=== PATIENT | female | born 1975 | race Hispanic/Latino ===

== ENCOUNTER 2021-04-18 10:07 | Emergency (ER) | payer OTHER ==
[2021-04-18 10:53] LABS: Absolute Lymphocytes (CBC) 2.7 K/uL (0.7-4.9); Hematocrit 36.1 % (36.0-45.0); Lymphocytes % 21.8 % (15.3-44.8); MPV 8.4 fL (7.6-11.3); RBC Red Blood Cell Count 4.06 M/uL (3.86-4.86)
[2021-04-18] MEDS ORDERED: LORazepam 2 MG/ML VIAL ONE (11:13)
--- NOTE | 2021-04-18 11:27 | RAD REPORT ---
EXAM DESCRIPTION: RAD - Hip Left 2 View - 04/18/2021 11:19 am CLINICAL HISTORY: Left hip pain FINDINGS: Old ischial and pubic bone fractures. No acute fracture or dislocation seen. Intramedullary julian has been placed into an old left femoral fracture. Bones are osteoporotic. Screws fuse the SI joints
--- NOTE | 2021-04-18 11:52 | RAD REPORT ---
EXAM DESCRIPTION: CT - Head Brain Wo Cont - 04/18/2021 11:31 am CLINICAL HISTORY: Head injury/confusion COMPARISON: None TECHNIQUE: Computed axial tomography of the head was obtained. IV contrast was not requested. All CT scans are performed using dose optimization technique as appropriate and may include automated exposure control or mA/KV adjustment according to patient size. FINDINGS: An intracranial bleed is not seen . The ventricles are normal in caliber. No extra-axial fluid collection is noted. Fluid within the sinuses/ mastoids is not seen. IMPRESSION: No acute intracranial abnormality is seen. If patient's symptoms persist MRI of the bra in would be recommended.
[2021-04-18] MEDS ORDERED: NA CHLORIDE 0.9% 1,000 ML ONE (12:04)
[2021-04-18 12:21] LABS: Protime INR 1.08
[2021-04-18 13:06] LABS: Urine Blood Trace-intact (Negative); Urine Glucose Negative (Negative); Urine Protein Trace (Negative); Urine Specific Gravity >=1.030 (1.005-1.030); Urine pH 5.5 (5.0-7.0)
[2021-04-18 13:23] LABS: Barbiturates NEGATIVE (NEGATIVE); Benzodiazepines NEGATIVE (NEGATIVE); Cocaine NEGATIVE (NEGATIVE); METHAMPHETAM POSITIVE (NEGATIVE); Methadone NEGATIVE (NEGATIVE); Opiates NEGATIVE (NEGATIVE); Phencyclidine NEGATIVE (NEGATIVE); THC Cannibis NEGATIVE (NEGATIVE)
[2021-04-18 13:44] LABS: ALT/SGPT 22 U/L (12-78); AST/SGOT 24 U/L (15-37); Albumin 3.6 g/dL (3.4-5.0); Alkaline Phosphatase 87 U/L (45-117); BUN Blood Urea Nitrogen 17 mg/dL (7-18); Bicarbonate 27 mmol/L (21-32); Bilirubin Direct 0.2 mg/dL (0-0.2); Bilirubin Total 0.7 mg/dL (0.2-1.0); Glucose Level 101 mg/dL (74-106); Potassium 3.6 mmol/L (3.5-5.1); Protein, Total 8.2 g/dL (6.4-8.2); Sodium Level 141 mmol/L (136-145)
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
[2021-04-18 22:04] VITALS: TEMP 98.2
[2021-04-18 22:27] VITALS: O2SAT 99
[2021-04-18 22:28] VITALS: BP 97/57
--- NOTE | 2021-04-20 07:53 | EKG ---
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
== END 2021-04-18 21:50 ==
LOC: ER 10:07
DX: R45.851 Suicidal ideations (principal); F17.210 Nicotine dependence, cigarettes, uncomplicated; Z20.822 Contact with and (suspected) exposure to COVID-19; Z88.0 Allergy status to penicillin; Z88.8 Allergy status to other drugs, medicaments and biological substances
CPT/HCPCS: 93005; 85025; 80048; 36415; 80320; 80329 ×2; 85610; 82947; 80076; 85730; 81003; 80307; 70450; 73502; 96372; 99285; U0003; J7030

== ENCOUNTER 2021-08-16 09:57 | Emergency (ER) | payer OTHER ==
--- OUTSIDE RECORDS SUMMARY | 2021-08-16 09:59 | XMS REPORT | Continuity of Care Document ---
:1975 Author Organization [facility] t Address [address] [place] [address] Care Team Providers Name Role Phone THIAGO BOYCE Primary Care Physician Unavailable THIAGO BOYCE Attending Clinician Unavailable Doctor Unassigned, Name Attending Clinician Unavailable Thiago Boyce MD Attending Clinician Payers Payer Name Policy Type Policy Number Effective Date Expiration Date [facility] [id number] 2019 00:00:00 Problems Condition Condition Condition Status Onset Resolution Last Treating Co mments Source Name Details Category Date Date Treatment Clinician Date No known No known Disease NPI:1 83 active active [id number] problems problems Allergies, Adverse Reactions, Alerts Allergy Allergy Status Severity Reaction(s) Onset Inactive Treating Comm ents Source Name Type Date Date Clinician 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 tablet gabapentin 2022-0 2022- No 300mg Take 300 N PI:183 300 mg 1-21 01-21 mg by [id number] capsule 16:02: 00:00 mouth 3 48 :00 (three) times daily. busPIRone 2022-0 2022- No 15mg Take 15 mg N PI:183 15 mg -21 -21 by mouth 3 [id number] tablet 16:02: 00:00 (three) 33 :00 times daily. atorvastati 2022-0 Yes 20mg Take 20 mg NPI:183 n 20 mg 1-07 by mouth [id number] tablet 15:04: daily. 25 OXcarbazepi 2022-0 Yes 600mg Take 600 N PI:183 ne 600 mg 1-07 mg by [id number] tablet 15:04: mouth 3 25 (three) times daily. ergocalcife 2022-0 Yes 1{capsu Take 1 N PI:183 rol, 1-07 le} capsule by [id number] vitamin d2, 15:04: mouth 2 1,250 mcg 25 (two) (50,000 times unit) daily. capsule atorvastati 2022-0 Yes 20mg Take 20 mg NPI:183 n 20 mg 1-07 by mouth [id number] tablet 15:04: daily. 25 OXcarbazepi 2022-0 Yes 600mg Take 600 N PI:183 ne 600 mg 1-07 mg by [id number] tablet 15:04: mouth 3 25 (three) times daily. ergocalcife 2022-0 Yes 1{capsu Take 1 N PI:183 rol, 1-07 le} capsule by [id number] vitamin d2, 15:04: mouth 2 1,250 mcg 25 (two) (50,000 times unit) daily. capsule atorvastati Yes 20mg Take 20 mg NPI:183 n 20 mg 1-07 by mouth [id number] tablet 15:04: daily. 25 OXcarbazepi Yes 600mg Take 600 N PI:183 ne 600 mg 1-07 mg by [id number] tablet 15:04: mouth 3 25 (three) times daily. ergocalcife Yes 1{capsu Take 1 N PI:183 rol, 1-07 le} capsule by [id number] vitamin d2, 15:04: mouth 2 1,250 mcg 25 (two) (50,000 times unit) daily. capsule naproxen 2021- No [id number] 500mg Take 1 NPI:183 (NAPROSYN) 04-15 tablet by [id number] 500 mg 00:00: 00:00 mouth 2 tablet 00 :00 (two) times daily with meals. Immunizations Ordered Immunization Filled Immunization Date Status Commen ts Source Name Name SARS-COV-2 COVID-19 2021-03-24 Completed NPI:1 [id number] MODERNA VACCINE 00:00:00 SARS-COV-2 COVID-19 2021-03-24 Completed NPI:1 [id number] MODERNA VACCINE 00:00:00 SARS-COV-2 COVID-19 2021-03-24 Completed NPI:1 [id number] MODERNA VACCINE 00:00:00 Vital Signs Vital Name Observation Time Observation Value Comments Source Systolic blood pressure 2021-04-29 21:50:00 121 mm[Hg] Diastolic blood 2021-04-29 21:50:00 79 mm[Hg] NPI:1 [id number] pressure Heart rate 2021-04-29 21:50:00 86 /min NPI:183 [id number] Body height 2021-04-29 21:50:00 157.5 cm NPI:183 [id number] Body weight 2021-04-29 21:50:00 70.761 kg NPI:1830 [id number] BMI 2021-04-29 21:50:00 28.53 kg/m2 NPI:1831 [id number] Procedures Procedure Date / Time Performed Performing Clinician Sour e EXTERNAL PROVIDER 2021-05-16 06:01:00 Doctor Unassigned, No RECORDS Name Encounters Start End Encounter Admission Attending Care Care Encounter Source Date/Time Date/Time Type Type Clinicians Facility Department ID 2021-09-12 2021-09-12 Outpatient [facility] [id number] NPI:183 10:30:00 10:30:00 BILL [id number] 2021-06-03 2021-06-03 Outpatient [facility] [id number] NPI:183 13:00:00 13:23:49 BILL [id number] 1 2021-06-03 2021-06-03 Outpatient [facility] [id number] NPI:183 13:00:00 13:00:00 BILL [id number] 2021-05-16 2021-05-16 Orders Doctor LACEY [id number] NPI:183 00:00:00 00:00:00 Only Unassigned, AMAYA [id number] [place] [facility] [id number] 2021-05-04 2021-05-04 Telephone [facility] [id number] NPI:183 00:00:00 00:00:00 [facility] [id number] [id number] SHANITA?BLEA [id number] [place] [address] [facility] 2021-04-29 2021-04-29 Office [facility] [id number] NPI:183 16:00:00 16:15:00 Visit [facility] [id number] [facility] [id number] SHANITA?BLEA [phone] [place] [address] [facility] Results This patient has no known results.
[2021-08-16 11:07] LABS: Absolute Lymphocytes (CBC) 1.8 K/uL (0.7-4.9); Hematocrit 41.6 % (36.0-45.0); Lymphocytes % 12.7 % (15.3-44.8); MPV 7.4 fL (7.6-11.3); RBC Red Blood Cell Count 4.63 M/uL (3.86-4.86)
[2021-08-16 11:25] LABS: Albumin 3.6 g/dL (3.4-5.0); Bilirubin Total 0.2 mg/dL (0.2-1.0); Potassium 3.6 mmol/L (3.5-5.1); Protein, Total 8.7 g/dL (6.4-8.2)
[2021-08-16] MEDS ORDERED: ONDANSETRON 4 MG/2 ML VIAL ONE (11:25)
[2021-08-16] MEDS ORDERED: NA CHLORIDE 0.9% 1,000 ML ONE (11:26)
[2021-08-16] MEDS ORDERED: FAMOTIDINE 20 MG/2 ML VIAL IV ONE (11:26)
--- NOTE | 2021-08-16 12:40 | RAD REPORT ---
EXAM DESCRIPTION: CTAbdomen Pelvis W Contrast - 08/16/2021 12:30 pm CLINICAL HISTORY: Abdominal pain. Abdominal pain, acute, nonlocalized COMPARISON: No comparisons TECHNIQUE: Biphasic CT imaging of the abdomen and pelvis was performed with 100 ml non-ionic IV cont rast. All CT scans are performed using dose optimization technique as appropriate and may include automated exposure control or mA/KV adjustment according to patient size. FINDINGS: The lung bases are clear. The liver, pancreas, adrenal glands and kidneys are within normal limits. Absent spleen. No bowel obstruction, free air, free fluid or abscess. The appendix is normal. No evidence of signi ficant lymphadenopathy. Hardware is present in the inferior pelvis. Hardware also noted proximal left femur. Hysterectomy not ed with device in place. IMPRESSION: No acute intra-abdominal or pelvic finding.
--- NOTE | 2021-08-16 13:23 | ER ---
Nurse's Notes [facility] Name: Cindy Ackerman Age: 46 yrs Sex: Female : 1975 Arrival Date: 08/16/2021 Time: 09:58 Bed 9 Private MD: Paulino Boyce Diagnosis: Abdominal pain, unspecified;Vomiting;Diarrhea, unspecified Presentation: 08/16 10:33 Chief complaint: Patient states: N/V/D and UGARTE since yesterday. Coronavirus screen: jl7 diarrhea, headache, nausea, vomiting. Client presents with at least one sign or symptom that may indicate coronavirus-19. Standard/surgical mask placed on the client. Provider contacted for isolation considerations. Ebola Screen: No symptoms or risks identified at this time. Initial Sepsis Screen: Does the patient meet any 2 criteria? No. Patient's initial sepsis screen is negative. Does the patient have a suspected source of infection? No. Patient's initial sepsis screen is negative. Risk Assessment: Do you want to hurt yourself or someone else? Patient reports no desire to harm self or others. Onset of symptoms was August 15, 2021. 10:33 Method Of Arrival: Ambulatory jl7 10:33 Acuity: JEFFY 3 jl7 Triage Assessment: 10:34 General: Appears in no apparent distress. uncomfortable, Behavior is cooperative, jl7 drowsy. Pain: Complains of pain in UGARTE Pain currently is 10 out of 10 on a pain scale. GI: Reports diarrhea, nausea, vomiting. 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 - Social history:: Smoking status: Patient denies any tobacco usage or history of. Vital Signs: 10:33 BP 124 / 87; Pulse 94; Resp 17; Temp 97.8; Pulse Ox 100% ; Weight 72.57 kg; Height 5 jl7 ft. 2 in. (157.48 cm); Pain 10; 10:33 Body Mass Index 29.26 (72.57 kg, 157.48 cm) jl7 ED Course: :58 Patient arrived in ED. am2 09:58 Paulino Boyce MD is Private Physician. am2 10:18 [facility] jmm 10:18 Duarte De La Cruz MD is Attending Physician. jmm 10:34 Triage completed. jl7 10:34 Arm band placed on right wrist. jl7 11:01 Cesia Shane, RN is Primary Nurse. iw 12:32 CT Abd/Pelvis - IV Contrast Only In Process Unspecified. EDMS 13:22 Paulino Boyce MD is Referral Physician. jmm Administered Medications: 11:31 Drug: NS 0.9% 1000 ml Route: IV; Rate: 1 bolus; Site: left antecubital; iw 12:30 Follow up: IV Status: Completed infusion iw 11:31 Drug: Pepcid (famotidine) 20 mg Route: IVP; Site: left antecubital; iw 11:45 Follow up: Response: No adverse reaction iw 11:32 Drug: Zofran (Ondansetron) 4 mg Route: IVP; Site: left antecubital; iw 11:50 Follow up: Response: No adverse reaction iw 13:21 Not Given (Patient Refused): morphine 4 mg IVP once; RASS on ADMIN: Combtv4, Very iw Agttd3, Agttd2, Rstlss1, AlertClm0, Drwsy-1, Lt Sdtn-2, Mod Sdtn-3, Dp Sdtn-4, UnArsble-5 Outcome: 13:23 Discharge ordered by . [facility] 13:32 Patient left the ED. iw Signatures: Dispatcher [employer] EDMS Bennie Mason PA PA Cesia Smith, RN RN iw Jerome Olmos RN RN jl7 Eboni Ford am2
--- NOTE | 2021-08-16 13:23 | EDPHYS ---
Physician Documentation [facility] Name: Cindy Ackerman Age: 46 yrs Sex: Female : 1975 Arrival Date: 08/16/2021 Time: 09:58 Bed 9 Private MD: Paulino Boyce ED Physician Duarte De La Cruz HPI: 08/16 10:39 This 46 yrs old Female presents to ER via Ambulatory with complaints of jmm Diarrhea, Nausea, Headache. 13:10 The patient presents to the emergency department with nausea, vomiting, diarrhea, jmm abdominal pain. Onset: The symptoms/episode began/occurred gradually, 1 day(s) ago. Possible causes: unknown. The symptoms are aggravated by nothing. The symptoms are alleviated by nothing. Associated signs and symptoms: Pertinent negatives: fever. This is a 46 year old female with a history of asthma, bipolar, hlp, htn that presents to the ED with complaints of diffuse abdominal pain, vomiting, diarrhea. Denies recent travel, recent abx use, infectious exposure. . 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 - Social history:: Smoking status: Patient denies any tobacco usage or history of. ROS: 13:10 Constitutional: Negative for fever, chills, and weight loss, Cardiovascular: Negative jmm for chest pain, palpitations, and edema, Respiratory: Negative for shortness of breath, cough, wheezing, and pleuritic chest pain. 13:10 Abdomen/GI: Positive for abdominal pain, nausea and vomiting, diarrhea. 13:10 Neuro: Positive for headache. 13:10 All other systems are negative. Exam: 13:10 Constitutional: This is a well developed, well nourished patient who is awake, alert, jmm and in no acute distress. Head/Face: atraumatic. Eyes: EOMI, no conjunctival erythema appreciated ENT: Moist Mucus Membranes Neck: Trachea midline, Supple Chest/axilla: Normal chest wall appearance and motion. Cardiovascular: Regular rate and rhythm. No edema appreciated Respiratory: Normal respirations, no respiratory distress appreciated 13:10 Back: Normal ROM Skin: General appearance color normal MS/ Extremity: Moves all extremities, no obvious deformities appreciated, no edema noted to the lower extremities Neuro: Awake and alert Psych: Behavior is normal, Mood is normal, Patient is cooperative and pleasant 13:10 Abdomen/GI: Inspection: abdomen appears normal, Bowel sounds: normal, Palpation: soft, moderate abdominal tenderness, in all quadrants. Vital Signs: 10:33 BP 124 / 87; Pulse 94; Resp 17; Temp 97.8; Pulse Ox 100% ; Weight 72.57 kg; Height 5 7 ft. 2 in. (157.48 cm); Pain 01/16; 10:33 Body Mass Index 29.26 (72.57 kg, 157.48 cm) 7 MDM: 10:39 Patient medically screened. [facility] 13:22 Data reviewed: vital signs, nurses notes. Counseling: I had a detailed discussion with [facility] the patient and/or guardian regarding: the historical points, exam findings, and any diagnostic results supporting the discharge/admit diagnosis, lab results, radiology results, the need for outpatient follow up, to return to the emergency department if symptoms worsen or persist or if there are any questions or concerns that arise at home. 08/16 10:40 Order name: CBC with Diff [facility] 08/16 10:40 Order name: CMP; Complete Time: 11:26 [facility] 08/16 10:40 Order name: Lipase; Complete Time: 11: [facility] 08/16 10:42 Order name: CT Abd/Pelvis - IV Contrast Only; Complete Time: 12:55 [facility] 08/16 11:36 Order name: COVID-19 SARS RT PCR (Document "Date of Onset" if Symptomatic); Complete kj1 Time: 13:15 08/16 10:40 Order name: IV Saline Lock; Complete Time: 11:31 [facility] 08/16 10:40 Order name: Labs collected and sent; Complete Time: 11:31 [facility] 08/16 10:40 Order name: Urine Dipstick-Ancillary (obtain specimen) [facility] Administered Medications: 11:31 Drug: NS 0.9% 1000 ml Route: IV; Rate: 1 bolus; Site: left antecubital; iw 12:30 Follow up: IV Status: Completed infusion iw 11:31 Drug: Pepcid (famotidine) 20 mg Route: IVP; Site: left antecubital; iw 11:45 Follow up: Response: No adverse reaction iw 11:32 Drug: Zofran (Ondansetron) 4 mg Route: IVP; Site: left antecubital; iw 11:50 Follow up: Response: No adverse reaction iw 13:21 Not Given (Patient Refused): morphine 4 mg IVP once; RASS on ADMIN: Combtv4, Very iw Agttd3, Agttd2, Rstlss1, AlertClm0, Drwsy-1, Lt Sdtn-2, Mod Sdtn-3, Dp Sdtn-4, UnArsble-5 Disposition: 13:55 Co-signature as Attending Physician, Duarte De La Cruz MD I agree with the assessment and kdr plan of care. Disposition Summary: 08/16/21 13:23 Discharge Ordered Location: Home jm Condition: Stable jmm Diagnosis - Abdominal pain, unspecified jmm - Vomiting jmm - Diarrhea, unspecified jmm Followup: jm - With: Paulino Boyce MD - When: 2 - 3 days - Reason: Recheck today's complaints, Continuance of care, Re-evaluation by your physician Discharge Instructions: - Discharge Summary Sheet jmm - Abdominal Pain, Adult jmm - Food Choices to Help Relieve Diarrhea, Adult jmm - Diarrhea, Adult jmm - Vomiting, Adult jmm Forms: - Medication Reconciliation Form [facility] - Thank You Letter jmm - Antibiotic Education jmm - Prescription Opioid Use [facility] Prescriptions: - ondansetron 4 mg Oral tablet,disintegrating - place 1 tablet by TRANSLINGUAL route every 4-6 hours; 20 tablet; Refills: 0, [facility] Product Selection Permitted - dicyclomine 20 mg Oral Tablet - take 1 tablet by ORAL route 4 times per day; 30 tablet; Refills: 0, Product [facility] Selection Permitted Signatures: Dispatcher [employer] Duarte Watson MD MD kdr Mickail, Joel, PA PA jmm Williams, Irene, RN RN iw Jerome Olmos RN RN jl7
[2021-08-16 13:54] VITALS: BP 124/87; TEMP 97.8; O2SAT 100
== END 2021-08-16 13:32 | disposition home or self-care (01) ==
LOC: ER 09:57
DX: R11.2 Nausea with vomiting, unspecified (principal); R19.7 Diarrhea, unspecified; F31.9 Bipolar disorder, unspecified; I10 Essential (primary) hypertension; Z88.0 Allergy status to penicillin; Z88.6 Allergy status to analgesic agent; Z20.822 Contact with and (suspected) exposure to COVID-19
CPT/HCPCS: 85025; 36415; 83690; 80053; 74177; U0003; Q9967; J7030; J2405; J3490; 96361; 96374; 96375; 99283

== ENCOUNTER 2022-02-27 21:53 | Emergency (ER) | payer OTHER ==
--- OUTSIDE RECORDS SUMMARY | 2022-02-27 21:58 | XMS REPORT | Continuity of Care Document ---
:[address] [facility] t Address [address] [place] [address] Care Team Providers Name Role Phone Bill Boyce MD Primary Care Physician [phone] BOBBY FIELDS Attending Clinician Unavailable Bobby Pfeiffer Attending Clinician BILL BOYCE Attending Clinician Unavailable Bill Boyce MD Attending Clinician NAZANIN GARCIA Attending Clinician Unavailable Nazanin Garcia DO Attending Clinician LUCAS JEAN Attending Clinician Unavailable LUCAS JEAN Attending Clinician Unavailable EMY KING Attending Clinician Unavailable Emy King DO Attending Clinician Doctor Unassigned, [place] Attending Clinician Unavailable NAZANIN GARCIA Admitting Clinician Unavailable EMY KING Admitting Clinician Unavailable Payers Payer Name Policy Type Policy Number Effective Date Expiration Date S ource Problems Condition Condition Condition Status Onset Resolution Last Treating Co mments Source Name Details Category Date Date Treatment Clinician Date No known No known Disease Unive rs active active ity of problems problems [facility] Allergies, Adverse Reactions, Alerts Allergy Allergy Status Severity Reaction(s) Onset Inactive Treating Comm ents Source Name Type Date Date Clinician METHOCAR DRUG Active Hives Univers BAMOL INGREDI 1-07 ity of 00:00: [address] Methocar Propensi Active Hives 2022-0 Univer s bamol ty to 07 ity of adverse 00:00: [place] reaction 00 Medical s Branch Social History Social Habit Start Date Stop Date Quantity Comments Source Exposure to 2022-01-30 2022-02-09 Not sure [facility] SARS-CoV-2 00:00:00 13:28:00 [place] [facility] (event) Branch Tobacco use and 2022-02-09 2022-02-09 Smokeless tobacco Un iversity of exposure 00:00:00 00:00:00 non-user [place] [facility] Alcohol intake 2022-02-09 2022-02-09 Lifetime University of 00:00:00 00:00:00 non-drinker [place] [facility] (finding) Branch Sex [birth year] Universit y of 00:00:00 00:00:00 [place] [facility] [place] Smoking Status Start Date Stop Date Source Tobacco smoking consumption [facility] [place] [facility] unknown Branch Never smoked tobacco [facility] Medical [place] Medications Ordered Filled Start Stop Current Ordering Indication Dosage Frequency Signature Comments Components Source Medication Medication Date Date Medication? Clinician (SIG) Name Name traMADoL 50 2021-04 Yes [id number] 50mg Take 1 Univ ers mg tablet 1-03 tablet by ity o f 00:00: mouth 00 every 4 Medical (four) Branch hours as needed for Pain (scale 7-10). Indication s: acute pain traMADoL 50 2021-04 Yes [id number] 50mg Take 1 Univ ers mg tablet 1-03 tablet by ity o f 00:00: mouth 00 every 4 Medical (four) Branch hours as needed for Pain (scale 7-10). Indication s: acute pain atorvastati 2021-04- No 20mg Take 20 mg Univers n 20 mg 04-09 by mouth ity of tablet 13:34: 00:00 daily. [place] 15 :00 Medical Branch gabapentin 2021-04 No 300mg Take 300 U nivers 300 mg 04-09 mg by ity of capsule 13:34: 00:00 mouth in [place] 15 :00 the Medical morning Branch and 300 mg at noon and 300 mg in the evening. naproxen 2021-04 No 500mg Take 500 Uni vers 500 mg 04-09 mg by ity of tablet 13:34: 00:00 mouth in [place] 15 :00 the Medical morning Branch and 500 mg in the evening. Take with meals. levETIRAcet 2021-04- No 1000mg Take 1,000 Univers am (KEPPRA) 04-09 mg by ity of 1,000 mg 13:34: 00:00 [place] :00 the Medical morning Branch and 1,000 mg in the evening. atorvastati 2021-04- No 20mg Take 20 mg Univers n 20 mg 04-09 by mouth ity of tablet 13:34: 00:00 daily. [place] 15 :00 Medical Branch gabapentin 2021-04 No 300mg Take 300 U nivers 300 mg 04-09 mg by ity of capsule 13:34: 00:00 mouth in [place] 15 :00 the Medical morning Branch and 300 mg at noon and 300 mg in the evening. naproxen 2021-04- No 500mg Take 500 Uni vers 500 mg 04-09 mg by ity of tablet 13:34: 00:00 mouth in [place] 15 :00 the Medical morning Branch and 500 mg in the evening. Take with meals. levETIRAcet 2021-04 No 1000mg Take 1,000 Univers am (KEPPRA) 04-09 mg by ity of 1,000 mg 13:34: 00:00 [facility] tablet [facility] :00 the Medical morning Branch and 1,000 mg in the evening. ergocalcife 2021-04- No 1{capsu Take 1 Univers rol, 04-09 le} capsule by ity of vitamin d2, 13:28: 00:00 mouth 2 [place] 1,250 mcg 39 :00 (two) Medical (50,000 times Branch unit) daily. capsule ergocalcife 2021-04- No 1{capsu Take 1 Univers rol, 04-09 le} capsule by ity of vitamin d2, 13:28: 00:00 mouth 2 [place] 1,250 mcg 39 :00 (two) Medical (50,000 times Branch unit) daily. capsule OXcarbazepi 2021-04- No 600mg Take 600 Univers ne 600 mg 04-09 mg by ity of tablet 13:26: 00:00 mouth 3 [place] 34 :00 (three) Medical times Branch daily. OXcarbazepi 2021-04- No 600mg Take 600 Univers ne 600 mg 1-01 11-01 mg by ity of tablet 13:26: 00:00 mouth 3 [place] 34 :00 (three) Medical times Branch daily. atorvastati 2021-04 Yes [id number] 20mg Take 1 Univers n 20 mg 1-01 tablet by ity of tablet 00:00: mouth in [place] 00 the Medical morning. Branch gabapentin 2021-04 Yes [id number] 300mg Take 1 Univers 300 mg 1-01 capsule by ity of capsule 00:00: mouth in [place] 00 the Medical morning Branch and 1 capsule at noon and 1 capsule in the evening. levETIRAcet 2021-04 Yes [id number] 1000mg Take 1 Univers am (KEPPRA) 1-01 tablet by ity of 1,000 mg 00:00: mouth in [place] tablet 00 the Medical morning Branch and 1 tablet in the evening. naproxen 2021-04 Yes [id number] 500mg Take 1 Un roel 500 mg 1-01 tablet by ity of tablet 00:00: mouth in [place] the Medical morning Branch and 1 tablet in the evening. Take with meals. atorvastati 2021-04 Yes [id number] 20mg Take 1 Univers n 20 mg 1-01 tablet by ity of tablet 00:00: mouth in [place] [address] the Medical morning. Branch gabapentin 2021-04 Yes [id number] 300mg Take 1 Univers 300 mg 1-01 capsule by ity of capsule 00:00: mouth in [place] the Medical morning Branch and 1 capsule at noon and 1 capsule in the evening. levETIRAcet 2021-04 Yes [id number] 1000mg Take 1 Univers am (KEPPRA) 1-01 tablet by ity of 1,000 mg 00:00: mouth in [place] tablet 00 the Medical morning Branch and 1 tablet in the evening. naproxen 2021-04 Yes [id number] 500mg Take 1 Un roel 500 mg 1-01 tablet by ity of tablet 00:00: mouth in [place] [address] the Medical morning Branch and 1 tablet in the evening. Take with meals. atorvastati 2021-04 Yes [id number] 20mg Take 1 Univers n 20 mg 1-01 tablet by ity of tablet 00:00: mouth in [place] 00 the Medical morning. Branch gabapentin 2021-04 Yes [id number] 300mg Take 1 Univers 300 mg 1-01 capsule by ity of capsule 00:00: mouth in [place] 00 the Medical morning Branch and 1 capsule at noon and 1 capsule in the evening. levETIRAcet 2021-04 Yes [id number] 1000mg Take 1 Univers am (KEPPRA) 1-01 tablet by ity of 1,000 mg 00:00: mouth in [place] tablet 00 the Medical morning Branch and 1 tablet in the evening. naproxen 2021-04 Yes [id number] 500mg Take 1 Un roel 500 mg 1-01 tablet by ity of tablet 00:00: mouth in [place] 00 the Medical morning Branch and 1 tablet in the evening. Take with meals. atorvastati 2021-04 Yes [id number] 20mg Take 1 Univers n 20 mg 1-01 tablet by ity of tablet 00:00: mouth in [place] the Medical morning. Branch gabapentin 2021-04 Yes [id number] 300mg Take 1 Univers 300 mg 1-01 capsule by ity of capsule 00:00: mouth in [place] [address] the Medical morning Branch and 1 capsule at noon and 1 capsule in the evening. levETIRAcet 2021-04 Yes [id number] 1000mg Take 1 Univers am (KEPPRA) 1-01 tablet by ity of 1,000 mg 00:00: mouth in [place] tablet 00 the Medical morning Branch and 1 tablet in the evening. naproxen 2021-04 Yes [id number] 500mg Take 1 Un roel 500 mg 1-01 tablet by ity of tablet 00:00: mouth in [place] 00 the Medical morning Branch and 1 tablet in the evening. Take with meals. atorvastati 2021-04 Yes [id number] 20mg Take 1 Univers n 20 mg 1-01 tablet by ity of tablet 00:00: mouth in [place] 00 the Medical morning. Branch gabapentin 2021-04 Yes [id number] 300mg Take 1 Univers 300 mg 1-01 capsule by ity of capsule 00:00: mouth in [place] [address] the Medical morning Branch and 1 capsule at noon and 1 capsule in the evening. levETIRAcet 2021-04 Yes [id number] 1000mg Take 1 Univers am (KEPPRA) 1-01 tablet by ity of 1,000 mg 00:00: mouth in [place] tablet 00 the Medical morning Branch and 1 tablet in the evening. naproxen 2021-04 Yes [id number] 500mg Take 1 Un roel 500 mg 1-01 tablet by ity of tablet 00:00: mouth in [place] 00 the Medical morning Branch and 1 tablet in the evening. Take with meals. atorvastati 2021-04 Yes [id number] 20mg Take 1 Univers n 20 mg 1-01 tablet by ity of tablet 00:00: mouth in [place] [address] the [facility] morning. Branch gabapentin 2021-04 Yes [id number] 300mg Take 1 Univers 300 mg 1-01 capsule by ity of capsule 00:00: mouth in [place] [address] the [facility] morning Branch and 1 capsule at noon and 1 capsule in the evening. levETIRAcet 2021-04 Yes [id number] 1000mg Take 1 Univers am (KEPPRA) 1-01 tablet by ity of 1,000 mg 00:00: mouth in [place] tablet 00 the [facility] morning [place] and 1 tablet in the evening. naproxen 2021-04 Yes [id number] 500mg Take 1 Un roel 500 mg 1-01 tablet by ity of tablet 00:00: mouth in [place] [address] the [facility] morning [place] and 1 tablet in the evening. Take with meals. ibuprofen 2021-04- 600mg 600 mg, Uni vers (IBU) 0-30 10-30 Oral, ity of tablet 600 21:15: 21:11 ONCE, 1 [place] mg 00 :00 dose, On [facility] Branch 02/05/22 at 1615, ELVIS tiZANidine 2021-04 Yes [id number] 4mg Take 1 U nivers 4 mg 0-27 capsule by ity of capsule 00:00: mouth in [place] [address] the Medical morning Branch and 1 capsule at noon and 1 capsule in the evening. tiZANidine 2021-04 Yes [id number] 4mg Take 1 U nivers 4 mg 0-27 capsule by ity of capsule 00:00: mouth in [place] [address] the Medical morning Branch and 1 capsule at noon and 1 capsule in the evening. tiZANidine 2021-04 Yes [id number] 4mg Take 1 U nivers 4 mg 0-27 capsule by ity of capsule 00:00: mouth in [place] [address] the Medical morning Branch and 1 capsule at noon and 1 capsule in the evening. tiZANidine 2021-04 Yes [id number] 4mg Take 1 U nivers 4 mg 0-27 capsule by ity of capsule 00:00: mouth in [place] [address] the [facility] and 1 capsule at noon and 1 capsule in the evening. tiZANidine 2021-04 Yes [id number] 4mg Take 1 U nivers 4 mg 0-27 capsule by ity of capsule 00:00: mouth in [place] [address] the [facility] and 1 capsule at noon and 1 capsule in the evening. tiZANidine 2021-04 Yes [id number] 4mg Take 1 U nivers 4 mg 0-27 capsule by ity of capsule 00:00: mouth in [address] and 1 capsule at noon and 1 capsule in the evening. tiZANidine 2021-04 Yes [id number] 4mg Take 1 U nivers 4 mg 0-27 capsule by ity of capsule 00:00: mouth in [address] and 1 capsule at noon and 1 capsule in the evening. tiZANidine 2021-04 Yes [id number] 4mg Take 1 U nivers 4 mg 0-27 capsule by ity of capsule 00:00: mouth in [address] and 1 capsule at noon and 1 capsule in the evening. ondansetron No 4mg 4 mg, Slow Univers (ZOFRAN 10-12 IV Push, ity of (PF)) 16:00: 15:18 ONCE, 1 [place] injection 4 00 :00 dose, On Medi barbara mg Sun10/12/21 Branch at 1100, Routine iopamidol No [id number] 60mL 60 mL, U nivers (ISOVUE 10-12 Intravenou ity o f 370-500 mL) 15:42: 15:42 s, ONCE, 1 [place] injection 00 :00 dose, On Medica l 60 mL Sun10/12/21 Branch at 1100, Routine NaCl 0.9% No 500mL at 999 Univ ers (NS) bolus 10-12 mL/hr, 500 it y of infusion 15:00: 16:50 mL, IV [place] 500 mL 00 :00 Infusion, Medical ONCE, 1 Branch dose, On Sun10/12/21 at 1000, STAT ondansetron 2022-0 Yes [id number] 4mg Take 1 Univers 4 mg 7-06 tablet by ity of disintegrat 00:00: mouth [place] ing tablet 00 every 8 Medica l (eight) Branch hours as needed for Nausea and Vomiting (N/V). dicyclomine 2022-0 Yes [id number] 20mg Take 1 Univers 20 mg 7-06 tablet by ity of tablet 00:00: mouth 4 [place] 00 (four) Medical times Branch daily. ondansetron 2022-0 Yes [id number] 4mg Take 1 Univers 4 mg 7-06 tablet by ity of disintegrat 00:00: mouth [place] ing tablet 00 every 8 Medica l (eight) Branch hours as needed for Nausea and Vomiting (N/V). dicyclomine 2022-0 Yes [id number] 20mg Take 1 Univers 20 mg 7-06 tablet by ity of tablet 00:00: mouth 4 [place] 00 (four) Medical times Branch daily. ondansetron 2022-0 Yes [id number] 4mg Take 1 Univers 4 mg 7-06 tablet by ity of disintegrat 00:00: mouth [place] ing tablet 00 every 8 Medica l (eight) Branch hours as needed for Nausea and Vomiting (N/V). dicyclomine 2022-0 Yes [id number] 20mg Take 1 Univers 20 mg 7-06 tablet by ity of tablet 00:00: mouth 4 [place] 00 (four) Medical times Branch daily. ondansetron 2022-0 2022- No [id number] 4mg Take 1 Univers 4 mg 7-06 11-01 tablet by ity of disintegrat 00:00: 00:00 [place] tablet 00 :00 every 8 Medica l (eight) Branch hours as needed for Nausea and Vomiting (N/V). dicyclomine 2022-0 2022- No [id number] 20mg Take 1 Univers 20 mg 7-06 11-01 tablet by ity of tablet 00:00: 00:00 mouth 4 [place] 00 :00 (four) Medical times Branch daily. ondansetron 2022-0 2022- No [id number] 4mg Take 1 Univers 4 mg 7-06 11-01 tablet by ity of disintegrat 00:00: 00:00 [place] tablet 00 :00 every 8 Medica l (eight) Branch hours as needed for Nausea and Vomiting (N/V). dicyclomine 2021- No [id number] 20mg Take 1 Univers 20 mg 10-12 tablet by ity of tablet 00:00: 00:00 mouth 4 [place] 00 :00 (four) Medical times Branch daily. sulfamethox 2021-0 Yes 1{tbl} Take 1 Un roel azole-trime 1-21 tablet by ity of thoprim 16:03: mouth 2 [place] (BACTRIM 16 (two) Medical DS) 800-160 times Branch mg per daily. tablet sulfamethox 2021-0 Yes 1{tbl} Take 1 Un roel azole-trime 1-21 tablet by ity of thoprim 16:03: mouth 2 [place] (BACTRIM 16 (two) Medical DS) 800-160 times Branch mg per daily. tablet sulfamethox 2021-0 Yes 1{tbl} Take 1 Un roel azole-trime 1-21 tablet by ity of thoprim 16:03: mouth 2 [place] (BACTRIM 16 (two) Medical DS) 800-160 times Branch mg per daily. tablet gabapentin 2021- No 300mg Take 300 U nivers 300 mg -21 -21 mg by ity of capsule 16:02: 00:00 mouth 3 [place] 48 :00 (three) Medical times Branch daily. busPIRone 2021- No 15mg Take 15 mg U nivers 15 mg -29 04-21 by mouth 3 ity of tablet 16:02: 00:00 (three) [place] 33 :00 times Medical daily. Branch atorvastati Yes 20mg Take 20 mg Univers n 20 mg 1-07 by mouth ity of tablet 15:04: daily. [place] 25 Medical Branch OXcarbazepi 2021-0 Yes 600mg Take 600 U nivers ne 600 mg 1-07 mg by ity of tablet 15:04: mouth 3 [place] 25 (three) Medical times Branch daily. ergocalcife 2021-0 Yes 1{capsu Take 1 U nivers rol, 1-07 le} capsule by ity of vitamin d2, 15:04: mouth 2 [place] 1,250 mcg 25 (two) Medical (50,000 times Branch unit) daily. capsule atorvastati 2022-0 Yes 20mg Take 20 mg Univers n 20 mg 1-07 by mouth ity of tablet 15:04: daily. [address] OXcarbazepi 2022-0 Yes 600mg Take 600 U nivers ne 600 mg 1-07 mg by ity of tablet 15:04: mouth 3 [place] 25 (three) Medical times Branch daily. ergocalcife 2022-0 Yes 1{capsu Take 1 U nivers rol, 1-07 le} capsule by ity of vitamin d2, 15:04: mouth 2 [place] 1,250 mcg 25 (two) Medical (50,000 times Branch unit) daily. capsule atorvastati 2022-0 Yes 20mg Take 20 mg Univers n 20 mg 1-07 by mouth ity of tablet 15:04: daily. [address] OXcarbazepi 2022-0 Yes 600mg Take 600 U nivers ne 600 mg 1-07 mg by ity of tablet 15:04: mouth 3 [place] 25 (three) Medical times Branch daily. ergocalcife 2022-0 Yes 1{capsu Take 1 U nivers rol, 1-07 le} capsule by ity of vitamin d2, 15:04: mouth 2 [place] 1,250 mcg 25 (two) Medical (50,000 times Branch unit) daily. capsule atorvastati 2022-0 Yes 20mg Take 20 mg Univers n 20 mg 1-07 by mouth ity of tablet 15:04: daily. [address] OXcarbazepi 2022-0 Yes 600mg Take 600 U nivers ne 600 mg 1-07 mg by ity of tablet 15:04: mouth 3 [place] 25 (three) Medical times Branch daily. ergocalcife 2022-0 Yes 1{capsu Take 1 U nivers rol, 1-07 le} capsule by ity of vitamin d2, 15:04: mouth 2 [place] 1,250 mcg 25 (two) Medical (50,000 times Branch unit) daily. capsule atorvastati 2022-0 Yes 20mg Take 20 mg Univers n 20 mg 1-07 by mouth ity of tablet 15:04: daily. [address] OXcarbazepi 2022-0 Yes 600mg Take 600 U nivers ne 600 mg 1-07 mg by ity of tablet 15:04: mouth 3 [place] 25 (three) Medical times Branch daily. ergocalcife 2022-0 Yes 1{capsu Take 1 U nivers rol, 1-07 le} capsule by ity of vitamin d2, 15:04: mouth 2 [place] 1,250 mcg 25 (two) Medical (50,000 times Branch unit) daily. capsule atorvastati 2022-0 Yes 20mg Take 20 mg Univers n 20 mg 1-07 by mouth ity of tablet 15:04: daily. [address] OXcarbazepi 2022-0 Yes 600mg Take 600 U nivers ne 600 mg 1-07 mg by ity of tablet 15:04: mouth 3 [place] 25 (three) Medical times Branch daily. ergocalcife 2022-0 Yes 1{capsu Take 1 U nivers rol, 1-07 le} capsule by ity of vitamin d2, 15:04: mouth 2 [place] 1,250 mcg 25 (two) Medical (50,000 times Branch unit) daily. capsule atorvastati 2-0 Yes 20mg Take 20 mg Univers n 20 mg 1-07 by mouth ity of tablet 15:04: daily. [address] OXcarbazepi 2-0 Yes 600mg Take 600 U nivers ne 600 mg 1-07 mg by ity of tablet 15:04: mouth 3 [place] 25 (three) Medical times Branch daily. ergocalcife 2022-0 Yes 1{capsu Take 1 U nivers rol, 1-07 le} capsule by ity of vitamin d2, 15:04: mouth 2 [place] 1,250 mcg 25 (two) Medical (50,000 times Branch unit) daily. capsule atorvastati 2022-0 Yes 20mg Take 20 mg Univers n 20 mg 1-07 by mouth ity of tablet 15:04: daily. [address] OXcarbazepi 2022-0 Yes 600mg Take 600 U nivers ne 600 mg 1-07 mg by ity of tablet 15:04: mouth 3 [place] 25 (three) Medical times Branch daily. ergocalcife 2022-0 Yes 1{capsu Take 1 U nivers rol, 1-07 le} capsule by ity of vitamin d2, 15:04: mouth 2 [place] 1,250 mcg 25 (two) Medical (50,000 times Branch unit) daily. capsule naproxen 2021- No [id number] 500mg Take 1 Univers (NAPROSYN) 04-15 tablet by ity of 500 mg 00:00: 00:00 mouth 2 [place] tablet 00 :00 (two) Medical times Branch daily with meals. Immunizations Ordered Filled Immunization Date Status Comments [facility] Immunization Name Name Influenza Virus 2022-02-07 Completed Universit y of Vaccine Quad IM, 00:00:00 [place] Me dical Preserv and ABX Branch Free 6 MO-64 YRS Influenza Virus 2022-02-07 Completed Universit y of Vaccine [facility] IM, 00:00:00 [place] Me dical Preserv and ABX Branch Free 6 MO-64 YRS Influenza Virus 2022-02-07 Completed Universit y of Vaccine [facility] IM, 00:00:00 [place] Me dical Preserv and ABX Branch Free 6 MO-64 YRS Influenza Virus 2022-02-07 Completed Universit y of Vaccine [facility] IM, 00:00:00 [place] Me dical Preserv and ABX Branch Free 6 MO-64 YRS Influenza Virus 2022-02-07 Completed Universit y of Vaccine [facility] IM, 00:00:00 [place] Me dical Preserv and ABX Branch Free 6 MO-64 YRS Influenza Virus 2022-02-07 Completed Universit y of Vaccine [facility] IM, 00:00:00 [place] Me dical Preserv and ABX Branch Free 6 MO-64 YRS SARS-COV-2 COVID-19 2021-03-24 Completed Unive rsity of MODERNA VACCINE 00:00:00 [facility] SARS-COV-2 COVID-19 2021-03-24 Completed Unive rsity of MODERNA VACCINE 00:00:00 [facility] SARS-COV-2 COVID-19 2021-03-24 Completed Unive rsity of MODERNA VACCINE 00:00:00 [facility] SARS-COV-2 COVID-19 2021-03-24 Completed Unive rsity of MODERNA VACCINE 00:00:00 [facility] SARS-COV-2 COVID-19 2021-03-24 Completed Unive rsity of MODERNA VACCINE 00:00:00 [place] Med ical Branch SARS-COV-2 COVID-19 2021-03-24 Completed Unive rsity of MODERNA VACCINE 00:00:00 [place] Med ical Branch SARS-COV-2 COVID-19 2021-03-24 Completed Unive rsity of MODERNA 12+ YRS 00:00:00 [place] Med ical VACCINE Branch SARS-COV-2 COVID-19 2021-03-24 Completed Unive rsity of MODERNA 12+ YRS 00:00:00 [place] Med ical VACCINE Branch SARS-COV-2 COVID-19 2021-03-24 Completed Unive rsity of MODERNA 12+ YRS 00:00:00 [place] Med ical VACCINE Branch SARS-COV-2 COVID-19 2021-03-24 Completed Unive rsity of MODERNA 12+ YRS 00:00:00 [place] Med ical VACCINE Branch SARS-COV-2 COVID-19 2021-03-24 Completed Unive rsity of MODERNA 12+ YRS 00:00:00 [place] Med ical VACCINE Branch SARS-COV-2 COVID-19 2021-03-24 Completed Unive rsity of MODERNA 12+ YRS 00:00:00 [place] Med ical VACCINE Branch SARS-COV-2 COVID-19 2021-03-24 Completed Unive rsity of MODERNA 12+ YRS 00:00:00 [place] Med ical VACCINE Branch SARS-COV-2 COVID-19 2021-03-24 Completed Unive rsity of MODERNA 12+ YRS 00:00:00 [place] Med ical VACCINE Branch Vital Signs Vital Name Observation Time Observation Value Comments Source Body height 2022-02-09 18:33:00 157.5 cm [facility] Body weight 2022-02-09 18:33:00 68.04 kg [facility] BMI 2022-02-09 18:33:00 27.44 kg/m2 [facility] Systolic blood 2022-02-07 18:21:00 120 mm[Hg] Univer sity of pressure [facility] Diastolic blood 2022-02-07 18:21:00 78 mm[Hg] Unive rsity of pressure [facility] Heart rate 2022-02-07 18:20:00 82 /min [facility] Body weight 2022-02-07 18:20:00 68.04 kg Universi ty [facility] [place] [facility] BMI 2022-02-07 18:20:00 27.44 kg/m2 [facility] [place] [facility] Systolic blood 2022-02-05 21:04:00 92 mm[Hg] Univer sity of pressure [place] [facility] Diastolic blood 2022-02-05 21:04:00 66 mm[Hg] Unive rsity of pressure [place] [facility] Heart rate 2022-02-05 21:04:00 96 /min Universi ty [facility] [place] [facility] Respiratory rate 2022-02-05 21:04:00 16 /min Univ ersity of [place] [facility] Oxygen saturation in 2022-02-05 21:04:00 97 /min University of Arterial blood by [place] [employer] [facility] Pulse oximetry Branch Systolic blood 2022-02-02 20:32:00 108 mm[Hg] Univer sity of pressure [place] [facility] Diastolic blood 2022-02-02 20:32:00 72 mm[Hg] Unive rsity of pressure [place] [facility] Heart rate 2022-02-02 20:32:00 95 /min [facility]i ty [facility] [place] [facility] Respiratory rate 2022-02-02 20:32:00 18 /min Univ ersity of [place] [facility] Oxygen saturation in 2022-02-02 20:32:00 100 /min University of Arterial blood by [place] [employer] [facility] Pulse oximetry Branch Body temperature 2022-02-02 16:01:00 36.61 [place] Univ ersity of [place] [facility] Body height 2022-02-02 16:01:00 157.5 cm Universi ty [facility] [place] [facility] Body weight 2022-02-02 16:01:00 69.854 kg [facility] [place] [facility] BMI 2022-02-02 16:01:00 28.17 kg/m2 [facility] [place] [facility] Systolic blood 2021-10-12 16:00:00 105 mm[Hg] Univer sity of pressure [place] [facility] Diastolic blood 2021-10-12 16:00:00 72 mm[Hg] Unive rsity of pressure [place] [facility] Heart rate 2021-10-12 16:00:00 79 /min Universi ty [facility] [place] [facility] Respiratory rate 2021-10-12 16:00:00 18 /min Univ ersity of [place] [facility] Oxygen saturation in 2021-10-12 16:00:00 96 /min [facility] Arterial blood by [facility] Pulse oximetry Branch Body temperature 2021-10-12 14:49:00 36.67 [place] [facility] 2021-10-12 14:49:00 157[facility]5 cm [facility] Body weight 2021-10-12 14:49:00 70.217 kg Universi [facility] BMI 2021-10-12 14:49:00 28.31 kg/m2 Universi [facility] Systolic blood 2021-04-29 21:50:00 121 mm[Hg] Univer sity of pressure [facility] Diastolic blood 2021-04-29 21:50:00 79 mm[facility]Hg[facility] 2021-04-29 21:50:00 86 /min [facility] Body height 2021-04-29 21:50:[facility] 2021-04-29 21:50:00 70.761 [facility] BMI 2021-04-29 21:50:00 28.53 kg/m2 [facility] Procedures Procedure Date / Time Performed Performing Clinician Sourc e FLU VACC (2628-1023), 2022-02-07 18:34:13 Bill Boyce [facility] 6 MO-64 YRS, .5ML, IM, Medical B ranch QUAD (FLUCELVAX) AR APPLY LONG ARM 2022-02-05 22:12:29 Nazanin Garcia [facility] SPLINT [facility] XR ELBOW <3 VW LEFT 2022-02-05 21:44:32 Nazanin Garcia [facility] XR SHOULDER 2+ VW LEFT 2022-02-05 21:44:32 [facility]+ VW LEFT 2022-02-05 21:44:32 Nazanin Garcia [facility] CONSENT/REFUSAL FOR 2022-02-05 20:55:21 Doctor Unassigned, [facility] Branch TREATMENT CONSENT/REFUSAL FOR 2022-02-02 15:57:16 Doctor Unassigned, No [facility] AND Name Medical Branch TREATMENT CT ABDOMEN PELVIS W 2021-10-12 15:50:00 Emy King [facility] CONTRAST Medical Branch URINALYSIS 2021-10-12 15:22:00 Singer [facility] o [facility] Branch LIPASE 2021-10-12 15:18:00 Singer [facility] COMP. METABOLIC PANEL 2021-10-12 15:18:[address] [facility] ([id number] Medical Branch CBC WITH DIFF 2021-10-12 15:18:00 King, [facility] NOTICE OF PRIVACY 2021-10-12 14:44:50 Doctor Unassigned, No [facility] Name [facility] Branch CONSENT/REFUSAL FOR 2021-10-12 14:44:33 Doctor Unassigned, No [facility] AND Name Medical Branch TREATMENT EXTERNAL PROVIDER 2021-08-24 05:01:00 Doctor Unassigned, No [facility] REC[facility] Name Medical Branch EXTERNAL PROVIDER 2021-05-16 06:01:00 Doctor Unassigned, No [facility] RECORDS Name Medical [place] Encounters Start End Encounter Admission Attending Care Care Encounter Source Date/Time Date/Time Type Type Clinicians Facility Department ID 2022-02-21 2022-02-21 [facility] [id number] Univers 00:00:00 00:00:00 [facility] 350..13.10 it y of [place] 4.2.7.2.686 John as SHANITA?BLEA [id number] [place] [address] MEDICAL OFFICE BUILDING 2022-02-20 2022-02-20 Outpatient R DIAMOND [facility] [id number] Univers 15:15:00 15:15:00 [facility] 2022-02-09 2022-02-09 Office [facility] [id number] Univers 13:45:00 14:15:00 Visit [facility] 350..13.10 it y of [place] 4.2.7.2.686 John as SHANITA?BLEA [id number] [place] 198 [facility] OFFICE [facility] 2022-02-09 2022-02-09 Outpatient Miguel Ágnel [facility]OND [facility] [id number] Univers 13:45:00 14:14:48 BOBBY hilario [facility] 2022-02-07 2022-02-07 Outpatient Miguel Ángel ABHILASH [facility] [id number] Univers 13:30:00 13:49:35 BILL hilario [facility] 2022-02-07 2022-02-07 Office [facility] [id number] Univers 13:30:00 13:49:35 Visit [facility] 350.1.13.10 it y of [place] 4.2.7.2.686 John as SHANITA?BLEA [id number] [place] 044 [facility] 2022-02-05 2022-02-05 Emergency X JOSE [facility] [id number] Univers 16:08:00 17:27:00 NAZANIN leonchin [facility] 2022-02-05 2022-02-05 Emergency [facility] [id number] Univers 16:08:00 17:27:00 Nazanin BLAIR 350.1.13.10 ity of [facility] 4.2.7.2.686 [facility] [id number] [address] 2022-02-02 2022-02-02 Emergency X LUCAS JEAN [facility] ERT 1 [id number] Univers 11:02:00 15:34:00 LUCAS JEAN [facility] 2022-02-02 2022-02-02 Emergency [facility] [id number] Univers 11:02:00 15:34:00 Lucas BLAIR 350.1.13.10 i ty of [facility] 4.2.7.2.686 [place] [id number] [address] 2022-01-09 2022-01-09 Outpatient [facility] [id number] Univers 13:45:00 13:45:00 BILL rich [facility] 2021-10-12 2021-10-12 Emergency X SINGER [facility] ERT [id number] Univers 09:51:00 11:54:00 EMY rich [facility] 2021-10-12 2021-10-12 Emergency [facility] [id number] Univers 09:51:00 11:54:00 Emy ROSSY 350.1.13.10 i ty of [place] 4.2.7.2.686 [place] [id number] [place] [id number] [place] 2021-10-12 2021-10-12 Orders Doctor ABHIJIT 1.2.840.114 [id number] Univers 00:00:00 00:00:00 Only Unassigned, AMAYA 350.1.13.10 ity of [place] [facility] 4.2.7.2.686 John as [id number] [address] 2021-09-12 2021-09-12 [facility] [id number] Univers 10:30:00 10:30:00 BILL rich [facility] 2021-08-24 2021-08-24 Orders Doctor LACEY 1.2.840.114 [id number] Univers 00:00:00 00:00:00 Only Unassigned, AMAYA 350.1.13.10 ity of [place] [facility] 4.2.7.2.686 John as [id number] [address] 2021-06-03 2021-06-03 [facility] [id number] Univers 13:00:00 13:23:49 BILL rich [facility] 2021-05-16 2021-05-16 Orders Doctor LACEY 1.2.840.114 [id number] Univers 00:00:00 00:00:00 Only Unassigned, AMAYA 350.1.13.10 ity of [place] [facility] 4.2.7.2.686 John as [id number] [address] 2021-05-04 2021-05-04 [facility] 1.2.840.114 [id number] Univers 00:00:00 00:00:00 Bill [facility] 350.1.13.10 it y of [place] 4.2.7.2.686 John as SHANITA?BLEA [id number] [address] OFFICE [facility] 2021-04-29 2021-04-29 Office [facility] 1.2.840.114 [id number] Univers 16:00:00 16:15:00 Visit [facility] 350.1.13.10 it y of [place] 4.2.7.2.686 John as SHANITA?BLEA [id number] [address] OFFICE [facility] 2021-04-29 2021-04-[address] [facility] [id number] Univers 16:00:00 16:00:00 BILL ity [facility] 2021-04-29 2021-04-29 Orders Doctor ABHIJIT 1.2.840.114 [id number] Univers 00:00:00 00:00:00 Only Unassigned, AMAYA 350.1.13.10 ity of [place] [facility] 4.2.7.2.686 John as [id number] [address] 2021-04-22 2021-04-[address] [facility] [id number] Univers 08:00:00 08:00:00 BILL ity [facility] 2021-04-22 2021-04-22 Telephone [facility] 1.2.840.114 [id number] Univers 00:00:00 00:00:00 [facility] 350.1.13.10 it y of [place] 4.2.7.2.686 John as SHANITA?BLEA [id number] [address] OFFICE [facility] 2021-04-15 2021-04-15 Office [facility] 1.2.840.114 [id number] Univers 15:30:00 16:00:00 Visit [facility] 350.1.13.10 it y of [place] 4.2.7.2.686 John as SHANITA?BLEA [id number] [address] OFFICE [facility] 2021-04-15 2021-04-[address] [facility] [id number] Univers 15:30:00 15:30:00 BILL [facility] 2021-04-15 2021-04-15 Outpatient Miguel Ángel BOYCE, [facility] [id number] Univers 15:30:00 15:30:00 [facility] Results Test Description Test Time Test Comments Results Result Comments Source COMP. METABOLIC PANEL (88819) 2021-10-12 15:45:46 Test Item Value Reference Range Interpretation Comme nts NA (test code = 1437162479) 139 mmol/L 135-145 K (test code = 0348478289) 4.5 mmol/L 3.5-5.0 CL (test code = 6619050174) 99 mmol/L 98-108 CO2 TOTAL (test code = 6309716798) 30 mmol/L 23-31 AGAP (test code = 8232299052) 2-16 BUN (test code = 3286286685) 16 mg/dL 7-23 GLUCOSE (test code = 6250129294) 119 mg/dL 70-110 H CREATININE (test code = 0.66 mg/dL 0.50-1.04 7617564662) TOTAL BILI (test code = 0.4 mg/dL 0.1-1.9 7839921172) CALCIUM (test code = 3844543865) 10.0 mg/dL 8.6-10.6 T PROTEIN (test code = 3302870216) 8.6 g/dL 6.3-8.2 H ALBUMIN (test code = 6086177169) 4.7 g/dL 3.5-5.0 ALK PHOS (test code = 0183689089) 94 U/L 34-122 ALTv (test code = 1742-6) 17 U/L 5-35 AST(SGOT) (test code = 6422415249) 23 U/L 13-40 eGFR (test code = 2417695968) mL/min/1.73m2 SHE (test code = SHE) Association of Glomerular Filtration Rate (GFR) and Staging of Kidney Disease* + +-------- + ------+| GFR (mL/min/1.73 m2) ?| With Kidney Damage ?| ?Without Kidney Damage+ +-- + +| ?>90 ?| ?Stage one ?| ? Normal ?+ +------- + -------+| ?60-89 ?| ?Stage two ?| ? Decreased GFR ? + +-------- + ------+| ?30-59 ?| ?Stage three ?| ? Stage three ? + +-------- + ------+| ?15-29 ?| ?Stage four ? | ? Stage four ?+ +------- + -------+| ?<15 (or dialysis) ? ?| ?Stage five ? | ? Stage five ?+ +------- + -------+ *Each stage assumes the associated GFR level has been in effect for at least three months. ?Stages 1 to 5, with or without kidney disease, indicate chronic kidney disease. Notes: Determination of stages one and two (with eGFR >59mL/min/1.73 m2) requires estimation of kidney damage for at least three months as defined by structural or functional abnormalities of the kidney, manifested by either:Pathological abnormalities or Markers of kidney damage (including abnormalities in the composition of the blood or urine or abnormalities in imaging tests). Lab Interpretation (test code = Abnormal 88871-0) [facility] 15[facility]45:25 Test Item Value Reference Range Interpretation Comments LIPASE (test code = 9102215657) 86 U/L 0-220 Lab Interpretation (test code = Normal 22088-0) [facility] WITH [id number] 15:31:02 Test Item Value Reference Range Interpretation Comments WBC (test code = See_Comment H [Automated 8178-2) message] The system which generated this result transmit ann reference range : 4.30 - 11.10 10*3/?L. The reference range was not used to interpret this result as normal/abnormal . RBC (test code = See_Comment [Automated 251-8) message] The system which generated this result transmit ann reference range : 3.93 - 5.25 10*6/?L. The reference range was not used to interpret this result as normal/abnormal . HGB (test code = 13.9 g/dL 11.6-15.0 718-7) HCT (test code = 42.0 % 35.7-45.2 4544-3) MCV (test code = 88.8 fL 80.6-95.5 787-2) MCH (test code = 29.4 pg 25.9-32.8 785-6) MCHC (test code = 33.1 g/dL 31.6-35.1 786-4) RDW-SD (test code = 44.6 fL 39.0-49.9 26049-6) RDW-CV (test code = 13.7 % 12.0-15.5 788-0) PLT (test code = See_Comment H [Automated 777-3) message] The system which generated this result transmit ann reference range : 166 - 358 10*3/ ?L. The reference range was not u sed to interpret th is result as normal/abnormal . MPV (test code = 10.0 fL 9.5-12.9 31004-0) NRBC/100 WBC (test See_Comment [Automat ed code = 3627872950) message] The system which generated this result transmit ann reference range : 0.0 - 10.0 /100 WBCs. The reference range was not used to interpret this result as normal/abnormal . NRBC x10^3 (test code <0.01 See_Comment [Auto mated = 1081273455) message] The system which generated this result transmit ann reference range : 10*3/?L. The reference range was not used to interpret this result as normal/abnormal . GRAN MAT (NEUT) % 78.7 % (test code = 770-8) IMM GRAN % (test code 0.60 % = 4670351905) LYMPH % (test code = 12.7 % 736-9) MONO % (test code = 7.2 % 5905-5) EOS % (test code = 0.3 % 713-8) BASO % (test code = 0.5 % 706-2) GRAN MAT x10^3(ANC) 12.40 10*3/uL 1.88-7.09 H (test code = 7971782165) IMM GRAN x10^3 (test 0.09 10*3/uL 0.00-0.06 H code = 1773435454) LYMPH x10^3 (test code 2.00 10*3/uL 1.32-3.29 = 731-0) MONO x10^3 (test code 1.14 10*3/uL 0.33-0.92 H = 742-7) EOS x10^3 (test code = 0.04 10*3/uL 0.03-0.39 711-2) BASO x10^3 (test code 0.08 10*3/uL 0.01-0.07 H = 704-7) Lab Interpretation Abnormal (test code = 36481-6) [facility]"
--- NOTE | 2022-02-27 23:17 | ER ---
Nurse's Notes [facility] Name: Cindy Ackerman Age: 47 yrs Sex: Female : 1975 Arrival Date: 02/27/2022 Time: 21:57 Bed 13 Private MD: Diagnosis: Encounter for examination and observation for unspecified reason Presentation: 02/27 22:19 Chief complaint: Patient states: Pt reports she broke her elbow 2 weeks ago and had an kb3 ortho appointment today which she missed. PT is requesting to have her splint replaced because it is falling off. Coronavirus screen: Vaccine status: Patient reports receiving the 2nd dose of the covid vaccine. Client denies travel out of the [place] in the last 14 days. Ebola Screen: Patient negative for fever greater than or equal to 101.5 degrees Fahrenheit, and additional compatible Ebola Virus Disease symptoms Patient denies exposure to infectious person. Patient denies travel to an Ebola-affected area in the 21 days before illness onset. Initial Sepsis Screen: Does the patient meet any 2 criteria? No. Patient's initial sepsis screen is negative. Does the patient have a suspected source of infection? No. Patient's initial sepsis screen is negative. Risk Assessment: Do you want to hurt yourself or someone else? Patient reports no desire to harm self or others. Onset of symptoms was February 13, 2022. 22:19 Method Of Arrival: Ambulatory kb3 22:19 Acuity: JEFFY 4 kb3 Triage Assessment: 22:22 General: Appears in no apparent distress. Behavior is calm, cooperative. Pain: Denies kb3 pain. 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 - Social history:: Smoking status: Patient denies any tobacco usage or history of. Screenin:41 Abuse screen: Denies threats or abuse. Nutritional screening: No deficits noted. vc1 Tuberculosis screening: No symptoms or risk factors identified. Fall Risk None identified. Vital Signs: 22:19 BP 127 / 86; Pulse 100; Resp 20; Temp 98; Pulse Ox 100% ; Weight 68.04 kg; Height 5 ft. kb3 2 in. (157.48 cm); Pain 0/10; 22:19 Body Mass Index 27.44 (68.04 kg, 157.48 cm) kb3 ED Course: 21:57 Patient arrived in ED. bp1 21:58 Obed Arriola PA is PHCP. cp 21:58 Obed Bellamy MD is Attending Physician. cp 22:22 Triage completed. kb3 22:22 Arm band placed on right wrist. kb3 23:40 Orthoglass splint: posterior long arm splint applied to the left arm. mb4 23:42 No provider procedures requiring assistance completed. Patient did not have IV access vc1 during this emergency room visit. Administered Medications: 23:41 Drug: [place] (HYDROcodone-acetaminophen) (7.5 mg-325 mg) 1 tabs Route: PO; vc1 23:41 Follow up: Response: Medication administered at discharge. vc1 Medication: 23:42 VIS not applicable for this client. vc1 Outcome: 23:17 Discharge ordered by MD. cp 23:42 Discharged to home ambulatory. vc1 23:42 Condition: good 23:42 Discharge instructions given to patient, Instructed on discharge instructions, follow up and referral plans. Demonstrated understanding of instructions, follow-up care. 23:42 Patient left the ED. vc1 Signatures: Obed Arriola PA PA cp Liza Sin mb4 Reba Vallecillo Vanessa RN RN vc1 Paulina Llanos, HUBERT RN kb3
--- NOTE | 2022-02-27 23:17 | EDPHYS ---
Physician Documentation [facility] Name: Cindy Ackerman Age: 47 yrs Sex: Female : 1975 Arrival Date: 02/27/2022 Time: 21:57 Bed 13 Private MD: ED Physician Obed Bellamy HPI: 02/27 22:50 This 47 yrs old Female presents to ER via Ambulatory with complaints of Arm cp Injury, Elbow Injury. 22:50 The patient or guardian complains of replacement of left elbow splint. cp 22:50 Patient presents to ED requesting replacement of left elbow splint. Reports missing cp ortho appointment today for left elbow fracture sustained from fall 2 weeks ago. No other requests and/or complaints. 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 - Social history:: Smoking status: Patient denies any tobacco usage or history of. ROS: 22:55 Constitutional: Negative for body aches, chills, fever, poor PO intake. cp 22:55 Neck: Negative for pain with movement, pain at rest, stiffness. cp 22:55 Cardiovascular: Negative for chest pain. 22:55 Back: Negative for pain at rest, pain with movement. 22:55 MS/extremity: Positive for pain, swelling, tenderness, of the left elbow, Negative for decreased range of motion, paresthesias. 22:55 All other systems are negative. Exam: 23:00 Constitutional: The patient appears in no acute distress, alert, awake, non-toxic, well cp developed, well nourished. 23:00 Head/Face: Normocephalic, atraumatic. cp 23:00 Chest/axilla: Inspection: normal. 23:00 Cardiovascular: Rate: tachycardic. 23:00 Respiratory: the patient does not display signs of respiratory distress, Respirations: normal, no use of accessory muscles, no retractions, labored breathing, is not present. 23:00 Musculoskeletal/extremity: Extremities: grossly normal except: noted in the left elbow: pain, swelling, tenderness, ROM: limited passive range of motion due to pain, in the left elbow, Pulses: noted to be 2+ in the left radial artery, the left hand and left arm Sensation intact. Vital Signs: 22:19 BP 127 / 86; Pulse 100; Resp 20; Temp 98; Pulse Ox 100% ; Weight 68.04 kg; Height 5 ft. kb3 2 in. (157.48 cm); Pain 0/10; 22:19 Body Mass Index 27.44 (68.04 kg, 157.48 cm) kb3 Procedures: 23:25 Splinting: Splint applied to left elbow using Orthoglass splint, posterior elbow. cp applied by nurse. Examined by me, post splint application: neurovascular intact, Patient tolerated well. MDM: 22:31 Patient medically screened. mary 23:00 Differential diagnosis: dislocation, closed fracture, contusion. cp 23:17 Data reviewed: vital signs, nurses notes. cp 23:17 Counseling: I had a detailed discussion with the patient and/or guardian regarding: the cp historical points, exam findings, and any diagnostic results supporting the discharge/admit diagnosis, the need for outpatient follow up, a orthopedic surgeon, to return to the emergency department if symptoms worsen or persist or if there are any questions or concerns that arise at home. Response to treatment: the patient's symptoms have mildly improved after treatment, and as a result, I will discharge patient. 02/27 22:44 Order name: Splint - Elbow - Posterior; Complete Time: 23:41 cp Administered Medications: 23:41 Drug: [place] (HYDROcodone-acetaminophen) (7.5 mg-325 mg) 1 tabs Route: PO; vc1 23:41 Follow up: Response: Medication administered at discharge. vc1 Disposition Summary: 02/27/22 23:17 Discharge Ordered Location: Home cp Problem: new cp Symptoms: have improved cp Condition: Stable cp Diagnosis - Encounter for examination and observation for unspecified reason cp Followup: cp - With: Private Physician - When: 2 - 3 days - Reason: Recheck today's complaints Discharge Instructions: - Discharge Summary Sheet cp - Cast or Splint Care, Adult cp Forms: - Medication Reconciliation Form cp - Thank You Letter cp - Antibiotic Education cp - Prescription Opioid Use cp Signatures: Obed Bellamy MD MD cha Page, Corey, PA PA cp Calcote, Vanessa RN RN vc1 Paulina Llanos RN RN kb3
[2022-02-27] MEDS ORDERED: HYDROCODONE/APAP 7.5/325 MG TAB ONE (23:41)
[2022-02-27 23:53] VITALS: BP 127/86; TEMP 98; O2SAT 100
== END 2022-02-27 23:42 | disposition home or self-care (01) ==
LOC: ER 21:53
PROC: 2W0BX1Z Change Splint on Left Upper Arm (ICD-10-PCS; principal; 2022-02-27)
DX: S42.402D Unspecified fracture of lower end of left humerus, subsequent encounter for fracture with routine healing (principal)
CPT/HCPCS: 99283

== ENCOUNTER 2022-06-20 10:53 | Emergency (ER) | payer OTHER ==
--- OUTSIDE RECORDS SUMMARY | 2022-06-20 10:57 | XMS REPORT | Continuity of Care Document ---
:1975 Author Organization [facility] t Address [address] [address] [place] [address] Care Team Providers Name Role Phone [facility] Primary Care Physician Unavailable TAL FIELDS Attending Clinician Unavailable Tal Fields MD Attending Clinician [facility] Brittnee ANGELA Attending Clinician Unavailable Bobby Pfeiffer Attending Clinician BOBBY FIELDS Attending Clinician Unavailable Doctor Unassigned, [place] Attending Clinician Unavailable JOHN ESCAMILLA Attending Clinician Unavailable Sergio Majano MD Attending Clinician John Escamilla MD Attending Clinician BILL HUNG Attending Clinician Unavailable Bill Hung MD Attending Clinician NAZANIN GARCIA Attending Clinician Unavailable Nazanin Garcia DO Attending Clinician LUCAS JEAN Attending Clinician Unavailable LUCAS JEAN Attending Clinician Unavailable EMY KING Attending Clinician Unavailable Emy King DO Attending Clinician SERGIO MAJANO Admitting Clinician Unavailable NAZANIN GARCIA Admitting Clinician Unavailable EMY KING Admitting Clinician Unavailable Payers Payer Name Policy Type Policy Number Effective Date Expiration Date Kira florian [facility] [id number] 2022 PLUS 00:00:00 Problems Condition Condition Condition Status Onset Resolution Last Treating Co mments Source Name Details Category Date Date Treatment Clinician Date No known No known Disease Unive rs active active ity of problems problems [facility] Allergies, Adverse Reactions, Alerts Allergy Allergy Status Severity Reaction(s) Onset Inactive Treating Comm ents Source Name Type Date Date Clinician METHOCAR DRUG Active Hives Univers BAMOL INGREDI - ity of 00:00: [place] 00 Medical [place] Methocar Propensi Active Hives Univer s bamol ty to 04-15 ity of adverse 00:00: [place] reaction 00 [facility] s [place] Social History Social Habit Start Date Stop Date Quantity Comments Source Exposure to 2022-05-28 2022-06-07 Not sure [facility] SARS-CoV-2 00:00:00 11:13:00 [facility] (event) [place] Alcohol intake 2022-06-07 2022-06-07 Lifetime University of 00:00:00 00:00:00 non-drinker [facility] (finding) [place] Tobacco use and 2022-02-09 2022-02-09 Smokeless tobacco Un iversity of exposure 00:00:00 00:00:00 non-user [facility] Sex Ass[birth year] At [birth year] Universit y of 00:00:00 00:00:00 [facility] Smoking Status Start Date Stop Date Source Tobacco smoking consumption [facility] unknown [place] Never smoked tobacco [facility] Medications Ordered Filled Start Stop Current Ordering Indication Dosage Frequency Signature Comments Components Source Medication Medication Date Date Medication? Clinician (SIG) Name Name levETIRAcet 2021-04 Yes 500mg 500 mg, Un roel am (KEPPRA) 05-05 Oral, BID, it y of tablet 500 14:00: First dose [place] mg 00 on [facility] 03/05/22 Branch at 0800, Until Discontinu ed, Routine D5W 0.9% 2021-04 Yes 1000mL at 125 Unive rs NaCl (NS) - mL/hr, ity of IV infusion 06:30: 1,000 mL, [place] 1,000 mL 00 IV Medical Infusion, Branch CONTINUOUS , Starting on [facility] 03/05/22 at 0030, Until Discontinu ed, ELVIS NaCl 0.9% 2021-04 1000mL at 999 Uni vers (NS) bolus 05-05 11-27 mL/hr, ity of infusion 06:15: 20:58 1,000 mL, [place] as 1,000 mL 00 :00 IV Medical Piggyback, Branch ONCE, 1 dose, On 03/05/22 at 0015, STAT traZODone 2021-04 Yes 150mg 150 mg, Univ ers (DESYREL) 05-05 Oral, QHS, ity of tablet 150 03:00: First dose [place] mg 00 on [facility] 03/04/22 Branch at 2100, Until Discontinu ed, ELVIS OXcarbazepi 2021-04 Yes 150mg 150 mg, Un roel ne 05-05 Oral, BID, ity of (TRILEPTAL) 02:00: First dose [place] tablet 150 00 on [facility] 03/04/22 Branch at 2000, Until Discontinu ed, ELVIS lamoTRIgine 2021-04 Yes 25mg 25 mg, Univ ers (LAMICTAL) 05-05 Oral, BID, ity of tablet 25 02:00: First dose [place] mg 00 on [facility] 03/04/22 Branch at 2000, Until Discontinu ed, ELVIS NaCl 0.9% 2021-04- No 1000mL at 999 Uni vers (NS) bolus 05-05 mL/hr, ity of infusion 00:30: 21:00 1,000 mL, [place] 1,000 mL 00 :00 [facility] [place] ONCE, 1 dose, On [facility] 03/04/22 at 1830, STAT LORazepam 2021-04- No 1mg 1 mg, Slow U nivers (ATIVAN) 05-04 IV Push, ity of injection 1 22:00: 01:29 ONCE, 1 [place] mg 00 :00 dose, On [facility] 03/04/22 at 1600, STAT traMADoL 50 2021-04 Yes [id number] 50mg Take 1 Univ ers mg tablet 1-03 tablet by ity o f 00:00: mouth [place] 00 every 4 Medical (four) Branch hours as needed for Pain (scale 7-10). Indication s: acute pain traMADoL 50 2021-04 Yes [id number] 50mg Take 1 Univ ers mg tablet 1-03 tablet by ity o f 00:00: mouth [place] 00 every 4 Medical (four) Branch hours as needed for Pain (scale 7-10). Indication s: acute pain traMADoL 50 2021-04 Yes [id number] 50mg Take 1 Univ ers mg tablet 1-03 tablet by ity o f 00:00: mouth [place] 00 every 4 Medical (four) Branch hours as needed for Pain (scale 7-10). Indication s: acute pain traMADoL 50 2021-04 Yes [id number] 50mg Take 1 Univ ers mg tablet 1-03 tablet by ity o f 00:00: mouth [place] 00 every 4 Medical (four) Branch hours as needed for Pain (scale 7-10). Indication s: acute pain traMADoL 50 2021-04 Yes [id number] 50mg Take 1 Univ ers mg tablet 1-03 tablet by ity o f 00:00: mouth [place] 00 every 4 Medical (four) Branch hours as needed for Pain (scale 7-10). Indication s: acute pain traMADoL 50 2021-04 Yes [id number] 50mg Take 1 Univ ers mg tablet 1-03 tablet by ity o f 00:00: mouth [place] 00 every 4 Medical (four) Branch hours as needed for Pain (scale 7-10). Indication s: acute pain traMADoL 50 2021-04 Yes [id number] 50mg Take 1 Univ ers mg tablet 1-03 tablet by ity o f 00:00: mouth [place] 00 every 4 Medical (four) Branch hours as needed for Pain (scale 7-10). Indication s: acute pain traMADoL 50 2021-04 Yes [id number] 50mg Take 1 Univ ers mg tablet 1-03 tablet by ity o f 00:00: mouth [place] 00 every 4 Medical (four) Branch hours as needed for Pain (scale 7-10). Indication s: acute pain traMADoL 50 2021-04 Yes [id number] 50mg Take 1 Univ ers mg tablet 1-03 tablet by ity o f 00:00: mouth [place] 00 every 4 Medical (four) Branch hours as needed for Pain (scale 7-10). Indication s: acute pain traMADoL 50 2021-04 Yes [id number] 50mg Take 1 Univ ers mg tablet 1-03 tablet by ity o f 00:00: mouth [place] 00 every 4 Medical (four) Branch hours as needed for Pain (scale 7-10). Indication s: acute pain traMADoL 50 2021-04 Yes [id number] 50mg Take 1 Univ ers mg tablet 1-03 tablet by ity o f 00:00: mouth [place] 00 every 4 Medical (four) Branch hours as needed for Pain (scale 7-10). Indication s: acute pain atorvastati 2021-04- No 20mg Take 20 mg Univers n 20 mg 04-09 by mouth ity of tablet 13:34: 00:00 daily. [place] 15 :00 Medical Branch gabapentin 2021-04- No 300mg Take 300 U nivers 300 mg 04-09 mg by ity of capsule 13:34: 00:00 mouth in [place] 15 :00 the Medical morning Branch and 300 mg at noon and 300 mg in the evening. naproxen 2021-04- No 500mg Take 500 Uni vers 500 mg 04-09 mg by ity of tablet 13:34: 00:00 mouth in [place] 15 :00 the Medical morning Branch and 500 mg in the evening. Take with meals. levETIRAcet 2021-04- No 1000mg Take 1,000 Univers am (KEPPRA) 04-09 mg by ity of 1,000 mg 13:34: 00:00 mouth in [facility] tablet 15 :00 the Medical morning Branch and 1,000 mg in the evening. atorvastati 2021-04- No 20mg Take 20 mg Univers n 20 mg 04-09 by mouth ity of tablet 13:34: 00:00 daily. [place] 15 :00 Medical Branch gabapentin 2021-04- No 300mg Take 300 U nivers 300 mg 04-09 mg by ity of capsule 13:34: 00:00 mouth in [place] 15 :00 the Medical morning Branch and 300 mg at noon and 300 mg in the evening. naproxen 2021-04- No 500mg Take 500 Uni vers 500 mg 04-09 mg by ity of tablet 13:34: 00:00 mouth in [place] 15 :00 the Medical morning Branch and [...] ity of tablet 13:26: 00:00 mouth 3 [place] 34 :00 (three) Medical times Branch daily. OXcarbazepi 2021-04- No 600mg Take 600 Univers ne 600 mg 04-09 mg by ity of tablet 13:26: 00:00 mouth 3 [place] 34 :00 (three) Medical times Branch daily. atorvastati 2021-04 Yes [id number] 20mg Take 1 Univers n 20 mg 04-09 tablet by ity of tablet 00:00: mouth in [place] 00 the Medical morning. Branch gabapentin 2021-04 Yes [id number] 300mg Take 1 Univers 300 mg 04-09 capsule by ity of capsule 00:00: mouth in [place] 00 the Medical morning Branch and 1 capsule at noon and 1 capsule in the evening. levETIRAcet 2021-04 Yes [id number] 1000mg Take 1 Univers am (KEPPRA) 04-09 tablet by ity of 1,000 mg 00:00: mouth in [facility] 00 the Medical morning Branch and 1 tablet in the evening. naproxen 2021-04 Yes [id number] 500mg Take 1 Un roel 500 mg - tablet by ity of tablet 00:00: mouth in [place] 00 the Medical morning Branch and 1 tablet in the evening. Take with meals. atorvastati 2021-04 Yes [id number] 20mg Take 1 Univers n 20 mg - tablet by ity of tablet 00:00: mouth in [place] 00 the Medical morning. Branch gabapentin 2021-04 Yes [id number] 300mg Take 1 Univers 300 mg 1-01 capsule by ity of capsule 00:00: mouth in [place] the Medical morning Branch and 1 capsule at noon and 1 capsule in the evening. levETIRAcet 2021-04 Yes [id number] 1000mg Take 1 Univers am (KEPPRA) 1-01 tablet by ity of 1,000 mg 00:00: mouth in [place] tablet the Medical morning Branch and 1 tablet in the evening. naproxen 2021-04 Yes [id number] 500mg Take 1 Un roel 500 mg 1-01 tablet by ity of tablet 00:00: mouth in [place] the Medical morning Branch and 1 tablet in the evening. Take with meals. atorvastati 2021-04 Yes [id number] 20mg Take 1 Univers n 20 mg 1-01 tablet by ity of tablet 00:00: mouth in [place] the Medical morning. Branch gabapentin 2021-04 Yes [id number] 300mg Take 1 Univers 300 mg 1-01 capsule by ity of capsule 00:00: mouth in [place] the Medical morning Branch and 1 capsule at noon and 1 capsule in the evening. levETIRAcet 2021-04 Yes [id number] 1000mg Take 1 Univers am (KEPPRA) 1-01 tablet by ity of 1,000 mg 00:00: mouth in [place] tablet the Medical morning Branch and 1 tablet in the evening. naproxen 2021-04 Yes [id number] 500mg Take 1 Un roel 500 mg 1-01 tablet by ity of tablet 00:00: mouth in [place] the Medical morning Branch and 1 tablet in the evening. Take with meals. atorvastati 2021-04 Yes [id number] 20mg Take 1 Univers n 20 mg 1-01 tablet by ity of tablet 00:00: mouth in [place] the Medical morning. Branch gabapentin 2021-04 Yes [id number] 300mg Take 1 Univers 300 mg 1-01 capsule by ity of capsule 00:00: mouth in [place] [address] the Medical morning Branch and 1 capsule at noon and 1 capsule in the evening. levETIRAcet 2021-04 Yes [id number] 1000mg Take 1 Univers am (KEPPRA) 1-01 tablet by ity of 1,000 mg 00:00: mouth in [place] tablet 00 the Medical morning Branch and 1 tablet in the evening. naproxen 2021-04 Yes [id number] 500mg Take 1 Un roel 500 mg 1-01 tablet by ity of tablet 00:00: mouth in [place] 00 the Medical morning Branch and 1 tablet in the evening. Take with meals. atorvastati 2021-04 Yes [id number] 20mg Take 1 Univers n 20 mg 1-01 tablet by ity of tablet 00:00: mouth in [place] 00 the Medical morning. Branch gabapentin 2021-04 Yes [id number] 300mg Take 1 Univers 300 mg 1-01 capsule by ity of capsule 00:00: mouth in [place] 00 the Medical morning Branch and 1 capsule at noon and 1 capsule in the evening. levETIRAcet 2021-04 Yes [id number] 1000mg Take 1 Univers am (KEPPRA) 1-01 tablet by ity of 1,000 mg 00:00: mouth in [place] tablet 00 the Medical morning Branch and 1 tablet in the evening. naproxen 2021-04 Yes [id number] 500mg Take 1 Un roel 500 mg 1-01 tablet by ity of tablet 00:00: mouth in [place] [address] the Medical morning Branch and 1 tablet in the evening. Take with meals. atorvastati 2021-04 Yes [id number] 20mg Take 1 Univers n 20 mg 1-01 tablet by ity of tablet 00:00: mouth in [place] the Medical morning. Branch gabapentin 2021-04 Yes [id number] 300mg Take 1 Univers 300 mg 1-01 capsule by ity of capsule 00:00: mouth in [place] the Medical morning Branch and 1 capsule at noon and 1 capsule in the evening. levETIRAcet 2021-04 Yes [id number] 1000mg Take 1 Univers am (KEPPRA) 1-01 tablet by ity of 1,000 mg 00:00: mouth in [place] tablet 00 the Medical morning Branch and 1 tablet in the evening. naproxen 2021-04 Yes [id number] 500mg Take 1 Un roel 500 mg 1-01 tablet by ity of tablet 00:00: mouth in [place] [address] the Medical morning Branch and 1 tablet in the evening. Take with meals. atorvastati 2021-04 Yes [id number] 20mg Take 1 Univers n 20 mg 1-01 tablet by ity of tablet 00:00: mouth in [place] the Medical morning. Branch gabapentin 2021-04 Yes [id number] 300mg Take 1 Univers 300 mg 1-01 capsule by ity of capsule 00:00: mouth in [place] the Medical morning Branch and 1 capsule at noon and 1 capsule in the evening. levETIRAcet 2021-04 Yes [id number] 1000mg Take 1 Univers am (KEPPRA) 1-01 tablet by ity of 1,000 mg 00:00: mouth in [place] tablet 00 the Medical morning Branch and 1 tablet in the evening. naproxen 2021-04 Yes [id number] 500mg Take 1 Un roel 500 mg 1-01 tablet by ity of tablet 00:00: mouth in [place] the Medical morning Branch and 1 tablet in the evening. Take with meals. atorvastati 2021-04 Yes [id number] 20mg Take 1 Univers n 20 mg 1-01 tablet by ity of tablet 00:00: mouth in [place] [address] the morning. Branch gabapentin 2021-04 Yes [id number] 300mg Take 1 Univers 300 mg 1-01 capsule by ity of capsule 00:00: mouth in [place] [address] the Medical morning Branch and 1 capsule at noon and 1 capsule in the evening. levETIRAcet 2021-04 Yes [id number] 1000mg Take 1 Univers am (KEPPRA) 1-01 tablet by ity of 1,000 mg 00:00: mouth in [place] tablet the Medical morning Branch and 1 tablet in the evening. naproxen 2021-04 Yes [id number] 500mg Take 1 Un roel 500 mg 1-01 tablet by ity of tablet 00:00: mouth in [place] [address] the Medical morning Branch and 1 tablet in the evening. Take with meals. atorvastati 2021-04 Yes [id number] 20mg Take 1 Univers n 20 mg 1-01 tablet by ity of tablet 00:00: mouth in [place] [address] the Medical morning. Branch gabapentin 2021-04 Yes [id number] 300mg Take 1 Univers 300 mg 1-01 capsule by ity of capsule 00:00: mouth in [place] [address] the Medical morning Branch and 1 capsule at noon and 1 capsule in the evening. levETIRAcet 2021-04 Yes [id number] 1000mg Take 1 Univers am (KEPPRA) 1-01 tablet by ity of 1,000 mg 00:00: mouth in [place] tablet 00 the Medical morning Branch and 1 tablet in the evening. naproxen 2021-04 Yes [id number] 500mg Take 1 Un roel 500 mg 1-01 tablet by ity of tablet 00:00: mouth in [place] 00 the Medical morning Branch and 1 tablet in the evening. Take with meals. atorvastati 2021-04 Yes [id number] 20mg Take 1 Univers n 20 mg 1-01 tablet by ity of tablet 00:00: mouth in [place] [address] the Medical morning. Branch gabapentin 2021-04 Yes [id number] 300mg Take 1 Univers 300 mg 1-01 capsule by ity of capsule 00:00: mouth in [place] 00 the Medical morning Branch and 1 capsule at noon and 1 capsule in the evening. levETIRAcet 2021-04 Yes [id number] 1000mg Take 1 Univers am (KEPPRA) 1-01 tablet by ity of 1,000 mg 00:00: mouth in [place] tablet 00 the Medical morning Branch and 1 tablet in the evening. naproxen 2021-04 Yes [id number] 500mg Take 1 Un roel 500 mg 1-01 tablet by ity of tablet 00:00: mouth in [place] the Medical morning Branch and 1 tablet in the evening. Take with meals. atorvastati 2021-04 Yes [id number] 20mg Take 1 Univers n 20 mg 1-01 tablet by ity of tablet 00:00: mouth in [place] [address] the Medical morning. Branch gabapentin 2021-04 Yes [id number] 300mg Take 1 Univers 300 mg 1-01 capsule by ity of capsule 00:00: mouth in [place] [address] the Medical morning Branch and 1 capsule at noon and 1 capsule in the evening. levETIRAcet 2021-04 Yes [id number] 1000mg Take 1 Univers am (KEPPRA) 1-01 tablet by ity of 1,000 mg 00:00: mouth in [place] tablet 00 the Medical morning Branch and 1 tablet in the evening. naproxen 2021-04 Yes [id number] 500mg Take 1 Un roel 500 mg 1-01 tablet by ity of tablet 00:00: mouth in [place] [address] the Medical morning Branch and 1 tablet in the evening. Take with meals. atorvastati 2021-04 Yes [id number] 20mg Take 1 Univers n 20 mg 1-01 tablet by ity of tablet 00:00: mouth in [place] 00 the Medical morning. Branch gabapentin 2021-04 Yes [id number] 300mg Take 1 Univers 300 mg 1-01 capsule by ity of capsule 00:00: mouth in [place] 00 the Medical morning Branch and 1 capsule at noon and 1 capsule in the evening. levETIRAcet 2021-04 Yes [id number] 1000mg Take 1 Univers am (KEPPRA) 1-01 tablet by ity of 1,000 mg 00:00: mouth in [place] tablet 00 the Medical morning Branch and 1 tablet in the evening. naproxen 2021-04 Yes [id number] 500mg Take 1 Un roel 500 mg 1-01 tablet by ity of tablet 00:00: mouth in [place] 00 the Medical morning Branch and 1 tablet in the evening. Take with meals. atorvastati 2021-04 Yes [id number] 20mg Take 1 Univers n 20 mg 1-01 tablet by ity of tablet 00:00: mouth in [place] the morning. Branch gabapentin 2021-04 Yes [id number] 300mg Take 1 Univers 300 mg 1-01 capsule by ity of capsule 00:00: mouth in [place] 00 the Medical morning Branch and 1 capsule at noon and 1 capsule in the evening. levETIRAcet 2021-04 Yes [id number] 1000mg Take 1 Univers am (KEPPRA) 1-01 tablet by ity of 1,000 mg 00:00: mouth in [place] tablet 00 the Medical morning Branch and 1 tablet in the evening. naproxen 2021-04 Yes [id number] 500mg Take 1 Un roel 500 mg 1-01 tablet by ity of tablet 00:00: mouth in [place] 00 the Medical morning Branch and 1 tablet in the evening. Take with meals. atorvastati 2021-04 Yes [id number] 20mg Take 1 Univers n 20 mg 1-01 tablet by ity of tablet 00:00: mouth in [place] 00 the Medical morning. Branch gabapentin 2021-04 Yes [id number] 300mg Take 1 Univers 300 mg 1-01 capsule by ity of capsule 00:00: mouth in [place] 00 the Medical morning Branch and 1 capsule at noon and 1 capsule in the evening. levETIRAcet 2021-04 Yes [id number] 1000mg Take 1 Univers am (KEPPRA) 1-01 tablet by ity of 1,000 mg 00:00: mouth in [place] tablet 00 the Medical morning Branch and 1 tablet in the evening. naproxen 2021-04 Yes [id number] 500mg Take 1 Un roel 500 mg 1-01 tablet by ity of tablet 00:00: mouth in [place] [address] the [facility] morning Branch and 1 tablet in the evening. Take with meals. atorvastati 2021-04 Yes [id number] 20mg Take 1 Univers n 20 mg 1-01 tablet by ity of tablet 00:00: mouth in [place] [address] the [facility]. Branch gabapentin 2021-04 Yes [id number] 300mg Take 1 Univers 300 mg 1-01 capsule by ity of capsule 00:00: mouth in [place] [address] the [facility] morning Branch and 1 capsule at noon and 1 capsule in the evening. levETIRAcet 2021-04 Yes [id number] 1000mg Take 1 Univers am (KEPPRA) 1-01 tablet by ity of 1,000 mg 00:00: mouth in [place] tablet the [facility] and 1 tablet in the evening. naproxen 2021-04 Yes [id number] 500mg Take 1 Un roel 500 mg 1-01 tablet by ity of tablet 00:00: mouth in [place] [address] the [facility] and 1 tablet in the evening. Take with meals. ibuprofen 2021-04 600mg 600 mg, Uni vers (IBU) 0-30 10-30 Oral, ity of tablet 600 21:15: 21:11 ONCE, 1 [place] mg 00 :00 dose, On [facility] Branch 02/05/22 at 1615, ELVIS tiZANidine 2021-04 Yes [id number] 4mg Take 1 U nivers 4 mg 0-27 capsule by ity of capsule 00:00: mouth in [place] [address] the [facility] morning Branch and 1 capsule at noon and 1 capsule in the evening. tiZANidine 2021-04 Yes [id number] 4mg Take 1 U nivers 4 mg 0-27 capsule by ity of capsule 00:00: mouth in [place] [address] the [facility] morning Branch and 1 capsule at noon and 1 capsule in the evening. tiZANidine 2021-04 Yes [id number] 4mg Take 1 U nivers 4 mg 0-27 capsule by ity of capsule 00:00: mouth in [place] [address] the Medical morning Branch and 1 capsule at noon and 1 capsule in the evening. tiZANidine 2021-04 Yes [id number] 4mg Take 1 U nivers 4 mg 0-27 capsule by ity of capsule 00:00: mouth in [place] [address] the Medical morning Branch and 1 capsule at noon and 1 capsule in the evening. tiZANidine 2021-04 Yes [id number] 4mg Take 1 U nivers 4 mg 0-27 capsule by ity of capsule 00:00: mouth in [place] [address] the [facility] morning Branch and 1 capsule at noon and 1 capsule in the evening. tiZANidine 2021-04 Yes [id number] 4mg Take 1 U nivers 4 mg 0-27 capsule by ity of capsule 00:00: mouth in [place] [address] the [facility] morning Branch and 1 capsule at noon and 1 capsule in the evening. tiZANidine 2021-04 Yes [id number] 4mg Take 1 U nivers 4 mg 0-27 capsule by ity of capsule 00:00: mouth in [address] morning [place] and 1 capsule at noon and 1 capsule in the evening. tiZANidine 2021-04 Yes [id number] 4mg Take 1 U nivers 4 mg 0-27 capsule by ity of capsule 00:00: mouth in [address] morning [place] and 1 capsule at noon and 1 capsule in the evening. tiZANidine 2021-04 Yes [id number] 4mg Take 1 U nivers 4 mg 0-27 capsule by ity of capsule 00:00: mouth in [address] morning [place] and 1 capsule at noon and 1 capsule in the evening. tiZANidine 2021-04 Yes [id number] 4mg Take 1 U nivers 4 mg 0-27 capsule by ity of capsule 00:00: mouth in [address] morning Branch and 1 capsule at noon and 1 capsule in the evening. tiZANidine 2021-04 Yes [id number] 4mg Take 1 U nivers 4 mg 0-27 capsule by ity of capsule 00:00: mouth in [address] morning [place] and 1 capsule at noon and 1 capsule in the evening. tiZANidine 2021-04 Yes [id number] 4mg Take 1 U nivers 4 mg 0-27 capsule by ity of capsule 00:00: mouth in [place] 00 the [facility] and 1 capsule at noon and 1 capsule in the evening. tiZANidine 2021-04 Yes [id number] 4mg Take 1 U nivers 4 mg 0-27 capsule by ity of capsule 00:00: mouth in [place] [address] the [facility] and 1 capsule at noon and 1 capsule in the evening. tiZANidine 2021-04 Yes [id number] 4mg Take 1 U nivers 4 mg 0-27 capsule by ity of capsule 00:00: mouth in [place] [address] the [facility] and 1 capsule at noon and 1 capsule in the evening. tiZANidine 2021-04 Yes [id number] 4mg Take 1 U nivers 4 mg 0-27 capsule by ity of capsule 00:00: mouth in [address] and 1 capsule at noon and 1 capsule in the evening. tiZANidine 2021-04 Yes [id number] 4mg Take 1 U nivers 4 mg 0-27 capsule by ity of capsule 00:00: mouth in [address] and 1 capsule at noon and 1 capsule in the evening. tiZANidine 2021-04 Yes [id number] 4mg Take 1 U nivers 4 mg 0-27 capsule by ity of capsule 00:00: mouth in [address] and 1 capsule at noon and 1 capsule in the evening. ondansetron No 4mg 4 mg, Slow Univers (ZOFRAN 10-12 IV Push, ity of (PF)) 16:00: 15:18 ONCE, 1 [place] injection 4 00 :00 dose, On Medi barbara mg Sun10/12/21 Branch at 1100, Routine iopamidol No [id number] 60mL 60 mL, U nivers (ISOVUE 10-12 Intravenou ity o f 370-500 mL) 15:42: 15:42 s, ONCE, 1 [place] injection 00 :00 dose, On Medica l 60 mL Sun10/12/21 Branch at 1100, Routine NaCl 0.9% No 500mL at 999 Univ ers (NS) bolus 10-12 mL/hr, 500 it y of infusion 15:00: 16:50 mL, IV [place] 500 mL 00 :00 Infusion, Medical ONCE, 1 Branch dose, On Sun10/12/21 at 1000, STAT ondansetron 2022-0 Yes [id number] 4mg Take 1 Univers 4 mg 7-06 tablet by ity of disintegrat 00:00: mouth [place] ing tablet 00 every 8 Medica l (eight) Branch hours as needed for Nausea and Vomiting (N/V). dicyclomine 2022-0 Yes [id number] 20mg Take 1 Univers 20 mg 7-06 tablet by ity of tablet 00:00: mouth 4 [place] 00 (four) Medical times Branch daily. ondansetron 2022-0 Yes [id number] 4mg Take 1 Univers 4 mg 7-06 tablet by ity of disintegrat 00:00: mouth [place] ing tablet 00 every 8 Medica l (eight) Branch hours as needed for Nausea and Vomiting (N/V). dicyclomine 2022-0 Yes [id number] 20mg Take 1 Univers 20 mg 7-06 tablet by ity of tablet 00:00: mouth 4 [place] 00 (four) Medical times Branch daily. ondansetron 2022-0 Yes [id number] 4mg Take 1 Univers 4 mg 7-06 tablet by ity of disintegrat 00:00: mouth [place] ing tablet 00 every 8 Medica l (eight) Branch hours as needed for Nausea and Vomiting (N/V). dicyclomine 2022-0 Yes [id number] 20mg Take 1 Univers 20 mg 7-06 tablet by ity of tablet 00:00: mouth 4 [place] 00 (four) Medical times Branch daily. ondansetron 2022-0 2022- No [id number] 4mg Take 1 Univers 4 mg 7-06 11-01 tablet by ity of disintegrat 00:00[place] 00:[place] :00 every 8 Medica l (eight) Branch hours as needed for Nausea and Vomiting (N/V). dicyclomine 2022-0 2022- No [id number] 20mg Take 1 Univers 20 mg 7-06 11-01 tablet by ity of tablet 00:00: 00:00 mouth 4 [place] 00 :00 (four) Medical times Branch daily. ondansetron 2022-0 2022- No [id number] 4mg Take 1 Univers 4 mg 7-06 11-01 tablet by ity of disintegrat 00:00[place] 00:[place] :00 every 8 Medica l (eight) Branch hours as needed for Nausea and Vomiting (N/V). dicyclomine 2021- No [id number] 20mg Take 1 Univers 20 mg 10-12 tablet by ity of tablet 00:00: 00:00 mouth 4 [place] 00 :00 (four) Medical times Branch daily. sulfamethox 2021-0 Yes 1{tbl} Take 1 Un roel azole-trime 1-21 tablet by ity of thoprim 16:03: mouth 2 [place] (BACTRIM 16 (two) Medical DS) 800-160 times Branch mg per daily. tablet sulfamethox 2021-0 Yes 1{tbl} Take 1 Un roel azole-trime 1-21 tablet by ity of thoprim 16:03: mouth 2 [place] (BACTRIM 16 (two) Medical DS) 800-160 times Branch mg per daily. tablet sulfamethox 2021-0 Yes 1{tbl} Take 1 Un roel azole-trime 1-21 tablet by ity of thoprim 16:03: mouth 2 [place] (BACTRIM 16 (two) Medical DS) 800-160 times Branch mg per daily. tablet gabapentin 2021- No 300mg Take 300 U nivers 300 mg -21 -21 mg by ity of capsule 16:02: 00:00 mouth 3 [place] 48 :00 (three) Medical times Branch daily. busPIRone 2021- No 15mg Take 15 mg U nivers 15 mg -29 04-21 by mouth 3 ity of tablet 16:02: 00:00 (three) [place] 33 :00 times Medical daily. Branch atorvastati Yes 20mg Take 20 mg Univers n 20 mg 1-07 by mouth ity of tablet 15:04: daily. [place] 25 Medical Branch OXcarbazepi 2021-0 Yes 600mg Take 600 U nivers ne 600 mg 1-07 mg by ity of tablet 15:04: mouth 3 [place] 25 (three) Medical times Branch daily. ergocalcife 2021-0 Yes 1{capsu Take 1 U nivers rol, 1-07 le} capsule by ity of vitamin d2, 15:04: mouth 2 [place] as 1,250 mcg 25 (two) Medical (50,000 times Branch unit) daily. capsule atorvastati 2022-0 Yes 20mg Take 20 mg Univers n 20 mg 1-07 by mouth ity of tablet 15:04: daily. [address] OXcarbazepi 2022-0 Yes 600mg Take 600 U nivers ne 600 mg 1-07 mg by ity of tablet 15:04: mouth 3 [place] 25 (three) Medical times Branch daily. ergocalcife 2022-0 Yes 1{capsu Take 1 U nivers rol, 1-07 le} capsule by ity of vitamin d2, 15:04: mouth 2 [place] as 1,250 mcg 25 (two) Medical (50,000 times Branch unit) daily. capsule atorvastati 2022-0 Yes 20mg Take 20 mg Univers n 20 mg 1-07 by mouth ity of tablet 15:04: daily. [address] OXcarbazepi 2022-0 Yes 600mg Take 600 U nivers ne 600 mg 1-07 mg by ity of tablet 15:04: mouth 3 [place] 25 (three) Medical times Branch daily. ergocalcife 2022-0 Yes 1{capsu Take 1 U nivers rol, 1-07 le} capsule by ity of vitamin d2, 15:04: mouth 2 [place] as 1,250 mcg 25 (two) Medical (50,000 times Branch unit) daily. capsule atorvastati 2022-0 Yes 20mg Take 20 mg Univers n 20 mg 1-07 by mouth ity of tablet 15:04: daily. [address] OXcarbazepi 2022-0 Yes 600mg Take 600 U nivers ne 600 mg 1-07 mg by ity of tablet 15:04: mouth 3 [place] 25 (three) Medical times Branch daily. ergocalcife 2022-0 Yes 1{capsu Take 1 U nivers rol, 1-07 le} capsule by ity of vitamin d2, 15:04: mouth 2 [place] as 1,250 mcg 25 (two) Medical (50,000 times Branch unit) daily. capsule atorvastati 2022-0 Yes 20mg Take 20 mg Univers n 20 mg 1-07 by mouth ity of tablet 15:04: daily. [address] OXcarbazepi 2022-0 Yes 600mg Take 600 U nivers ne 600 mg 1-07 mg by ity of tablet 15:04: mouth 3 [place] 25 (three) Medical times Branch daily. ergocalcife 2022-0 Yes 1{capsu Take 1 U nivers rol, 1-07 le} capsule by ity of vitamin d2, 15:04: mouth 2 [place] as 1,250 mcg 25 (two) Medical (50,000 times Branch unit) daily. capsule atorvastati 2022-0 Yes 20mg Take 20 mg Univers n 20 mg 1-07 by mouth ity of tablet 15:04: daily. [address] OXcarbazepi 2022-0 Yes 600mg Take 600 U nivers ne 600 mg 1-07 mg by ity of tablet 15:04: mouth 3 [place] 25 (three) Medical times Branch daily. ergocalcife 2022-0 Yes 1{capsu Take 1 U nivers rol, 1-07 le} capsule by ity of vitamin d2, 15:04: mouth 2 [place] as 1,250 mcg 25 (two) Medical (50,000 times Branch unit) daily. capsule atorvastati 2-0 Yes 20mg Take 20 mg Univers n 20 mg 1-07 by mouth ity of tablet 15:04: daily. [address] OXcarbazepi 2-0 Yes 600mg Take 600 U nivers ne 600 mg 1-07 mg by ity of tablet 15:04: mouth 3 [place] 25 (three) Medical times Branch daily. ergocalcife 2022-0 Yes 1{capsu Take 1 U nivers rol, 1-07 le} capsule by ity of vitamin d2, 15:04: mouth 2 [place] as 1,250 mcg 25 (two) Medical (50,000 times Branch unit) daily. capsule atorvastati 2022-0 Yes 20mg Take 20 mg Univers n 20 mg 1-07 by mouth ity of tablet 15:04: daily. [address] OXcarbazepi 2022-0 Yes 600mg Take 600 U nivers ne 600 mg 1-07 mg by ity of tablet 15:04: mouth 3 [place] 25 (three) Medical times Branch daily. ergocalcife 2022-0 Yes 1{capsu Take 1 U nivers rol, 1-07 le} capsule by ity of vitamin d2, 15:04: mouth 2 [place] as 1,250 mcg 25 (two) Medical (50,000 times Branch unit) daily. capsule naproxen 2021- No [id number] 500mg Take 1 Univers (NAPROSYN) 04-15 tablet by ity of 500 mg 00:00: 00:00 mouth 2 [place] tablet 00 :00 (two) Medical times Branch daily with meals. Immunizations Ordered Filled Immunization Date Status Comments [facility] e Immunization Name Name Influenza Virus 2022-02-07 [...] Completed Unive rsity of MODERNA VACCINE 00:00:[address] [facility] ical Branch SARS-COV-2 COVID-19 2021-03-24 Completed Unive rsity of MODER[place] VACCINE 00:00:00 [place] [facility] ical Branch SARS-COV-2 COVID-19 2021-03-24 Completed Unive rsity of MODERNA VACCINE 00:00:00 [place] [facility] ical Branch SARS-COV-2 COVID-19 2021-03-24 Completed Unive rsity of MODERNA VACCINE 00:00:00 [place] [facility] ical Branch SARS-COV-2 COVID-19 2021-03-24 Completed Unive rsity of MODERNA VACCINE 00:00:00 [place] [facility] ical Branch SARS-COV-2 COVID-19 2021-03-24 Completed Unive rsity of MODERNA VACCINE 00:00:00 [place] [facility] ical Branch SARS-COV-2 COVID-19 2021-03-24 Completed Unive rsity of MODERNA 12+ YRS 00:00:00 [place] Med ical VACCINE Branch SARS-COV-2 COVID-19 2021-03-24 Completed Unive rsity of MODERNA 12+ YRS 00:00:00 [place] Med ical VACCINE Branch SARS-COV-2 COVID-19 2021-03-24 Completed Unive rsity of MODERNA 12+ YRS 00:00:00 [place] [facility] ical VACCINE Branch SARS-COV-2 COVID-19 2021-03-24 Completed [...] YRS 00:00:00 [place] Med ical VACCINE Branch Vital Signs Vital Name Observation Time Observation Value Comments Source Systolic blood 2022-06-07 17:01:00 111 mm[Hg] Univer sity of pressure [place] [facility] Diastolic blood 2022-06-07 17:01:00 69 mm[Hg] Unive rsity of pressure [place] [facility] Heart rate 2022-06-07 17:01:00 82 /min Univers[facility] ty [facility] [place] [facility] Body temperature 2022-06-07 17:01:00 36.78 Rafaela Univ ersity of [facility] Respiratory rate 2022-06-07 17:01:00 16 /min Univ ersity of [facility] Branch Body height 2022-06-07 17:01:00 157.5 cm [facility] ty [facility] [place] [facility] Body weight 2022-06-07 17:01:00 68.04 kg [facility] ty [facility] [place] [facility] BMI 2022-06-07 17:01:00 27.44 kg/m2 Universi ty of [facility] Oxygen saturation in 2022-06-07 17:01:00 99 /min University [facility] blood by [facility] Pulse oximetry Branch Body height 2022-04-28 15:58:00 157.5 cm [facility] ty [facility] [place] [facility] Body weight 2022-04-28 15:58:00 56.7 kg [facility] [place] [facility] BMI 2022-04-28 15:58:00 22.86 kg/m2 [facility] [place] [facility] Body height 2022-03-09 19:27:00 157.5 cm [facility] [place] [facility] Body weight 2022-03-09 19:27:00 56.7 kg [facility] [place] [facility] BMI 2022-03-09 19:27:00 22.86 kg/m2 [facility] [place] [facility] Systolic blood 2022-03-05 20:00:00 110 mm[Hg] Univer sity of pressure [facility] Branch Diastolic blood 2022-03-05 20:00:00 70 mm[Hg] Unive rsity of pressure [facility] Branch Heart rate 2022-03-05 20:00:00 75 /min Universi ty of [facility] Respiratory rate 2022-03-05 20:00:00 16 /min Univ ersity of [facility] Oxygen saturation in 2022-03-05 20:00:00 100 /min University of Arterial blood by [place] [employer] [facility] Pulse oximetry Branch Body temperature 2022-03-04 21:25:00 37.44 Rafaela Univ ers[facility] [place] [facility] Body height 2022-03-04 21:25:00 157.5 cm [facility] [place] [facility] Body weight 2022-03-04 21:25:00 56.7 kg [facility] [place] [facility] BMI 2022-03-04 21:25:00 22.86 kg/m2 [facility] [place] [facility] Body height 2022-02-09 18:33:00 157.5 cm [facility] [place] [facility] Body weight 2022-02-09 18:33:00 68.04 kg [facility] [place] [facility] BMI 2022-02-09 18:33:00 27.44 kg/m2 [facility] [place] [facility] Systolic blood 2022-02-07 18:21:00 120 mm[Hg] Univer sity of pressure [place] [facility] [place] Diastolic blood 2022-02-07 18:21:00 78 mm[Hg] Unive rsity of pressure [place] [facility] Heart rate 2022-02-07 18:20:00 82 /min [facility] [place] [facility] Body weight 2022-02-07 18:20:00 68.04 kg [facility] [place] [facility] BMI 2022-02-07 18:20:00 27.44 kg/m2 [facility] [place] [facility] Systolic blood 2022-02-05 21:04:00 92 mm[Hg] Univer sity of pressure [place] [facility] Diastolic blood 2022-02-05 21:04:00 66 mm[Hg] Unive rsity of pressure [place] [facility] Heart rate 2022-02-05 21:04:00 96 /min [facility]i ty [facility] [place] [facility] Respiratory rate 2022-02-05 21:04:00 16 /min Univ [facility] [place] [facility] Oxygen saturation in 2022-02-05 21:04:00 97 /min University of Arterial blood by [place] [employer] barbara Pulse oximetry Branch Systolic blood 2022-02-02 20:32:00 108 mm[Hg] Univer sity of pressure [place] [facility] Diastolic blood 2022-02-02 20:32:00 72 mm[Hg] Unive rsity of pressure [place] [facility] Heart rate 2022-02-02 20:32:00 95 /min [facility]i ty [facility] [place] [facility] Respiratory rate 2022-02-02 20:32:00 18 /min Univ [facility] [place] [facility] Oxygen saturation in 2022-02-02 20:32:00 100 /min University of Arterial blood by [facility] Pulse oximetry Branch Body temperature 2022-02-02 16:01:00 36.61 Rafaela Univ [facility] [place] [facility] Body height 2022-02-02 16:01:00 157.5 cm [facility] [place] [facility] Body weight 2022-02-02 16:01:00 69.854 kg [facility] [place] [facility] BMI 2022-02-02 16:01:00 28.17 kg/m2 [facility] [place] [facility] Systolic blood 2021-10-12 16:00:00 105 mm[Hg] Univer sity of pressure [place] [facility] Diastolic blood 2021-10-12 16:00:00 72 mm[Hg] Unive rsity of pressure [place] [facility] Heart rate 2021-10-12 16:00:00 79 /min [facility]i ty [facility] [place] [facility] Respiratory rate 2021-10-12 16:00:00 18 /min Univ [facility] [place] [facility] Oxygen saturation in 2021-10-12 16:00:00 96 /min University of Arterial blood by [facility] Pulse oximetry Branch Body temperature 2021-10-12 14:49:00 36.67 Rafaela Univ [facility] [place] [facility] Body height 2021-10-12 14:49:00 157.5 cm [facility] [place] [facility] Body weight 2021-10-12 14:49:00 70.217 kg [facility] [place] [facility] BMI 2021-10-12 14:49:00 28.31 kg/m2 [facility] [place] [facility] Systolic blood 2021-04-29 21:50:00 121 mm[Hg] Univer sity of pressure [place] [facility] Diastolic blood 2021-04-29 21:50:00 79 mm[Hg] Unive rsity of pressure [place] [facility] Heart rate 2021-04-29 21:50:00 86 /min [facility] [place] [facility] Body height 2021-04-29 21:50:00 157.5 cm [facility] [place] [facility] Body weight 2021-04-29 21:50:00 70.761 kg [facility] BMI 2021-04-29 21:50:00 28.53 kg/m2 [facility] Procedures Procedure Date / Time Performing Clinician Source Performed COMP. METABOLIC PANEL 2022-06-07 17:17:00 Tal Fields [facility] ([id number]) [facility] CBC WITH DIFF 2022-06-07 17:17:00 Tal Fields [facility] REFERRAL- 2022-03-30 06:01:00 Doctor Unassigned, No [facility] REQUEST/RESPONSE Name [facility] COVID-19 (ID NOW RAPID 2022-03-05 06:17:00 Nazanin Garcia [facility] TESTING) [facility] SERUM DRUG (IMMUNOASSAY) 2022-03-05 02:51:00 Sergio Majano [facility] SCREEN KEPPRA (LEVETIRACETAM) 2022-03-05 02:51:00 Sergio Majano [facility] CREATINE KINASE 2022-03-04 23:01:[address] [facility] TEST, SERUM 2022-03-04 23:01:00 Sergio Majano [facility] COMP. METABOLIC PANEL 2022-03-04 23:01:00 Sergio Majano [facility] ([id number]) [facility] SALICYLATE 2022-03-04 23:01:[address] [facility] ETHANOL 2022-03-04 23:01:[address] [facility] CBC WITH DIFF 2022-03-04 23:01:[address] [facility] URINE DRUG (IMMUNOASSAY) 2022-03-04 22:53:00 Sergio Majano [facility] SCREEN URINALYSIS 2022-03-04 22:53:[address] [facility] CT HEAD WO CONTRAST 2022-03-04 22:08:20 Sergio Majano [facility] FLU VACC (), 6 2022-02-07 18:34:13 Bill Hung [facility] MO-62 YRS, .5ML, IM, Medical Bra [facility] QUAD (FLUCELVAX) ME APPLY LONG ARM SPLINT 2022-02-05 22:12:29 Nazanin Garcia [facility] Medical [place] XR ELBOW <3 VW LEFT 2022-02-05 21:44:32 [facility] [place] [facility]R SHOULDER 2+ VW LEFT 2022-02-05 21:44:32 [facility] [place] XR WRIST 3+ VW LEFT 2022-02-05 21:44:32 Nazanin Garcia [facility] CONSENT/REFUSAL FOR 2022-02-05 20:55:21 Doctor Unassigned, No [facility] [place] DIAGNOSIS AND TREATMENT Name Medical Branch CONSENT/REFUSAL FOR 2022-02-02 15:57:16 Doctor Unassigned, No [facility] [place] DIAGNOSIS AND TREATMENT Name Medical [place] CT ABDOMEN PELVIS W 2021-10-12 15:50:00 Emy King [facility] CONTRAST Medical Branch URINALYSIS 2021-10-12 15:22:00 King, [facility] Branch LIPASE 2021-10-12 15:18:00 [facility] COMP. METABOLIC PANEL 2021-10-12 15:18:00 KingEmy reed [facility] ([id number]) Medical Branch CBC WITH DIFF 2021-10-12 15:18:00 [facility] NOTICE OF PRIVACY 2021-10-12 14:44:50 Doctor Unassigned, No Univ [facility] [place] PRACTICES Name Medical Branch CONSENT/REFUSAL FOR 2021-10-12 14:44:33 Doctor Unassigned, No [facility] [place] DIAGNOSIS AND TREATMENT Name Medical Branch EXTERNAL PROVIDER 2021-08-24 05:01:00 Doctor Unassigned, No Univ [facility] [place] RECORDS Name Medical Branch EXTERNAL PROVIDER 2021-05-16 06:01:00 Doctor Unassigned, No Univ [facility] [place] RECORDS Name Medical Branch Encounters Start End Encounter Admission Attending Care Care Encounter Source Date/Time Date/Time Type Type Clinicians Facility Department ID 2022-06-07 2022-06-07 Emergency X DIAMOND [facility] ERT [id number] Univers 11:03:00 12:08:00 TAL rich [facility] [place] 2022-06-07 2022-06-07 Emergency Diamond [facility] [id number] Univers 11:03:00 12:08:00 Tal BLAIR [id number] ity of [place] [id number] [address] 2022-05-09 2022-05-09 Case LANA Mckinney [id number] Univers 00:00:00 00:00:00 Management Brittnee VELASQUEZ [id number] ity [place]2.[place] [id number] [address] 2022-04-28 2022-04-28 Office [facility] 1.2.840.114 [id number] Univers 10:15:00 10:30:00 Visit [facility] [id number] it y of [place] 4.2.7.2.686 John as SHANITA?BLEA [id number] [place] bernabe [address] MEDICAL OFFICE BUILDING 2022-04-28 2022-04-28 Outpatient [facility] [id number] Univers 10:01:10 10:16:00 [facility] 2022-04-27 2022-04-27 Outpatient Miguel [facility]ngel [facility] [id number] Univers 15:45:00 15:45:00 [facility] 2022-04-20 2022-04-20 Outpatient Miguel [facility]ngel [facility] [id number] Univers 11:15:00 11:15:00 [facility] 2022-04-13 2022-04-13 Outpatient Miguel [facility]ngel [facility] [id number] Univers 13:30:00 13:30:00 [facility] 2022-03-30 2022-03-30 Orders Doctor LACEY [id number] [id number] Univers 00:00:00 00:00:00 Only Unassigned, AMAYA 350.1.13.10 ity of [place] [facility] 4.2.7.2.686 John as [id number] [facility] 009 [place] 2022-03-24 2022-03-24 Telephone [facility] [id number] Univers 00:00:00 00:00:00 [facility] HEALTH 350.1.13.10 it y of [facility] 4.2.7.2.686 John as SHANITA?BLEA [id number] [place] shawnfrance LEONILA 198 [facility] OFFICE [facility] 2022-03-09 2022-03-09 [facility] [id number] Univers 13:45:00 23:59:00 BOBBY ity of [facility] 2022-03-09 2022-03-09 Office [facility] 1.2.840.114 [id number] Univers 13:30:00 13:45:00 Visit [facility] 350.1.13.10 it y of [place] 4.2.7.2.686 John as SHANITA?BLEA [id number] [place] shawnfrance [facility] 198 [facility] 2022-03-04 2022-03-05 Emergency X JUAN J [facility] ERT [id number] Univers 15:22:00 15:00:00 JOHN rich [facility] [place] 2022-03-04 2022-03-05 Emergency Sergio Majano [facility] 1.2.840.1 [id number] Univers 15:22:00 15:00:00 John Escamilla 350.1.13.10 ity of [place] 4.2.7.2.686 [place] [id number] [facility] 084 [place] 2022-02-21 2022-02-21 Telephone [facility] [id number] Univers 00:00:00 00:00:00 Obbby S HEALTH 350.1.13.10 it y of [facility] 4.2.7.2.686 John as SHANITA?BLEA [id number] [place] b[place]abe SHAW 044 [facility] OFFICE [facility] 2022-02-20 2022-02-20 Outpatient R [facility] [id number] Univers 15:15:00 15:15:00 BOBBY chin [facility] [place] 2022-02-09 2022-02-09 Office [facility] 1.2.840.114 [id number] Univers 13:45:00 14:15:00 Visit Bobby [facility] 350.1.13.10 it y of [place] 4.2.7.2.686 John as SHANITA?BLEA [id number] [place] sh[place]ance VALERIA 198 [facility] OFFICE [facility] 2022-02-09 2022-02-09 Outpatient Miguel Ángel [facility] [id number] Univers 13:45:00 14:14:48 BOBBY chin [facility] [place] 2022-02-07 2022-02-07 Outpatient [facility] [id number] Univers 13:30:00 13:49:35 BILL chin [facility] [place] 2022-02-07 2022-02-07 Office [facility] 1.2.840.114 [id number] Univers 13:30:00 13:49:35 Visit [facility] 350.1.13.10 it y of [place] 4.2.7.2.686 Ojhn as SHANITA?BLEA [id number] [place] shawnfrance SHAW [address] [place] [address] 2022-02-05 2022-02-05 Emergency X [facility] [id number] Univers 16:08:00 17:27:00 NAZANIN rich [facility] [place] 2022-02-05 2022-02-05 Emergency [facility] 1.2.840.114 [id number] Univers 16:08:00 17:27:00 Nazanin BLAIR 350.1.13.10 ity [facility] 4.2.7.2.686 [id number] [address] 2022-02-02 2022-02-02 Emergency X LUCAS JEAN [facility] ERT [id number] Univers 11:02:00 15:34:00 LUCAS JEAN [facility] [place] 2022-02-02 2022-02-02 Emergency Anna [facility] [id number] Univers 11:02:00 15:34:00 Lucas BLAIR 350.1.13.10 i ty of [place] 4.2.7.2.686 [facility] [id number] [address] 2022-01-09 2022-01-09 Outpatient Miguel Ángel [facility] [id number] Univers 13:45:00 13:45:00 BILL chin [facility] [place] 2021-10-12 2021-10-12 Emergency X [facility] ERT [id number] Univers 09:51:00 11:54:00 EMY rich [facility] [place] 2021-10-12 2021-10-12 Emergency [facility] [id number] Univers 09:51:00 11:54:00 Emy BLAIR 350.1.13.10 i ty of [place] 4.2.7.2.686 [facility] [id number] [address] 2021-10-12 2021-10-12 Orders Doctor LACEY 1.2.840.114 [id number] Univers 00:00:00 00:00:00 Only Unassigned, AMAYA 350.1.13.10 ity of [place] [facility] 4.2.7.2.686 John as [id number] [address] 2021-09-12 2021-09-12 Outpatient Miguel [facility]ngel [facility] [id number] Univers 10:30:00 10:30:00 BILL rich [facility] [place] 2021-08-24 2021-08-24 Orders Doctor ABHIJIT Brunner2.840.114 [id number] Univers 00:00:00 00:00:00 Only Unassigned, AMAYA 350.1.13.10 ity of [place] [facility] 4.2.7.2.686 John as [id number] [address] 2021-06-03 2021-06-03 Outpatient Miguel [facility]ngel [facility] [id number] Univers 13:00:00 13:23:49 BILL rich [facility] [place] 2021-05-16 2021-05-16 Orders Doctor ABHIJIT Brunner2.840.114 [id number] Univers 00:00:00 00:00:00 Only Unassigned, AMAYA 350.1.13.10 ity of [place] [facility] 4.2.7.2.686 John as [id number] [address] 2021-05-04 2021-05-[address] [facility] [place] [place] 1.2.840.114 [id number] Univers 00:00:00 00:00:00 Bill HEALTH 350.1.13.10 it y of [place] 4.2.7.2.686 John as SHANITA?BLEA [id number] [address] MEDICAL OFFICE [facility] 2021-04-29 2021-04-[address] [facility] [place] 1.2.840.114 [id number] Univers 16:00:00 16:15:00 Visit Bill HEALTH 350.1.13.10 it y of [place] 4.2.7.2.686 John as SHANITA?BLEA [id number] [address] OFFICE [facility] 2021-04-29 2021-04-29 Outpatient R ABHILASH [facility] [id number] [facility] 16:00:00 16:00:00 BILL ity [facility] [place] 2021-04-29 2021-04-29 Orders Doctor LACEY 1.2.840.114 [id number] Univers 00:00:00 00:00:00 Only Unassigned, AMAYA 350.1.13.10 ity of [place] [facility] 4.2.7.2.686 John as [id number] [address] 2021-04-22 2021-04-22 Outpatient R ABHILASH [facility] [id number] Univers 08:00:00 08:00:00 BILL ity [facility] [place] 2021-04-22 2021-04-[address] [facility] [place] 1.2.840.114 [id number] Univers 00:00:00 00:00:00 Bill [facility] 350.1.13.10 it y of [place] 4.2.7.2.686 John as SHANITA?BLEA [id number] [address] OFFICE [facility] 2021-04-15 2021-04-[address] [facility] – [place], [place] [id number] Univers 15:30:00 16:00:00 Visit [facility] [id number] it y of [place] BLAIR [id number] John as SHANITA?BLEA [id number] [facility] [address] MED[facility] OFFICE BUILDING 2021-04-15 2021-04-15 Outpatient Miguel Ángel [facility] [id number] [employer] 15:30:00 15:30:00 [facility] 2021-04-15 2021-04-15 Outpatient [facility] [id number] [employer] 15:30:00 15:30:00 [facility] Results Test Description Test Time Test Comments Results Result Comments Source COMP. METABOLIC PANEL (43359) 2021-10-12 15:45:46 Test Item Value Reference Range Interpretation Comme nts NA (test code = 5839424539) 139 mmol/L 135-145 K (test code = 5976908242) 4.5 mmol/L 3.5-5.0 CL (test code = 6862159175) 99 mmol/L 98-108 CO2 TOTAL (test code = 6098769262) 30 mmol/L 23-31 AGAP (test code = 4623187557) 2-16 BUN (test code = 0031990720) 16 mg/dL 7-23 GLUCOSE (test code = 5382499214) 119 mg/dL 70-110 H CREATININE (test code = 0.66 mg/dL 0.50-1.04 3957741280) TOTAL BILI (test code = 0.4 mg/dL 0.1-1.3 9826348862) CALCIUM (test code = 0117409225) 10.0 mg/dL 8.6-10.6 T PROTEIN (test code = 5643268809) 8.6 g/dL 6.3-8.2 H ALBUMIN (test code = 6574043773) 4.7 g/dL 3.5-5.0 ALK PHOS (test code = 4364363604) 94 U/L 34-122 ALTv (test code = 1742-6) 17 U/L 5-35 AST(SGOT) (test code = 4815972648) 23 U/L 13-40 eGFR (test code = 7152337858) mL/min/1.73m2 SHE (test code = SHE) Association [...] tests). Lab Interpretation (test code = Abnormal 86821-5) [facility] Test Item Value Reference Range Interpretation Comments LIPASE (test code = 6685002673) 86 U/L 0-220 Lab Interpretation (test code = Normal 25937-4) [facility] [id number] 15:31:02 Test Item Value Reference Range Interpretation Comments WBC (test code = See_Comment H [Automated 2454-2) message] The system which generated this result transmit ann reference range : 4.30 - 11.10 10*3/?L. The reference range was not used to interpret this result as normal/abnormal . RBC (test code = See_Comment [Automated 789-8) message] The system which generated this result [...] RDW-SD (test code = 44.6 fL 39.0-49.9 21811-4) RDW-CV (test code = 13.7 % 12.0-15.5 788-0) PLT (test code = See_Comment H [Automated 777-3) message] The system which generated this result transmit ann reference range : 166 - 358 10*3/ ?L. The reference range was not u sed to interpret th is result as normal/abnormal . MPV (test code = 10.0 fL 9.5-12.9 90806-2) NRBC/100 WBC (test See_Comment [Automat ed code = 4606047231) message] The system which generated this result transmit ann reference range : 0.0 - 10.0 /100 WBCs. The reference range was not used to interpret this result as normal/abnormal . NRBC x10^3 (test code <0.01 See_Comment [Auto mated = 8352098941) message] The system which generated this result transmit ann reference range : 10*3/?L. The reference range was not used to interpret this result as normal/abnormal . GRAN MAT (NEUT) % 78.7 % (test code = 770-8) IMM GRAN % (test code 0.60 % = 5492424588) LYMPH % (test code = 12.7 % 736-9) MONO % (test code = 7.2 % 5905-5) EOS % (test code = 0.3 % 713-8) BASO % (test code = 0.5 % 706-2) GRAN MAT x10^3(ANC) 12.40 10*3/uL 1.88-7.09 H (test code = 2259421793) IMM GRAN x10^3 (test 0.09 10*3/uL 0.00-0.06 H code = 3730025188) LYMPH x10^3 (test code 2.00 10*3/uL 1.32-3.29 = 731-0) MONO x10^3 (test code 1.14 10*3/uL 0.33-0.92 H = 742-7) EOS x10^3 (test code = 0.04 10*3/uL 0.03-0.39 711-2) BASO x10^3 (test code 0.08 10*3/uL 0.01-0.07 H = 704-7) Lab Interpretation Abnormal (test code = 15580-7) [facility]"
[2022-06-20] MEDS ORDERED: ONDANSETRON 4 MG/2 ML VIAL ONE (11:14)
[2022-06-20] MEDS ORDERED: MORPHINE 4 MG/ML SYR ONE (11:14)
[2022-06-20 11:40] LABS: Absolute Lymphocytes (CBC) 3.2 K/uL (0.7-4.9); Hematocrit 35.8 % (36.0-45.0); MCV 88.3 fL (80-100); MPV 8.1 fL (7.6-11.3); RBC Red Blood Cell Count 4.05 M/uL (3.86-4.86)
[2022-06-20 11:48] LABS: Protime INR 0.86
[2022-06-20 11:53] LABS: ALT/SGPT 42 U/L (13-56); AST/SGOT 29 U/L (15-37); Albumin 3.1 g/dL (3.4-5.0); Alkaline Phosphatase 100 U/L (45-117); BUN Blood Urea Nitrogen 18 mg/dL (7-18); Bicarbonate 29 mmol/L (21-32); Bilirubin Direct < 0.1 mg/dL (0-0.2); Bilirubin Total 0.2 mg/dL (0.2-1.0); Glomerular Filtration Rate 89 ml/min (=/>90); Glucose Level 99 mg/dL (74-106); Lipase 37 U/L (13-75); Magnesium 1.9 mg/dL (1.6-2.4); NT PRO-BNP 136 pg/mL (<125); Potassium 4.1 mmol/L (3.5-5.1); Protein, Total 7.1 g/dL (6.4-8.2); Sodium Level 137 mmol/L (136-145); Troponin High Sensitivity 3.9 pg/mL (<58.9)
--- NOTE | 2022-06-20 12:46 | RAD REPORT ---
EXAM DESCRIPTION: RAD - Chest Single View - 06/20/2022 11:37 am CLINICAL HISTORY: DYSPNEA Chest pain. COMPARISON: No comparisons FINDINGS: Portable technique limits examination quality. The lungs are grossly clear. The heart is normal in size. No displaced fractures.Right clavicle hardw are plate. IMPRESSION: No acute intrathoracic process suspected.
--- NOTE | 2022-06-20 12:53 | RAD REPORT ---
EXAM DESCRIPTION: CT - Angio Aorta For Dissection - 06/20/2022 12:07 pm CLINICAL HISTORY: Chest pain radiating to the back. sob, back pain COMPARISON: No comparisons TECHNIQUE: CT angiography of the aorta was performed with MIPs. All CT scans are performed using dose optimization technique as appropriate and may include automated exposure control or mA/KV adjustment according to patient size. FINDINGS: A left aortic arch is present with normal branching pattern of the great vessels.No acute aortic finding is seen such as aneurysm, penetrating ulcer or dissection. The celiac axis, SMA, FELICITAS and renal arteries are patent. No evidence of pulmonary embolism. The lungs are clear. The liver demonstrates no focal mass or biliary dilatation.The spleen, pancreas, adrenal glands and k idneys are within normal limits for arterial phase imaging.Small benign cyst right kidney. No bowel obstruction, free fluid or abscess.No pathologic enlarged lymphadenopathy identified. Modera te stool retention throughout the colon. Mild lower lumbar degenerative changes. Mild anterolisthesis L4 on 5 with probable disc herniation pr esent. IMPRESSION: No acute aortic finding is demonstrated. L4-5 disc herniation with mild anterolisthesis present. Nonemergent follow-up MRI lumbar spine recomm ended.
--- NOTE | 2022-06-20 13:34 | EDPHYS ---
Physician Documentation [facility] Name: Cindy Ackerman Age: 47 yrs Sex: Female : 1975 Arrival Date: 06/20/2022 Time: 10:54 Bed 2 Private MD: ED Physician Dileep Alanis HPI: 06/20 11:09 This 47 yrs old Female presents to ER via Wheelchair with complaints of SOB, rn back pain. 11:09 The patient has shortness of breath at rest. Onset: The symptoms/episode began/occurred rn at an unknown time. Duration: The symptoms are continuous. The patient's shortness of breath is aggravated by. 11:11 Associated signs and symptoms: Pertinent negatives: productive cough, fever, rn hemoptysis. Severity of symptoms: At their worst the symptoms were moderate in the emergency department the symptoms are unchanged. The patient has experienced similar episodes in the past. The patient has not recently seen a physician. Pt reports mid back pain and sob. Pt hyperventilating and not able to contribute much more than that. Family member reports chronic back pain and anxiety, under a lot of stress, has had this before. Pt denies fever/chest pain. + non-productive cough.. Historical: - Allergies: 10:59 PENICILLINS; ll1 10:59 Robaxin; ll1 - PMHx: 10:59 Anxiety; Asthma; Bipolar disorder; Hypercholesterolemia; Hypertensive disorder; PTSD; ll1 Seizure; - PSHx: 10:59 hip SX; ll1 - Immunization history:: Adult Immunizations up to date. - Social history:: Smoking status: Patient denies any tobacco usage or history of. Patient/guardian denies using alcohol. - Family history:: not pertinent. - Hospitalizations: : No recent hospitalization is reported. ROS: 11:15 Constitutional: Negative for fever, chills, and weight loss, Neck: Negative for injury, rn pain, and swelling, Cardiovascular: Negative for chest pain, palpitations, and edema, Respiratory: + sob Abdomen/GI: Negative for abdominal pain, nausea, vomiting, diarrhea, and constipation, Back: + back pain MS/Extremity: Negative for injury and deformity, Skin: Negative for injury, rash, and discoloration, Neuro: Negative for headache, weakness, numbness, tingling, and seizure. Exam: 11:15 Constitutional: This is a well developed, well nourished patient who is awake, alert, rn tearful and hyperventilating Head/Face: Normocephalic, atraumatic. ENT: No stridor Cardiovascular: Regular rate and rhythm. No pulse deficits. Respiratory: Hyperventilating, able to slow down breath Abdomen/GI: Soft, non-tender Skin: Warm, dry MS/ Extremity: Pulses equal, no cyanosis. Neuro: Awake and alert, GCS 15 11:50 ECG was reviewed by the Attending Physician. rn Vital Signs: 11:02 BP 109 / 75; Pulse 86; Resp 28; Temp 97.6(O); Pulse Ox 100% on R/A; Weight 69 kg; ld1 Height 5 ft. 2 in. ; Pain 10/10; 11:24 BP 107 / 82; Pulse 72; Resp 20; Pulse Ox 98% ; Pain 10/10; ll1 12:19 BP 97 / 66; Pulse 72; Resp 18; Pulse Ox 97% on R/A; ld1 13:12 BP 101 / 78; Pulse 62; Resp 10; Pulse Ox 100% on R/A; ld1 11:02 Body Mass Index 27.82 (69.00 kg, 157.48 cm) ld1 11:02 Pain Scale: Adult ld1 11:24 Pain Scale: Adult ll1 MDM: 10:55 Patient medically screened. rn 13:30 Differential diagnosis: Anxiety Reaction pneumonia, Pneumothorax aortic dissection, rn AAA, radiculopathy, chronic pain with exacerbation. 13:31 Data reviewed: vital signs, nurses notes, lab test result(s), EKG, radiologic studies, rn CT scan, and as a result, I will discharge patient. Independent interpretation of the following test(s) in the Emergency Department EKG: See my EKG interpretation above X-Ray: My interpretation is CXR images neg for pneumothorax per my interpretation. Counseling: I had a detailed discussion with the patient and/or guardian regarding: the historical points, exam findings, and any diagnostic results supporting the discharge/admit diagnosis, lab results, radiology results, the need for outpatient follow up, to return to the emergency department if symptoms worsen or persist or if there are any questions or concerns that arise at home. Response to treatment: the patient's symptoms have markedly improved after treatment, and as a result, I will discharge patient. ED course: NO acute findings on imaging or tests, improved vitals, sitting upright and feels much better, will dc home with steroids and muscle relaxer. . 06/20 11:06 Order name: EKG - Nurse/Tech; Complete Time: :06/20 11:06 Order name: Cardiac monitoring; Complete Time: 11:06/20 11:06 Order name: O2 Sat Monitoring; Complete Time: 06/20 11:06 Order name: O2 Per Protocol; Complete Time: :06/20 11:06 Order name: EKG; Complete Time: :06/20 11:06 Order name: Labs collected and sent; Complete Time: 06/20 11:06 Order name: IV Saline Lock; Complete Time: 06/20 11:06 Order name: CBC with Diff; Complete Time: 11:06/20 11:06 Order name: BMP; Complete Time: 12:06/20 11:06 Order name: Hepatic Function; Complete Time: 12:06/20 11:06 Order name: NT PRO-BNP; Complete Time: 12:06/20 11:06 Order name: Lipase; Complete Time: 12:06/20 11:06 Order name: Magnesium; Complete Time: :06/20 11:06 Order name: PT-INR; Complete Time: 12:06/20 11:06 Order name: Ptt, Activated; Complete Time: 12:06/20 11:06 Order name: Troponin HS; Complete Time: :06/20 11:06 Order name: XRAY CXR (1 view); Complete Time: 12:56 06/20 11:06 Order name: CT Aorta for Dissection; Complete Time: 12:56 rn EC:50 Rate is 69 beats/min. Rhythm is regular. QRS [place] is Normal. MT interval is normal. QRS rn interval is normal. QT interval is normal. No Q waves. T waves are Normal. No ST changes noted. Clinical impression: Normal ECG. Interpreted by me. Reviewed by me. Administered Medications: 11:23 Drug: Ondansetron IVP 4 mg Route: IVP; Site: right antecubital; ll1 11:23 Drug: morphine IVP or IV 4 mg Route: IVP; Infused Over: 4 mins; Site: right antecubital;ll1 Disposition Summary: 06/20/22 13:34 Discharge Ordered Location: Home rn Problem: new rn Symptoms: have improved rn Condition: Stable rn Diagnosis - Chronic pain, not elsewhere classified rn - Other intervertebral disc disorders, lumbar region rn Forms: - Medication Reconciliation Form rn - Thank You Letter rn - Antibiotic rn new grad - Prescription Opioid Use rn Signatures: Dispatcher [employer] EDMS Dileep Alanis MD MD rn Lewis, Lynsay RN RN ll1 Bobbi Schultz RN RN ld1 Corrections: (The following items were deleted from the chart) 11:16 11:11 Pt reports. rn rn 11:17 11:15 Constitutional: Negative for fever, chills, and weight loss, rn rn
--- NOTE | 2022-06-20 13:34 | ER ---
Nurse's Notes [facility] Name: Cindy Ackerman Age: 47 yrs Sex: Female : 1975 Arrival Date: 06/20/2022 Time: 10:54 Bed 2 Private MD: Diagnosis: Chronic pain, not elsewhere classified;Other intervertebral disc disorders, lumbar region Presentation: 06/20 10:59 Chief complaint: Patient states: SOB and anxiety today. Back pain for a couple days, ll1 worse today than usual. Coronavirus screen: Client denies travel out of the [place] in the last 14 days. difficulty breathing, shortness of breath, Client presents with at least one sign or symptom that may indicate coronavirus-19. Standard/surgical mask placed on the client. Ebola Screen: Patient denies travel to an Ebola-affected area in the 21 days before illness onset. Initial Sepsis Screen: Does the patient meet any 2 criteria? No. Patient's initial sepsis screen is negative. Does the patient have a suspected source of infection? No. Patient's initial sepsis screen is negative. Risk Assessment: Do you want to hurt yourself or someone else? Patient reports no desire to harm self or others. Onset of symptoms was June 19, 2022. 10:59 Method Of Arrival: Wheelchair ll1 10:59 Acuity: JEFFY 2 ll1 Triage Assessment: 11:00 General: Appears uncomfortable, ill, Behavior is cooperative, appropriate for age, ll1 anxious. Pain: Complains of pain in back Pain currently is 10 out of 10 on a pain scale. Quality of pain is described as aching, throbbing. Neuro: No deficits noted. Cardiovascular: Reports chest pain, shortness of breath. Respiratory: Reports shortness of breath labored breathing Onset: The symptoms/episode began/occurred this morning, the patient has moderate shortness of breath. Musculoskeletal: Circulation, motion, and sensation intact. Capillary refill < 3 seconds, Reports pain in back. Historical: - Allergies: 10:59 PENICILLINS; ll1 10:59 Robaxin; ll1 - PMHx: 10:59 Anxiety; Asthma; Bipolar disorder; Hypercholesterolemia; Hypertensive disorder; PTSD; ll1 Seizure; - PSHx: 10:59 hip SX; ll1 - Immunization history:: Adult Immunizations up to date. - Social history:: Smoking status: Patient denies any tobacco usage or history of. Patient/guardian denies using alcohol. - Family history:: not pertinent. - Hospitalizations: : No recent hospitalization is reported. Screenin:02 [facility] ED Fall Risk Assessment (Adult) History of falling in the last 3 months, ld1 including since admission No falls in past 3 months (0 pts). Abuse screen: Denies threats or abuse. Denies injuries from another. Nutritional screening: No deficits noted. Tuberculosis screening: No symptoms or risk factors identified. Assessment: 11:03 Reassessment: See triage assessment. Pain: Complains of pain in back and chest Pain ld1 does not radiate. Pain. Neuro: Level of Consciousness is awake, alert, obeys commands, Oriented to person, place, time, situation. Cardiovascular: Capillary refill < 3 seconds Patient's skin is warm and dry. Rhythm is sinus rhythm. Respiratory: Airway is patent Respiratory effort is even, labored, Breath sounds are clear bilaterally. 11:04 Reassessment: ERP in room assessing for patient. ld1 11:24 Reassessment: No changes from previously documented assessment. Patient and/or family ll1 updated on plan of care and expected duration. Pain level reassessed. Vital Signs: 11:02 BP 109 / 75; Pulse 86; Resp 28; Temp 97.6(O); Pulse Ox 100% on R/A; Weight 69 kg; ld1 Height 5 ft. 2 in. ; Pain 10/10; 11:24 BP 107 / 82; Pulse 72; Resp 20; Pulse Ox 98% ; Pain 10/10; ll1 12:19 BP 97 / 66; Pulse 72; Resp 18; Pulse Ox 97% on R/A; ld1 13:12 BP 101 / 78; Pulse 62; Resp 10; Pulse Ox 100% on R/A; ld1 11:02 Body Mass Index 27.82 (69.00 kg, 157.48 cm) ld1 11:02 Pain Scale: Adult ld1 11:24 Pain Scale: Adult ll1 ED Course: 10:54 Patient arrived in ED. mr 10:55 Dileep Alanis MD is Attending Physician. rn 10:57 Kit Duenas, HUBERT is Primary Nurse. ll1 10:57 Arm band placed on Patient placed in an exam room, on a stretcher. ll1 11:01 Triage completed. ll1 11:02 Patient has correct armband on for positive identification. Placed in gown. Bed in low ld1 position. Call light in reach. Side rails up X2. phototypesetting equipment monitor on. Pulse ox on. NIBP on. Door closed. Noise minimized. Warm blanket given. 11:02 No provider procedures requiring assistance completed. ld1 11:24 Inserted saline lock: 22 gauge in left antecubital area, using aseptic technique. Blood rs5 collected. 11:39 XRAY CXR (1 view) In Process Unspecified. EDMS 12:09 CT Aorta for Dissection In Process Unspecified. EDMS Administered Medications: 11:23 Drug: Ondansetron IVP 4 mg Route: IVP; Site: right antecubital; ll1 11:23 Drug: morphine IVP or IV 4 mg Route: IVP; Infused Over: 4 mins; Site: right antecubital;ll1 Medication: 11:02 VIS not applicable for this client. ld1 Outcome: 13:34 Discharge ordered by . rn Signatures: Dispatcher [employer] EDDE Bebe Scales Roman, MD MD rn Lewis, Lynsay, RN RN ll1 Bobbi Schultz RN RN ld1 Zackery Thomas rs5 Corrections: (The following items were deleted from the chart) 11:05 11:02 BP 109 / 75; Pulse 86bpm; Resp 28bpm; Pulse Ox 100% RA; Temp 97.6F Oral; 69 kg; ld1 Height 5 ft. 2 in.; BMI: 27.8; ld1 11:05 11:02 Pain 810, Adult; ld1 ld1
[2022-06-20 19:00] VITALS: TEMP 97.6
[2022-06-20 20:25] VITALS: BP 101/73; O2SAT 100
--- NOTE | 2022-06-21 13:23 | EKG ---
Test Date: 2022-06-20 Test Time: 11:02:35 Youth Development Specialist: JACK MEASUREMENT RESULTS: Intervals: Rate: 69 NC: 158 QRSD: 82 QT: 352 QTc: 377 [place]: P: 42 NC: 158 QRS: 71 T: 58 INTERPRETIVE STATEMENTS: Normal sinus rhythm Normal ECG Compared to ECG 04/18/2021 10:53:27 Right-axis deviation no longer present Electronically Signed On 06-21-22 13:20:07 CDT by Hadley Rowe
== END 2022-06-20 14:03 | disposition home or self-care (01) ==
LOC: ER 10:53
DX: G89.29 Other chronic pain (principal); M51.86 Other intervertebral disc disorders, lumbar region; F41.9 Anxiety disorder, unspecified; Z88.0 Allergy status to penicillin; Z88.8 Allergy status to other drugs, medicaments and biological substances
CPT/HCPCS: 93005; 85025; 80048; 36415; 83735; 85610; 80076; 85730; 84484; 83690; 83880; 71275; 74175; 71045; 96375; 96374; 99284; Q9967; J2405

== ENCOUNTER 2022-09-06 07:50 | Emergency (ER) | payer OTHER ==
--- OUTSIDE RECORDS SUMMARY | 2022-09-06 07:55 | XMS REPORT | Continuity of Care Document ---
:1975 Author Organization [facility] Address [address] [facility] [place] [address] Care Team Providers Name Role Phone [facility] Primary Care Physician Unavailable REBECCA MACK Attending Clinician Unavailable BOBBY FIELDS Attending Clinician Unavailable ISABEL FIELDS Attending Clinician Unavailable Isabel Fields MD Attending Clinician Brittnee Mckinney MA Attending Clinician Unavailable Bobby Pfeiffer Attending Clinician Doctor Unassigned, Hilger Attending Clinician Unavailable JOHN ESCAMILLA Attending Clinician [...] Policy Number Effective Date Expiration Date Kira elizabethlex [facility] [id number] 2022 PLUS 00:00:[address] [facility] [id number] [id number] [facility] 00:00:00 Problems Condition Condition Condition Status Onset Resolution Last Treating Co mments Source Name Details Category Date Date Treatment Clinician Date No known No known Disease Unive rs active active ity of problems problems [facility] Allergies, Adverse Reactions, Alerts Allergy Allergy Status Severity Reaction(s) Onset Inactive Treating Comm ents Source Name Type Date Date Clinician METHOCAR DRUG Active Hives Univers BAMOL INGREDI -07 ity of 00:00: [place] 00 Medical Branch Methocar Propensi Active Hives Univer s bamol ty to 07 ity of adverse 00:00: [place] reaction 00 Medical s [place] Social History Social Habit Start Date Stop Date Quantity Comments Source Exposure to 2022-05-28 2022-06-07 Not sure [facility]-CoV-2 00:00:00 11:13:00 [facility] (event) [place] Alcohol intake 2022-06-07 2022-06-07 Lifetime University of 00:00:00 00:00:00 non-drinker [facility] (finding) [place] Tobacco use and 2022-02-09 2022-02-09 Smokeless tobacco Un iversity of exposure 00:00:00 00:00:00 non-user [facility] Sex Assigned At [birth year] Universit y of 00:00:00 00:00:00 [facility] Smoking Status Start Date Stop Date Source Tobacco smoking consumption [facility] unknown Branch Never smoked tobacco [facility] Medications Ordered Filled Start Stop Current Ordering Indication Dosage Frequency Signature Comments Components Source Medication Medication Date Date Medication? Clinician (SIG) Name Name levETIRAcet 2021-04 Yes 500mg 500 mg, Un roel am (KEPPRA) 1- Oral, BID, it y of tablet 500 14:00: First dose [place] mg 00 on [facility] 03/05/22 Branch at 0800, Until Discontinu ed, Routine D5W 0.9% 2021-04 Yes 1000mL at 125 Unive rs NaCl (NS) 1-27 mL/hr, ity of IV infusion 06:30: 1,000 mL, [place] 1,000 mL 00 IV Medical Infusion, Branch CONTINUOUS , Starting on [place] 03/05/22 at 0030, Until Discontinu ed, ELVIS NaCl 0.9% 2021-04- No 1000mL at 999 Uni vers (NS) bolus 05-05 11-27 mL/hr, ity of infusion 06:15: 20:58 1,000 mL, [place] as 1,000 mL 00 :00 IV Medical Piggyback, Branch ONCE, 1 dose, On [place] 03/05/22 at 0015, STAT traZODone 2021-04 Yes 150mg 150 mg, Univ ers (DESYREL) 05-05 Oral, QHS, ity of tablet 150 03:00: First dose [place] mg 00 on [facility] 03/04/22 Branch at 2100, Until Discontinu ed, ELVIS OXcarbazepi 2021-04 Yes 150mg 150 mg, Un roel ne 05-05 Oral, BID, ity of (TRILEPTAL) 02:00: First dose [place] tablet 150 00 on [facility] 03/04/22 Branch at 2000, Until Discontinu ed, ELVIS lamoTRIgine 2021-04 Yes 25mg 25 mg, Univ ers (LAMICTAL) 05-05 Oral, BID, ity of tablet 25 02:00: [place] mg 00 on [facility] 03/04/22 Branch at 2000, Until Discontinu ed, ELVIS NaCl 0.9% 2021-04- No 1000mL at 999 Uni vers (NS) bolus 05-05 mL/hr, ity of infusion 00:30: 21:00 1,000 mL, [place] 1,000 mL 00 :00 IV Medical Pigmt. [facility] [place] ONCE, 1 dose, On [facility] 03/04/22 at 1830, STAT LORazepam 2021-04- No 1mg 1 mg, Slow U nivers (ATIVAN) 05-04 IV Push, ity of injection 1 22:00: 01:29 ONCE, 1 [place] mg 00 :00 dose, On Medical [facility] 03/04/22 at 1600, STAT traMADoL 50 2021-04 [...] tablet by ity o f 00:00: mouth [place] 00 every 4 Medical (four) Branch hours as needed for Pain (scale 7-10). Indication s: acute pain atorvastati 2021-04- No 20mg Take 20 mg Univers n 20 mg 04-09 by mouth ity of tablet 13:34: 00:00 daily. [place] 15 :00 Medical Branch gabapentin 2021-04- No [...] of 1,000 mg 13:34: 00:00 mouth in [facility] s tablet 15 :00 the Medical morning Branch and 1,000 mg in the evening. atorvastati 2021-04- No 20mg Take 20 mg Univers n 20 mg 04-09 by mouth ity of tablet 13:34: 00:00 daily. [place] 15 :00 Medical Branch gabapentin 2021-04- No [...] of 1,000 mg 13:34: 00:00 mouth [facility] [place] [facility] 15 :00 the Medical morning [...] Medical times Branch daily. atorvastati 2021-04 Yes [id number] 20mg Take 1 Univers n 20 mg 04-09 tablet by ity of tablet 00:00: mouth in [place] 00 the Medical morning. Branch gabapentin 2021-04 Yes [id number] 300mg Take 1 Univers 300 mg 04-09 capsule by ity of capsule 00:00: mouth in [place] 00 the Medical morning Branch and 1 capsule at noon and 1 capsule in the evening. levETIRAcet 2021-04 Yes [id number] 1000mg Take 1 Univers am (KEPPRA) 04-09 tablet by ity of 1,000 mg 00:00: mouth in [facility] 00 the Medical morning Branch and 1 tablet in the evening. naproxen 2021-04 Yes [id number] 500mg Take 1 Un roel 500 mg 04-09 tablet by ity of tablet 00:00: mouth in [place] 00 the Medical morning Branch and 1 tablet in the evening. Take with meals. atorvastati 2021-04 Yes [id number] 20mg Take 1 Univers n 20 mg 1-01 tablet by ity of tablet 00:00: mouth in [place] the Medical morning. Branch gabapentin 2021-04 Yes [id number] 300mg Take 1 Univers 300 mg 1-01 capsule by ity of capsule 00:00: mouth in [place] 00 the Medical morning Branch and 1 capsule at noon and 1 capsule in the evening. levETIRAcet 2021-04 Yes [id number] 1000mg Take 1 Univers am (KEPPRA) 1-01 tablet by ity of 1,000 mg 00:00: mouth in [place] tablet 00 the Medical morning Branch and 1 tablet in the evening. naproxen 2021-04 Yes [id number] 500mg Take 1 Un roel 500 mg 1-01 tablet by ity of tablet 00:00: mouth in [place] the Medical morning Branch and 1 tablet in the evening. Take with meals. atorvastati 2021-04 Yes [id number] 20mg Take 1 Univers n 20 mg 1-01 tablet by ity of tablet 00:00: mouth in [place] the Medical morning. Branch gabapentin 2021-04 Yes [id number] 300mg Take 1 Univers 300 mg 1-01 capsule by ity of capsule 00:00: mouth in [place] the Medical morning Branch and 1 capsule at noon and 1 capsule in the evening. levETIRAcet 2021-04 Yes [id number] 1000mg Take 1 Univers am (KEPPRA) 1-01 tablet by ity of 1,000 mg 00:00: mouth in [place] tablet 00 the Medical morning Branch and 1 tablet in the evening. naproxen 2021-04 Yes [id number] 500mg Take 1 Un roel 500 mg 1-01 tablet by ity of tablet 00:00: mouth in [place] [address] the Medical morning Branch and 1 tablet in the evening. Take with meals. atorvastati 2021-04 Yes [id number] 20mg Take 1 Univers n 20 mg 1-01 tablet by ity of tablet 00:00: mouth in [place] [address] the Medical morning. Branch gabapentin 2021-04 Yes [id number] 300mg Take 1 Univers 300 mg 1-01 capsule by ity of capsule 00:00: mouth in [place] [address] the Medical morning Branch and 1 capsule at noon and 1 capsule in the evening. levETIRAcet 2021-04 Yes [id number] 1000mg Take 1 Univers am (KEPPRA) 1-01 tablet by ity of 1,000 mg 00:00: mouth in [place] tablet 00 the Medical morning Branch and 1 tablet in the evening. naproxen 2021-04 Yes [id number] 500mg Take 1 Un roel 500 mg 1-01 tablet by ity of tablet 00:00: mouth in [place] 00 the Medical morning Branch and 1 tablet in the evening. Take with meals. atorvastati 2021-04 Yes [id number] 20mg Take 1 Univers n 20 mg 1-01 tablet by ity of tablet 00:00: mouth in [place] [address] the Medical morning. Branch gabapentin 2021-04 Yes [id number] 300mg Take 1 Univers 300 mg 1-01 capsule by ity of capsule 00:00: mouth in [place] [address] the [facility] morning Branch and 1 capsule at noon and 1 capsule in the evening. levETIRAcet 2021-04 Yes [id number] 1000mg Take 1 Univers am (KEPPRA) 1-01 tablet by ity of 1,000 mg 00:00: mouth in [place] tablet the Medical morning Branch and 1 tablet in the evening. naproxen 2021-04 Yes [id number] 500mg Take 1 Un roel 500 mg 1-01 tablet by ity of tablet 00:00: mouth in [place] [address] the [facility] morning Branch and 1 tablet in the evening. Take with meals. atorvastati 2021-04 Yes [id number] 20mg Take 1 Univers n 20 mg 1-01 tablet by ity of tablet 00:00: mouth in [place] [address] the Medical morning. Branch gabapentin 2021-04 Yes [id number] 300mg Take 1 Univers 300 mg 1-01 capsule by ity of capsule 00:00: mouth in [place] [address] the [facility] morning [place] and 1 capsule at noon and 1 capsule in the evening. levETIRAcet 2021-04 Yes [id number] 1000mg Take 1 Univers am (KEPPRA) 1-01 tablet by ity of 1,000 mg 00:00: mouth in [place] tablet 00 the Medical morning Branch and 1 tablet in the evening. naproxen 2021-04 Yes [id number] 500mg Take 1 Un roel 500 mg 1-01 tablet by ity of tablet 00:00: mouth in [place] [address] the [facility] morning Branch and 1 tablet in the evening. Take with meals. atorvastati 2021-04 Yes [id number] 20mg Take 1 Univers n 20 mg 1-01 tablet by ity of tablet 00:00: mouth in [place] the morning. Branch gabapentin 2021-04 Yes [id number] 300mg Take 1 Univers 300 mg 1-01 capsule by ity of capsule 00:00: mouth in [place] 00 the Medical morning Branch and 1 capsule at noon and 1 capsule in the evening. levETIRAcet 2021-04 Yes [id number] 1000mg Take 1 Univers am (KEPPRA) 1-01 tablet by ity of 1,000 mg 00:00: mouth in [place] tablet 00 the Medical morning Branch and 1 tablet in the evening. naproxen 2021-04 Yes [id number] 500mg Take 1 Un roel 500 mg 1-01 tablet by ity of tablet 00:00: mouth in [place] the Medical morning Branch and 1 tablet in the evening. Take with meals. atorvastati 2021-04 Yes [id number] 20mg Take 1 Univers n 20 mg 1-01 tablet by ity of tablet 00:00: mouth in [place] the morning. Branch gabapentin 2021-04 Yes [id number] 300mg Take 1 Univers 300 mg 1-01 capsule by ity of capsule 00:00: mouth in [place] the Medical morning Branch and 1 capsule at noon and 1 capsule in the evening. levETIRAcet 2021-04 Yes [id number] 1000mg Take 1 Univers am (KEPPRA) 1-01 tablet by ity of 1,000 mg 00:00: mouth in [place] tablet the Medical morning Branch and 1 tablet in the evening. naproxen 2021-04 Yes [id number] 500mg Take 1 Un roel 500 mg 1-01 tablet by ity of tablet 00:00: mouth in [place] the Medical morning Branch and 1 tablet in the evening. Take with meals. atorvastati 2021-04 Yes [id number] 20mg Take 1 Univers n 20 mg 1-01 tablet by ity of tablet 00:00: mouth in [place] the Medical morning. Branch gabapentin 2021-04 Yes [id number] 300mg Take 1 Univers 300 mg 1-01 capsule by ity of capsule 00:00: mouth in [place] 00 the Medical morning Branch and 1 capsule at noon and 1 capsule in the evening. levETIRAcet 2021-04 Yes [id number] 1000mg Take 1 Univers am (KEPPRA) 1-01 tablet by ity of 1,000 mg 00:00: mouth in [place] tablet 00 the Medical morning Branch and 1 tablet in the evening. naproxen 2021-04 Yes [id number] 500mg Take 1 Un roel 500 mg 1-01 tablet by ity of tablet 00:00: mouth in [place] 00 the Medical morning Branch and 1 tablet in the evening. Take with meals. atorvastati 2021-04 Yes [id number] 20mg Take 1 Univers n 20 mg 1-01 tablet by ity of tablet 00:00: mouth in [place] [address] the Medical morning. Branch gabapentin 2021-04 Yes [id number] 300mg Take 1 Univers 300 mg 1-01 capsule by ity of capsule 00:00: mouth in [place] [address] the Medical morning Branch and 1 capsule at noon and 1 capsule in the evening. levETIRAcet 2021-04 Yes [id number] 1000mg Take 1 Univers am (KEPPRA) 1-01 tablet by ity of 1,000 mg 00:00: mouth in [place] tablet 00 the Medical morning Branch and 1 tablet in the evening. naproxen 2021-04 Yes [id number] 500mg Take 1 Un roel 500 mg 1-01 tablet by ity of tablet 00:00: mouth in [place] [address] the Medical morning Branch and 1 tablet in the evening. Take with meals. atorvastati 2021-04 Yes [id number] 20mg Take 1 Univers n 20 mg 1-01 tablet by ity of tablet 00:00: mouth in [place] the Medical morning. Branch gabapentin 2021-04 Yes [id number] 300mg Take 1 Univers 300 mg 1-01 capsule by ity of capsule 00:00: mouth in [place] [address] the Medical morning Branch and 1 capsule at noon and 1 capsule in the evening. levETIRAcet 2021-04 Yes [id number] 1000mg Take 1 Univers am (KEPPRA) 1-01 tablet by ity of 1,000 mg 00:00: mouth in [place] tablet 00 the Medical morning Branch and 1 tablet in the evening. naproxen 2021-04 Yes [id number] 500mg Take 1 Un roel 500 mg 1-01 tablet by ity of tablet 00:00: mouth in [place] 00 the Medical morning Branch and 1 tablet in the evening. Take with meals. atorvastati 2021-04 Yes [id number] 20mg Take 1 Univers n 20 mg 1-01 tablet by ity of tablet 00:00: mouth in [place] the Medical morning. Branch gabapentin 2021-04 Yes [id number] 300mg Take 1 Univers 300 mg 1-01 capsule by ity of capsule 00:00: mouth in [place] 00 the Medical morning Branch and 1 capsule at noon and 1 capsule in the evening. levETIRAcet 2021-04 Yes [id number] 1000mg Take 1 Univers am (KEPPRA) 1-01 tablet by ity of 1,000 mg 00:00: mouth in [place] tablet 00 the Medical morning Branch and 1 tablet in the evening. naproxen 2021-04 Yes [id number] 500mg Take 1 Un roel 500 mg 1-01 tablet by ity of tablet 00:00: mouth in [place] the Medical morning Branch and 1 tablet in the evening. Take with meals. atorvastati 2021-04 Yes [id number] 20mg Take 1 Univers n 20 mg 1-01 tablet by ity of tablet 00:00: mouth in [place] [address] the morning. Branch gabapentin 2021-04 Yes [id number] 300mg Take 1 Univers 300 mg 1-01 capsule by ity of capsule 00:00: mouth in [place] the Medical morning Branch and 1 capsule at noon and 1 capsule in the evening. levETIRAcet 2021-04 Yes [id number] 1000mg Take 1 Univers am (KEPPRA) 1-01 tablet by ity of 1,000 mg 00:00: mouth in [place] tablet 00 the Medical morning Branch and 1 tablet in the evening. naproxen 2021-04 Yes [id number] 500mg Take 1 Un roel 500 mg 1-01 tablet by ity of tablet 00:00: mouth in [place] the Medical morning Branch and 1 tablet in the evening. Take with meals. atorvastati 2021-04 Yes [id number] 20mg Take 1 Univers n 20 mg 1-01 tablet by ity of tablet 00:00: mouth in [place] [address] the Medical morning. Branch gabapentin 2021-04 Yes [id number] 300mg Take 1 Univers 300 mg 1-01 capsule by ity of capsule 00:00: mouth in [place] [address] the Medical morning Branch and 1 capsule at noon and 1 capsule in the evening. levETIRAcet 2021-04 Yes [id number] 1000mg Take 1 Univers am (KEPPRA) 1-01 tablet by ity of 1,000 mg 00:00: mouth in [place] tablet 00 the Medical morning Branch and 1 tablet in the evening. naproxen 2021-04 Yes [id number] 500mg Take 1 Un roel 500 mg 1-01 tablet by ity of tablet 00:00: mouth in [place] 00 the [facility] morning Branch and 1 tablet in the evening. Take with meals. atorvastati 2021-04 Yes [id number] 20mg Take 1 Univers n 20 mg 1-01 tablet by ity of tablet 00:00: mouth in [place] [address] the [facility]. Branch gabapentin 2021-04 Yes [id number] 300mg Take 1 Univers 300 mg 1-01 capsule by ity of capsule 00:00: mouth in [place] [address] the [facility] [place] [facility] and 1 capsule at noon and 1 capsule in the evening. levETIRAcet 2021-04 Yes [id number] 1000mg Take 1 Univers am (KEPPRA) 1-01 tablet by ity of 1,000 mg 00:00: mouth in [place] tablet 00 the [facility] morning [place] and 1 tablet in the evening. naproxen 2021-04 Yes [id number] 500mg Take 1 Un roel 500 mg 1-01 tablet by ity of tablet 00:00: mouth in [place] [address] the [facility] [place] [facility] and 1 tablet in the evening. Take with meals. ibuprofen 2021-04 600mg 600 mg, Uni vers (IBU) 0-30 10-30 Oral, ity of tablet 600 21:15: 21:11 ONCE, 1 [place] mg 00 :00 dose, On [facility] Branch 02/05/22 at 1615, ELVIS tiZANidine 2021-04 Yes [id number] 4mg Take 1 U nivers 4 mg 0-27 capsule by ity of capsule 00:00: mouth in [place] [address] the [facility] [place] [facility] and 1 capsule at noon and 1 capsule in the evening. tiZANidine 2021-04 Yes [id number] 4mg Take 1 U nivers 4 mg 0-27 capsule by ity of capsule 00:00: mouth in [place] [address] the [facility] [place] [facility] and 1 capsule at noon and 1 capsule in the evening. tiZANidine 2021-04 Yes [id number] 4mg Take 1 U nivers 4 mg 0-27 capsule by ity of capsule 00:00: mouth in [place] [address] the Medical morning Branch and 1 capsule at noon and 1 capsule in the evening. tiZANidine 2021-04 Yes [id number] 4mg Take 1 U nivers 4 mg 0-27 capsule by ity of capsule 00:00: mouth in [place] [address] the Medical morning Branch and 1 capsule at noon and 1 capsule in the evening. tiZANidine 2021-04 Yes [id number] 4mg Take 1 U nivers 4 mg 0-27 capsule by ity of capsule 00:00: mouth in [place] [address] the Medical morning Branch and 1 capsule at noon and 1 capsule in the evening. tiZANidine 2021-04 Yes [id number] 4mg Take 1 U nivers 4 mg 0-27 capsule by ity of capsule 00:00: mouth in [place] [address] the Medical morning [place] and 1 capsule at noon and 1 capsule in the evening. tiZANidine 2021-04 Yes [id number] 4mg Take 1 U nivers 4 mg 0-27 capsule by ity of capsule 00:00: mouth in [address] morning [place] and 1 capsule at noon and 1 capsule in the evening. tiZANidine 2021-04 Yes [id number] 4mg Take 1 U nivers 4 mg 0-27 capsule by ity of capsule 00:00: mouth in [place] [address] the [facility] morning [place] and 1 capsule at noon and 1 capsule in the evening. tiZANidine 2021-04 Yes [id number] 4mg Take 1 U nivers 4 mg 0-27 capsule by ity of capsule 00:00: mouth in [address] morning [place] and 1 capsule at noon and 1 capsule in the evening. tiZANidine 2021-04 Yes [id number] 4mg Take 1 U nivers 4 mg 0-27 capsule by ity of capsule 00:00: mouth in [place] [address] the [facility] morning Branch and 1 capsule at noon and 1 capsule in the evening. tiZANidine 2021-04 Yes [id number] 4mg Take 1 U nivers 4 mg 0-27 capsule by ity of capsule 00:00: mouth in [address] morning [place] and 1 capsule at noon and 1 capsule in the evening. tiZANidine 2021-04 Yes [id number] 4mg Take 1 U nivers 4 mg 0-27 capsule by ity of capsule 00:00: mouth in [address] morning [place] and 1 capsule at noon and 1 capsule in the evening. tiZANidine 2021-04 Yes [id number] 4mg Take 1 U nivers 4 mg 0-27 capsule by ity of capsule 00:00: mouth in [place] [address] the [facility] morning [place] and 1 capsule at noon and 1 capsule in the evening. tiZANidine 2021-04 Yes [id number] 4mg Take 1 U nivers 4 mg 0-27 capsule by ity of capsule 00:00: mouth in [address] morning [place] and 1 capsule at noon and 1 capsule in the evening. tiZANidine 2021-04 Yes [id number] 4mg Take 1 U nivers 4 mg 0-27 capsule by ity of capsule 00:00: mouth in [address] morning [place] and 1 capsule at noon and 1 capsule in the evening. tiZANidine 2021-04 Yes [id number] 4mg Take 1 U nivers 4 mg 0-27 capsule by ity of capsule 00:00: mouth in [address] and 1 capsule at noon and 1 capsule in the evening. tiZANidine 2021-04 Yes [id number] 4mg Take 1 U nivers 4 mg 0-27 capsule by ity of capsule 00:00: mouth in [address] and 1 capsule at noon and 1 capsule in the evening. ondansetron No 4mg 4 mg, Slow Univers (ZOFRAN 10-12 IV Push, ity of (PF)) 16:00: 15:18 ONCE, 1 [place] injection 4 00 :00 dose, On Medi barbara mg Sun10/12/21 Branch at 1100, Routine iopamidol 2021- No [id number] 60mL 60 mL, U nivers (ISOVUE 10-12 Intravenou ity o f 370-500 mL) 15:42: 15:42 s, ONCE, 1 [place] injection 00 :00 dose, On Medica l 60 mL Sun10/12/21 Branch at 1100, Routine NaCl 0.9% 2021- No 500mL at 999 Univ ers (NS) bolus 7-06 07-06 mL/hr, 500 it y of infusion 15:00: 16:50 mL, IV [place] 500 mL 00 :00 Infusion, Medical ONCE, 1 Branch dose, On Sun10/12/21 at 1000, STAT ondansetron 2022-0 Yes [id number] 4mg Take 1 Univers 4 mg 7-06 tablet by ity of disintegrat 00:00: mouth [place] ing tablet 00 every 8 Medica l (eight) Branch hours as needed for Nausea and Vomiting (N/V). dicyclomine 2022-0 Yes [id number] 20mg Take 1 Univers 20 mg 7-06 tablet by ity of tablet 00:00: mouth 4 [place] 00 (four) Medical times Branch daily. ondansetron 2022-0 Yes [id number] 4mg Take 1 Univers 4 mg 7-06 tablet by ity of disintegrat 00:00: mouth [place] ing tablet 00 every 8 Medica l (eight) Branch hours as needed for Nausea and Vomiting (N/V). dicyclomine 2022-0 Yes [id number] 20mg Take 1 Univers 20 mg 7-06 tablet by ity of tablet 00:00: mouth 4 [place] 00 (four) Medical times Branch daily. ondansetron 2022-0 Yes [id number] 4mg Take 1 Univers 4 mg 7-06 tablet by ity of disintegrat 00:00: mouth [place] ing tablet 00 every 8 Medica l (eight) Branch hours as needed for Nausea and Vomiting (N/V). dicyclomine 2022-0 Yes [id number] 20mg Take 1 Univers 20 mg 7-06 tablet by ity of tablet 00:00: mouth 4 [place] 00 (four) Medical times Branch daily. ondansetron 2022-0 2022- No [id number] 4mg Take 1 Univers 4 mg 7-06 11-01 tablet by ity of disintegrat 00:00: 00:00 [place] tablet 00 :00 every 8 Medica l (eight) Branch hours as needed for Nausea and Vomiting (N/V). dicyclomine 2022-0 2022- No [id number] 20mg Take 1 Univers 20 mg 7-06 11- tablet by ity of tablet 00:00: 00:00 mouth 4 [place] 00 :00 (four) Medical times Branch daily. ondansetron 2022-0 2022- No [id number] 4mg Take 1 Univers 4 mg 10-12 tablet by ity of disintegrat 00:00: 00:00 [place] tablet 00 :00 every 8 Medica l (eight) Branch hours as needed for Nausea and Vomiting (N/V). dicyclomine 2021- No [id number] 20mg Take 1 Univers 20 mg 10-12 tablet by ity of tablet 00:00: 00:00 mouth 4 [place] 00 :00 (four) Medical times Branch daily. sulfamethox 0 Yes 1{tbl} Take 1 Un roel azole-trime 1-21 tablet by ity of thoprim 16:03: mouth 2 [place] (BACTRIM 16 (two) Medical DS) 800-160 times Branch mg per daily. tablet sulfamethox 2021-0 Yes 1{tbl} Take 1 Un roel azole-trime 1-21 tablet by ity of thoprim 16:03: mouth 2 [place] (BACTRIM 16 (two) Medical DS) 800-160 times Branch mg per daily. tablet sulfamethox 0 Yes 1{tbl} Take 1 Un roel azole-trime 1-21 tablet by ity of thoprim 16:03: mouth 2 [place] (BACTRIM 16 (two) Medical DS) 800-160 times Branch mg per daily. tablet gabapentin 2021- No 300mg Take 300 U nivers 300 mg 1-21 01-21 mg by ity of capsule 16:02: 00:00 mouth 3 [place] 48 :00 (three) Medical times Branch daily. busPIRone 0 2021- No 15mg Take 15 mg U nivers 15 mg 1-21 01-21 by mouth 3 ity of tablet 16:02: 00:00 (three) [place] 33 :00 times Medical daily. Branch atorvastati 0 Yes 20mg Take 20 mg Univers n [...] by mouth ity of tablet 15:04: daily. [address] OXcarbazepi 2-0 Yes 600mg Take 600 U nivers ne 600 mg 1-07 mg by ity of tablet 15:04: mouth 3 [place] 25 (three) Medical times Branch daily. ergocalcife 2022-0 Yes 1{capsu Take 1 U nivers rol, 1-07 le} capsule by ity of vitamin d2, 15:04: mouth 2 [place] as 1,250 mcg 25 (two) Medical (50,000 times Branch unit) daily. capsule atorvastati 2021-0 Yes 20mg Take 20 mg Univers n 20 mg 1-07 by mouth ity of tablet 15:04: daily. [address] OXcarbazepi 2-0 Yes 600mg Take 600 U nivers ne 600 mg 1-07 mg by ity of tablet 15:04: mouth 3 [place] 25 (three) Medical times Branch daily. ergocalcife 2-0 Yes 1{capsu Take 1 U nivers rol, 1-07 le} capsule by ity of vitamin d2, 15:04: mouth 2 [place] 1,250 mcg 25 (two) Medical (50,000 times Branch unit) daily. capsule atorvastati 2021-0 Yes 20mg Take 20 mg Univers n 20 mg 1-07 by mouth ity of tablet 15:04: daily. [address] OXcarbazepi 2022-0 Yes 600mg Take 600 [...] by mouth ity of tablet 15:04: daily. [address] Branch OXcarbazepi 2022-0 Yes 600mg Take 600 U [...] by mouth ity of tablet 15:04: daily. [address] OXcarbazepi 2-0 Yes 600mg Take 600 [...] by mouth ity of tablet 15:04: daily. [address] OXcarbazepi 2-0 Yes 600mg Take 600 U nivers ne 600 mg 1-07 mg by ity of tablet 15:04: mouth 3 [place] [address] (three) Medical times Branch daily. ergocalcife 2022-0 Yes 1{capsu Take 1 U nivers rol, 1-07 le} capsule by ity of vitamin d2, 15:04: mouth 2 John as 1,250 mcg 25 (two) Medical (50,000 times Branch unit) daily. capsule atorvastati 2022-0 Yes 20mg Take 20 mg Univers n 20 mg 1-07 by mouth ity of tablet 15:04: daily. [address] OXcarbazepi 2022-0 Yes 600mg Take 600 [...] Branch unit) daily. capsule naproxen 2021- No [id number] 500mg Take 1 Univers (NAPROSYN) 04-15 tablet by ity of 500 mg 00:00: 00:00 mouth 2 [place] tablet 00 :00 (two) Medical times Branch daily with meals. Immunizations Ordered Filled Immunization Date Status Comments [facility] e Immunization Name Name Influenza Virus [...] Completed Unive rsity of MODERNA VACCINE 00:00:00 [facility] ical Branch SARS-COV-2 COVID-19 2021-03-24 Completed Unive rsity of MODERNA VACCINE 00:00:00 [facility] ical Branch SARS-COV-2 COVID-19 2021-03-24 Completed Unive rsity of MODERNA VACCINE 00:00:00 [facility] SARS-COV-2 COVID-19 2021-03-24 Completed Unive rsity of MODERNA VACCINE 00:00:00 [facility] SARS-COV-2 COVID-19 2021-03-24 Completed Unive rsity of MODERNA VACCINE 00:00:00 [facility] SARS-COV-2 COVID-19 2021-03-24 Completed Unive rsity of MODERNA VACCINE 00:00:00 [facility] ical Branch SARS-COV-2 COVID-19 2021-03-24 Completed Unive rsity of MODERNA 12+ YRS 00:00:00 [facility] ical VACCINE Branch SARS-COV-2 COVID-19 2021-03-24 Completed Unive rsity of MODERNA 12+ YRS 00:00:00 [facility] ical VACCINE Branch SARS-COV-2 COVID-19 2021-03-24 Completed [...] Unive rsity of MODERNA 12+ YRS 00:00:00 [facility] ical VACCINE Branch Vital Signs Vital Name Observation Time Observation Value Comments Source Systolic blood 2022-06-07 17:01:00 111 mm[Hg] Univer sity of pressure [place] [facility] Diastolic blood 2022-06-07 17:01:00 69 mm[Hg] Unive rsity of pressure [facility] Heart rate 2022-06-07 17:01:00 82 /min [facility] [place] [facility] [place] Body temperature 2022-06-07 17:01:00 36.78 Raafela [facility] [place] [facility] Respiratory rate 2022-06-07 17:01:00 16 /min [facility] [place] [facility] Body height 2022-06-07 17:01:00 157.5 cm [facility] [place] [facility] [place] Body weight 2022-06-07 17:01:00 68.04 kg [facility] [place] [facility] BMI 2022-06-07 17:01:00 27.44 kg/m2 [facility] [place] [facility] [place] Oxygen saturation in 2022-06-07 17:01:00 99 /min University of Arterial blood by [facility] Pulse oximetry Branch Body height 2022-04-28 15:58:00 157.5 cm [facility] [place] [facility] Body weight 2022-04-28 15:58:00 56.7 kg [facility] [place] [facility] BMI 2022-04-28 15:58:00 22.86 kg/m2 [facility] [place] [facility] Body height 2022-03-09 19:27:00 157.5 cm [facility] [place] [facility] Body weight 2022-03-09 19:27:00 56.7 kg [facility] [place] [facility] BMI 2022-03-09 19:27:00 22.86 kg/m2 [facility] [place] [facility] Systolic blood 2022-03-05 20:00:00 110 mm[Hg] Univer sity of pressure [place] [facility] Diastolic blood 2022-03-05 20:00:00 70 mm[Hg] Unive rsity of pressure [facility] [place] Heart rate 2022-03-05 20:00:00 75 /min [facility] [place] [facility] Respiratory rate 2022-03-05 20:00:00 16 /min Univ [facility] [place] [facility] Oxygen saturation in 2022-03-05 20:00:00 100 /min University of Arterial blood by [place] [employer] [facility] Pulse oximetry Branch Body temperature 2022-03-04 21:25:00 37.44 Rafaela [facility] [place] [facility] Body height 2022-03-04 21:25:00 157.5 cm [facility] [place] [facility] Body weight 2022-03-04 21:25:00 56.7 kg [facility] [place] [facility] BMI 2022-03-04 21:25:00 22.86 kg/m2 [facility] [place] [facility] Body height 2022-02-09 18:33:00 157.5 cm [facility] [place] [facility] Body weight 2022-02-09 18:33:00 68.04 kg [facility] [place] [facility] BMI 2022-02-09 18:33:00 27.44 kg/m2 [facility] [place] [facility] Systolic blood 2022-02-07 18:21:00 120 mm[Hg] Univer sity of pressure [place] [facility] Diastolic blood 2022-02-07 18:21:00 78 mm[Hg] Unive rsity of pressure [place] [facility] Heart rate 2022-02-07 18:20:00 82 /min [facility] [place] [facility] Body weight 2022-02-07 18:20:00 68.04 kg [facility] [place] [facility] BMI 2022-02-07 18:20:00 27.44 kg/m2 [facility] [place] [facility] Systolic blood 2022-02-05 21:04:00 92 mm[Hg] Univer sity of pressure [place] [facility] Diastolic blood 2022-02-05 21:04:00 66 mm[Hg] Unive rsity of pressure [place] [facility] Heart rate 2022-02-05 21:04:00 96 /min [facility] [place] [facility] Respiratory rate 2022-02-05 21:04:00 16 /min Univ [facility] [place] [facility] Oxygen saturation in 2022-02-05 21:04:00 97 /min University of Arterial blood by [place] [employer] [facility]bara Pulse oximetry Branch Systolic blood 2022-02-02 20:32:00 108 mm[Hg] Univer sity of pressure [place] [facility] Diastolic blood 2022-02-02 20:32:00 72 mm[Hg] Unive rsity of pressure [place] [facility] Heart rate 2022-02-02 20:32:00 95 /min [facility] [place] [facility] Respiratory rate 2022-02-02 20:32:00 18 /min Univ [facility] [place] [facility] Oxygen saturation in 2022-02-02 20:32:00 100 /min University of Arterial blood by [facility] barbara Pulse oximetry Branch Body temperature 2022-02-02 16:01:00 36.61 Rafaela Univ [facility] [place] [facility] Body height 2022-02-02 16:01:00 157.5 cm [facility] [place] [facility] Body weight 2022-02-02 16:01:00 69.854 kg [facility] [place] [facility] BMI 2022-02-02 16:01:00 28.17 kg/m2 [facility] [place] [facility] Systolic blood 2021-10-12 16:00:00 105 mm[Hg] Univer sity of pressure [place] [facility] Diastolic blood 2021-10-12 16:00:00 72 mm[Hg] Unive rsity of pressure [place] [facility] Heart rate 2021-10-12 16:00:00 79 /min [facility] [place] [facility] Respiratory rate 2021-10-12 16:00:00 18 /min Univ [facility] [place] [facility] Oxygen saturation in 2021-10-12 16:00:00 96 /min University of Arterial blood by [facility] barbara Pulse oximetry Branch Body temperature 2021-10-12 14:49:00 36.67 Rafaela [facility] [place] [facility] Body height 2021-10-12 14:49:00 157.5 cm [facility] [place] [facility] Body weight 2021-10-12 14:49:00 70.217 kg [facility] [place] [facility] BMI 2021-10-12 14:49:00 28.31 kg/m2 [facility] [place] [facility] Systolic blood 2021-04-29 21:50:00 121 mm[Hg] Univer sity of pressure [place] [facility] Diastolic blood 2021-04-29 21:50:00 79 mm[Hg] Unive rsity of pressure [place] [facility] Heart rate 2021-04-29 21:50:00 86 /min [facility] [place] [facility] Body height 2021-04-29 21:50:00 157.5 cm [facility] Body weight 2021-04-29 21:50:00 70.761 kg [facility] BMI 2021-04-29 21:50:00 28.53 kg/m2 [facility] Procedures Procedure Date / Time Performing Clinician Source Performed COMP. METABOLIC PANEL 2022-06-07 17:17:00 Isabel Fields [facility] ([id number]) [facility] CBC WITH DIFF 2022-06-07 17:17:00 Isabel Fields [facility] REFERRAL- 2022-03-30 06:01:00 Doctor Unassigned, No [facility] REQUEST/RESPONSE Name [facility] COVID-19 (ID NOW RAPID 2022-03-05 06:17:00 Nazanin Garcia [facility] TESTING) [facility] SERUM DRUG (IMMUNOASSAY) 2022-03-05 02:51:00 Sergio Majano [facility] SCREEN KEPPRA (LEVETIRACETAM) 2022-03-05 02:51:00 Sergio Majano [facility] CREATINE KINASE 2022-03-04 23:01:00 Sergio Majano [facility] TEST, SERUM 2022-03-04 23:01:00 Sergio Majano [facility] COMP. METABOLIC PANEL 2022-03-04 23:01:00 Sergio Majano [facility] ([id number]) [facility] SALICYLATE 2022-03-04 23:01:00 Sergio Majano [facility] ETHANOL 2022-03-04 23:01:00 Sergio Majano [facility] CBC WITH DIFF 2022-03-04 23:01:00 Sergio Majano [facility] URINE DRUG (IMMUNOASSAY) 2022-03-04 22:53:00 Sergio Majano [facility] SCREEN URINALYSIS 2022-03-04 22:53:00 Sergio Majano [facility] CT HEAD WO CONTRAST 2022-03-04 22:08:20 Sergio Majano [facility] FLU VACC ([id number]), 6 2022-02-07 18:34:13 Bill Hung [facility] MO-62 YRS, .5ML, IM, Medical Bra nch QUAD (FLUCELVAX) SD APPLY LONG ARM SPLINT 2022-02-05 22:12:29 Nazanin Garcia [facility] XR ELBOW <3 VW LEFT 2022-02-05 21:44:[address] [facility] XR SHOULDER 2+ VW LEFT 2022-02-05 21:44:32 [facility] W[facility] 3+ VW LEFT 2022-02-05 21:44:32 Nazanin Garcia [facility] CONSENT/REFUSAL FOR 2022-02-05 20:55:21 Doctor Unassigned, No [facility] [place] [facility] Name [facility] CONSENT/REFUSAL FOR 2022-02-02 15:57:16 Doctor Unassigned, No [facility] [place] [facility] Name [facility] CT ABDOMEN PELVIS W 2021-10-12 15:50:00 Emy King [facility] CONTRAST [facility] URINALYSIS 2021-10-12 15:22:00 King, [facility] LIPASE 2021-10-12 15:18:[address] [facility] COMP. METABOLIC PANEL 2021-10-12 15:18:00 Emy King [facility] ([id number]) [facility] CBC WITH DIFF 2021-10-12 15:18:[address] [facility] NOTICE OF PRIVACY 2021-10-12 14:44:50 Doctor Unassigned, No [facility] Name Medical Branch CONSENT/REFUSAL FOR 2021-10-12 14:44:33 Doctor Unassigned, No Un iversity [facility] DIAGNOSIS AND TREATMENT Name [facility] [place] EXTERNAL PROVIDER 2021-08-24 05:01:00 Doctor Unassigned, No [facility] REC[facility] Name [facility] [place] EXTERNAL PROVIDER 2021-05-16 06:01:00 Doctor Unassigned, No [facility] RECORDS Name Medical Branch Encounters Start End Encounter Admission Attending Care Care Encounter Source Date/Time Date/Time Type Type Clinicians Facility Department ID 2022-09-07 2022-09-07 Outpatient R DIAMOND [facility] [id number] Univers 09:00:00 09:00:00 BOBBY rich [facility] 2022-08-23 2022-08-23 Outpatient R FREDERICK [facility] [id number] Univers 13:00:00 13:00:00 , REBECCA it y [facility] 2022-07-27 2022-07-27 Outpatient R FRDEERICK [facility] [id number] Univers 09:00:00 09:00:00 , REBECCA it y of [facility] 2022-06-07 2022-06-07 Emergency [facility] [id number] Univers 11:03:00 12:08:00 ISABEL rich [facility] 2022-06-07 2022-06-07 Emergency [facility] [id number] Univers 11:03:00 12:08:00 Isabel [facility] [id number] ity of [facility] 4.2.7.2.686 [place] [id number] [address] 2022-05-09 2022-05-09 [place] 1.2.840.114 [id number] Univers 00:00:00 00:00:00 Management Brittnee GRAMAJOY [id number] [place]y [place].2.686 [place] [id number] [address] 2022-04-28 2022-04-28 Office [facility] 1.2.840.114 [id number] Univers 10:15:00 10:30:00 Visit Bobby [facility] [id number] it y of [facility] 4.2.7.2.686 John as SHANITA?BLEA [id number] Ri shawn[address] MEDICAL OFFICE BUILDING 2022-04-28 2022-04-28 Outpatient R DIAMOND [facility] [id number] Univers 10:01:10 10:16:00 [facility] 2022-04-27 2022-04-27 Outpatient Miguel [facility]el [facility] [id number] Univers 15:45:00 15:45:00 [facility] 2022-04-20 2022-04-20 Outpatient Miguel [facility]ngel [facility] [id number] Univers 11:15:00 11:15:00 [facility] 2022-04-13 2022-04-13 Outpatient Miguel [facility]ngel [facility] [id number] Univers 13:30:00 13:30:00 [facility] 2022-03-30 2022-03-30 Orders Doctor ABHIJIT 1.2.840.114 [id number] Univers 00:00:00 00:00:00 Only Unassigned, AMAYA [id number] ity of [place] [facility] 4.2.7.2.686 John as [id number] [address] 2022-03-24 2022-03-24 Telephone [facility] [id number] Univers 00:00:00 00:00:00 [facility] [id number] it y of [place] 4.2.7.2.686 John as SHANITA?BLEA [id number] Ri bernabe [address] MEDICAL OFFICE [facility] 2022-03-09 2022-03-09 Outpatient Miguel Ángel [facility] [id number] Univers 13:45:00 23:59:00 [facility] 2022-03-09 2022-03-09 Office [facility] 1.2.840.114 [id number] Univers 13:30:00 13:45:00 Visit [facility] [id number] it y of [facility] 4.2.7.2.686 John as SHANITA?BLEA [id number] Ri shawn[address] MEDICAL OFFICE [facility] 2022-03-04 2022-03-05 Emergency X JUAN J, [facility] ERT [id number] Univers 15:22:00 15:00:00 JOHN [facility] 2022-03-04 2022-03-05 Emergency Sergio Majano [facility] 1.2.840.1 [id number] Univers 15:22:00 15:00:00 John EscamillaGORGE 350.1.13.10 ity of [place] 4.2.7.2.686 [place] [facility] [id number] [address] 2022-02-21 2022-02-21 Telephone [facility] [id number] Univers 00:00:00 00:00:00 Bobby [facility] 350.1.13.10 it y of [place] 4.2.7.2.686 John as SHANITA?BLEA [id number] Ri bernabe [facility] 0[address] [facility] OFFICE [facility] 2022-02-20 2022-02-20 Outpatient [facility] [id number] Univers 15:15:00 15:15:00 [facility] 2022-02-09 2022-02-09 Office [facility] 1.2.840.114 [id number] Univers 13:45:00 14:15:00 Visit [facility] 350.1.13.10 it y of [place] 4.2.7.2.686 John as SHANITA?BLEA [id number] Ri shawnfrance KEEN [address] [facility] OFFICE [facility] 2022-02-09 2022-02-09 Outpatient Miguel Ángel FIELDS [facility] [id number] Univers 13:45:00 14:14:48 [facility] 2022-02-07 2022-02-07 Outpatient R ABHILASH [facility] [id number] Univers 13:30:00 13:49:35 BILL [facility] 2022-02-07 2022-02-07 Office [facility] 1.2.840.114 [id number] Univers 13:30:00 13:49:35 Visit [facility] 350.1.13.10 it y of [place] 4.2.7.2.686 John as SHANITA?BLEA [id number] Ri bernabe [address] OFFICE [facility] 2022-02-05 2022-02-05 Emergency X JOSE, [facility] ERT [id number] Univers 16:08:00 17:27:00 NAZANIN rich [facility] 2022-02-05 2022-02-05 Emergency [facility] 1.2.840.114 [id number] Univers 16:08:00 17:27:00 Nazanin [place] 350.1.13.10 ity of [place] [facility] 4.2.7.2.686 [facility] [id number] [address] 2022-02-02 2022-02-02 Emergency X LUCAS JEAN [facility] ERT [id number] Univers 11:02:00 15:34:00 LUCAS JEAN [facility] 2022-02-02 2022-02-02 Emergency [facility] [id number] Univers 11:02:00 15:34:00 Lucas [place] 350.1.13.10 i ty of [place] 4.2.7.2.686 [facility] [id number] [address] 2022-01-09 2022-01-09 Outpatient Miguel Ángel HUNG [facility] [id number] Univers 13:45:00 13:45:00 BILL hilario [facility] 2021-10-12 2021-10-12 Emergency X [facility] [id number] Univers 09:51:00 11:54:00 EMY rich [facility] 2021-10-12 2021-10-12 Emergency [facility] [id number] Univers 09:51:00 11:54:00 Emy [place] 350.1.13.10 i ty of [place] 4.2.7.2.686 [facility] [id number] [address] 2021-10-12 2021-10-12 Orders Doctor ABHIJIT 1.2.840.114 [id number] Univers 00:00:00 00:00:00 Only Unassigned, AMAYA 350.1.13.10 ity of [place] [facility] 4.2.7.2.686 John [id number] [address] 2021-09-12 2021-09-12 Outpatient Miguel Ángel HUNG [facility] [id number] Univers 10:30:00 10:30:00 BILL chin [facility] 2021-08-24 2021-08-24 Orders Doctor ABHIJIT 1.2.840.114 [id number] Univers 00:00:00 00:00:00 Only Unassigned, AMAYA 350.1.13.10 ity of [place] [facility] 4.2.7.2.686 John as [id number] [address] 2021-06-03 2021-06-[address] [facility] [id number] Univers 13:00:00 13:23:49 BILL chin [facility] 2021-05-16 2021-05-16 Orders Doctor ABHIJIT 1.2.840.114 [id number] Univers 00:00:00 00:00:00 Only Unassigned, AMAYA 350.1.13.10 ity of [place] [facility] 4.2.7.2.686 John as [id number] [address] 2021-05-04 2021-05-04 Telephone [facility] 1.2.840.114 [id number] Univers 00:00:00 00:00:00 [facility] 350.1.13.10 it y of [place] [facility] 4.2.7.2.686 John as SHANITA?BLEA [id number] [address] MEDICAL OFFICE [facility] 2021-04-29 2021-04-29 Office [facility] 1.2.840.114 [id number] Univers 16:00:00 16:15:00 Visit [facility] 350.1.13.10 it y of [place] [facility] 4.2.7.2.686 John as SHANITA?BLEA [id number] [address] MEDICAL OFFICE BUILDING 2021-04-29 2021-04-[address] [facility] [id number] Univers 16:00:00 16:00:00 BILL rich [facility] 2021-04-29 2021-04-29 Orders Doctor ABHIJIT 1.2.840.114 [id number] Univers 00:00:00 00:00:00 Only Unassigned, AMAYA 350.1.13.10 ity of [place] [facility] 4.2.7.2.686 John as [id number] [address] 2021-04-22 2021-04-22 Outpatient Miguel Ángel ABHILASH [facility] [id number] Univers 08:00:00 08:00:00 [facility] 2021-04-22 2021-04-22 Telephone [facility] 1.2.840.114 [id number] Univers 00:00:00 00:00:00 [place] [id number] it y of [facility] 4.2.7.2.686 John as SHANITA?BLEA [id number] [address] OFFICE [facility] 2021-04-15 2021-04-15 Office [facility] 1.2.840.114 [id number] Univers 15:30:00 16:00:00 Visit [place] [id number] it y of [facility] 4.2.7.2.686 John as SHANITA?BLEA [id number] [address] OFFICE [facility] 2021-04-15 2021-04-15 Outpatient Miguel Ángel [facility] [id number] Univers 15:30:00 15:30:00 [facility] 2021-04-15 2021-04-15 Outpatient Miguel Ángel [facility] [id number] Univers 15:30:00 15:30:00 [facility] Results Test Description Test Time Test Comments Results Result Comments Source COMP. METABOLIC PANEL (79862) 2021-10-12 15:45:46 Test Item Value Reference Range Interpretation Comme nts NA (test code = 4246219664) 139 mmol/L 135-145 K (test code = 4616632539) 4.5 mmol/L 3.5-5.0 CL (test code = 6007938760) 99 mmol/L 98-108 CO2 TOTAL (test code = 7115314599) 30 mmol/L 23-31 AGAP (test code = 2303481813) 2-16 BUN (test code = 9381412784) 16 mg/dL 7-23 GLUCOSE (test code = 9469212841) 119 mg/dL 70-110 H CREATININE (test code = 0.66 mg/dL 0.50-1.04 8583214903) TOTAL BILI (test code = 0.4 mg/dL 0.1-1.6 7877382501) CALCIUM (test code = 8095658794) 10.0 mg/dL 8.6-10.6 T PROTEIN (test code = 4728439613) 8.6 g/dL 6.3-8.2 H ALBUMIN (test code = 8908131682) 4.7 g/dL 3.5-5.0 ALK PHOS (test code = 1053350098) 94 U/L 34-122 ALTv (test code = 1742-6) 17 U/L 5-35 AST(SGOT) (test code = 3884274728) 23 U/L 13-40 eGFR (test code = 6911951394) mL/min/1.73m2 SHE (test code = SHE) Association [...] tests). Lab Interpretation (test code = Abnormal 34239-6) [facility] 15[facility]45[facility]25 Test Item Value Reference Range Interpretation Comments LIPASE (test code = 3406904410) 86 U/L 0-220 Lab Interpretation (test code = Normal 08380-4) [facility] [id number] 15:31:02 Test Item Value Reference Range Interpretation Comments WBC (test code = See_Comment H [Automated 8190-2) message] The system which generated this result [...] RDW-SD (test code = 44.6 fL 39.0-49.9 38483-5) RDW-CV (test code = 13.7 % 12.0-15.5 788-0) PLT (test code = See_Comment H [Automated 777-3) message] The system which generated this result transmit ann reference range : 166 - 358 10*3/ ?L. The reference range was not u sed to interpret th is result as normal/abnormal . MPV (test code = 10.0 fL 9.5-12.9 16022-1) NRBC/100 WBC (test See_Comment [Automat ed code = 5695452221) message] The system which generated this result transmit ann reference range : 0.0 - 10.0 /100 WBCs. The reference range was not used to interpret this result as normal/abnormal . NRBC x10^3 (test code <0.01 See_Comment [Auto mated = 3608066118) message] The system which generated this result transmit ann reference range : 10*3/?L. The reference range was not used to interpret this result as normal/abnormal . GRAN MAT (NEUT) % 78.7 % (test code = 770-8) IMM GRAN % (test code 0.60 % = 3499521866) LYMPH % (test code = 12.7 % 736-9) MONO % (test code = 7.2 % 5905-5) EOS % (test code = 0.3 % 713-8) BASO % (test code = 0.5 % 706-2) GRAN MAT x10^3(ANC) 12.40 10*3/uL 1.88-7.09 H (test code = 5012903808) IMM GRAN x10^3 (test 0.09 10*3/uL 0.00-0.06 H code = 7381082819) LYMPH x10^3 (test code 2.00 10*3/uL 1.32-3.29 = 731-0) MONO x10^3 (test code 1.14 10*3/uL 0.33-0.92 H = 742-7) EOS x10^3 (test code = 0.04 10*3/uL 0.03-0.39 711-2) BASO x10^3 (test code 0.08 10*3/uL 0.01-0.07 H = 704-7) Lab Interpretation Abnormal (test code = 51481-1) [facility]"
--- NOTE | 2022-09-06 08:40 | RAD REPORT ---
EXAM DESCRIPTION: RAD - Ankle Left 3 View -09/06/2022 8:18 am CLINICAL HISTORY: Left ankle pain status post injury FINDINGS: No fracture or dislocation is seen.
--- NOTE | 2022-09-06 08:41 | RAD REPORT ---
EXAM DESCRIPTION: RAD - Foot Left 3 View - 09/06/2022 8:18 am CLINICAL HISTORY: Left Foot pain FINDINGS: Deformity distal metatarsal presumably the sequela of old trauma. No acute fracture or dislocation seen 4 millimeter density adjacent to the medial aspect of the base of the first proximal phalanx could ei ther represent a calcification or foreign body.
--- NOTE | 2022-09-06 08:47 | EDPHYS ---
Physician Documentation [facility] [place] Name: Cindy Ackerman Age: 47 yrs Sex: Female : 1975 Arrival Date: 09/06/2022 Time: 07:50 Bed 10 Private MD: ED Physician Dileep Alanis HPI: 09/06 08:25 This 47 yrs old Female presents to ER via Wheelchair with complaints of Ankle rn Injury. 08:25 The patient presents with an injury, pain, swelling. The complaints affect the left rn ankle. Onset: The symptoms/episode began/occurred last night. Associated signs and symptoms: Pertinent positives: swelling, Pertinent negatives: weakness. Modifying factors: the symptoms are aggravated by weight bearing, movement. Severity of symptoms: At their worst the symptoms were mild, in the emergency department the symptoms are unchanged. The patient has experienced a previous episode. Pt reports tripped and rolled left ankle last night, has injured this ankle before, did not require surgery but states had a "fracture". Able to put weight on this ankle, but hurts. Denies other injuries. . 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 - Social history:: Smoking status: Patient denies any tobacco usage or history of. - Family history:: not pertinent. - Hospitalizations: : No recent hospitalization is reported. ROS: 08:25 Neck: Negative for injury, pain, and swelling, Back: Negative for injury and pain, rn MS/Extremity: + left ankle injury and swelling Neuro: Negative for headache, weakness, numbness, tingling, and seizure. Exam: 08:25 Constitutional: This is a well developed, well nourished patient who is awake, and in rn no acute distress. MS/ Extremity: Pulses equal, no cyanosis. + mild swelling left lateral malleolus, with tenderness of left lateral malleolus and mid foot. No open wounds. No foreign body or focal swelling on plantar surface of foot or between toes. Vital Signs: 07:58 BP 133 / 100; Pulse 64; Resp 16; Temp 97.5; Pulse Ox 98% on R/A; Pain 9/10; iw 07:58 Pain Scale: Adult iw MDM: 07:53 Patient medically screened. rn 08:43 Differential diagnosis: fracture, sprain. Data reviewed: vital signs, nurses notes, rn radiologic studies, plain films, and as a result, I will discharge patient. Independent interpretation of the following test(s) in the Emergency Department X-Ray: My interpretation is Xray left ankle images neg for fracture/dislocation per my interpretation. Counseling: I had a detailed discussion with the patient and/or guardian regarding: the historical points, exam findings, and any diagnostic results supporting the discharge/admit diagnosis, radiology results, the need for outpatient follow up, to return to the emergency department if symptoms worsen or persist or if there are any questions or concerns that arise at home. Special discussion: I discussed with the patient/guardian in detail that at this point there is no indication for admission to the hospital. It is understood, however, that if the symptoms persist or worsen the patient needs to return immediately for re-evaluation. Based on the history and exam findings, there is no indication for further emergent testing or inpatient evaluation. I discussed with the patient/guardian the need to see the orthopedic surgeon for further evaluation of the symptoms. I discussed with the patient/guardian the need to see the primary care provider for further evaluation of the symptoms. 09/06 08:01 Order name: XRAY Ankle LEFT 3 view; Complete Time: 08:42 rn 09/06 08:01 Order name: XRAY Foot LEFT 3 View; Complete Time: 08:42 rn 09/06 08:47 Order name: Zak Wrap; Complete Time: 09:12 rn Administered Medications: No medications were administered Disposition Summary: 09/06/22 08:47 Discharge Ordered Location: Home rn Problem: new rn Symptoms: have improved rn Condition: Stable rn Diagnosis - Sprain of unspecified ligament of left ankle, initial encounter rn Followup: rn - With: Private Physician - When: As needed - Reason: Recheck today's complaints, Re-evaluation by your physician Discharge Instructions: - Discharge Summary Sheet rn - Ankle Sprain rn Forms: - Medication Reconciliation Form rn - Thank You Letter rn - Antibiotic varnish filterer - Prescription Opioid Use rn Signatures: Dispatcher [employer] Cesia Carolina, Dileep Cortes RN, MD MD learning and development administrator: (The following items were deleted from the chart) 08:46 08:25 Constitutional: This is a well developed, well nourished patient who is awake, rn and in no acute distress. MS/ Extremity: Pulses equal, no cyanosis. + mild swelling left lateral malleolus, with tenderness of left lateral malleolus and mid foot. No open wounds. rn
--- NOTE | 2022-09-06 08:47 | ER ---
Nurse's Notes [facility] [place] Name: Cindy Ackerman Age: 47 yrs Sex: Female : 1975 Arrival Date: 09/06/2022 Time: 07:50 Bed 10 Private MD: Diagnosis: Sprain of unspecified ligament of left ankle, initial encounter Presentation: 09/06 07:58 Chief complaint: Patient states: rolled left ankle last night. Coronavirus screen: At this time, the client does not indicate any symptoms associated with coronavirus-19. Ebola Screen: Patient negative for fever greater than or equal to 101.5 degrees Fahrenheit, and additional compatible Ebola Virus Disease symptoms Patient denies exposure to infectious person. Patient denies travel to an Ebola-affected area in the 21 days before illness onset. No symptoms or risks identified at this time. Initial Sepsis Screen: Does the patient meet any 2 criteria? No. Patient's initial sepsis screen is negative. Does the patient have a suspected source of infection? No. Patient's initial sepsis screen is negative. Risk Assessment: Do you want to hurt yourself or someone else? Patient reports no desire to harm self or others. Onset of symptoms was September 05, 2022. 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 - Social history:: Smoking status: Patient denies any tobacco usage or history of. - Family history:: not pertinent. - Hospitalizations: : No recent hospitalization is reported. Screenin:02 [facility] ED Fall Risk Assessment (Adult) History of falling in the last 3 months, iw including since admission Yes- single mechanical fall (1 pt). Abuse screen: Denies threats or abuse. Denies injuries from another. Nutritional screening: No deficits noted. Tuberculosis screening: No symptoms or risk factors identified. Assessment: 08:01 General: Appears in no apparent distress. Behavior is calm, cooperative. Pain: iw Complains of pain in left foot. Musculoskeletal: Range of motion: intact in all extremities. Vital Signs: 07:58 BP 133 / 100; Pulse 64; Resp 16; Temp 97.5; Pulse Ox 98% on R/A; Pain 9/10; iw 07:58 Pain Scale: Adult iw ED Course: 07:53 Patient arrived in ED. im 07:53 Dileep Alanis MD is Attending Physician. rn 07:59 Triage completed. iw 07:59 Arm band placed on. iw 08:00 Patient has correct armband on for positive identification. iw 08:01 Cesia Shane, HUBERT is Primary Nurse. iw 08:20 XRAY Ankle LEFT 3 view In Process Unspecified. EDMS 08:20 XRAY Foot LEFT 3 View In Process Unspecified. EDMS 09:12 No provider procedures requiring assistance completed. Patient did not have IV access iw during this emergency room visit. Administered Medications: No medications were administered Medication: 08:02 VIS not applicable for this client. iw Outcome: 08:47 Discharge ordered by . rn 09:13 Discharged to home via wheelchair, with family. iw 09:13 Condition: good 09:13 Discharge instructions given to patient, family, Instructed on discharge instructions, follow up and referral plans. Demonstrated understanding of instructions, follow-up care. 09:14 Patient left the ED. iw Signatures: Dispatcher [employer] Cesia Carolina RN RN Dileep Alanis MD MD rn Mendoza, Itzel im Corrections: (The following items were deleted from the chart) 08:01 07:58 BP 133 / 100; Pulse 64bpm; Resp 16bpm; Pulse Ox 98% RA; Temp 97.5F; iw iw
[2022-09-06 09:18] VITALS: BP 133/100; TEMP 97.5; O2SAT 98
== END 2022-09-06 09:14 | disposition home or self-care (01) ==
LOC: ER 07:50
DX: S93.402A Sprain of unspecified ligament of left ankle, initial encounter (principal); Z88.0 Allergy status to penicillin
CPT/HCPCS: 99283

== ENCOUNTER 2022-10-03 00:50 | Emergency (ER) | payer OTHER ==
--- OUTSIDE RECORDS SUMMARY | 2022-10-03 00:55 | XMS REPORT | Continuity of Care Document ---
:1975 Author Organization [facility] t Address [address] [facility]. [address] [place] [address] Care Team Providers Name Role Phone Stephanie Jasso MD Primary Care Physician [phone] STEPHANIE JASSO Attending Clinician Unavailable SHOAIB HARDY Attending Clinician Unavailable SHOAIB HARDY Attending Clinician Unavailable Lab, Ang - Db Attending Clinician Unavailable Stephanie Jasso MD Attending Clinician [phone] Kathia Carroll LMSW Attending Clinician BBOBY FIELDS Attending Clinician Unavailable ISABEL FIELDS Attending Clinician Unavailable Isabel Fields MD Attending Clinician Brittnee Mckinney MA Attending Clinician Unavailable Bobby Pfeiffer Attending Clinician Doctor Unassigned, [place] Attending Clinician Unavailable JOHN ESCAMILLA Attending Clinician [...] Number Effective Date Expiration Date Kira florian [employer] [id number] 2022 PLUS 00:00:00 [facility] 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 Problems Condition Condition Condition Status Onset Resolution Last Treating Co mments Source Name Details Category Date Date Treatment Clinician Date 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 09-27 it y of 00:00: [place] [facility] Leukocytos Leukocytos Disease Active U nivers is is 09-13 ity of 00:00: [place] [address] Medical [place] Closed Closed Disease Active Univers head head 09-07 ity of injury injury 00:00: [address] No known No known Disease Unive rs active active ity of problems problems [facility] Seizures Seizures Disease Active Unive rs ity of [facility] Allergies, Adverse Reactions, Alerts Allergy Allergy Status Severity Reaction(s) Onset Inactive Treating Comm ents Source Name Type Date Date Clinician METHOCAR DRUG Active Med Hives Univers BAMOL INGREDI 1-07 ity of 00:00: [address] Methocar Propensi Active Hives Univer s bamol ty to 107 ity of adverse 00:00: [place] reaction [address] [place] [address] s [place] Social History Social Habit Start Date Stop Date Quantity Comments Source Alcohol intake 2022-09-27 2022-09-27 Current drinker of Un iversity of 00:00:00 00:00:00 alcohol (finding) [facility] Alcohol Comment 2022-09-13 2022-09-13 occasionally Univers ity of 00:00:00 00:00:00 [facility] Exposure to 2022-08-13 2022-08-23 Not sure University of SARS-CoV-2 00:00:00 12:49:00 [facility] (event) [place] Tobacco use and 2022-02-09 2022-02-09 Smokeless tobacco Un iversity of exposure 00:00:00 00:00:00 non-user [facility] Sex Ass[birth year] At [birth year] [facility] y of 00:00:00 00:00:00 [place] [facility] [place] Smoking Status Start Date Stop Date Source Tobacco smoking consumption [facility] unknown Branch Never smoked tobacco [facility] Medications Ordered Filled Start Stop Current Ordering Indication Dosage Frequency Signature Comments Components Source Medication Medication Date Date Medication? Clinician (SIG) Name Name levETIRAcet 2022-0 2023- No 1000mg Take 1 U nivers am 1,000 mg 6-21 06-21 tablet by it y of tablet 15:07: 00:00 mouth in [place] 59 :00 the Medical morning Branch and 1 tablet in the evening. vitamin 2022-0 202- No 1{tbl} Take 1 Unive rs D3-folic 6-21 -21 tablet by ity o f acid 125 15:07: 00:00 [facility] 59 :00 the Medical unit)-1 mg morning. Bran h Tab levETIRAcet 2022-0 2022- No 1000mg Take 1 U nivers am 1,000 mg 6-21 -21 tablet by it y of tablet 15:07: 00:00 mouth in [place] 59 :00 the Medical morning Branch and 1 tablet in the evening. vitamin 2022-0 3- No 1{tbl} Take 1 Unive rs D3-folic 6-21 -21 tablet by ity o f acid 125 15:07: 00:00 mouth [facility] (5,000 59 :00 the Medical unit)-1 mg morning. Bran h Tab venlafaxine 2022-0 3- No 75mg Take 1 Uni vers XR 75 mg 24 6-27 09- capsule by i ty of hr capsule 15:03: 00:00 mouth in [facility] 36 :00 the Medical morning. Branch topiramate 2022-0 2023- No 50mg Take 1 Univ ers 50 mg 6-27 09-21 tablet by ity of tablet 15:03: 00:00 mouth in [place] 36 :00 the Medical morning Branch and 1 tablet in the evening. QUEtiapine 2022-0 3- No 200mg Take 1 Uni vers 200 mg 6-21 06-21 tablet by ity of tablet 15:03: 00:00 mouth at [place] 36 :00 bedtime. Medical Branch pantoprazol 2022-0 2023- No 40mg Take 1 Uni vers e 40 mg EC -09-27 tablet by ity of tablet 15:03: 00:00 mouth in [place] 36 :00 the Medical morning. Branch OXcarbazepi 2022-0 2022- No 300mg Take 1 Un roel ne 300 mg -09-27 tablet by ity of tablet 15:03: 00:00 mouth in [place] 36 :00 the Medical morning Branch and 1 tablet in the evening. venlafaxine 2022-0 2022- No 75mg Take 1 Uni vers XR 75 mg 24 09-27 capsule by i ty of hr capsule 15:03: 00:00 mouth in [place] 36 :00 the Medical morning. Branch topiramate 2022-0 2022- No 50mg Take 1 Univ ers 50 mg 09-27 tablet by ity of tablet 15:03: 00:00 mouth in [place] 36 :00 the Medical morning Branch and 1 tablet in the evening. QUEtiapine 2022-0 2022- No 200mg Take 1 Uni vers 200 mg -09-27 tablet by ity of tablet 15:03: 00:00 mouth at [place] 36 :00 bedtime. Medical Branch pantoprazol 2022-0 2022- No 40mg Take 1 Uni vers e 40 mg EC 09-27 tablet by ity of tablet 15:03: 00:00 mouth in [place] 36 :00 the Medical morning. Branch OXcarbazepi 2022-0 2022- No 300mg Take 1 Un roel ne 300 mg 09-27 tablet by ity of tablet 15:03: 00:00 mouth in [place] 36 :00 the Medical morning Branch and 1 tablet in the evening. vitamin 2022-0 Yes [id number] 1{tbl} Take 1 Un roel D3-folic 6-21 tablet by ity of acid 125 00:00: mouth in [place] mcg (5,000 00 the Medical unit)-1 mg morning. Branc h Tab levETIRAcet 2022-0 Yes [id number] 1000mg Take 1 Univers am 1,000 mg 6-21 tablet by ity of tablet 00:00: mouth in [place] [address] the Medical morning Branch and 1 tablet in the evening. atorvastati 2022-0 Yes [id number] 20mg Take 1 Univers n 20 mg 6-21 tablet by ity of tablet 00:00: mouth in [place] 00 the Medical morning. Branch vitamin 3-0 Yes [id number] 1{tbl} Take 1 Un roel D3-folic 6-21 tablet by ity of acid 125 00:00: mouth in [facility] (5,000 00 the Medical unit)-1 mg morning. Bran h Tab levETIRAcet 3-0 Yes [id number] 1000mg Take 1 Univers am 1,000 mg 6-21 tablet by ity of tablet 00:00: mouth in [place] 00 the Medical morning Branch and 1 tablet in the evening. atorvastati 2022-0 Yes [id number] 20mg Take 1 Univers n 20 mg 6-21 tablet by ity of tablet 00:00: mouth in [place] 00 the Medical morning. Branch vitamin 2022-0 Yes [id number] 1{tbl} Take 1 Un roel D3-folic 6-21 tablet by ity of acid 125 00:00: mouth in [facility] (5,000 00 the Medical unit)-1 mg morning. Bran h Tab levETIRAcet 2022-0 Yes [id number] 1000mg Take 1 Univers am 1,000 mg 6-21 tablet by ity of tablet 00:00: mouth in [place] 00 the Medical morning Branch and 1 tablet in the evening. atorvastati 2022-0 Yes [id number] 20mg Take 1 Univers n 20 mg 6-21 tablet by ity of tablet 00:00: mouth in [place] 00 the Medical morning. Branch vitamin 3-0 Yes [id number] 1{tbl} Take 1 Un roel D3-folic 6-21 tablet by ity of acid 125 00:00: mouth in [facility] (5,000 00 the Medical unit)-1 mg morning. Bran h Tab levETIRAcet 3-0 Yes [id number] 1000mg Take 1 Univers am 1,000 mg 6-21 tablet by ity of tablet 00:00: mouth in [place] 00 the Medical morning Branch and 1 tablet in the evening. atorvastati 3-0 Yes [id number] 20mg Take 1 Univers n 20 mg 6-21 tablet by ity of tablet 00:00: mouth in [place] 00 the Medical morning. Branch vitamin 3-0 Yes [id number] 1{tbl} Take 1 Un roel D3-folic 6-21 tablet by ity of acid 125 00:00: mouth in [place] mcg (5,000 00 the Medical unit)-1 mg morning. Bran h Tab levETIRAcet 2023-0 Yes [id number] 1000mg Take 1 Univers am 1,000 mg 6-21 tablet by ity of tablet 00:00: mouth in [place] [address] the Medical morning Branch and 1 tablet in the evening. atorvastati 2023-0 Yes [id number] 20mg Take 1 Univers n 20 mg 6-21 tablet by ity of tablet 00:00: mouth in [place] [address] the Medical morning. Branch levETIRAcet 2023-0 Yes 1000mg Take 1 Un roel am 1,000 mg 6-07 tablet by ity of tablet 13:59: mouth in [place] [address] the Medical morning Branch and 1 tablet in the evening. venlafaxine 2023-0 Yes 75mg Take 1 Univ ers XR 75 mg 24 6-07 capsule by it y of hr capsule 13:59: mouth in [facility] 26 the Medical morning. Branch topiramate 2023-0 Yes 50mg Take 1 Unive rs 50 mg 6-07 tablet by ity of tablet 13:59: mouth in [place] [address] the Medical morning Branch and 1 tablet in the evening. QUEtiapine 2023-0 Yes 200mg Take 1 Univ ers 200 mg 6-07 tablet by ity of tablet 13:59: mouth at [place] [address] bedtime. Medical Branch pantoprazol 3-0 Yes 40mg Take 1 Univ ers e 40 mg EC 6-07 tablet by ity of tablet 13:59: mouth in [place] [address] the Medical morning. Branch vitamin 2023-0 Yes 1{tbl} Take 1 Univer s D3-folic 6-07 tablet by ity of acid 125 13:59: mouth in [place] mcg (5,000 26 the Medical unit)-1 mg morning. Bran h Tab OXcarbazepi 2023-0 Yes 300mg Take 1 Uni vers ne 300 mg 6-07 tablet by ity o f tablet 13:59: mouth in [place] [address] the Medical morning Branch and 1 tablet in the evening. levETIRAcet 2023-0 Yes 1000mg Take 1 Un roel am 1,000 mg 6-07 tablet by ity of tablet 13:59: mouth in [place] [address] the Medical morning Branch and 1 tablet in the evening. venlafaxine 2023-0 Yes 75mg Take 1 Univ ers XR 75 mg 24 6-07 capsule by it y of hr capsule 13:59: mouth in [place] [address] the Medical morning. Branch topiramate 2023-0 Yes 50mg Take 1 Unive rs 50 mg 6-07 tablet by ity of tablet 13:59: mouth in [place] [address] the Medical morning Branch and 1 tablet in the evening. QUEtiapine 2023-0 Yes 200mg Take 1 Univ ers 200 mg 6-07 tablet by ity of tablet 13:59: mouth at [place] [address] bedtime. Medical Branch pantoprazol 2023-0 Yes 40mg Take 1 Univ ers e 40 mg EC 6-07 tablet by ity of tablet 13:59: mouth in [place] [address] the Medical morning. Branch vitamin 2023-0 Yes 1{tbl} Take 1 Univer s D3-folic 6-07 tablet by ity of acid 125 13:59: mouth in [facility] (5,000 26 the Medical unit)-1 mg morning. Bran h Tab OXcarbazepi 2023-0 Yes 300mg Take 1 Uni vers ne 300 mg 6-07 tablet by ity o f tablet 13:59: mouth in [place] [address] the Medical morning Branch and 1 tablet in the evening. levETIRAcet 2023-0 Yes 1000mg Take 1 Un roel am 1,000 mg 6-07 tablet by ity of tablet 13:59: mouth in [place] [address] the Medical morning Branch and 1 tablet in the evening. venlafaxine 2023-0 Yes 75mg Take 1 Univ ers XR 75 mg 24 6-07 capsule by it y of hr capsule 13:59: mouth in [place] [address] the Medical morning. Branch topiramate 2023-0 Yes 50mg Take 1 Unive rs 50 mg 6-07 tablet by ity of tablet 13:59: mouth in [place] [address] the Medical morning Branch and 1 tablet in the evening. QUEtiapine 2023-0 Yes 200mg Take 1 Univ ers 200 mg 6-07 tablet by ity of tablet 13:59: mouth at [place] [address] bedtime. Medical Branch pantoprazol 2023-0 Yes 40mg Take 1 Univ ers e 40 mg EC 6-07 tablet by ity of tablet 13:59: mouth in [place] [address] the Medical morning. Branch vitamin 2023-0 Yes 1{tbl} Take 1 Univer s D3-folic 6-07 tablet by ity of acid 125 13:59: mouth in [place] mcg (5,000 26 the Medical unit)-1 mg morning. Branc h Tab OXcarbazepi 3-0 Yes 300mg Take 1 Uni vers ne 300 mg 6-07 tablet by ity o f tablet 13:59: mouth in [place] 26 the Medical morning Branch and 1 tablet in the evening. FLUoxetine 2023-0 Yes 10mg Take 1 Unive rs 10 mg 5-03 capsule by ity of capsule 00:00: mouth in [place] 00 the Medical morning. Branch prazosin 1 2022-0 Yes 1mg Take 1 Unive rs mg capsule 5-03 capsule by ity of 00:00: mouth at [place] 00 bedtime. Medical Branch risperiDONE 2023-0 Yes .5mg Take 1 Univ ers 0.5 mg 5-03 tablet by ity of tablet 00:00: mouth in [place] 00 the Medical morning Branch and 1 tablet in the evening. FLUoxetine 3-0 Yes 10mg Take 1 Unive rs 10 mg 5-03 capsule by ity of capsule 00:00: mouth in [place] 00 the Medical morning. Branch prazosin 1 2022-0 Yes 1mg Take 1 Unive rs mg capsule 5-03 capsule by ity of 00:00: mouth at [place] 00 bedtime. Medical Branch risperiDONE 3-0 Yes .5mg Take 1 Univ ers 0.5 mg 5-03 tablet by ity of tablet 00:00: mouth in [place] 00 the Medical morning Branch and 1 tablet in the evening. FLUoxetine 3-0 Yes 10mg Take 1 Unive rs 10 mg 5-03 capsule by ity of capsule 00:00: mouth in [place] 00 the Medical morning. Branch prazosin 1 3-0 Yes 1mg Take 1 Unive rs mg capsule 5-03 capsule by ity of 00:00: mouth at [place] 00 bedtime. Medical Branch risperiDONE 2023-0 Yes .5mg Take 1 Univ ers 0.5 mg 5-03 tablet by ity of tablet 00:00: mouth in [place] 00 the Medical morning Branch and 1 tablet in the evening. FLUoxetine 2023-0 2023- No 10mg Take 1 Univ ers 10 mg 5-03 06-21 capsule by ity of capsule 00:00: 00:00 mouth in [place] 00 :00 the Medical morning. Branch prazosin 1 2023-0 2023- No 1mg Take 1 Univ ers mg capsule 08-09 capsule by it y of 00:00: 00:00 mouth at [place] 00 :00 bedtime. Medical Branch risperiDONE 3-0 2022- No .5mg Take 1 Uni vers 0.5 mg -06 12-21 tablet by ity of tablet 00:00: 00:00 mouth in [place] 00 :00 the Medical morning Branch and 1 tablet in the evening. FLUoxetine 2022-0 2022- No 10mg Take 1 Univ ers 10 mg 08-09 capsule by ity of capsule 00:00: 00:00 mouth in [place] 00 :00 the Medical morning. Branch prazosin 1 2022-2022- No 1mg Take 1 Univ ers mg capsule 08-09 capsule by it y of 00:00: 00:00 mouth at [place] 00 :00 bedtime. Medical Branch risperiDONE 2022-0 2022- No .5mg Take 1 Uni vers 0.5 mg 08-09 tablet by ity of tablet 00:00: 00:00 mouth in [place] 00 :00 the Medical morning Branch and 1 tablet in the evening. cyclobenzap Yes TAKE 1 Univ ers rine 10 mg 3-14 TABLET BY ity of tablet 00:00: MOUTH [place] 00 EVERY 8 Medical HOURS Branch NEEDED FOR MUSCLE SPASMS. cyclobenzap Yes TAKE 1 Univ ers rine 10 mg 3-14 TABLET BY ity of tablet 00:00: MOUTH [place] 00 EVERY 8 Medical HOURS Branch NEEDED FOR MUSCLE SPASMS. cyclobenzap 0 Yes TAKE 1 Univ ers rine 10 mg 3-14 TABLET BY ity of tablet 00:00: MOUTH [place] 00 EVERY 8 Medical HOURS Branch NEEDED FOR MUSCLE SPASMS. cyclobenzap 2022-2022- No TAKE 1 Uni vers rine 10 mg 3-14 -21 TABLET BY ity of tablet 00:00: 00:00 MOUTH [place] 00 :00 EVERY 8 Medical HOURS Branch NEEDED FOR MUSCLE SPASMS. cyclobenzap 2022-0 2022- No TAKE 1 Uni vers rine 10 mg 3-14 06-21 TABLET BY ity of tablet 00:00: 00:00 MOUTH [place] 00 :00 EVERY 8 Medical HOURS Branch NEEDED FOR MUSCLE SPASMS. levETIRAcet 2021-04 Yes 500mg 500 mg, Un roel am (KEPPRA) 05-05 Oral, BID, it y of tablet 500 14:00: First dose [place] mg 00 on [facility] 03/05/22 Branch at 0800, Until Discontinu ed, Routine D5W 0.9% 2021-04 Yes 1000mL at 125 Unive rs NaCl (NS) 05-05 mL/hr, ity of IV infusion 06:30: 1,000 mL, [place] 1,000 mL 00 IV Medical Infusion, Branch CONTINUOUS , Starting on [place] 03/05/22 at 0030, Until Discontinu ed, ELVIS NaCl 0.9% 2021-04- No 1000mL at 999 Uni vers (NS) bolus 05-05 mL/hr, ity of infusion 06:15: 20:58 1,000 mL, [place] 1,000 mL 00 :00 IV Medical Piggyback, Branch ONCE, 1 dose, On [place] 03/05/22 at 0015, STAT traZODone 2021-04 Yes 150mg 150 mg, Univ ers (DESYREL) 05-05 Oral, QHS, ity of tablet 150 03:00: First dose [place] mg 00 on [facility] 03/04/22 Branch at 2100, Until Discontinu ed, ELVIS OXcarbazepi 2021-04 Yes 150mg 150 mg, Un roel ne 05-05 Oral, BID, ity of (TRILEPTAL) 02:00: First dose [place] tablet 150 00 on [facility] 03/04/22 Branch at 2000, Until Discontinu ed, EL[place] lamoTRIgine 2021-04 Yes 25mg 25 mg, Univ ers (LAMICTAL) 05-05 Oral, BID, ity of tablet 25 02:00: First dose [place] mg 00 on [facility] 03/04/22 Branch at 2000, Until Discontinu ed, ELVIS NaCl 0.9% 2021-04 No 1000mL at 999 Uni vers (NS) bolus 05-05 mL/hr, ity of infusion 00:30: 21:00 1,000 mL, [place] 1,000 mL 00 :00 IV Medical Piggyback, Branch ONCE, 1 dose, On [facility] 03/04/22 at 1830, STAT LORazepam 2022-1 2022- No 1mg 1 mg, Slow U nivers (ATIVAN) 05-04 IV Push, ity of injection 1 22:00: 01:29 ONCE, 1 [place] mg 00 :00 dose, On Medical Sat Branch 03/04/22 at 1600, STAT traMADoL 50 2021-04 [...] 7-10). Indication s: acute pain traMADoL 50 2021-04- No [id number] 50mg Take 1 Uni vers mg tablet 1-03 06-21 tablet by ity of 00:00: 00:00 mouth [place] 00 :00 every 4 Medical (four) Branch hours as needed for Pain (scale 7-10). Indication s: acute pain traMADoL 50 2021-04- No [id number] 50mg Take 1 Uni vers mg tablet 1-03 06-21 tablet by ity of 00:00: 00:00 mouth [place] 00 :00 every 4 Medical (four) Branch hours as [...] daily. [place] 15 :00 Medical Branch gabapentin 2021-04 No [...] Medical times Branch daily. atorvastati 2021-04 Yes [id number] 20mg Take 1 Univers n 20 mg 04-09 tablet by ity of tablet 00:00: mouth in [place] 00 the Medical morning. Branch gabapentin 2021-04 Yes [id number] 300mg Take 1 Univers 300 mg 04-09 capsule by ity of capsule 00:00: mouth in [place] 00 the Medical morning Branch and 1 capsule at noon and 1 capsule in the evening. levETIRAcet 2021-04 Yes [id number] 1000mg Take 1 Univers am (KEPPRA) 04-09 tablet by ity of 1,000 mg 00:00: mouth in [facility] 00 the Medical morning Branch and 1 tablet in the evening. naproxen 2021-04 Yes [id number] 500mg Take 1 Un roel 500 mg 04-09 tablet by ity of tablet 00:00: mouth in [place] the Medical morning Branch and 1 tablet in the evening. Take with meals. atorvastati 2021-04 Yes [id number] 20mg Take 1 Univers n 20 mg -01 tablet by ity of tablet 00:00: mouth in [place] 00 the Medical morning. Branch gabapentin 2021-04 Yes [id number] 300mg Take 1 Univers 300 mg 04-09 capsule by ity of capsule 00:00: mouth in [place] 00 the Medical morning Branch and 1 capsule at noon and 1 capsule in the evening. levETIRAcet 2021-04 Yes [id number] 1000mg Take 1 Univers am (KEPPRA) 1-01 tablet by ity of 1,000 mg 00:00: mouth in [place] tablet 00 the Medical morning Branch and 1 tablet in the evening. naproxen 2021-04 Yes [id number] 500mg Take 1 Un roel 500 mg 1-01 tablet by ity of tablet 00:00: mouth in [place] 00 the Medical morning Branch and 1 tablet in the evening. Take with meals. atorvastati 2021-04 Yes [id number] 20mg Take 1 Univers n 20 mg 1-01 tablet by ity of tablet 00:00: mouth in [place] 00 the Medical morning. Branch gabapentin 2021-04 Yes [id number] 300mg Take 1 Univers 300 mg 1-01 capsule by ity of capsule 00:00: mouth in [place] 00 the Medical morning Branch and 1 capsule at noon and 1 capsule in the evening. levETIRAcet 2021-04 Yes [id number] 1000mg Take 1 Univers am (KEPPRA) 1-01 tablet by ity of 1,000 mg 00:00: mouth in [place] tablet 00 the Medical morning Branch and 1 tablet in the evening. naproxen 2021-04 Yes [id number] 500mg Take 1 Un roel 500 mg 1-01 tablet by ity of tablet 00:00: mouth in [place] 00 the Medical morning Branch and 1 tablet in the evening. Take with meals. atorvastati 2021-04 Yes [id number] 20mg Take 1 Univers n 20 mg 1-01 tablet by ity of tablet 00:00: mouth in [place] 00 the Medical morning. Branch gabapentin 2021-04 Yes [id number] 300mg Take 1 Univers 300 mg 1-01 capsule by ity of capsule 00:00: mouth in [place] 00 the Medical morning Branch and 1 capsule at noon and 1 capsule in the evening. levETIRAcet 2021-04 Yes [id number] 1000mg Take 1 Univers am (KEPPRA) 1-01 tablet by ity of 1,000 mg 00:00: mouth in [place] tablet 00 the Medical morning Branch and 1 tablet in the evening. naproxen 2021-04 Yes [id number] 500mg Take 1 Un roel 500 mg 1-01 tablet by ity of tablet 00:00: mouth in [place] 00 the Medical morning Branch and 1 tablet in the evening. Take with meals. atorvastati 2021-04 Yes [id number] 20mg Take 1 Univers n 20 mg 1-01 tablet by ity of tablet 00:00: mouth in [place] [address] the Medical morning. Branch gabapentin 2021-04 Yes [id number] 300mg Take 1 Univers 300 mg 1-01 capsule by ity of capsule 00:00: mouth in [place] 00 the Medical morning Branch and 1 capsule at noon and 1 capsule in the evening. levETIRAcet 2021-04 Yes [id number] 1000mg Take 1 Univers am (KEPPRA) 1-01 tablet by ity of 1,000 mg 00:00: mouth in [place] tablet 00 the Medical morning Branch and 1 tablet in the evening. naproxen 2021-04 Yes [id number] 500mg Take 1 Un roel 500 mg 1-01 tablet by ity of tablet 00:00: mouth in [place] [address] the Medical morning Branch and 1 tablet in the evening. Take with meals. atorvastati 2021-04 Yes [id number] 20mg Take 1 Univers n 20 mg 1-01 tablet by ity of tablet 00:00: mouth in [place] the Medical morning. Branch gabapentin 2021-04 Yes [id number] 300mg Take 1 Univers 300 mg 1-01 capsule by ity of capsule 00:00: mouth in [place] [address] the Medical morning Branch and 1 capsule at noon and 1 capsule in the evening. levETIRAcet 2021-04 Yes [id number] 1000mg Take 1 Univers am (KEPPRA) 1-01 tablet by ity of 1,000 mg 00:00: mouth in [place] tablet 00 the Medical morning Branch and 1 tablet in the evening. naproxen 2021-04 Yes [id number] 500mg Take 1 Un roel 500 mg 1-01 tablet by ity of tablet 00:00: mouth in [place] [address] the Medical morning Branch and 1 tablet in the evening. Take with meals. atorvastati 2021-04 Yes [id number] 20mg Take 1 Univers n 20 mg 1-01 tablet by ity of tablet 00:00: mouth in [place] [address] the Medical morning. Branch gabapentin 2021-04 Yes [id number] 300mg Take 1 Univers 300 mg 1-01 capsule by ity of capsule 00:00: mouth in [place] 00 the Medical morning Branch and 1 capsule at noon and 1 capsule in the evening. levETIRAcet 2021-04 Yes [id number] 1000mg Take 1 Univers am (KEPPRA) 1-01 tablet by ity of 1,000 mg 00:00: mouth in [place] tablet 00 the Medical morning Branch and 1 tablet in the evening. naproxen 2021-04 Yes [id number] 500mg Take 1 Un roel 500 mg 1-01 tablet by ity of tablet 00:00: mouth in [place] 00 the Medical morning Branch and 1 tablet in the evening. Take with meals. atorvastati 2021-04 Yes [id number] 20mg Take 1 Univers n 20 mg 1-01 tablet by ity of tablet 00:00: mouth in [place] [address] the Medical morning. Branch gabapentin 2021-04 Yes [id number] 300mg Take 1 Univers 300 mg 1-01 capsule by ity of capsule 00:00: mouth in [place] [address] the [facility] morning [place] and 1 capsule at noon and 1 capsule in the evening. levETIRAcet 2021-04 Yes [id number] 1000mg Take 1 Univers am (KEPPRA) 1-01 tablet by ity of 1,000 mg 00:00: mouth in [place] tablet the [facility] morning [place] and 1 tablet in the evening. naproxen 2021-04 Yes [id number] 500mg Take 1 Un roel 500 mg 1-01 tablet by ity of tablet 00:00: mouth in [place] [address] the [facility] morning [place] and 1 tablet in the evening. Take with meals. atorvastati 2021-04 Yes [id number] 20mg Take 1 Univers n 20 mg 1-01 tablet by ity of tablet 00:00: mouth in [place] [address] the Medical morning. Branch gabapentin 2021-04 Yes [id number] 300mg Take 1 Univers 300 mg 1-01 capsule by ity of capsule 00:00: mouth in [place] [address] the [facility] morning Branch and 1 capsule at noon and 1 capsule in the evening. levETIRAcet 2021-04 Yes [id number] 1000mg Take 1 Univers am (KEPPRA) 1-01 tablet by ity of 1,000 mg 00:00: mouth in [place] tablet 00 the [facility] morning Branch and 1 tablet in the evening. naproxen 2021-04 Yes [id number] 500mg Take 1 Un roel 500 mg 1-01 tablet by ity of tablet 00:00: mouth in [place] the Medical morning Branch and 1 tablet in the evening. Take with meals. atorvastati 2021-04 Yes [id number] 20mg Take 1 Univers n 20 mg 1-01 tablet by ity of tablet 00:00: mouth in [place] the morning. Branch gabapentin 2021-04 Yes [id number] 300mg Take 1 Univers 300 mg 1-01 capsule by ity of capsule 00:00: mouth in [place] 00 the Medical morning Branch and 1 capsule at noon and 1 capsule in the evening. levETIRAcet 2021-04 Yes [id number] 1000mg Take 1 Univers am (KEPPRA) 1-01 tablet by ity of 1,000 mg 00:00: mouth in [place] tablet 00 the Medical morning Branch and 1 tablet in the evening. naproxen 2021-04 Yes [id number] 500mg Take 1 Un roel 500 mg 1-01 tablet by ity of tablet 00:00: mouth in [place] the Medical morning Branch and 1 tablet in the evening. Take with meals. atorvastati 2021-04 Yes [id number] 20mg Take 1 Univers n 20 mg 1-01 tablet by ity of tablet 00:00: mouth in [place] the morning. Branch gabapentin 2021-04 Yes [id number] 300mg Take 1 Univers 300 mg 1-01 capsule by ity of capsule 00:00: mouth in [place] the Medical morning Branch and 1 capsule at noon and 1 capsule in the evening. levETIRAcet 2021-04 Yes [id number] 1000mg Take 1 Univers am (KEPPRA) 1-01 tablet by ity of 1,000 mg 00:00: mouth in [place] tablet 00 the Medical morning Branch and 1 tablet in the evening. naproxen 2021-04 Yes [id number] 500mg Take 1 Un roel 500 mg 1-01 tablet by ity of tablet 00:00: mouth in [place] the Medical morning Branch and 1 tablet in the evening. Take with meals. atorvastati 2021-04 Yes [id number] 20mg Take 1 Univers n 20 mg 1-01 tablet by ity of tablet 00:00: mouth in [place] [address] the Medical morning. Branch gabapentin 2021-04 Yes [id number] 300mg Take 1 Univers 300 mg 1-01 capsule by ity of capsule 00:00: mouth in [place] 00 the Medical morning Branch and 1 capsule at noon and 1 capsule in the evening. levETIRAcet 2021-04 Yes [id number] 1000mg Take 1 Univers am (KEPPRA) 1-01 tablet by ity of 1,000 mg 00:00: mouth in [place] tablet 00 the Medical morning Branch and 1 tablet in the evening. naproxen 2021-04 Yes [id number] 500mg Take 1 Un roel 500 mg 1-01 tablet by ity of tablet 00:00: mouth in [place] 00 the Medical morning Branch and 1 tablet in the evening. Take with meals. atorvastati 2021-04 Yes [id number] 20mg Take 1 Univers n 20 mg 1-01 tablet by ity of tablet 00:00: mouth in [place] [address] the Medical morning. Branch gabapentin 2021-04 Yes [id number] 300mg Take 1 Univers 300 mg 1-01 capsule by ity of capsule 00:00: mouth in [place] [address] the Medical morning Branch and 1 capsule at noon and 1 capsule in the evening. levETIRAcet 2021-04 Yes [id number] 1000mg Take 1 Univers am (KEPPRA) 1-01 tablet by ity of 1,000 mg 00:00: mouth in [place] tablet the Medical morning Branch and 1 tablet in the evening. naproxen 2021-04 Yes [id number] 500mg Take 1 Un roel 500 mg 1-01 tablet by ity of tablet 00:00: mouth in [place] [address] the Medical morning Branch and 1 tablet in the evening. Take with meals. atorvastati 2021-04 Yes [id number] 20mg Take 1 Univers n 20 mg 1-01 tablet by ity of tablet 00:00: mouth in [place] [address] the Medical morning. Branch gabapentin 2021-04 Yes [id number] 300mg Take 1 Univers 300 mg 1-01 capsule by ity of capsule 00:00: mouth in [place] [address] the Medical morning Branch and 1 capsule at noon and 1 capsule in the evening. levETIRAcet 2021-04 Yes [id number] 1000mg Take 1 Univers am (KEPPRA) 1-01 tablet by ity of 1,000 mg 00:00: mouth in [place] tablet 00 the Medical morning Branch and 1 tablet in the evening. naproxen 2021-04 Yes [id number] 500mg Take 1 Un roel 500 mg 1-01 tablet by ity of tablet 00:00: mouth in [place] 00 the Medical morning Branch and 1 tablet in the evening. Take with meals. atorvastati 2021-04 Yes [id number] 20mg Take 1 Univers n 20 mg 1-01 tablet by ity of tablet 00:00: mouth in [place] [address] the Medical morning. Branch gabapentin 2021-04 Yes [id number] 300mg Take 1 Univers 300 mg 1-01 capsule by ity of capsule 00:00: mouth in [place] [address] the Medical morning Branch and 1 capsule at noon and 1 capsule in the evening. levETIRAcet 2021-04 Yes [id number] 1000mg Take 1 Univers am (KEPPRA) 1-01 tablet by ity of 1,000 mg 00:00: mouth in [facility] 00 the Medical morning Branch and 1 tablet in the evening. naproxen 2021-04 Yes [id number] 500mg Take 1 Un roel 500 mg 1-01 tablet by ity of tablet 00:00: mouth in [place] [address] the Medical morning Branch and 1 tablet in the evening. Take with meals. atorvastati 2021-04 Yes [id number] 20mg Take 1 Univers n 20 mg 1-01 tablet by ity of tablet 00:00: mouth in [place] [address] the Medical morning. Branch gabapentin 2021-04 Yes [id number] 300mg Take 1 Univers 300 mg 1-01 capsule by ity of capsule 00:00: mouth in [place] [address] the Medical morning Branch and 1 capsule at noon and 1 capsule in the evening. naproxen 2021-04 Yes [id number] 500mg Take 1 Un roel 500 mg 1-01 tablet by ity of tablet 00:00: mouth in [place] [address] the Medical morning Branch and 1 tablet in the evening. Take with meals. atorvastati 2021-04 Yes [id number] 20mg Take 1 Univers n 20 mg 1-01 tablet by ity of tablet 00:00: mouth in [place] [address] the Medical morning. Branch gabapentin 2021-04 Yes [id number] 300mg Take 1 Univers 300 mg 1-01 capsule by ity of capsule 00:00: mouth in [place] [address] the Medical morning Branch and 1 capsule at noon and 1 capsule in the evening. naproxen 2021-04 Yes [id number] 500mg Take 1 Un roel 500 mg 1-01 tablet by ity of tablet 00:00: mouth in [place] 00 the Medical morning Branch and 1 tablet in the evening. Take with meals. atorvastati 2021-04 Yes [id number] 20mg Take 1 Univers n 20 mg 1-01 tablet by ity of tablet 00:00: mouth in [place] 00 the Medical morning. Branch gabapentin 2021-04 Yes [id number] 300mg Take 1 Univers 300 mg - capsule by ity of capsule 00:00: mouth in [place] 00 the Medical morning Branch and 1 capsule at noon and 1 capsule in the evening. naproxen 2021-04 Yes [id number] 500mg Take 1 Un roel 500 mg 1-01 tablet by ity of tablet 00:00: mouth in [place] 00 the Medical morning Branch and 1 tablet in the evening. Take with meals. atorvastati 2021-04- No [id number] 20mg Take 1 Univers n 20 mg 04-09 tablet by ity of tablet 00:00: 00:00 mouth in [place] 00 :00 the Medical morning. Branch gabapentin 2021-04- No [id number] 300mg Take 1 Univers 300 mg 04-09 capsule by ity of capsule 00:00: 00:00 mouth in [place] 00 :00 the Medical morning Branch and 1 capsule at noon and 1 capsule in the evening. naproxen 2021-04- No [id number] 500mg Take 1 U nivers 500 mg 04-09 tablet by ity of tablet 00:00: 00:00 mouth in [place] 00 :00 the Medical morning Branch and 1 tablet in the evening. Take with meals. atorvastati 2021-04- No [id number] 20mg Take 1 Univers n 20 mg 04-09- tablet by ity of tablet 00:00: 00:00 mouth in [place] 00 :00 the Medical morning. Branch gabapentin 2021-04- No [id number] 300mg Take 1 Univers 300 mg 04-09 capsule by ity of capsule 00:00: 00:00 mouth in [place] 00 :00 the Medical morning Branch and 1 capsule at noon and 1 capsule in the evening. naproxen 2021-04- No [id number] 500mg Take 1 U nivers 500 mg 04-09 tablet by ity of tablet 00:00: 00:00 mouth in [place] 00 :00 the [facility] morning [place] and 1 tablet in the evening. Take with meals. ibuprofen 2021-04 No 600mg 600 mg, Uni vers (IBU) 0-30 10-30 Oral, ity of tablet 600 21:15: 21:11 ONCE, 1 [place] as mg 00 :00 dose, On [facility] Branch 02/05/22 at 1615, ELVIS tiZANidine 2021-04 Yes [id number] 4mg Take 1 U nivers 4 mg 0-27 capsule by ity of capsule 00:00: mouth in [place] [address] the [facility] and 1 capsule at noon and 1 capsule in the evening. tiZANidine 2021-04 Yes [id number] 4mg Take 1 U nivers 4 mg 0-27 capsule by ity of capsule 00:00: mouth in [place] [address] the [facility] and 1 capsule at noon and 1 capsule in the evening. tiZANidine 2021-04 Yes [id number] 4mg Take 1 U nivers 4 mg 0-27 capsule by ity of capsule 00:00: mouth in [place] [address] the [facility] and 1 capsule at noon and 1 capsule in the evening. tiZANidine 2021-04 Yes [id number] 4mg Take 1 U nivers 4 mg 0-27 capsule by ity of capsule 00:00: mouth in [place] [address] the [facility] and 1 capsule at noon and 1 capsule in the evening. tiZANidine 2021-04 Yes [id number] 4mg Take 1 U nivers 4 mg 0-27 capsule by ity of capsule 00:00: mouth in [address] and 1 capsule at noon and 1 capsule in the evening. tiZANidine 2021-04 Yes [id number] 4mg Take 1 U nivers 4 mg 0-27 capsule by ity of capsule 00:00: mouth in [address] morning [place] and 1 capsule at noon and 1 capsule in the evening. tiZANidine 2021-04 Yes [id number] 4mg Take 1 U nivers 4 mg 0-27 capsule by ity of capsule 00:00: mouth in [address] morning [place] and 1 capsule at noon and 1 capsule in the evening. tiZANidine 2021-04 Yes [id number] 4mg Take 1 U nivers 4 mg 0-27 capsule by ity of capsule 00:00: mouth in [place] [address] the [facility] morning Branch and 1 capsule at noon and 1 capsule in the evening. tiZANidine 2021-04 Yes [id number] 4mg Take 1 U nivers 4 mg 0-27 capsule by ity of capsule 00:00: mouth in [place] [address] the [facility] morning [place] and 1 capsule at noon and 1 capsule in the evening. tiZANidine 2021-04 Yes [id number] 4mg Take 1 U nivers 4 mg 0-27 capsule by ity of capsule 00:00: mouth in [address] morning [place] and 1 capsule at noon and 1 capsule in the evening. tiZANidine 2021-04 Yes [id number] 4mg Take 1 U nivers 4 mg 0-27 capsule by ity of capsule 00:00: mouth in [address] morning [place] and 1 capsule at noon and 1 capsule in the evening. tiZANidine 2021-04 Yes [id number] 4mg Take 1 U nivers 4 mg 0-27 capsule by ity of capsule 00:00: mouth in [address] morning [place] and 1 capsule at noon and 1 capsule in the evening. tiZANidine 2021-04 Yes [id number] 4mg Take 1 U nivers 4 mg 0-27 capsule by ity of capsule 00:00: mouth in [address] morning [place] and 1 capsule at noon and 1 capsule in the evening. tiZANidine 2021-04 Yes [id number] 4mg Take 1 U nivers 4 mg 0-27 capsule by ity of capsule 00:00: mouth in [address] morning [place] and 1 capsule at noon and 1 capsule in the evening. tiZANidine 2021-04 Yes [id number] 4mg Take 1 U nivers 4 mg 0-27 capsule by ity of capsule 00:00: mouth in [address] morning [place] and 1 capsule at noon and 1 capsule in the evening. tiZANidine 2021-04 Yes [id number] 4mg Take 1 U nivers 4 mg 0-27 capsule by ity of capsule 00:00: mouth in [address] morning [place] and 1 capsule at noon and 1 capsule in the evening. tiZANidine 2021-04 Yes [id number] 4mg Take 1 U nivers 4 mg 0-27 capsule by ity of capsule 00:00: mouth in [place] 00 the [facility] morning [place] and 1 capsule at noon and 1 capsule in the evening. tiZANidine 2021-04 Yes [id number] 4mg Take 1 U nivers 4 mg 0-27 capsule by ity of capsule 00:00: mouth in [place] 00 the [facility] morning [place] and 1 capsule at noon and 1 capsule in the evening. tiZANidine 2021-04 Yes [id number] 4mg Take 1 U nivers 4 mg 0-27 capsule by ity of capsule 00:00: mouth in [place] 00 the [facility] morning [place] and 1 capsule at noon and 1 capsule in the evening. tiZANidine 2021-04 Yes [id number] 4mg Take 1 U nivers 4 mg 0-27 capsule by ity of capsule 00:00: mouth in [place] 00 the [facility] morning [place] and 1 capsule at noon and 1 capsule in the evening. tiZANidine 2021-04 No [id number] 4mg Take 1 Univers 4 mg 0-27 06-21 capsule by ity of capsule 00:00: 00:00 mouth in [place] 00 :00 the [facility] and 1 capsule at noon and 1 capsule in the evening. tiZANidine 2021-04- No [id number] 4mg Take 1 Univers 4 mg 0-27 06-21 capsule by ity of capsule 00:00: 00:00 mouth in [place] 00 :00 the [facility] and 1 capsule at noon and 1 capsule in the evening. ondansetron No 4mg 4 mg, Slow Univers (ZOFRAN 10-12 IV Push, ity of (PF)) 16:00: 15:18 ONCE, 1 [place] injection 4 00 :00 dose, On Medi barbara mg Sun10/12/21 Branch at 1100, Routine iopamidol 2021- No [id number] 60mL 60 mL, U nivers (ISOVUE 10-12 Intravenou ity o f 370-500 mL) 15:42: 15:42 s, ONCE, 1 [place] injection 00 :00 dose, On Medica l 60 mL 7/6/22 Branch at 1100, Routine NaCl 0.9% 2021-0 2021- No 500mL at 999 Univ ers (NS) bolus 7-06 07-06 mL/hr, 500 it y of infusion 15:00: 16:50 mL, IV [place] 500 mL 00 :00 Infusion, Medical ONCE, 1 Branch dose, On Sun10/12/21 at 1000, STAT ondansetron 2-0 Yes [id number] 4mg Take 1 Univers 4 mg 7-06 tablet by ity of disintegrat 00:00: mouth [place] ing tablet 00 every 8 Medica l (eight) Branch hours as needed for Nausea and Vomiting (N/V). dicyclomine 2022-0 Yes [id number] 20mg Take 1 Univers 20 mg 7-06 tablet by ity of tablet 00:00: mouth 4 [place] 00 (four) Medical times Branch daily. ondansetron 2-0 Yes [id number] 4mg Take 1 Univers 4 mg 7-06 tablet by ity of disintegrat 00:00: mouth [place] ing tablet 00 every 8 Medica l (eight) Branch hours as needed for Nausea and Vomiting (N/V). dicyclomine 2021-0 Yes [id number] 20mg Take 1 Univers 20 mg 7-06 tablet by ity of tablet 00:00: mouth 4 [place] 00 (four) Medical times Branch daily. ondansetron 2-0 Yes [id number] 4mg Take 1 Univers 4 mg 7-06 tablet by ity of disintegrat 00:00: mouth [place] ing tablet 00 every 8 Medica l (eight) Branch hours as needed for Nausea and Vomiting (N/V). dicyclomine 2-0 Yes [id number] 20mg Take 1 Univers 20 mg 7-06 tablet by ity of tablet 00:00: mouth 4 [place] 00 (four) Medical times Branch daily. ondansetron 2022-0 2022- No [id number] 4mg Take 1 Univers 4 mg 7-06 11-01 tablet by ity of disintegrat 00:00: 00:00 [place] tablet 00 :00 every 8 Medica l (eight) Branch hours as needed for Nausea and Vomiting (N/V). dicyclomine 2022-0 2022- No [id number] 20mg Take 1 Univers 20 mg 7-06 11-01 tablet by ity of tablet 00:00: 00:00 mouth 4 [place] 00 :00 (four) Medical times Branch daily. ondansetron 2021- No [id number] 4mg Take 1 Univers 4 mg 10-12 tablet by ity of disintegrat 00:00: 00:00 [place] tablet 00 :00 every 8 Medica l (eight) Branch hours as needed for Nausea and Vomiting (N/V). dicyclomine 2021- No [id number] 20mg Take 1 Univers 20 mg 10-12 tablet by ity of tablet 00:00: 00:00 mouth 4 [place] 00 :00 (four) Medical times Branch daily. sulfamethox Yes 1{tbl} Take 1 Un roel azole-trime 1-21 tablet by ity of thoprim 16:03: mouth 2 [place] (BACTRIM 16 (two) Medical DS) 800-160 times Branch mg per daily. tablet sulfamethox Yes 1{tbl} Take 1 Un roel azole-trime 1-21 tablet by ity of thoprim 16:03: mouth 2 [place] (BACTRIM 16 (two) Medical DS) 800-160 times Branch mg per daily. tablet sulfamethox 0 Yes 1{tbl} Take 1 Un roel azole-trime 1-21 tablet by ity of thoprim 16:03: mouth 2 [place] (BACTRIM 16 (two) Medical DS) 800-160 times Branch mg per daily. tablet gabapentin 2021-2021- No 300mg Take 300 U nivers 300 mg 1-21 -21 mg by ity of capsule 16:02: 00:00 mouth 3 [place] 48 :00 (three) Medical times Branch daily. busPIRone 2021-2021- No 15mg Take 15 mg U nivers 15 mg -21 -21 by mouth 3 ity of tablet 16:02: 00:00 (three) [place] 33 :00 times Medical daily. Branch atorvastati Yes 20mg Take 20 mg Univers n 20 mg 1-07 by mouth ity of tablet 15:04: daily. [place] 25 Medical Branch OXcarbazepi Yes 600mg Take 600 U nivers ne [...] by mouth ity of tablet 15:04: daily. [address] Branch OXcarbazepi 2022-0 Yes 600mg Take [...] by mouth ity of tablet 15:04: daily. [address] OXcarbazepi 2022-0 Yes 600mg Take 600 [...] by mouth ity of tablet 15:04: daily. [address] OXcarbazepi 2022-0 Yes 600mg Take 600 [...] by mouth ity of tablet 15:04: daily. [address] OXcarbazepi 2022-0 Yes 600mg Take 600 [...] by mouth ity of tablet 15:04: daily. [address] OXcarbazepi 2022-0 Yes 600mg Take 600 U nivers ne 600 mg 1-07 mg by ity of tablet 15:04: mouth 3 [place] [address] (three) Medical times Branch daily. ergocalcife 2022-0 Yes 1{capsu Take 1 U nivers rol, 1-07 le} capsule by ity of vitamin d2, 15:04: mouth 2 [place] as 1,250 mcg 25 (two) Medical (50,000 times Branch unit) daily. capsule atorvastati 2-0 Yes 20mg Take 20 mg Univers n 20 mg 1-07 by mouth ity of tablet 15:04: daily. [address] OXcarbazepi 2022-0 Yes 600mg Take 600 [...] by mouth ity of tablet 15:04: daily. [address] OXcarbazepi 2022-0 Yes 600mg Take 600 U nivers ne 600 mg 1-07 mg by ity of tablet 15:04: mouth 3 [place] 25 (three) Medical times Branch daily. ergocalcife Yes 1{capsu Take 1 U nivers rol, 04-15 le} capsule by ity of vitamin d2, 15:04: mouth 2 [place] 1,250 mcg 25 (two) Medical (50,000 times Branch unit) daily. capsule naproxen 2021- No [id number] 500mg Take 1 Univers (NAPROSYN) 04-15 tablet by ity of 500 mg 00:00: 00:00 mouth 2 [place] tablet 00 :00 (two) Medical times Branch daily with meals. Immunizations Ordered Filled Immunization Date Status Comments [facility] e Immunization Name Name Influenza Virus [...] y of Vaccine Quad IM, 00:00:00 [place] [facility] dical Preserv and ABX Branch Free 6 MO-64 YRS SARS-COV-2 COVID-19 2021-04-27 Completed Unive rsity of VACCINE - (MODERNA) 00:00:00 [facility] SARS-COV-2 COVID-19 2021-04-27 Completed Unive rsity of VACCINE - (MODERNA) 00:00:00 [facility] SARS-COV-2 COVID-19 2021-04-27 Completed Unive rsity of VACCINE - (MODERNA) 00:00:00 [facility] SARS-COV-2 COVID-19 2021-04-27 Completed Unive rsity of VACCINE - (MODERNA) 00:00:00 [facility] SARS-COV-2 COVID-19 2021-04-27 Completed Unive rsity of VACCINE - (MODERNA) 00:00:00 [facility] SARS-COV-2 COVID-19 2021-04-27 Completed Unive rsity of VACCINE - (MODERNA) 00:00:00 [facility] SARS-COV-2 COVID-19 2021-04-27 Completed Unive rsity of VACCINE - (MODERNA) 00:00:00 [facility] SARS-COV-2 COVID-19 2021-04-27 Completed Unive rsity of VACCINE - (MODERNA) 00:00:00 [facility] SARS-COV-2 COVID-19 2021-03-24 Completed Unive rsity of MODERNA VACCINE 00:00:00 [facility] SARS-COV-2 COVID-19 2021-03-24 Completed Unive rsity of MODERNA VACCINE 00:00:00 [facility] SARS-COV-2 COVID-19 2021-03-24 Completed Unive rsity of MODERNA VACCINE 00:00:00 [facility] SARS-COV-2 COVID-19 2021-03-24 Completed Unive rsity of MODERNA VACCINE 00:00:00 [facility] SARS-COV-2 COVID-19 2021-03-24 Completed Unive rsity of MODERNA VACCINE 00:00:00 [facility] SARS-COV-2 COVID-19 2021-03-24 Completed Unive rsity [...] Time Observation Value Comments Source Systolic blood 2022-09-27 19:18:00 102 mm[Hg] Univer sity of pressure [place] [facility] Diastolic blood 2022-09-27 19:18:00 68 mm[Hg] Unive rsity of pressure [place] [facility] Heart rate 2022-09-27 19:18:00 92 /min Universi ty of [place] [facility] Respiratory rate 2022-09-27 19:18:00 18 /min Univ ersity of [place] [facility] Body height 2022-09-27 19:18:00 157.5 cm Universi ty of [place] [facility] Body weight 2022-09-27 19:18:00 67.178 kg Universi ty of [place] [facility] BMI 2022-09-27 19:18:00 27.09 kg/m2 Universi ty of [place] [facility] Oxygen saturation in 2022-09-27 19:18:00 99 /min University of Arterial blood by [place] [facility] barbara Pulse oximetry Branch Systolic blood 2022-09-13 18:28:00 102 mm[Hg] Univer sity of pressure [place] [facility] Diastolic blood 2022-09-13 18:28:00 69 mm[Hg] Unive rsity of pressure [place] [facility] Heart rate 2022-09-13 18:28:00 94 /min Universi ty of [place] [facility] Respiratory rate 2022-09-13 18:28:00 18 /min Univ ersity of [place] [facility] Body height 2022-09-13 18:28:00 154.5 cm Universi ty of [place] [facility] Body weight 2022-09-13 18:28:00 67.087 kg Universi ty of [place] [facility] BMI 2022-09-13 18:28:00 28.10 kg/m2 Universi ty of [place] [facility] Oxygen saturation in 2022-09-13 18:28:00 99 /min University of [facility] blood by [facility]bara Pulse oximetry Branch Systolic blood 2022-06-07 17:01:00 111 mm[Hg] Univer sity of pressure [place] [facility] Diastolic blood 2022-06-07 17:01:00 69 mm[Hg] Unive rsity of pressure [place] [facility] Heart rate 2022-06-07 17:01:00 82 /min Universi ty of [place] [facility] Body temperature 2022-06-07 17:01:00 36.78 Rafaela Univ ersity of [place] [facility] Respiratory rate 2022-06-07 17:01:00 16 /min Univ ersity of [place] [facility] Body height 2022-06-07 17:01:00 157.5 cm Universi ty [facility] [place] [facility] Body weight 2022-06-07 17:01:00 68.04 kg Universi ty of [place] [facility] BMI 2022-06-07 17:01:00 27.44 kg/m2 Universi ty of [place] [facility] Oxygen saturation in 2022-06-07 17:01:00 99 /min University of Arterial blood by [place] [facility] barbara Pulse oximetry Branch Body height 2022-04-28 15:58:00 [...] 20:00:00 110 mm[Hg] Univer sity of pressure [place] [facility] Diastolic blood 2022-03-05 20:00:00 70 mm[Hg] Unive rsity of pressure [place] [facility] [place] Heart rate 2022-03-05 20:00:00 75 /min Universi ty of [place] [facility] Respiratory rate 2022-03-05 20:00:00 16 /min Univ ersity of [facility] Oxygen saturation in 2022-03-05 20:00:00 100 /min University of Arterial blood by [place] [facility]bara Pulse oximetry [place] Body temperature 2022-03-04 21:25:00 37.44 Rafaela Univ [...] 2022-02-09 18:33:00 68.04 kg Universi ty of [place] [facility] BMI 2022-02-09 18:33:00 27.44 kg/m2 Universi ty of [place] [facility] Systolic blood 2022-02-07 18:21:00 120 mm[Hg] Univer sity of pressure [place] [facility] Diastolic blood 2022-02-07 18:21:00 78 [...] 97 /min University of Arterial blood by [employer] Pulse oximetry Branch Systolic blood 2022-02-02 20:32:00 [...] 100 /min University of Arterial blood by [employer] Pulse oximetry Branch Body temperature 2022-02-02 16:01:00 36.61 Rafaela Univ ersity of [place] [facility] Body height 2022-02-02 16:01:00 157.5 cm Universi ty [facility] [place] [facility] Body weight 2022-02-02 16:01:00 69.854 kg [facility]i ty [facility] [place] [facility] BMI 2022-02-02 16:01:00 28.17 kg/m2 Universi ty of [facility] Systolic blood 2021-10-12 16:00:00 105 mm[Hg] Univer sity of pressure [facility] Diastolic blood 2021-10-12 16:00:00 72 mm[Hg] Unive rsity of [facility] Heart rate 2021-10-12 16:00:00 79 /min Universi ty of [facility] Respiratory rate 2021-10-12 16:00:00 18 /min [facility] 2021-10-12 16:00:00 96 /min [facility] Arterial blood by [facility] Pulse oximetry [place] Body temperature 2021-10-12 14:49:00 36.67 Rafaela [facility] Body height 2021-10-12 14:49:00 157.5 cm Universi ty of [facility] Body weight 2021-10-12 14:49:00 70.217 kg Universi ty [facility] BMI 2021-10-12 14:49:00 28.31 kg/m2 Universi ty [facility] Systolic blood 2021-04-29 21:50:00 121 mm[Hg] Univer sity of [facility] Diastolic blood 2021-04-29 21:50:00 79 mm[Hg] Unive rsity of [facility] Heart rate 2021-04-29 21:50:00 86 /min Universi ty of [facility] Body height 2021-04-29 21:50:00 157.5 cm Universi ty [facility] Body weight 2021-04-29 21:50:00 70.761 kg Universi ty [facility] BMI 2021-04-29 21:50:00 28.53 kg/m2 Universi [facility] Procedures Procedure Date / Time Performing Clinician Source Performed COMP. METABOLIC PANEL 2022-06-07 17:17:00 [facility] ([id number]) [facility] CBC WITH DIFF 2022-06-07 17:17:[address] [facility] REFERRAL- 2022-03-30 06:01:00 [facility]RESPONSE Name [facility] COVID-19 (ID NOW RAPID 2022-03-05 06:17:00 Nazanin Garcia [facility] TESTING) [facility] SERUM DRUG (IMMUNOASSAY) 2022-03-05 02:51:00 Sergio Majano [facility] SCREEN KEPPRA (LEVETIRACETAM) 2022-03-05 02:51:00 Sergio Majano [facility] CREATINE KINASE 2022-03-04 23:01:00 Sergio Majano [facility] TEST, SERUM 2022-03-04 23:01:00 Sergio Majano [facility] COMP. METABOLIC PANEL 2022-03-04 23:01:00 Sergio Majano [facility] ([id number]) [facility] SALICYLATE 2022-03-04 23:01:00 Sergio Majano [facility] ETHANOL 2022-03-04 23:01:00 Sergio Majano [facility] CBC WITH DIFF 2022-03-04 23:01:00 Sergio Majano [facility] URINE DRUG (IMMUNOASSAY) 2022-03-04 22:53:00 Sergio Majano [facility] SCREEN URINALYSIS 2022-03-04 22:53:00 Sergio Majano [facility] CT HEAD WO CONTRAST 2022-03-04 22:08:20 Sergio Majano [facility] FLU VACC ([id number]), 6 2022-02-07 18:34:13 Bill Hung [facility] MO-62 YRS, .5ML, IM, Medical [facility] QUAD (FLUCELVAX) [place] APPLY LONG ARM SPLINT 2022-02-05 22:12:[address] [facility] XR ELBOW <3 VW LEFT 2022-02-05 21:44:32 [facility] XR SHOULDER 2+ VW LEFT 2022-02-05 21:44:32 Nazanin Garcia Un [facility] XR WRIST 3+ VW LEFT 2022-02-05 21:44:32 Nazanin Garcia [facility] CONSENT/REFUSAL FOR 2022-02-05 20:55:21 Doctor Unassigned, No [facility] CONSENT/REFUSAL FOR 2022-02-02 15:57:16 Doctor Unassigned, No Un [facility] Name [facility] CT ABDOMEN PELVIS W 2021-10-12 15:50:00 Emy King [facility] CONTRAST [facility] URINALYSIS 2021-10-12 15:22:00 Singer [facility] LIPASE 2021-10-12 15:18:[facility]. METABOLIC PANEL 2021-10-12 15:18:00 Emy King [facility] ([id number]) Medical Branch CBC WITH DIFF 2021-10-12 15:18:00 [facility] NOTICE OF PRIVACY 2021-10-12 14:44:50 Doctor Unassigned, [...] Date/Time Type Type Clinicians Facility Department ID 2022-11-01 2022-11-01 Outpatient Miguel Ángel JASSO [facility] [id number] Univers 15:00:00 15:00:00 STEPHANIE [facility] 2022-10-20 2022-10-20 Outpatient SHOAIB BUI [facility] [id number] [facility] 11:00:00 11:00:00 SHOAIB HARDY [facility] 2022-10-02 2022-10-02 Glaze Spr[facility] Lab, Ang - Db [facility] 1.2.840.1 [id number] Univers 10:00:00 10:15:00 Visit Stephanie Jasso HEALTH 350.1 .13.10 ity of [place] 4.2.7.2.686 John as SHANITA?BLEA [id number] Ri bernabe SHAW [address] MEDICAL OFFICE BUILDING 2022-10-02 2022-10-02 Outpatient [facility] [employer] [id number] Univers 10:00:00 10:00:00 , STEPHANIE it y [facility] 2022-09-28 2022-09-28 Patient Glen [facility] 1.2.840.114 [id number] Univers 00:00:00 00:00:00 Outreach Kathia BELTRÁN 350.1.13.10 i ty [facility] 4.2.7.2.686 John as SHANITA?BLEA [id number] [address] MEDICAL OFFICE [facility] 2022-09-27 2022-09-27 Outpatient [facility] [employer] [id number] Univers 14:40:00 15:18:26 , STEPHANIE leon y [facility] 2022-09-27 2022-09-27 Office [facility] 1.2.840.114 [id number] Univers 14:40:00 15:18:26 Visit , Stephanie BELTRÁN 350.1.13.10 ity of [place] 4.2.7.2.686 John as SHANITA?BLEA [id number] [address] MEDICAL OFFICE BUILDING 2022-09-18 2022-09-18 Patient [place] [facility] 1.2.840.114 [id number] Univers 00:00:00 00:00:00 Outreach Kathia BELTRÁN 350.1.13.10 i ty of [facility] 4.2.7.2.686 John as SHANITA?BLEA [id number] [address] MEDICAL OFFICE BUILDING 2022-09-13 2022-09-13 Outpatient [facility] [employer] [id number] Univers 14:00:00 14:29:14 , STEPHANIE carolyn [facility] 2022-09-13 2022-09-13 Office [facility] 1.2.840.114 [id number] Univers 14:00:00 14:29:14 Visit , Stephanie BELTRÁN 350.1.13.10 ity of [place] 4.2.7.2.686 John as SHANITA?BLEA [id number] Ri shawnfrance SHAW [address] MEDICAL OFFICE [facility] 2022-09-07 2022-09-07 Outpatient R DIAMOND [facility] [id number] Univers 09:00:00 09:00:00 BOBBY ity of [facility] 2022-08-23 2022-08-23 Outpatient [facility] [employer] [id number] Univers 13:00:00 13:00:00 , STEPHANIE it y of [facility] 2022-07-27 2022-07-27 Outpatient [facility] [employer] [id number] Univers 09:00:00 09:00:00 , STEPHANIE it y of [facility] 2022-06-07 2022-06-07 Emergency [facility] [id number] Univers 11:03:00 12:08:00 ISABEL ity of [facility] 2022-06-07 2022-06-07 Emergency [facility] 1.2.989.483 [id number] Univers 11:03:00 12:08:00 Isabel Christelle [place] 350.1.13.10 ity of [place]2.[place].2.[place] [id number] [address] 2022-05-09 2022-05-09 [place] 1.2.840.114 [id number] Univers 00:00:00 00:00:00 Management Brittnee GRAMAJOY 350.1.13.10 [place].2.[place] [id number] [address] 2022-04-28 2022-04-28 Office [facility] 1.2.840.114 [id number] Univers 10:15:00 10:30:00 Visit Bobby S HEALTH 350.1.13.10 it y of [place] 4.2.7.2.686 John as SHANITA?BLEA [id number] Ri bernabe SHAW [address] [facility] OFFICE [facility] 2022-04-28 2022-04-28 Outpatient R DIAMOND [facility] [id number] Univers 10:01:10 10:16:00 [facility] 2022-04-27 2022-04-27 [facility] [id number] Univers 15:45:00 15:45:00 [facility] 2022-04-20 2022-04-20 Outpatient Miguel Ángel [facility] [id number] Univers 11:15:00 11:15:00 [facility] 2022-04-13 2022-04-13 Outpatient Miguel Ángel [facility] [id number] Univers 13:30:00 13:30:00 [facility] 2022-03-30 2022-03-30 Orders Doctor ABHIJIT 1.2.840.114 [id number] Univers 00:00:00 00:00:00 Only Unassigned, AMAYA 350.1.13.10 ity [place] [facility] 4.2.7.2.686 John as [id number] [address] 2022-03-24 2022-03-24 Telephone [facility] 1.2.762.384 [id number] Univers 00:00:00 00:00:00 [facility] 350.1.13.10 it y of [place] 4.2.7.2.686 John as SHANITA?BLEA [id number] Ri shawn[address] MEDICAL OFFICE [facility] 2022-03-09 2022-03-09 Outpatient Miguel Ángel [facility] [id number] Univers 13:45:00 23:59:00 [facility] 2022-03-09 2022-03-09 Office [facility] 1.2.840.114 [id number] Univers 13:30:00 13:45:00 Visit [facility] 350.1.13.10 it y of [place] 4.2.7.2.686 John as SHANITA?BLEA [id number] Ri shawn[address] MEDICAL OFFICE [facility] 2022-03-04 2022-03-05 Emergency X JUAN J, [facility] ERT [id number] Univers 15:22:00 15:00:00 JOHN chin [facility] 2022-03-04 2022-03-05 Emergency Sergio Majano [facility] 1.2.840.1 14 [id number] Univers 15:22:00 15:00:00 John EscamillaGORGE 350.1.13.10 ity of [place] 4.2.7.2.686 [place] [facility] [id number] [address] 2022-02-21 2022-02-21 Telephone [facility] 1.2.732.266 [id number] Univers 00:00:00 00:00:00 [facility] 350.1.13.10 it y of [place] 4.2.7.2.686 John as SHANITA?BLEA [id number] [facility] 044 [facility] OFFICE [facility] 2022-02-20 2022-02-20 Outpatient [facility] [id number] Univers 15:15:00 15:15:00 [facility] 2022-02-09 2022-02-09 Office [facility] 1.2.840.114 [id number] Univers 13:45:00 14:15:00 Visit [facility] 350.1.13.10 it y of [facility] 4.2.7.2.686 John as SHANITA?BLEA [id number] Ri shawnfrance KEEN [address] [facility] OFFICE [facility] 2022-02-09 2022-02-09 Outpatient [facility] [id number] Univers 13:45:00 14:14:48 [facility] 2022-02-07 2022-02-07 Outpatient R ABHILASH [facility] [id number] Univers 13:30:00 13:49:35 [facility] 2022-02-07 2022-02-07 Office [facility] 1.2.840.114 [id number] Univers 13:30:00 13:49:35 Visit [facility] 350.1.13.10 it y of [place] 4.2.7.2.686 John as SHANITA?BLEA [id number] [address] OFFICE [facility] 2022-02-05 2022-02-05 Emergency X JOSE [facility] ERT [id number] Univers 16:08:00 17:27:00 NAZANIN rich [facility] 2022-02-05 2022-02-05 Emergency [facility] 1.2.840.114 [id number] Univers 16:08:00 17:27:00 Nazanin BLA[place] 350.1.13.10 ity of [place] [facility] 4.2.7.2.686 [facility] [id number] [address] 2022-02-02 2022-02-02 Emergency X LUCAS JEAN [facility] ERT 1 [id number] Univers 11:02:00 15:34:00 LUCAS JEAN [facility] 2022-02-02 2022-02-02 Emergency [facility] 1.2.301.846 [id number] Univers 11:02:00 15:34:00 Lucas [place] 350.1.13.10 i ty of [place] 4.2.7.2.686 [facility] [id number] [address] 2022-01-09 2022-01-09 Outpatient Miguel Ángel HUNG [facility] [id number] Univers 13:45:00 13:45:00 BILL hilario [facility] 2021-10-12 2021-10-12 Emergency X [facility] ERT [id number] Univers 09:51:00 11:54:00 EMY rich [facility] 2021-10-12 2021-10-12 Emergency [facility] [id number] [id number] Univers 09:51:00 11:54:00 Emy [place]LA[place] 350.1.13.10 i ty of [place] 4.2.7.2.686 [facility] [id number] [address] 2021-10-12 2021-10-12 Orders Doctor ABHIJIT 1.2.840.114 [id number] Univers 00:00:00 00:00:00 Only Unassigned, AMAYA 350.1.13.[address] [place] [facility] 4.2.7.2.686 John [id number] [address] 2021-09-12 2021-09-12 Outpatient Miguel Ángel [facility] [id number] Univers 10:30:00 10:30:00 BILL chin [facility] 2021-08-24 2021-08-24 Orders Doctor ABHIJIT 1.2.840.114 [id number] Univers 00:00:00 00:00:00 Only Unassigned, AMAYA 350.1.13.10 ity of [place] [facility] 4.2.7.2.686 John as [id number] [address] 2021-06-03 2021-06-03 Outpatient R [facility] [id number] Univers 13:00:00 13:23:49 BILL rich [facility] 2021-05-16 2021-05-16 Orders Doctor ABHIJIT 1.2.840.114 [id number] Univers 00:00:00 00:00:00 Only Unassigned, AMAYA 350.1.13.10 ity of [place] [facility] 4.2.7.2.686 John as [id number] [address] 2021-05-04 2021-05-04 Telephone [facility] 1.2.840.114 [id number] Univers 00:00:00 00:00:00 [facility] 350.1.13.10 it y of [place] 4.2.7.2.686 John as SHANITA?BLEA [id number] [address] MEDICAL OFFICE BUILDING 2021-04-29 2021-04-29 Office [facility] 1.2.840.114 [id number] Univers 16:00:00 16:15:00 Visit [facility] 350.1.13.10 it y of [place] 4.2.7.2.686 John as SHANITA?BLEA [id number] [address] MEDICAL OFFICE BUILDING 2021-04-29 2021-04-29 Outpatient R [facility] [id number] Univers 16:00:00 16:00:00 BILL rich [facility] 2021-04-29 2021-04-29 Orders Doctor ABHIJIT 1.2.840.114 [id number] Univers 00:00:00 00:00:00 Only Unassigned, AMAYA 350.1.13.10 ity of [place] [facility] 4.2.7.2.686 John as [id number] [address] 2021-04-22 2021-04-22 Outpatient Miguel Ángel [facility] [id number] Univers 08:00:00 08:00:00 [facility] 2021-04-22 2021-04-22 Telephone [facility] 1.2.840.114 [id number] Univers 00:00:00 00:00:00 [place] [address].1.13.10 it y of [place] 4.2.7.2.686 John as SHANITA?BLEA [id number] [address] MEDICAL OFFICE [facility] 2021-04-15 2021-04-15 Office [facility] 1.2.840.114 [id number] Univers 15:30:00 16:00:00 Visit [place] [address].1.13.10 it y of [facility] 4.2.7.2.686 John as SHANITA?BLEA [id number] [address] OFFICE [facility] 2021-04-15 2021-04-15 Outpatient Miguel Ángel [facility] [id number] Univers 15:30:00 15:30:00 [facility] 2021-04-15 2021-04-15 Outpatient Miguel Ángel [facility] [id number] Univers 15:30:00 15:30:00 [facility] Results Test Description Test Time Test Comments Results Result Comments Source COMP. METABOLIC PANEL (52187) 2021-10-12 15:45:46 Test Item Value Reference Range Interpretation Comme nts NA (test code = 1308205154) 139 mmol/L 135-145 K (test code = 0902229853) 4.5 mmol/L 3.5-5.0 CL (test code = 5438120458) 99 mmol/L 98-108 CO2 TOTAL (test code = 4045860430) 30 mmol/L 23-31 AGAP (test code = 9791402979) 2-16 BUN (test code = 7937770730) 16 mg/dL 7-23 GLUCOSE (test code = 5928854783) 119 mg/dL 70-110 H CREATININE (test code = 0.66 mg/dL 0.50-1.04 7338498006) TOTAL BILI (test code = 0.4 mg/dL 0.1-1.5 6593197926) CALCIUM (test code = 2399206323) 10.0 mg/dL 8.6-10.6 T PROTEIN (test code = 5259898271) 8.6 g/dL 6.3-8.2 H ALBUMIN (test code = 3893583329) 4.7 g/dL 3.5-5.0 ALK PHOS (test code = 7981921712) 94 U/L 34-122 ALTv (test code = 1742-6) 17 U/L 5-35 AST(SGOT) (test code = 2969832679) 23 U/L 13-40 eGFR (test code = 1409264669) mL/min/1.73m2 SHE (test code = SHE) Association [...] tests). Lab Interpretation (test code = Abnormal 72953-0) [facility] Test Item Value Reference Range Interpretation Comments LIPASE (test code = 5018574406) 86 U/L 0-220 Lab Interpretation (test code = Normal 46060-5) [facility] [id number] 15:31:02 Test Item Value Reference Range Interpretation Comments WBC (test code = See_Comment H [Automated 6690-2) message] The system which generated this result [...] RDW-SD (test code = 44.6 fL 39.0-49.9 93418-7) RDW-CV (test code = 13.7 % 12.0-15.5 788-0) PLT (test code = See_Comment H [Automated 777-3) message] The system which generated this result transmit ann reference range : 166 - 358 10*3/ ?L. The reference range was not u sed to interpret th is result as normal/abnormal . MPV (test code = 10.0 fL 9.5-12.9 65149-4) NRBC/100 WBC (test See_Comment [Automat ed code = 0191394643) message] The system which generated this result transmit ann reference range : 0.0 - 10.0 /100 WBCs. The reference range was not used to interpret this result as normal/abnormal . NRBC x10^3 (test code <0.01 See_Comment [Auto mated = 4556803871) message] The system which generated this result transmit ann reference range : 10*3/?L. The reference range was not used to interpret this result as normal/abnormal . GRAN MAT (NEUT) % 78.7 % (test code = 770-8) IMM GRAN % (test code 0.60 % = 4413142119) LYMPH % (test code = 12.7 % 736-9) MONO % (test code = 7.2 % 5905-5) EOS % (test code = 0.3 % 713-8) BASO % (test code = 0.5 % 706-2) GRAN MAT x10^3(ANC) 12.40 10*3/uL 1.88-7.09 H (test code = 6524307492) IMM GRAN x10^3 (test 0.09 10*3/uL 0.00-0.06 H code = 9699881539) LYMPH x10^3 (test code 2.00 10*3/uL 1.32-3.29 = 731-0) MONO x10^3 (test code 1.14 10*3/uL 0.33-0.92 H = 742-7) EOS x10^3 (test code = 0.04 10*3/uL 0.03-0.39 711-2) BASO x10^3 (test code 0.08 10*3/uL 0.01-0.07 H = 704-7) Lab Interpretation Abnormal (test code = 38435-5) [facility]"
[2022-10-03] MEDS ORDERED: NA CHLORIDE 0.9% 1,000 ML ONE (01:29)
[2022-10-03 01:38] LABS: Protime INR 0.95
[2022-10-03 01:39] LABS: Absolute Lymphocytes (CBC) 1.9 K/uL (0.7-4.9); Hematocrit 38.5 % (36.0-45.0); Lymphocytes % 16.5 % (15.3-44.8); MCV 89.3 fL (80-100); MPV 7.9 fL (7.6-11.3); RBC Red Blood Cell Count 4.31 M/uL (3.86-4.86)
[2022-10-03 01:57] LABS: ALT/SGPT 22 U/L (13-56); AST/SGOT 18 U/L (15-37); Albumin 3.8 g/dL (3.4-5.0); Alkaline Phosphatase 122 U/L (45-117); BUN Blood Urea Nitrogen 14 mg/dL (7-18); Bicarbonate 29 mEq/L (21-32); Bilirubin Direct 0.1 mg/dL (0-0.2); Bilirubin Indirect, Calculated 0.2 mg/dL (0.2-0.8); Bilirubin Total 0.3 mg/dL (0.2-1.0); Glomerular Filtration Rate 67 ml/min (=/>90); Glucose Level 128 mg/dL (74-106); Magnesium 2.3 mg/dL (1.6-2.4); NT PRO-BNP 27 pg/mL (<125); Potassium 3.9 mEq/L (3.5-5.1); Protein, Total 8.3 g/dL (6.4-8.2); Sodium Level 138 mEq/L (136-145); Troponin High Sensitivity 3.4 pg/mL (<58.9)
[2022-10-03] MEDS ORDERED: LORazepam 2 MG/ML VIAL ONE (02:20)
[2022-10-03] MEDS ORDERED: NA CHLORIDE 0.9% 100 ML ONE (02:33)
[2022-10-03] MEDS ORDERED: LEVETIRACETAM 500 MG/5 ML VIAL IV ONE ×2 (02:33→02:47)
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
[2022-10-03 05:17] LABS: Specific Gravity 1.028 (1.005-1.030)
[2022-10-03 05:46] LABS: Barbiturates NEGATIVE (NEGATIVE); Benzodiazepines NEGATIVE (NEGATIVE); Cocaine NEGATIVE (NEGATIVE); METHAMPHETAM POSITIVE (NEGATIVE); Methadone NEGATIVE (NEGATIVE); Opiates NEGATIVE (NEGATIVE); Phencyclidine NEGATIVE (NEGATIVE); THC Cannibis NEGATIVE (NEGATIVE)
[2022-10-03 06:14] VITALS: TEMP 98.2
[2022-10-03 06:21] VITALS: O2SAT 100
[2022-10-03 06:23] VITALS: BP 100/66
--- NOTE | 2022-10-03 18:10 | RAD REPORT ---
EXAM DESCRIPTION: XR Chest, 1 View CLINICAL HISTORY: The patient is 47 years old and is Female; COUGH TECHNIQUE: Single view of the chest. COMPARISON: No relevant prior studies available. FINDINGS: Lungs: Hazy increased opacification in the left hemithorax likely soft tissue attenuatio n artifact. Pleural space: Unremarkable. No pneumothorax. Heart: Unremarkable. No cardiomegaly. Mediastinum: Unremarkable. Bones/joints: ORIF right clavicle. No acute fracture visualized. Upper abdomen: No free air in the visualized upper abdomen. IMPRESSION: No acute cardiopulmonary process identified. Electronically signed by: Trudi Michael MD 10/03/2022 4:11 AM CDT Due to temporary technical issues with the PACS/Fluency reporting system, reports are being signed by the in house radiologists without review as a courtesy to insure prompt reporting. The interpreting radiologist is fully responsible for the content of the report.
--- NOTE | 2022-10-03 20:37 | EKG ---
Test Date: 2022-10-03 Test Time: 01:02:31 Academic Assistant: SARAH MEASUREMENT RESULTS: Intervals: Rate: 90 WA: 168 QRSD: 96 QT: 338 QTc: 413 [place]: P: 69 WA: 168 QRS: 80 T: 70 INTERPRETIVE STATEMENTS: Normal sinus rhythm Nonspecific ST abnormality Abnormal ECG Compared to ECG 06/20/2022 11:02:35 ST (T wave) deviation now present Electronically Signed On 10-03-22 20:32:53 CDT by Anson Mayo
--- NOTE | 2022-10-03 22:09 | RAD REPORT ---
EXAM DESCRIPTION: CT Head and Cervical Spine Without Intravenous Contrast CLINICAL HISTORY: The patient is 47 years old and is Female; DIZZINESS TECHNIQUE: Axial computed tomography images of the head/brain and cervical spine without intravenous contrast. Sagittal and coronal reformatted images were created and reviewed. This CT exam was pe rformed using one or more of the following dose reduction techniques: automated exposure control, a djustment of the mA and/or kV according to patient size, and/or use of iterative reconstruction techn ique. COMPARISON: No relevant prior studies available. FINDINGS: Brain: Unremarkable. No hemorrhage. No significant white matter disease. No edema. Ventricles: Unremarkable. No ventriculomegaly. Skull: No acute fracture. Sinuses: Unremarkable as visualized. No acute sinusitis. Mastoid air cells: Unremarkable as visualized. No mastoid fluid. Vertebrae: No acute cervical spine fracture visualized. Lateral alignment is maintained. Degenerative facet arthropathy, greatest in the left at C2-3 and C7-T1. Discs/spinal canal/neural foramina: Multilevel degenerative disc disease. Mild multilevel central canal stenosis. Soft tissues: Unremarkable. Pleural space: No pneumothorax. * A single impression for all exams can be found at the end of this report EXAM DESCRIPTION: CT Chest, Abdomen and Pelvis Without Intravenous Contrast CLINICAL HISTORY: The patient is 47 years old and is Female; DIZZINESS TECHNIQUE: Axial computed tomography images of the chest, abdomen and pelvis without intravenous con trast. Sagittal and coronal reformatted images were created and reviewed. This CT exam was perfor med using one or more of the following dose reduction techniques: automated exposure control, adjus tment of the mA and/or kV according to patient size, and/or use of iterative reconstruction technique . COMPARISON: CT chest abdomen pelvis angiography June 20, 2022. FINDINGS: CHEST: Lungs: Unremarkable. No mass. No consolidation. Pleural space: No pleural effusion or pneumothorax. Heart: Unremarkable. No cardiomegaly. No significant pericardial effusion. No significant c oronary artery calcifications. Mediastinum: No pneumomediastinum. ABDOMEN: Liver: Unremarkable. Gallbladder and bile ducts: Unremarkable. No calcified stones. No ductal dilation. Pancreas: Unremarkable. No ductal dilation. Spleen: Spleen is small or absent. Adrenals: Unremarkable. No mass. Kidneys and ureters: Unremarkable. No obstructing stones. No hydronephrosis. Stomach and bowel: No bowel dilatation or obstruction. No bowel wall thickening. PELVIS: Appendix: The visualized appendix is normal. No pericecal inflammation to suggest acute appendici tis. Bladder: Unremarkable. No stones. Reproductive: Uterus is small or removed. No adnexal mass. CHEST, ABDOMEN and PELVIS: Intraperitoneal space: Unremarkable. No significant fluid collection. No free air. Bones/joints: Previous ORIF right clavicle. No acute sternal fracture. No sternoclavicular joint dislocation. No thoracic compression fra cture. L4-5 degenerative disc disease. Degenerative facet arthropathy L4-5. Horizontal SI joint orthopedic screws. Old healed fractures in the bilateral inferior pubic r ami. Incompletely visualized with. Hardware in the left femur. Soft tissues: Unremarkable. Vasculature: Unremarkable. No aortic aneurysm. Lymph nodes: Unremarkable. No enlarged lymph nodes. * A single impression for all exams can be found at the end of this report IMPRESSION: CT Head and Cervical Spine Without Intravenous Contrast: 1. No acute intracranial findings. No hemorrhage. 2. No acute cervical spine fracture visualized. 3. Multilevel degenerative changes as above. CT Chest, Abdomen and Pelvis Without Intravenous Contrast: 1. No acute findings in the chest, abdomen or pelvis. Study performed without IV contrast. 2. Additional non-emergent findings as above. Electronically signed by: Trudi Michael MD 10/03/2022 4:37 AM CDT Due to temporary technical issues with the PACS/Fluency reporting system, reports are being signed by the in house radiologists without review as a courtesy to insure prompt reporting. The interpreting radiologist is fully responsible for the content of the report.
== END 2022-10-03 06:09 | disposition home or self-care (01) ==
LOC: ER 00:50
DX: S16.1XXA Strain of muscle, fascia and tendon at neck level, initial encounter (principal); F31.9 Bipolar disorder, unspecified; F41.9 Anxiety disorder, unspecified; Y04.8XXA Assault by other bodily force, initial encounter; I10 Essential (primary) hypertension; Z88.0 Allergy status to penicillin; Z88.8 Allergy status to other drugs, medicaments and biological substances
CPT/HCPCS: 93005; 85025; 80048; 36415; 83735; 81025; 85610; 80076; 85730; 84484; 83880; 80307; 70450; 71250; 72125; 71045; 80143; 80179; 82077; J1953 ×2; J7030

== ENCOUNTER 2022-10-24 23:36 | Emergency (ER) | payer OTHER ==
--- OUTSIDE RECORDS SUMMARY | 2022-10-24 23:43 | XMS REPORT | Continuity of Care Document ---
:1975 Author Organization [facility] t Address [address] [facility] [place] [address] Care Team Providers Name Role Phone STEPHANIE JASSO Primary Care Physician Unavailable SHOAIB HARDY Attending Clinician Unavailable SHOAIB HARDY Attending Clinician Unavailable STEPHANIE JASSO Attending Clinician Unavailable Lab, Ang - Db Attending Clinician Unavailable Stephanie Jasso MD Attending Clinician [phone] Kathia Carroll LMSW Attending Clinician BOBBY FIELDS Attending Clinician Unavailable ISABEL FIELDS Attending Clinician Unavailable Isabel Fields MD Attending Clinician Brittnee Mckinney MA Attending Clinician Unavailable Bobby Pfeiffer Attending Clinician Doctor Unassigned, Stuckey Attending Clinician Unavailable JOHN ESCAMILLA Attending Clinician [...] Number Effective Date Expiration Date Kira florian AMMOLLY WALSH [id number] 2022 PLUS 00:00:00 Problems Condition Condition Condition Status Onset Resolution Last Treating Co mments Source Name Details Category Date Date Treatment Clinician Date 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 09-27 it y of 00:00: [place] [facility] Leukocytos Leukocytos Disease Active U nivers is is 09-13 ity of 00:00: [place] [address] Medical Branch Closed Closed Disease Active Univers head head 09-07 ity of injury injury 00:00: [address] No known No known Disease Unive rs active active ity of problems problems [facility] Seizures Seizures Disease Active Unive rs ity of [facility] Allergies, Adverse Reactions, Alerts Allergy Allergy Status Severity Reaction(s) Onset Inactive Treating Comm ents Source Name Type Date Date Clinician METHOCAR DRUG Active Med Hives Univers BAMOL INGREDI 1-07 ity of 00:00: [place] [address] [place] [address] Methocar Propensi Active Hives Univer s bamol ty to 107 ity of adverse 00:00: [place] reaction [address] [place] [address] s [place] Social History Social Habit Start Date Stop Date Quantity Comments Source Alcohol intake 2022-09-27 2022-09-27 Current drinker of Un iversity of 00:00:00 00:00:00 alcohol (finding) [facility] Alcohol Comment 2022-09-13 2022-09-13 occasionally Univers ity of 00:00:00 00:00:00 [facility] Exposure to 2022-08-13 2022-08-23 Not sure University of SARS-CoV-2 00:00:00 12:49:00 [facility] (event) [place] Tobacco use and 2022-02-09 2022-02-09 Smokeless tobacco Un iversity of exposure 00:00:00 00:00:00 non-user [facility] Sex Assigned At [birth year] Universit y of 00:00:00 00:00:00 [facility] Smoking Status Start Date Stop Date Source Tobacco smoking consumption Univ [facility] [place] [facility] unknown Branch Never smoked tobacco [facility] Medications Ordered Filled Start Stop Current Ordering Indication Dosage Frequency Signature Comments Components Source Medication Medication Date Date Medication? Clinician (SIG) Name Name levETIRAcet 2022-0 2022- No 1000mg Take 1 U nivers am 1,000 mg 6-21 06-21 tablet by it y of tablet 15:07: 00:00 mouth in [place] 59 :00 the Medical morning Branch and 1 tablet in the evening. vitamin 2022-2022- No 1{tbl} Take 1 Unive rs D3-folic 6-21 06-21 tablet by ity o f acid 125 15:07: 00:[place]5,000 [place] :00 the Medical unit)-1 mg morning. Branc h Tab levETIRAcet 2022-2022- No 1000mg Take 1 U nivers am 1,000 mg 6-21 -21 tablet by it y of tablet 15:07: 00:00 mouth in [place] 59 :00 the Medical morning Branch and 1 tablet in the evening. vitamin 2022-0 2022- No 1{tbl} Take 1 Unive rs D3-folic 6-21 -21 tablet by ity o f acid 125 15:07: 00:[place]5,000 [place] :00 the Medical unit)-1 mg morning. Bran h Tab levETIRAcet 2022-2022- No 1000mg Take 1 U nivers am 1,000 mg 6-21 -21 tablet by it y of tablet 15:07: 00:00 mouth in [place] 59 :00 the Medical morning Branch and 1 tablet in the evening. vitamin 2022-0 2022- No 1{tbl} Take 1 Unive rs D3-folic 6-21 06-21 tablet by ity o f acid 125 15:07: 00:00 [place] (5,000 59 :00 the Medical unit)-1 mg morning. Bran h Tab venlafaxine 2022-2022- No 75mg Take 1 Uni vers XR 75 mg 24 6-21 06-21 capsule by i ty of hr capsule 15:03: 00:00 mouth in [place] 36 :00 the Medical morning. Branch topiramate 2022-0 2023- No 50mg Take 1 Univ ers 50 mg 6-27 09-21 tablet by ity of tablet 15:03: 00:00 mouth in [place] 36 :00 the Medical morning Branch and 1 tablet in the evening. QUEtiapine 2023-0 2023- No 200mg Take 1 Uni vers 200 mg 6-21 -21 tablet by ity of tablet 15:03: 00:00 mouth at [place] 36 :00 bedtime. Medical Branch pantoprazol 2023-0 2023- No 40mg Take 1 Uni vers e 40 mg EC 6-27 09- tablet by ity of tablet 15:03: 00:00 mouth in [place] 36 :00 the Medical morning. Branch OXcarbazepi 2023-0 2023- No 300mg Take 1 Un roel ne 300 mg 6-27 09- tablet by ity of tablet 15:03: 00:00 mouth in [place] 36 :00 the Medical morning Branch and 1 tablet in the evening. venlafaxine 2023-0 2023- No 75mg Take 1 Uni vers XR 75 mg 24 6-27 09- capsule by i ty of hr capsule 15:03: 00:00 mouth in [facility] 36 :00 the Medical morning. Branch topiramate 2023-0 2023- No 50mg Take 1 Univ ers 50 mg 6-27 09- tablet by ity of tablet 15:03: 00:00 mouth in [place] 36 :00 the Medical morning Branch and 1 tablet in the evening. QUEtiapine 2023-0 2023- No 200mg Take 1 Uni vers 200 mg 6-27 09-21 tablet by ity of tablet 15:03: 00:00 mouth at [place] 36 :00 bedtime. Medical Branch pantoprazol 2023-0 2023- No 40mg Take 1 Uni vers e 40 mg EC 6-27 09- tablet by ity of tablet 15:03: 00:00 mouth in [place] 36 :00 the Medical morning. Branch OXcarbazepi 2023-0 2023- No 300mg Take 1 Un roel ne 300 mg 6-27 09-21 tablet by ity of tablet 15:03: 00:00 mouth in [place] 36 :00 the Medical morning Branch and 1 tablet in the evening. venlafaxine 2023-0 2023- No 75mg Take 1 Uni vers XR 75 mg 24 6-21 06-21 capsule by i ty of hr capsule 15:03: 00:00 mouth in [place] 36 :00 the Medical morning. Branch topiramate 2022-0 2022- No 50mg Take 1 Univ ers 50 mg 6-21 - tablet by ity of tablet 15:03: 00:00 mouth in [place] 36 :00 the Medical morning Branch and 1 tablet in the evening. QUEtiapine 2022-0 2022- No 200mg Take 1 Uni vers 200 mg 6-21 - tablet by ity of tablet 15:03: 00:00 mouth at [place] 36 :00 bedtime. Medical Branch pantoprazol 2022-0 2022- No 40mg Take 1 Uni vers e 40 mg EC 6-21 - tablet by ity of tablet 15:03: 00:00 mouth in [place] 36 :00 the Medical morning. Branch OXcarbazepi 2022-2022- No 300mg Take 1 Un roel ne 300 mg 6-21 - tablet by ity of tablet 15:03: 00:00 mouth in [place] 36 :00 the Medical morning Branch and 1 tablet in the evening. vitamin 2022-0 Yes [id number] 1{tbl} Take 1 Un roel D3-folic 6-21 tablet by ity of acid 125 00:00: mouth in [place] mcg (5,000 00 the Medical unit)-1 mg morning. Bran h Tab levETIRAcet 2022-0 Yes [id number] 1000mg Take 1 Univers am 1,000 mg 6-21 tablet by ity of tablet 00:00: mouth in [place] [address] the Medical morning Branch and 1 tablet in the evening. atorvastati 2022-0 Yes [id number] 20mg Take 1 Univers n 20 mg 6-21 tablet by ity of tablet 00:00: mouth in [place] [address] the Medical morning. Branch vitamin 2022-0 Yes [id number] 1{tbl} Take 1 Un roel D3-folic 6-21 tablet by ity of acid 125 00:00: mouth in [place] mcg (5,000 00 the Medical unit)-1 mg morning. Branc h Tab levETIRAcet 2022-0 Yes [id number] 1000mg Take 1 Univers am 1,000 mg 6-21 tablet by ity of tablet 00:00: mouth in [place] [address] the Medical morning Branch and 1 tablet in the evening. atorvastati 2022-0 Yes [id number] 20mg Take 1 Univers n 20 mg 6-21 tablet by ity of tablet 00:00: mouth in [place] 00 the Medical morning. Branch vitamin 2022-0 Yes [id number] 1{tbl} Take 1 Un roel D3-folic 6-21 tablet by ity of acid 125 00:00: mouth in [place] mcg (5,000 00 the Medical unit)-1 mg morning. Branc h Tab levETIRAcet 2022-0 Yes [id number] 1000mg Take 1 Univers am 1,000 mg 6-21 tablet by ity of tablet 00:00: mouth in [place] 00 the Medical morning Branch and 1 tablet in the evening. atorvastati 2022-0 Yes [id number] 20mg Take 1 Univers n 20 mg 6-21 tablet by ity of tablet 00:00: mouth in [place] 00 the Medical morning. Branch vitamin 2022-0 Yes [id number] 1{tbl} Take 1 Un roel D3-folic 6-21 tablet by ity of acid 125 00:00: mouth in [place] mcg (5,000 00 the Medical unit)-1 mg morning. Bran h Tab levETIRAcet 2022-0 Yes [id number] 1000mg Take 1 Univers am 1,000 mg 6-21 tablet by ity of tablet 00:00: mouth in [place] the Medical morning Branch and 1 tablet in the evening. atorvastati 2022-0 Yes [id number] 20mg Take 1 Univers n 20 mg 6-21 tablet by ity of tablet 00:00: mouth in [place] 00 the Medical morning. Branch vitamin 3-0 Yes [id number] 1{tbl} Take 1 Un roel D3-folic 6-21 tablet by ity of acid 125 00:00: mouth in [place] mcg (5,000 00 the Medical unit)-1 mg morning. Branc h Tab levETIRAcet 2022-0 Yes [id number] 1000mg Take 1 Univers am 1,000 mg 6-21 tablet by ity of tablet 00:00: mouth in [place] 00 the Medical morning Branch and 1 tablet in the evening. atorvastati 2022-0 Yes [id number] 20mg Take 1 Univers n 20 mg 6-21 tablet by ity of tablet 00:00: mouth in [place] 00 the Medical morning. Branch vitamin 3-0 Yes [id number] 1{tbl} Take 1 Un roel D3-folic 6-21 tablet by ity of acid 125 00:00: mouth in [place] mcg (5,000 00 the Medical unit)-1 mg morning. Bran h Tab levETIRAcet 2023-0 Yes [id number] 1000mg Take 1 Univers am 1,000 mg 6-21 tablet by ity of tablet 00:00: mouth in [place] [address] the Medical morning Branch and 1 tablet in the evening. atorvastati 2023-0 Yes [id number] 20mg Take 1 Univers n 20 mg 6-21 tablet by ity of tablet 00:00: mouth in [place] [address] the Medical morning. Branch vitamin 3-0 Yes [id number] 1{tbl} Take 1 Un roel D3-folic 6-21 tablet by ity of acid 125 00:00: mouth in [place] mcg (5,000 00 the Medical unit)-1 mg morning. [facility] h Tab levETIRAcet 2022-0 Yes [id number] 1000mg Take 1 Univers am 1,000 mg 6-21 tablet by ity of tablet 00:00: mouth in [place] [address] the Medical morning Branch and 1 tablet in the evening. atorvastati 2022-0 Yes [id number] 20mg Take 1 Univers n 20 mg 6-21 tablet by ity of tablet 00:00: mouth in [place] [address] the Medical morning. Branch levETIRAcet 2022-0 Yes 1000mg Take 1 Un roel am 1,000 mg 6-07 tablet by ity of tablet 13:59: mouth in [place] [address] the Medical morning Branch and 1 tablet in the evening. venlafaxine 3-0 Yes 75mg Take 1 Univ ers XR 75 mg 24 6-07 capsule by it y of hr capsule 13:59: mouth in [facility] 26 the Medical morning. Branch topiramate 2023-0 Yes 50mg Take 1 Unive rs 50 mg 6-07 tablet by ity of tablet 13:59: mouth in [place] [address] the Medical morning Branch and 1 tablet in the evening. QUEtiapine 2023-0 Yes 200mg Take 1 Univ ers 200 mg 6-07 tablet by ity of tablet 13:59: mouth at [place] [address] bedtime. Medical Branch pantoprazol 2023-0 Yes 40mg Take 1 Univ ers e 40 mg EC 6-07 tablet by ity of tablet 13:59: mouth in [place] [address] the Medical morning. Branch vitamin 2023-0 Yes 1{tbl} Take 1 Univer s D3-folic 6-07 tablet by ity of acid 125 13:59: mouth in [facility] (5,000 26 the Medical unit)-1 mg morning. Branc h Tab OXcarbazepi 2023-0 Yes 300mg Take 1 Uni vers ne 300 mg 6-07 tablet by ity o f tablet 13:59: mouth in [place] [address] the Medical morning Branch and 1 tablet in the evening. levETIRAcet 2023-0 Yes 1000mg Take 1 Un roel am 1,000 mg 6-07 tablet by ity of tablet 13:59: mouth in [place] [address] the Medical morning Branch and 1 tablet in the evening. venlafaxine 2023-0 Yes 75mg Take 1 Univ ers XR 75 mg 24 6-07 capsule by it y of hr capsule 13:59: mouth in [place] [address] the Medical morning. Branch topiramate 2023-0 Yes 50mg Take 1 Unive rs 50 mg 6-07 tablet by ity of tablet 13:59: mouth in [place] [address] the [facility] morning Branch and 1 tablet in the evening. QUEtiapine 2023-0 Yes 200mg Take 1 Univ ers 200 mg 6-07 tablet by ity of tablet 13:59: mouth at [place] [address] bedtime. Medical Branch pantoprazol 2023-0 Yes 40mg Take 1 Univ ers e 40 mg EC 6-07 tablet by ity of tablet 13:59: mouth in [place] [address] the Medical morning. Branch vitamin 2023-0 Yes 1{tbl} Take 1 Univer s D3-folic 6-07 tablet by ity of acid 125 13:59: mouth in [facility] (5,000 26 the Medical unit)-1 mg morning. Branc h Tab OXcarbazepi 2023-0 Yes 300mg Take 1 Uni vers ne 300 mg 6-07 tablet by ity o f tablet 13:59: mouth in [place] [address] the Medical morning Branch and 1 tablet in the evening. levETIRAcet 2023-0 Yes 1000mg Take 1 Un roel am 1,000 mg 6-07 tablet by ity of tablet 13:59: mouth in [place] [address] the Medical morning Branch and 1 tablet in the evening. venlafaxine 2023-0 Yes 75mg Take 1 Univ ers XR 75 mg 24 6-07 capsule by it y of hr capsule 13:59: mouth in [facility] 26 the Medical morning. Branch topiramate 3-0 Yes 50mg Take 1 Unive rs 50 mg 6-07 tablet by ity of tablet 13:59: mouth in [place] [address] the Medical morning Branch and 1 tablet in the evening. QUEtiapine 2023-0 Yes 200mg Take 1 Univ ers 200 mg 6-07 tablet by ity of tablet 13:59: mouth at [place] [address] bedtime. Medical Branch pantoprazol 3-0 Yes 40mg Take 1 Univ ers e 40 mg EC 6-07 tablet by ity of tablet 13:59: mouth in [place] [address] the Medical morning. Branch vitamin 3-0 Yes 1{tbl} Take 1 Univer s D3-folic 6-07 tablet by ity of acid 125 13:59: mouth in [place] mcg (5,000 26 the Medical unit)-1 mg morning. Branc h Tab OXcarbazepi 2022-0 Yes 300mg Take 1 Uni vers ne 300 mg 6-07 tablet by ity o f tablet 13:59: mouth in [place] [address] the Medical morning Branch and 1 tablet in the evening. FLUoxetine 2023-0 Yes 10mg Take 1 Unive rs 10 mg 5-03 capsule by ity of capsule 00:00: mouth in [place] [address] the Medical morning. Branch prazosin 1 2022-0 Yes 1mg Take 1 Unive rs mg capsule 5-03 capsule by ity of 00:00: mouth at [place] [address] bedtime. Medical Branch risperiDONE 2023-0 Yes .5mg Take 1 Univ ers 0.5 mg 5-03 tablet by ity of tablet 00:00: mouth in [place] [address] the Medical morning Branch and 1 tablet in the evening. FLUoxetine 2023-0 Yes 10mg Take 1 Unive rs 10 mg 5-03 capsule by ity of capsule 00:00: mouth in [place] [address] the Medical morning. Branch prazosin 1 3-0 Yes 1mg Take 1 Unive rs mg capsule 5-03 capsule by ity of 00:00: mouth at [place] [address] bedtime. Medical Branch risperiDONE 2023-0 Yes .5mg Take 1 Univ ers 0.5 mg 5-03 tablet by ity of tablet 00:00: mouth in [place] [address] the Medical morning Branch and 1 tablet in the evening. FLUoxetine 2023-0 Yes 10mg Take 1 Unive rs 10 mg 5-03 capsule by ity of capsule 00:00: mouth in [place] 00 the Medical morning. Branch prazosin 1 3-0 Yes 1mg Take 1 Unive rs mg capsule 5-03 capsule by ity of 00:00: mouth at [place] 00 bedtime. Medical Branch risperiDONE 2023-0 Yes .5mg Take 1 Univ ers 0.5 mg 5-03 tablet by ity of tablet 00:00: mouth in [place] 00 the Medical morning Branch and 1 tablet in the evening. FLUoxetine 2023-0 2023- No 10mg Take 1 Univ ers 10 mg 5-06 12-21 capsule by ity of capsule 00:00: 00:00 mouth in [place] 00 :00 the Medical morning. Branch prazosin 1 3-0 2023- No 1mg Take 1 Univ ers mg capsule 5-06 12-21 capsule by it y of 00:00: 00:00 mouth at [place] 00 :00 bedtime. Medical Branch risperiDONE 2023-0 2023- No .5mg Take 1 Uni vers 0.5 mg 5-03 06-21 tablet by ity of tablet 00:00: 00:00 mouth in [place] 00 :00 the Medical morning Branch and 1 tablet in the evening. FLUoxetine 2023-0 2023- No 10mg Take 1 Univ ers 10 mg 5-03 -21 capsule by ity of capsule 00:00: 00:00 mouth in [place] 00 :00 the Medical morning. Branch prazosin 1 3-0 2023- No 1mg Take 1 Univ ers mg capsule 5-06 12-21 capsule by it y of 00:00: 00:00 mouth at [place] 00 :00 bedtime. Medical Branch risperiDONE 2023-0 2023- No .5mg Take 1 Uni vers 0.5 mg 5-03 06-21 tablet by ity of tablet 00:00: 00:00 mouth in [place] 00 :00 the Medical morning Branch and 1 tablet in the evening. FLUoxetine 2023-0 2023- No 10mg Take 1 Univ ers 10 mg 5-03 06-21 capsule by ity of capsule 00:00: 00:00 mouth in [place] 00 :00 the Medical morning. Branch prazosin 1 3-0 2023- No 1mg Take 1 Univ ers mg capsule 5-06 12-21 capsule by it y of 00:00: 00:00 mouth at [place] 00 :00 bedtime. Medical Branch risperiDONE 2022- No .5mg Take 1 Uni vers 0.5 mg 5-03 -21 tablet by ity of tablet 00:00: 00:00 mouth in [place] 00 :00 the Medical morning Branch and 1 tablet in the evening. cyclobenzap Yes TAKE 1 Univ ers rine 10 mg 3-14 TABLET BY ity of tablet 00:00: MOUTH [place] 00 EVERY 8 Medical HOURS Branch NEEDED FOR MUSCLE SPASMS. cyclobenzap Yes TAKE 1 Univ ers rine 10 mg 3-14 TABLET BY ity of tablet 00:00: MOUTH [place] 00 EVERY 8 Medical HOURS Branch NEEDED FOR MUSCLE SPASMS. cyclobenzap Yes TAKE 1 Univ ers rine 10 mg 3-14 TABLET BY ity of tablet 00:00: MOUTH [place] 00 EVERY 8 Medical HOURS Branch NEEDED FOR MUSCLE SPASMS. cyclobenzap 2022- No TAKE 1 Uni vers rine 10 mg 3-14 06-21 TABLET BY ity of tablet 00:00: 00:00 MOUTH [place] 00 :00 EVERY 8 Medical HOURS Branch NEEDED FOR MUSCLE SPASMS. cyclobenzap 2022- No TAKE 1 Uni vers rine 10 mg 3-14 06-21 TABLET BY ity of tablet 00:00: 00:00 MOUTH [place] 00 :00 EVERY 8 Medical HOURS Branch NEEDED FOR MUSCLE SPASMS. cyclobenzap 2022- No TAKE 1 Uni vers rine 10 mg 3-14 06-21 TABLET BY ity of tablet 00:00: 00:00 MOUTH [place] 00 :00 EVERY 8 Medical HOURS Branch NEEDED FOR MUSCLE SPASMS. levETIRAcet 2021-04 Yes 500mg 500 mg, Un roel am (KEPPRA) 1-27 Oral, BID, it y of tablet 500 14:00: First dose [place] mg 00 on [facility] 03/05/22 Branch at 0800, Until Discontinu ed, Routine D5W 0.9% 2021-04 Yes 1000mL at 125 Unive rs NaCl (NS) 1-27 mL/hr, ity of IV infusion 06:30: 1,000 mL, [place] 1,000 mL 00 IV Medical Infusion, Branch CONTINUOUS , Starting on [place] 03/05/22 at 0030, Until Discontinu ed, ELVIS NaCl 0.9% 2021-04- No 1000mL at 999 Uni vers (NS) bolus 05-05 11-27 mL/hr, ity of infusion 06:15: 20:58 1,000 mL, [place] 1,000 mL 00 :00 IV Medical Piggyback, Branch ONCE, 1 dose, On [place] 03/05/22 at 0015, STAT traZODone 2021-04 Yes 150mg 150 mg, Univ ers (DESYREL) 05-05 Oral, QHS, ity of tablet 150 03:00: First dose [place] mg 00 on [facility] 03/04/22 Branch at 2100, Until Discontinu ed, ELVIS OXcarbazepi 2021-04 Yes 150mg 150 mg, Un roel ne 05-05 Oral, BID, ity of (TRILEPTAL) 02:00: First dose [place] tablet 150 00 on [facility] 03/04/22 Branch at 2000, Until Discontinu ed, ELVIS lamoTRIgine 2021-04 Yes 25mg 25 mg, Univ ers (LAMICTAL) 05-05 Oral, BID, ity of tablet 25 02:00: First dose [place] mg 00 on [facility] 03/04/22 Branch at 2000, Until Discontinu ed, ELVIS NaCl 0.9% 2021-04- No 1000mL at 999 Uni vers (NS) bolus 05-05 11 mL/hr, ity of infusion 00:30: 21:00 1,000 mL, [place] 1,000 mL 00 :00 [facility] [place] ON[facility], 1 dose, On [facility] 03/04/22 at 1830, STAT LORazepam 2021-04- No 1mg 1 mg, Slow U nivers (ATIVAN) 05-04 IV Push, ity of injection 1 22:00: 01:29 ONCE, 1 [place] mg 00 :00 dose, On Medical [facility] 03/04/22 at 1600, STAT traMADoL 50 2021-04 [...] 50mg Take 1 Uni vers mg tablet 04-11-21 tablet by ity of 00:00: 00:00 mouth [place] 00 :00 every 4 Medical (four) Branch hours as needed for Pain (scale 7-10). Indication s: acute pain traMADoL 50 2021-04- No [id number] 50mg Take 1 Uni vers mg tablet 04-11- tablet by ity of 00:00: 00:00 mouth [place] 00 :00 every 4 Medical (four) Branch hours as needed for Pain (scale 7-10). Indication s: acute pain traMADoL 50 2021-04- No [id number] 50mg Take 1 Uni vers mg tablet 04-11- tablet by ity of 00:00: 00:00 mouth [place] 00 :00 every 4 Medical (four) Branch hours as needed for Pain (scale 7-10). Indication s: acute pain atorvastati 2021-04- No 20mg Take 20 mg Univers n 20 mg 04-09 by mouth ity of tablet 13:34: 00:00 daily. [place] 15 :00 Medical Branch gabapentin 2022-1 2022- No 300mg Take 300 U nivers 300 mg 04-09 mg by ity of capsule 13:34: 00:00 mouth in [place] 15 :00 the Medical morning Branch and 300 mg at noon and 300 mg in the evening. naproxen 2021-04- No 500mg Take 500 Uni vers 500 mg 04-09 mg by ity of tablet 13:34: 00:00 mouth in [place] 15 :00 the Medical morning Branch and 500 mg in the evening. Take with meals. levETIRAcet 2021-04- No 1000mg Take 1,000 Univers am (KEPPRA) 04-09 mg by ity of 1,000 mg 13:34: 00:00 [place] tablet 15 :00 the Medical morning Branch and 1,000 mg in the evening. atorvastati 2021-04 No 20mg Take 20 mg Univers n 20 mg 04-09 by mouth ity of tablet 13:34: 00:00 daily. [place] 15 :00 [facility] Branch gabapentin 2021-04 No 300mg Take 300 U nivers 300 mg 04-09 mg by ity of capsule 13:34: 00:00 mouth in [place] 15 :00 the Medical morning Branch and 300 mg at noon and 300 mg in the evening. naproxen 2021-04 No 500mg Take 500 Uni vers 500 mg 04-09 mg by ity of tablet 13:34: 00:00 mouth in [place] 15 :00 the Medical morning Branch and [...] (50,000 times Branch unit) daily. capsule ergocalcife 2022-1 2022- No 1{capsu Take 1 Univers rol, 04-09 le} capsule by ity of vitamin d2, 13:28: 00:00 mouth 2 [place] 1,250 mcg 39 :00 (two) Medical (50,000 times Branch unit) daily. capsule OXcarbazepi 2021-04- No 600mg Take 600 Univers ne 600 mg 04-09 mg by ity of tablet 13:26: 00:00 mouth 3 [place] 34 :00 (three) Medical times Branch daily. OXcarbazepi 2021-04- No 600mg Take 600 Univers ne 600 mg 04-09 mg by ity of tablet 13:26: 00:00 mouth 3 [place] 34 :00 (three) Medical times [place] daily. atorvastati 2021-04 Yes [id number] 20mg Take 1 Univers n 20 mg 1-01 tablet by ity of tablet 00:00: mouth in [place] [address] the Medical morning. Branch gabapentin 2021-04 Yes [id number] 300mg Take 1 Univers 300 mg - capsule by ity of capsule 00:00: mouth in [place] [address] the Medical morning Branch and 1 capsule at noon and 1 capsule in the evening. levETIRAcet 2021-04 Yes [id number] 1000mg Take 1 Univers am (KEPPRA) 1- tablet by ity of 1,000 mg 00:00: mouth in [place] [address] the Medical morning Branch and 1 tablet in the evening. naproxen 2021-04 Yes [id number] 500mg Take 1 Un roel 500 mg -01 tablet by ity of tablet 00:00: mouth in [place] [address] the Medical morning Branch and 1 tablet in the evening. Take with meals. atorvastati 2021-04 Yes [id number] 20mg Take 1 Univers n 20 mg 1-01 tablet by ity of tablet 00:00: mouth in [place] [address] the Medical morning. Branch gabapentin 2021-04 Yes [id number] 300mg Take 1 Univers 300 mg 1-01 capsule by ity of capsule 00:00: mouth in [place] [address] the Medical morning Branch and 1 capsule at noon and 1 capsule in the evening. levETIRAcet 2021-04 Yes [id number] 1000mg Take 1 Univers am (KEPPRA) 1-01 tablet by ity of 1,000 mg 00:00: mouth in [place] tablet 00 the Medical morning Branch and 1 tablet in the evening. naproxen 2021-04 Yes [id number] 500mg Take 1 Un roel 500 mg 1-01 tablet by ity of tablet 00:00: mouth in [place] 00 the Medical morning Branch and 1 tablet in the evening. Take with meals. atorvastati 2021-04 Yes [id number] 20mg Take 1 Univers n 20 mg 1-01 tablet by ity of tablet 00:00: mouth in [place] [address] the Medical morning. Branch gabapentin 2021-04 Yes [id number] 300mg Take 1 Univers 300 mg 1-01 capsule by ity of capsule 00:00: mouth in [place] 00 the Medical morning Branch and 1 capsule at noon and 1 capsule in the evening. levETIRAcet 2021-04 Yes [id number] 1000mg Take 1 Univers am (KEPPRA) 1-01 tablet by ity of 1,000 mg 00:00: mouth in [place] tablet 00 the [facility] morning [place] and 1 tablet in the evening. naproxen 2021-04 Yes [id number] 500mg Take 1 Un roel 500 mg 1-01 tablet by ity of tablet 00:00: mouth in [place] [address] the [facility] morning Branch and 1 tablet in the evening. Take with meals. atorvastati 2021-04 Yes [id number] 20mg Take 1 [facility] n 20 mg 1-01 tablet by ity of tablet 00:00: mouth in [place] [address] the [facility] morning. Branch gabapentin 2021-04 Yes [id number] 300mg Take 1 [facility] 300 mg 1-01 capsule by ity of capsule 00:00: mouth in [place] [address] the [facility] morning [place] and 1 capsule at noon and 1 capsule in the evening. levETIRAcet 2021-04 Yes [id number] 1000mg Take 1 [facility] am (KEPPRA) 1-01 tablet by ity of 1,000 mg 00:00: mouth in [place] tablet 00 the [facility] morning Branch and 1 tablet in the evening. naproxen 2021-04 Yes [id number] 500mg Take 1 Un roel 500 mg 1-01 tablet by ity of tablet 00:00: mouth in [place] [address] the [facility] morning [place] and 1 tablet in the evening. Take with meals. atorvastati 2021-04 Yes [id number] 20mg Take 1 [facility] n 20 mg 1-01 tablet by ity of tablet 00:00: mouth in [place] 00 the Medical morning. Branch gabapentin 2021-04 Yes [id number] 300mg Take 1 [facility] 300 mg 1-01 capsule by ity of capsule 00:00: mouth in [place] 00 the Medical morning Branch and 1 capsule at noon and 1 capsule in the evening. levETIRAcet 2021-04 Yes [id number] 1000mg Take 1 [facility] am (KEPPRA) 1-01 tablet by ity of 1,000 mg 00:00: mouth in [place] tablet 00 the Medical morning Branch and 1 tablet in the evening. naproxen 2021-04 Yes [id number] 500mg Take 1 Un roel 500 mg 1-01 tablet by ity of tablet 00:00: mouth in [place] 00 the Medical morning Branch and 1 tablet in the evening. Take with meals. atorvastati 2021-04 Yes [id number] 20mg Take 1 [facility] n 20 mg 1-01 tablet by ity of tablet 00:00: mouth in [place] the morning. Branch gabapentin 2021-04 Yes [id number] 300mg Take 1 [facility] 300 mg 1-01 capsule by ity of capsule 00:00: mouth in [place] the Medical morning Branch and 1 capsule at noon and 1 capsule in the evening. levETIRAcet 2021-04 Yes [id number] 1000mg Take 1 [facility] am (KEPPRA) 1-01 tablet by ity of 1,000 mg 00:00: mouth in [place] tablet 00 the Medical morning Branch and 1 tablet in the evening. naproxen 2021-04 Yes [id number] 500mg Take 1 Un roel 500 mg 1-01 tablet by ity of tablet 00:00: mouth in [place] 00 the Medical morning Branch and 1 tablet in the evening. Take with meals. atorvastati 2021-04 Yes [id number] 20mg Take 1 [facility] n 20 mg 1-01 tablet by ity of tablet 00:00: mouth in [place] 00 the Medical morning. Branch gabapentin 2021-04 Yes [id number] 300mg Take 1 [facility] 300 mg 1-01 capsule by ity of capsule 00:00: mouth in [place] 00 the Medical morning Branch and 1 capsule at noon and 1 capsule in the evening. levETIRAcet 2021-04 Yes [id number] 1000mg Take 1 [facility] am (KEPPRA) 1-01 tablet by ity of 1,000 mg 00:00: mouth in [place] tablet 00 the Medical morning Branch and 1 tablet in the evening. naproxen 2021-04 Yes [id number] 500mg Take 1 Un roel 500 mg 1-01 tablet by ity of tablet 00:00: mouth in [place] 00 the Medical morning Branch and 1 tablet in the evening. Take with meals. atorvastati 2021-04 Yes [id number] 20mg Take 1 [facility] n 20 mg 1-01 tablet by ity of tablet 00:00: mouth in [place] [address] the Medical morning. Branch gabapentin 2021-04 Yes [id number] 300mg Take 1 [facility] 300 mg 1-01 capsule by ity of capsule 00:00: mouth in [place] 00 the Medical morning Branch and 1 capsule at noon and 1 capsule in the evening. levETIRAcet 2021-04 Yes [id number] 1000mg Take 1 [facility] am (KEPPRA) 1-01 tablet by ity of 1,000 mg 00:00: mouth in [place] tablet the Medical morning Branch and 1 tablet in the evening. naproxen 2021-04 Yes [id number] 500mg Take 1 Un roel 500 mg 1-01 tablet by ity of tablet 00:00: mouth in [place] the Medical morning Branch and 1 tablet in the evening. Take with meals. atorvastati 2021-04 Yes [id number] 20mg Take 1 [facility] n 20 mg 1-01 tablet by ity of tablet 00:00: mouth in [place] [address] the Medical morning. Branch gabapentin 2021-04 Yes [id number] 300mg Take 1 [facility] 300 mg 1-01 capsule by ity of capsule 00:00: mouth in [place] [address] the Medical morning Branch and 1 capsule at noon and 1 capsule in the evening. levETIRAcet 2021-04 Yes [id number] 1000mg Take 1 [facility] am (KEPPRA) 1-01 tablet by ity of 1,000 mg 00:00: mouth in [place] tablet 00 the Medical morning Branch and 1 tablet in the evening. naproxen 2021-04 Yes [id number] 500mg Take 1 Un roel 500 mg 1-01 tablet by ity of tablet 00:00: mouth in [place] [address] the Medical morning Branch and 1 tablet in the evening. Take with meals. atorvastati 2021-04 Yes [id number] 20mg Take 1 [facility] n 20 mg 1-01 tablet by ity of tablet 00:00: mouth in [place] the Medical morning. Branch gabapentin 2021-04 Yes [id number] 300mg Take 1 [facility] 300 mg 1-01 capsule by ity of capsule 00:00: mouth in [place] 00 the Medical morning Branch and 1 capsule at noon and 1 capsule in the evening. levETIRAcet 2021-04 Yes [id number] 1000mg Take 1 [facility] am (KEPPRA) 1-01 tablet by ity of 1,000 mg 00:00: mouth in [place] tablet 00 the Medical morning Branch and 1 tablet in the evening. naproxen 2021-04 Yes [id number] 500mg Take 1 Un roel 500 mg 1-01 tablet by ity of tablet 00:00: mouth in [place] 00 the Medical morning Branch and 1 tablet in the evening. Take with meals. atorvastati 2021-04 Yes [id number] 20mg Take 1 [facility] n 20 mg 1-01 tablet by ity of tablet 00:00: mouth in [place] the Medical morning. Branch gabapentin 2021-04 Yes [id number] 300mg Take 1 [facility] 300 mg 1-01 capsule by ity of capsule 00:00: mouth in [place] the Medical morning Branch and 1 capsule at noon and 1 capsule in the evening. levETIRAcet 2021-04 Yes [id number] 1000mg Take 1 [facility] am (KEPPRA) 1-01 tablet by ity of 1,000 mg 00:00: mouth in [place] tablet 00 the Medical morning Branch and 1 tablet in the evening. naproxen 2021-04 Yes [id number] 500mg Take 1 Un roel 500 mg 1-01 tablet by ity of tablet 00:00: mouth in [place] [address] the Medical morning Branch and 1 tablet in the evening. Take with meals. atorvastati 2021-04 Yes [id number] 20mg Take 1 [facility] n 20 mg 1-01 tablet by ity of tablet 00:00: mouth in [place] [address] the Medical morning. Branch gabapentin 2021-04 Yes [id number] 300mg Take 1 [facility] 300 mg 1-01 capsule by ity of capsule 00:00: mouth in [place] [address] the Medical morning Branch and 1 capsule at noon and 1 capsule in the evening. levETIRAcet 2021-04 Yes [id number] 1000mg Take 1 [facility] am (KEPPRA) 1-01 tablet by ity of 1,000 mg 00:00: mouth in [place] tablet 00 the Medical morning Branch and 1 tablet in the evening. naproxen 2021-04 Yes [id number] 500mg Take 1 Un roel 500 mg 1-01 tablet by ity of tablet 00:00: mouth in [place] the Medical morning Branch and 1 tablet in the evening. Take with meals. atorvastati 2021-04 Yes [id number] 20mg Take 1 [facility] n 20 mg 1-01 tablet by ity of tablet 00:00: mouth in [place] [address] the Medical morning. Branch gabapentin 2021-04 Yes [id number] 300mg Take 1 [facility] 300 mg 1-01 capsule by ity of capsule 00:00: mouth in [place] [address] the [facility] morning Branch and 1 capsule at noon and 1 capsule in the evening. levETIRAcet 2021-04 Yes [id number] 1000mg Take 1 [facility] am (KEPPRA) 1-01 tablet by ity of 1,000 mg 00:00: mouth in [place] tablet the [facility] morning Branch and 1 tablet in the evening. naproxen 2021-04 Yes [id number] 500mg Take 1 Un roel 500 mg 1-01 tablet by ity of tablet 00:00: mouth in [place] [address] the [facility] morning Branch and 1 tablet in the evening. Take with meals. atorvastati 2021-04 Yes [id number] 20mg Take 1 [facility] n 20 mg 1-01 tablet by ity of tablet 00:00: mouth in [place] [address] the morning. Branch gabapentin 2021-04 Yes [id number] 300mg Take 1 [facility] 300 mg 1-01 capsule by ity of capsule 00:00: mouth in [place] [address] the [facility] morning [place] and 1 capsule at noon and 1 capsule in the evening. levETIRAcet 2021-04 Yes [id number] 1000mg Take 1 [facility] am (KEPPRA) 1-01 tablet by ity of 1,000 mg 00:00: mouth in [place] tablet 00 the [facility] morning Branch and 1 tablet in the evening. naproxen 2021-04 Yes [id number] 500mg Take 1 Un roel 500 mg 1-01 tablet by ity of tablet 00:00: mouth in [place] [address] the [facility] morning [place] and 1 tablet in the evening. Take with meals. atorvastati 2021-04 Yes [id number] 20mg Take 1 [facility] n 20 mg 1-01 tablet by ity of tablet 00:00: mouth in [place] the morning. Branch gabapentin 2021-04 Yes [id number] 300mg Take 1 [facility] 300 mg 1-01 capsule by ity of capsule 00:00: mouth in [place] 00 the Medical morning Branch and 1 capsule at noon and 1 capsule in the evening. levETIRAcet 2021-04 Yes [id number] 1000mg Take 1 [facility] am (KEPPRA) 1-01 tablet by ity of 1,000 mg 00:00: mouth in [facility] 00 the Medical morning Branch and 1 tablet in the evening. naproxen 2021-04 Yes [id number] 500mg Take 1 Un roel 500 mg 1-01 tablet by ity of tablet 00:00: mouth in [place] the Medical morning Branch and 1 tablet in the evening. Take with meals. atorvastati 2021-04 Yes [id number] 20mg Take 1 [facility] n 20 mg 1-01 tablet by ity of tablet 00:00: mouth in [place] the morning. Branch gabapentin 2021-04 Yes [id number] 300mg Take 1 [facility] 300 mg 1-01 capsule by ity of capsule 00:00: mouth in [place] the Medical morning Branch and 1 capsule at noon and 1 capsule in the evening. naproxen 2021-04 Yes [id number] 500mg Take 1 Un roel 500 mg 1-01 tablet by ity of tablet 00:00: mouth in [place] the Medical morning Branch and 1 tablet in the evening. Take with meals. atorvastati 2021-04 Yes [id number] 20mg Take 1 [facility] n 20 mg 1-01 tablet by ity of tablet 00:00: mouth in [place] the Medical morning. Branch gabapentin 2021-04 Yes [id number] 300mg Take 1 [facility] 300 mg 1-01 capsule by ity of capsule 00:00: mouth in [place] the Medical morning Branch and 1 capsule at noon and 1 capsule in the evening. naproxen 2021-04 Yes [id number] 500mg Take 1 Un roel 500 mg 1-01 tablet by ity of tablet 00:00: mouth in [place] [address] the Medical morning Branch and 1 tablet in the evening. Take with meals. atorvastati 2021-04 Yes [id number] 20mg Take 1 [facility] n 20 mg -01 tablet by ity of tablet 00:00: mouth in [place] 00 the Medical morning. Branch gabapentin 2021-04 Yes [id number] 300mg Take 1 [facility] 300 mg -01 capsule by ity of capsule 00:00: mouth in [place] 00 the Medical morning Branch and 1 capsule at noon and 1 capsule in the evening. naproxen 2021-04 Yes [id number] 500mg Take 1 Un roel 500 mg 04-09 tablet by ity of tablet 00:00: mouth in [place] 00 the Medical morning Branch and 1 tablet in the evening. Take with meals. atorvastati 2021-04- No [id number] 20mg Take 1 [facility] n 20 mg 04-09 tablet by ity of tablet 00:00: 00:00 mouth in [place] 00 :00 the Medical morning. Branch gabapentin 2021-04- No [id number] 300mg Take 1 [facility] 300 mg 04-09 capsule by ity of capsule 00:00: 00:00 mouth in [place] 00 :00 the Medical morning Branch and 1 capsule at noon and 1 capsule in the evening. naproxen 2021-04- No [id number] 500mg Take 1 U nivers 500 mg 04-09 tablet by ity of tablet 00:00: 00:00 mouth in [place] 00 :00 the Medical morning Branch and 1 tablet in the evening. Take with meals. atorvastati 2021-04- No [id number] 20mg Take 1 [facility] n 20 mg 04-09 tablet by ity of tablet 00:00: 00:00 mouth in [place] 00 :00 the Medical morning. Branch gabapentin 2021-04- No [id number] 300mg Take 1 [facility] 300 mg 04-09 capsule by ity of capsule 00:00: 00:00 mouth in [place] 00 :00 the Medical morning Branch and 1 capsule at noon and 1 capsule in the evening. naproxen 2021-04- No [id number] 500mg Take 1 U nivers 500 mg 04-09 tablet by ity of tablet 00:00: 00:00 mouth in [place] 00 :00 the Medical morning Branch and 1 tablet in the evening. Take with meals. atorvastati 2021-04- No [id number] 20mg Take 1 [facility] n 20 mg 04-09 tablet by ity of tablet 00:00: 00:00 mouth in [place] 00 :[address] [facility]. Branch gabapentin 2021-04- No [id number] 300mg Take 1 [facility] 300 mg 04-09 capsule by ity of capsule 00:00: 00:00 mouth in [place] 00 :00 the [facility] morning Branch and 1 capsule at noon and 1 capsule in the evening. naproxen 2021-04- No [id number] 500mg Take 1 U nivers 500 mg 04-09 tablet by ity of tablet 00:00: 00:00 mouth in [place] 00 :[address] the [facility] Branch and 1 tablet in the evening. Take with meals. ibuprofen 2021-04- No 600mg 600 mg, Uni vers (IBU) 0-30 10-30 Oral, ity of tablet 600 21:15: 21:11 ONCE, 1 [place] mg 00 :00 dose, On [facility] Branch 02/05/22 at 1615, ELVIS tiZANidine 2021-04 Yes [id number] 4mg Take 1 U nivers 4 mg 0-27 capsule by ity of capsule 00:00: mouth in [place] [address] the [facility] Branch and 1 capsule at noon and 1 capsule in the evening. tiZANidine 2021-04 Yes [id number] 4mg Take 1 U nivers 4 mg 0-27 capsule by ity of capsule 00:00: mouth in [place] [address] the [facility] and 1 capsule at noon and 1 capsule in the evening. tiZANidine 2021-04 Yes [id number] 4mg Take 1 U nivers 4 mg 0-27 capsule by ity of capsule 00:00: mouth in [place] [address] the [facility] morning Branch and 1 capsule at noon and 1 capsule in the evening. tiZANidine 2021-04 Yes [id number] 4mg Take 1 U nivers 4 mg 0-27 capsule by ity of capsule 00:00: mouth in [place] [address] the [facility] Branch and 1 capsule at noon and 1 capsule in the evening. tiZANidine 2021-04 Yes [id number] 4mg Take 1 U nivers 4 mg 0-27 capsule by ity of capsule 00:00: mouth in [place] 00 the Medical morning Branch and 1 capsule at noon and 1 capsule in the evening. tiZANidine 2021-04 Yes [id number] 4mg Take 1 U nivers 4 mg 0-27 capsule by ity of capsule 00:00: mouth in [place] [address] the Medical morning Branch and 1 capsule at noon and 1 capsule in the evening. tiZANidine 2021-04 Yes [id number] 4mg Take 1 U nivers 4 mg 0-27 capsule by ity of capsule 00:00: mouth in [place] [address] the [facility] morning Branch and 1 capsule at noon and 1 capsule in the evening. tiZANidine 2021-04 Yes [id number] 4mg Take 1 U nivers 4 mg 0-27 capsule by ity of capsule 00:00: mouth in [place] [address] the [facility] morning Branch and 1 capsule at noon and 1 capsule in the evening. tiZANidine 2021-04 Yes [id number] 4mg Take 1 U nivers 4 mg 0-27 capsule by ity of capsule 00:00: mouth in [address] morning [place] and 1 capsule at noon and 1 capsule in the evening. tiZANidine 2021-04 Yes [id number] 4mg Take 1 U nivers 4 mg 0-27 capsule by ity of capsule 00:00: mouth in [address] morning [place] and 1 capsule at noon and 1 capsule in the evening. tiZANidine 2021-04 Yes [id number] 4mg Take 1 U nivers 4 mg 0-27 capsule by ity of capsule 00:00: mouth in [address] morning [place] and 1 capsule at noon and 1 capsule in the evening. tiZANidine 2021-04 Yes [id number] 4mg Take 1 U nivers 4 mg 0-27 capsule by ity of capsule 00:00: mouth in [address] morning Branch and 1 capsule at noon and 1 capsule in the evening. tiZANidine 2021-04 Yes [id number] 4mg Take 1 U nivers 4 mg 0-27 capsule by ity of capsule 00:00: mouth in [address] morning [place] and 1 capsule at noon and 1 capsule in the evening. tiZANidine 2021-04 Yes [id number] 4mg Take 1 U nivers 4 mg 0-27 capsule by ity of capsule 00:00: mouth in [place] 00 the Medical morning Branch and 1 capsule at noon and 1 capsule in the evening. tiZANidine 2021-04 Yes [id number] 4mg Take 1 U nivers 4 mg 0-27 capsule by ity of capsule 00:00: mouth in [place] 00 the Medical morning Branch and 1 capsule at noon and 1 capsule in the evening. tiZANidine 2021-04 Yes [id number] 4mg Take 1 U nivers 4 mg 0-27 capsule by ity of capsule 00:00: mouth in [place] 00 the Medical morning Branch and 1 capsule at noon and 1 capsule in the evening. tiZANidine 2021-04 Yes [id number] 4mg Take 1 U nivers 4 mg 0-27 capsule by ity of capsule 00:00: mouth in [place] 00 the Medical morning Branch and 1 capsule at noon and 1 capsule in the evening. tiZANidine 2021-04 Yes [id number] 4mg Take 1 U nivers 4 mg 0-27 capsule by ity of capsule 00:00: mouth in [place] 00 the Medical morning Branch and 1 capsule at noon and 1 capsule in the evening. tiZANidine 2021-04 Yes [id number] 4mg Take 1 U nivers 4 mg 0-27 capsule by ity of capsule 00:00: mouth in [place] 00 the Medical morning Branch and 1 capsule at noon and 1 capsule in the evening. tiZANidine 2021-04 Yes [id number] 4mg Take 1 U nivers 4 mg 0-27 capsule by ity of capsule 00:00: mouth in [place] 00 the Medical morning Branch and 1 capsule at noon and 1 capsule in the evening. tiZANidine 2021-04- No [id number] 4mg Take 1 [facility] 4 mg 0-27 06-21 capsule by ity of capsule 00:00: 00:00 mouth in [place] 00 :00 the Medical morning Branch and 1 capsule at noon and 1 capsule in the evening. tiZANidine 2021-04- No [id number] 4mg Take 1 [facility] 4 mg 0-27 06-21 capsule by ity of capsule 00:00: 00:00 mouth in [place] 00 :00 the Medical morning Branch and 1 capsule at noon and 1 capsule in the evening. tiZANidine 2021-04- No [id number] 4mg Take 1 [facility] 4 mg 0-27 [...] Sun10/12/21 Branch at 1100, Routine iopamidol No [id number] 60mL 60 mL, U nivers (ISOVUE 10-12 [...] dose, On Sun10/12/21 at 1000, STAT ondansetron 2021-0 Yes [id number] 4mg Take 1 [facility] 4 mg 7-06 tablet by ity of disintegrat 00:00: mouth [place] ing tablet 00 every 8 Medica l (eight) Branch hours as needed for Nausea and Vomiting (N/V). dicyclomine 2-0 Yes [id number] 20mg Take 1 [facility] 20 mg 7-06 tablet by ity of tablet 00:00: mouth 4 00 (four) Medical times Branch daily. ondansetron 2-0 Yes [id number] 4mg Take 1 [facility] 4 mg 7-06 tablet by ity of disintegrat 00:00: mouth [place] ing tablet 00 every 8 Medica l (eight) Branch hours as needed for Nausea and Vomiting (N/V). dicyclomine 2022-0 Yes [id number] 20mg Take 1 [facility] 20 mg 7-06 tablet by ity of tablet 00:00: mouth 4 [place] 00 (four) Medical times Branch daily. ondansetron 2022-0 Yes [id number] 4mg Take 1 [facility] 4 mg 7-06 tablet by ity of disintegrat 00:00: mouth [place] ing tablet 00 every 8 Medica l (eight) Branch hours as needed for Nausea and Vomiting (N/V). dicyclomine 2021-0 Yes [id number] 20mg Take 1 [facility] 20 mg 7-06 tablet by ity of tablet 00:00: mouth 4 [place] 00 (four) Medical times Branch daily. ondansetron 2021-0 2021- No [id number] 4mg Take 1 [facility] 4 mg 7-02-07 tablet by ity of disintegrat 00:00: 00:00 [place] tablet 00 :00 every 8 Medica l (eight) Branch hours as needed for Nausea and Vomiting (N/V). dicyclomine 2021-0 2021- No [id number] 20mg Take 1 [facility] 20 mg -02-07 tablet by ity of tablet 00:00: 00:00 mouth 4 [place] 00 :00 (four) Medical times Branch daily. ondansetron 2021-0 2- No [id number] 4mg Take 1 [facility] 4 mg -09 17- tablet by ity of disintegrat 00:00: 00:[place] tablet 00 :00 every 8 Medica l (eight) Branch hours as needed for Nausea and Vomiting (N/V). dicyclomine 2021-0 2021- No [id number] 20mg Take 1 [facility] 20 mg -02-07 tablet by ity of tablet 00:00: 00:00 mouth 4 [place] 00 :00 (four) Medical times Branch daily. sulfamethox 2022-0 Yes 1{tbl} Take 1 Un roel azole-trime 1-21 tablet by ity of thoprim 16:03: mouth 2 [place] (BACTRIM 16 (two) Medical DS) 800-160 times Branch mg per daily. tablet sulfamethox 2022-0 Yes 1{tbl} Take 1 Un roel azole-trime 1-21 tablet by ity of thoprim 16:03: mouth 2 [place] (BACTRIM 16 (two) Medical DS) 800-160 times Branch mg per daily. tablet sulfamethox 2022-0 Yes 1{tbl} Take 1 Un roel azole-trime 1-21 tablet by ity of thoprim 16:03: mouth 2 [place] (BACTRIM 16 (two) Medical DS) 800-160 times Branch mg per daily. tablet gabapentin 2021-0 2021- No 300mg Take 300 U nivers 300 mg -21 01-21 mg by ity of capsule 16:02: 00:00 mouth 3 [place] 48 :00 (three) Medical times Branch daily. busPIRone 2021-0 2021- No 15mg Take 15 mg U nivers 15 mg -29 04-21 by mouth 3 ity of tablet 16:02: 00:00 (three) [place] 33 :00 times Medical daily. Branch atorvastati 2021-0 Yes 20mg Take 20 mg [facility] n 20 mg 1-07 by mouth ity of tablet 15:04: daily. [place] [address] Medical Branch OXcarbazepi 2021-0 Yes 600mg Take 600 U nivers ne 600 mg 1-07 mg by ity of tablet 15:04: mouth 3 [place] 25 (three) Medical times Branch daily. ergocalcife 2021-0 Yes 1{capsu Take 1 U nivers rol, 1-07 le} capsule by ity of vitamin d2, 15:04: mouth 2 [place] 1,250 mcg 25 (two) Medical (50,000 times Branch unit) daily. capsule atorvastati 2021-0 Yes 20mg Take 20 mg [facility] n 20 mg 1-07 by mouth ity of tablet 15:04: daily. [place] [address] Medical Branch OXcarbazepi 2-0 Yes 600mg Take 600 U nivers ne 600 mg 1-07 mg by ity of tablet 15:04: mouth 3 [place] 25 (three) Medical times Branch daily. ergocalcife 2-0 Yes 1{capsu Take 1 U nivers rol, 1-07 le} capsule by ity of vitamin d2, 15:04: mouth 2 [place] 1,250 mcg 25 (two) Medical (50,000 times Branch unit) daily. capsule atorvastati 2-0 Yes 20mg Take 20 mg [facility] n 20 mg 1-07 by mouth ity of tablet 15:04: daily. [place] [address] Medical Branch OXcarbazepi 2-0 Yes 600mg Take 600 U nivers ne 600 mg 1-07 mg by ity of tablet 15:04: mouth 3 [place] 25 (three) Medical times Branch daily. ergocalcife 2022-0 Yes 1{capsu Take 1 U nivers rol, 1-07 le} capsule by ity of vitamin d2, 15:04: mouth 2 [place] 1,250 mcg 25 (two) Medical (50,000 times Branch unit) daily. capsule atorvastati 2-0 Yes 20mg Take 20 mg [facility] n 20 mg 1-07 by mouth ity of tablet 15:04: daily. [address] OXcarbazepi 2-0 Yes 600mg Take 600 U nivers ne 600 mg 1-07 mg by ity of tablet 15:04: mouth 3 [place] 25 (three) Medical times Branch daily. ergocalcife 2021-0 Yes 1{capsu Take 1 U nivers rol, 1-07 le} capsule by ity of vitamin d2, 15:04: mouth 2 [place] 1,250 mcg 25 (two) Medical (50,000 times Branch unit) daily. capsule atorvastati 2021-0 Yes 20mg Take 20 mg [facility] n 20 mg 1-07 by mouth ity of tablet 15:04: daily. [address] OXcarbazepi 2-0 Yes 600mg Take 600 U nivers ne 600 mg 1-07 mg by ity of tablet 15:04: mouth 3 [place] 25 (three) Medical times Branch daily. ergocalcife 2-0 Yes 1{capsu Take 1 U nivers rol, 1-07 le} capsule by ity of vitamin d2, 15:04: mouth 2 [place] 1,250 mcg 25 (two) Medical (50,000 times Branch unit) daily. capsule atorvastati 2021-0 Yes 20mg Take 20 mg [facility] n 20 mg 1-07 by mouth ity of tablet 15:04: daily. [address] OXcarbazepi 2-0 Yes 600mg Take 600 U nivers ne 600 mg 1-07 mg by ity of tablet 15:04: mouth 3 [place] 25 (three) Medical times Branch daily. ergocalcife 2022-0 Yes 1{capsu Take 1 U nivers rol, 1-07 le} capsule by ity of vitamin d2, 15:04: mouth 2 [place] 1,250 mcg 25 (two) Medical (50,000 times Branch unit) daily. capsule atorvastati 2-0 Yes 20mg Take 20 mg [facility] n 20 mg 1-07 by mouth ity of tablet 15:04: daily. [place] [address] Medical Branch OXcarbazepi 2021-0 Yes 600mg Take 600 U nivers ne 600 mg 1-07 mg by ity of tablet 15:04: mouth 3 [place] 25 (three) Medical times Branch daily. ergocalcife 2021-0 Yes 1{capsu Take 1 U nivers rol, 1-07 le} capsule by ity of vitamin d2, 15:04: mouth 2 [place] 1,250 mcg 25 (two) Medical (50,000 times Branch unit) daily. capsule atorvastati Yes 20mg Take 20 mg [facility] n 20 mg 1-07 by mouth ity of tablet 15:04: daily. [place] [address] Medical Branch OXcarbazepi 0 Yes 600mg Take 600 U nivers ne 600 mg 1-07 mg by ity of tablet 15:04: mouth 3 [place] 25 (three) Medical times Branch daily. ergocalcife 0 Yes 1{capsu Take 1 U nivers rol, 1-07 le} capsule by ity of vitamin d2, 15:04: mouth 2 [place] 1,250 mcg 25 (two) Medical (50,000 times Branch unit) daily. capsule naproxen 2021- No [id number] 500mg Take 1 [facility] (NAPROSYN) 1-10 07- tablet by ity of 500 mg 00:00: 00:00 mouth 2 [place] tablet 00 :00 (two) Medical times Branch daily with meals. Immunizations Ordered Filled Immunization Date Status Comments [facility] e Immunization Name Name Influenza Virus [...] Universit y of Vaccine [facility] IM, 00:00:00 [place] Me dical Preserv and ABX Branch Free 6 MO-64 YRS Influenza Virus 2022-02-07 Completed Universit y of [facility]ine [facility], 00:00:00 [place] Me dical Preserv and ABX Branch Free 6 MO-64 YRS Influenza Virus 2022-02-07 Completed Universit y of Vaccine [facility], 00:00:00 [place] Me dical Preserv and ABX Branch Free 6 MO-64 YRS Influenza Virus 2022-02-07 Completed Universit y of Vaccine [facility] IM, 00:00:00 [place] Me dical Preserv and ABX Branch Free [...] Unive rsity of VACCINE - (MODERNA) 00:00:00 [facility] SARS-COV-2 COVID-19 2021-04-27 Completed Unive rsity of VACCINE - (MODERNA) 00:00:00 [facility] SARS-COV-2 COVID-19 2021-04-27 Completed Unive rsity of VACCINE - (MODERNA) 00:00:00 [facility] SARS-COV-2 COVID-19 2021-04-27 Completed Unive rsity of VACCINE - (MODERNA) 00:00:00 [facility] SARS-COV-2 COVID-19 2021-04-27 Completed Unive rsity of VACCINE - (MODERNA) 00:00:00 [facility] SARS-COV-2 COVID-19 2021-04-27 Completed Unive rsity of VACCINE - (MODERNA) 00:00:00 [facility] SARS-COV-2 COVID-19 2021-04-27 Completed Unive rsity of VACCINE - (MODERNA) 00:00:00 [facility] SARS-COV-2 COVID-19 2021-04-27 Completed Unive rsity of VACCINE - (MODERNA) 00:00:00 [facility] SARS-COV-2 COVID-19 2021-04-27 Completed Unive rsity of VACCINE - (MODERNA) 00:00:00 [facility] SARS-COV-2 COVID-19 2021-04-27 Completed Unive rsity of VACCINE - (MODERNA) 00:00:00 [facility] SARS-COV-2 COVID-19 2021-04-27 Completed Unive rsity of VACCINE - (MODERNA) 00:00:00 [facility] SARS-COV-2 COVID-19 2021-03-24 Completed Unive rsity of MODERNA VACCINE 00:00:00 [facility] ical Branch SARS-COV-2 COVID-19 2021-03-24 Completed Unive rsity of MODERNA VACCINE 00:00:[address] [place] [facility] ical Branch SARS-COV-2 COVID-19 2021-03-24 Completed Unive rsity of MODERNA VACCINE 00:00:[address] [place] [facility] ical Branch SARS-COV-2 COVID-19 2021-03-24 Completed Unive rsity of MODERNA VACCINE 00:00:00 [place] [facility] SARS-COV-2 COVID-19 2021-03-24 Completed Unive rsity of MODERNA VACCINE 00:00:[address] [facility] ical Branch SARS-COV-2 COVID-19 2021-03-24 Completed Unive rsity of MODERNA VACCINE 00:00:00 [place] [facility] SARS-COV-2 COVID-19 2021-03-24 Completed Unive rsity of MODERNA 12+ YRS 00:00:[address] [place] [facility] ical VACCINE Branch SARS-COV-2 COVID-19 2021-03-24 Completed Unive rsity of MODERNA 12+ YRS 00:00:[address] [place] [facility] ical VACCINE Branch SARS-COV-2 COVID-19 2021-03-24 [...] 2022-09-27 19:18:00 18 /min Univ ers[facility] [place] [facility] Body height 2022-09-27 19:18:00 157.5 cm [facility] [place] [facility] Body weight 2022-09-27 19:18:00 67.178 kg [facility] [place] [facility] BMI 2022-09-27 19:18:00 27.09 kg/m2 [facility] [place] [facility] Oxygen saturation in 2022-09-27 19:18:00 99 /min University of Arterial blood by [employer] barbara Pulse oximetry Branch Systolic blood 2022-09-13 18:28:00 102 mm[Hg] Univer sity of pressure [place] [facility] Diastolic blood 2022-09-13 18:28:00 69 mm[Hg] Unive rsity of pressure [place] [facility] Heart rate 2022-09-13 18:28:00 94 /min [facility] [place] [facility] Respiratory rate 2022-09-13 18:28:00 18 /min Univ ers[facility] [place] [facility] Body height 2022-09-13 18:28:00 154.5 cm [facility] [place] [facility] Body weight 2022-09-13 18:28:00 67.087 kg [facility] [place] [facility] BMI 2022-09-13 18:28:00 28.10 kg/m2 [facility] [place] [facility] Oxygen saturation in 2022-09-13 18:28:00 99 /min University of Arterial blood by [employer] barbara Pulse oximetry Branch Systolic blood 2022-06-07 17:01:00 111 mm[Hg] Univer sity of [facility] [place] [facility] Diastolic blood 2022-06-07 17:01:00 69 mm[Hg] Unive rsity of pressure [place] [facility] Heart rate 2022-06-07 17:01:00 82 /min [facility] [place] [facility] Body temperature 2022-06-07 17:01:00 36.78 Rafaela Univ [facility] [place] [facility] Respiratory rate 2022-06-07 17:01:00 16 /min Univ [facility] [place] [facility] Body height 2022-06-07 17:01:00 157.5 cm [facility] [place] [facility] Body weight 2022-06-07 17:01:00 68.04 kg [facility] [place] [facility] BMI 2022-06-07 17:01:00 27.44 kg/m2 [facility] [place] [facility] Oxygen saturation in 2022-06-07 17:01:00 99 /min University of Arterial blood by [place] [employer] barbara Pulse oximetry Branch Body height 2022-04-28 15:58:00 157.5 cm [facility] [place] [facility] Body weight 2022-04-28 15:58:00 56.7 kg [facility] [place] [facility] BMI 2022-04-28 15:58:00 22.86 kg/m2 [facility] [place] [facility] Body height 2022-03-09 19:27:00 157.5 cm [facility] [place] [facility] Body weight 2022-03-09 19:27:00 56.7 kg [facility] [place] [facility] BMI 2022-03-09 19:27:00 22.86 kg/m2 [facility] [place] [facility] Systolic blood 2022-03-05 20:00:00 110 mm[Hg] Univer sity of pressure [place] [facility] Diastolic blood 2022-03-05 20:00:00 70 mm[Hg] Unive rsity of [facility] [place] [facility] Heart rate 2022-03-05 20:00:00 75 /min [facility] [place] [facility] Respiratory rate 2022-03-05 20:00:00 16 /min Univ [facility] [place] [facility] Oxygen saturation in 2022-03-05 20:00:00 100 /min University of Arterial blood by [place] Medi barbara Pulse oximetry Branch Body temperature 2022-03-04 21:25:00 37.44 Rafaela Univ [facility] [place] [facility] Body height 2022-03-04 21:25:00 157.5 cm [facility] [place] [facility] Body weight 2022-03-04 21:25:00 56.7 kg [facility] [place] [facility] BMI 2022-03-04 21:25:00 22.86 kg/m2 [facility] [place] [facility] Body height 2022-02-09 18:33:00 157.5 cm [facility] [place] [facility] Body weight 2022-02-09 18:33:00 68.04 kg [facility] [place] [facility] BMI 2022-02-09 18:33:00 27.44 kg/m2 [facility] [place] [facility] Systolic blood 2022-02-07 18:21:00 120 mm[Hg] Univer sity of pressure [place] [facility] Diastolic blood 2022-02-07 18:21:00 78 mm[Hg] Unive rsity of pressure [place] [facility] Heart rate 2022-02-07 18:20:00 82 /min [facility] [place] [facility] Body weight 2022-02-07 18:20:00 68.04 kg [facility] [place] [facility] BMI 2022-02-07 18:20:00 27.44 kg/m2 [facility] [place] [facility] Systolic blood 2022-02-05 21:04:00 92 mm[Hg] Univer sity of pressure [place] [facility] Diastolic blood 2022-02-05 21:04:00 66 mm[Hg] Unive rsity of pressure [place] [facility] Heart rate 2022-02-05 21:04:00 96 /min [facility] [place] [facility] Respiratory rate 2022-02-05 21:04:00 16 /min Univ [facility] [place] [facility] Oxygen saturation in 2022-02-05 21:04:00 97 /min University of Arterial blood by [place] [employer] [facility] Pulse oximetry Branch Systolic blood 2022-02-02 20:32:00 108 mm[Hg] Univer sity of pressure [place] [facility] Diastolic blood 2022-02-02 20:32:00 72 mm[Hg] Unive rsity of pressure [place] [facility] Heart rate 2022-02-02 20:32:00 95 /min [facility] [place] [facility] Respiratory rate 2022-02-02 20:32:00 18 /min Univ [facility] [place] [facility] Oxygen saturation in 2022-02-02 20:32:00 100 /min University of Arterial blood by [place] [employer] barbara Pulse oximetry Branch Body temperature 2022-02-02 16:01:00 36.61 Rafaela [facility] [place] [facility] Body height 2022-02-02 16:01:00 157.5 cm [facility] [place] [facility] Body weight 2022-02-02 16:01:00 69.854 kg [facility] [place] [facility] BMI 2022-02-02 16:01:00 28.17 kg/m2 Universi ty of [facility] Systolic blood 2021-10-12 16:00:00 105 mm[Hg] Univer sity of pressure [facility] Diastolic blood 2021-10-12 16:00:00 72 mm[Hg] Unive rsity of [facility] Heart rate 2021-10-12 16:00:00 79 /min Universi ty of [facility] Respiratory rate 2021-10-12 16:00:00 18 /min Univ [facility] Oxygen saturation in 2021-10-12 16:00:00 96 /min [facility] Arterial blood by [facility] Pulse oximetry [place] Body temperature 2021-10-12 14:49:00 36.67 Rafaela [facility] height 2021-10-12 14:49:00 157.5 cm Universi ty [facility] Body weight 2021-10-12 14:49:00 70.217 kg Universi ty [facility] BMI 2021-10-12 14:49:00 28.31 kg/m2 Universi ty [facility] Systolic blood 2021-04-29 21:50:00 121 mm[Hg] Univer sity of [facility] Diastolic blood 2021-04-29 21:50:00 79 mm[Hg] [facility] Heart rate 2021-04-29 21:50:00 86 /min Universi ty [facility] Body height 2021-04-29 21:50:00 157.5 cm Universi ty [facility] Body weight 2021-04-29 21:50:00 70.761 kg Universi ty [facility] BMI 2021-04-29 21:50:00 28.53 kg/m2 [facility] Procedures Procedure Date / Time Performing Clinician Source Performed COMP. METABOLIC PANEL 2022-06-07 17:17:[address] [facility] ([id number]) [facility] CBC WITH DIFF 2022-06-07 17:17:00 Isabel Fields [facility] REFERRAL- 2022-03-30 06:01:00 Doctor Unassigned, No Univer [facility] REQUEST/RESPONSE Name [facility] COVID-19 (ID NOW RAPID 2022-03-05 06:17:00 Nazanin Garcia [facility] TESTING) [facility] SERUM DRUG (IMMUNOASSAY) 2022-03-05 02:51:00 Sergio Majano [facility] SCREEN KEPPRA (LEVETIRACETAM) 2022-03-05 02:51:00 Sergio Majano [facility] CREATINE KINASE 2022-03-04 23:01:00 Sergio Majano [facility] TEST, SERUM 2022-03-04 23:01:00 Sergio Majano [facility] COMP. METABOLIC PANEL 2022-03-04 23:01:00 Sergio Majano [facility] ([id number]) [facility] SALICYLATE 2022-03-04 23:01:00 Sergio Majano [facility] ETHANOL 2022-03-04 23:01:00 Sergio Majano [facility] CBC WITH DIFF 2022-03-04 23:01:00 Sergio Majano [facility] URINE DRUG (IMMUNOASSAY) 2022-03-04 22:53:00 Sergio Majano [facility] SCREEN URINALYSIS 2022-03-04 22:53:00 Sergio Majano [facility] CT HEAD WO CONTRAST 2022-03-04 22:08:[address] [facility] FLU VACC ([id number]), 6 2022-02-07 18:34:13 Bill Hung [facility] MO-64 YRS, .5ML, IM, Medical [facility] QUAD (FLUCELVAX) CA APPLY LONG ARM SPLINT 2022-02-05 22:12:29 Nazanin Garcia [facility] XR ELBOW <3 VW LEFT 2022-02-05 21:44:32 Nazanin Garcia [facility] XR SHOULDER 2+ VW LEFT 2022-02-05 21:44:32 Nazanin Garcia Un [facility] XR WRIST 3+ VW LEFT 2022-02-05 21:44:[address] CONSENT/REFUSAL FOR 2022-02-05 20:55:21 Doctor Unassigned, No Un [facility] [place] DI[facility]NOSIS AND TREATMENT Name Medical Branch CONSENT/REFUSAL FOR 2022-02-02 15:57:16 Doctor Unassigned, No Un [facility] [place] [facility] Name Medical Branch CT ABDOMEN PELVIS W 2021-10-12 15:50:00 Emy King [facility] CONTRAST Medical Branch URINALYSIS 2021-10-12 15:22:00 Singer [facility] LIPASE 2021-10-12 15:18:00 Singer [facility] COMP. METABOLIC PANEL 2021-10-12 15:18:[address] ([id number]) Medical Branch CBC WITH DIFF 2021-10-12 15:18:00 Singer [facility] NOTICE OF PRIVACY 2021-10-12 14:44:50 Doctor Unassigned, No Univ [facility] [place] PRACTICES Name Medical Branch CONSENT/REFUSAL FOR 2021-10-12 14:44:33 Doctor Unassigned, No Un [facility] [place] [facility] Name Medical Branch EXTERNAL PROVIDER 2021-08-24 05:01:00 Doctor Unassigned, No Univ [facility] [place] RECORDS Name Medical Branch EXTERNAL PROVIDER 2021-05-16 06:01:00 Doctor Unassigned, No Univ [facility] [place] RECORDS Name Medical Branch Encounters Start End Encounter Admission Attending Care Care Encounter Source Date/Time Date/Time Type Type Clinicians Facility Department ID 2022-11-01 2022-11-01 Outpatient Miguel Ángel JASSO [facility] [id number] [facility] 15:00:00 15:00:00 STEPHANIE of [facility] 2022-10-20 2022-10-20 Outpatient SHOAIB BUI [facility] [id number] [facility] 11:00:00 11:00:00 SHOAIB HARDY of [facility] 2022-10-02 2022-10-02 Outpatient Miguel Ángel JASSO [facility] [id number] [facility] 10:00:00 11:04:39 , STEPHANIE neely [facility] 2022-10-02 2022-10-02 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, Ang - Db [facility] 1.2.840.1 [id number] Univers 10:00:00 10:15:00 Visit Stephanie Jasso [facility] 350.1 .13.10 ity of [place] 4.2.7.2.686 John as SHANITA?BLEA [id number] [facility] [address] MEDICAL OFFICE BUILDING 2022-09-28 2022-09-28 Patient Glen [facility] [id number] Univers 00:00:00 00:00:00 Outreach Kathia Jalloh [facility] [id number] i ty of [facility] 4.2.7.2.686 John as SHANITA?BLEA [id number] [address] OFFICE [facility] 2022-09-27 2022-09-27 Outpatient R [facility] [id number] Univers 14:40:00 15:18:26 , STEPHANIE neely [facility] 2022-09-27 2022-09-27 Office [facility] 1.2.840.114 [id number] Univers 14:40:00 15:18:26 Visit , Stephanie BELTRÁN 350.1.13.10 ity of [place] 4.2.7.2.686 John as SHANITA?BLEA [id number] [address] OFFICE [facility] 2022-09-18 2022-09-18 Patient [place] [facility] [id number] Univers 00:00:00 00:00:00 Outreach Kathia Jalloh [facility] [id number] i ty of [place] 4.2.7.2.686 John as SHANITA?BLEA [id number] [address] OFFICE BUILDING 2022-09-13 2022-09-13 Outpatient R [facility] [id number] Univers 14:00:00 14:29:14 , STEPHANIE leon y [facility] 2022-09-13 2022-09-13 Office [facility] 1.2.840.114 [id number] Univers 14:00:00 14:29:14 Visit , Stephanie BELTRÁN 350.1.13.10 ity of [place] 4.2.7.2.686 John as SHANITA?BLEA [id number] Ca shawnfrance SHAW 044 [facility] OFFICE [facility] 2022-09-07 2022-09-07 Outpatient R DIAMOND [facility] [id number] Univers 09:00:00 09:00:00 BOBBY ity of [facility] 2022-08-23 2022-08-23 Outpatient R [facility] [id number] Univers 13:00:00 13:00:00 , STEPHANIE it y of [facility] 2022-07-27 2022-07-27 Outpatient R [facility] [id number] Univers 09:00:00 09:00:00 , STEPHANIE it y of [facility] 2022-06-07 2022-06-07 Emergency [facility] [id number] Univers 11:03:00 12:08:00 ISABEL ity of [facility] 2022-06-07 2022-06-07 Emergency [facility] [id number] Univers 11:03:00 12:08:00 Isabel Bourgeois [place] 350.1.13.10 ity of [place] 4.2.7.2.686 [place] [id number] [address] 2022-05-09 2022-05-09 Case [place]UD[place] 1.2.840.114 [id number] Univers 00:00:00 00:00:00 Management Brittnee VELASQUEZ [id number] [place]2.7.2.686 [place] [id number] [address] 2022-04-28 2022-04-28 Office [facility] 1.2.840.114 [id number] Univers 10:15:00 10:30:00 Visit Bobby Malone [facility] 350.1.13.10 it y of [place] 4.2.7.2.686 John as SHANITA?BLEA [id number] Ca shawnfrance SHAW 198 [facility] OFFICE [facility] 2022-04-28 2022-04-28 Out[facility] [id number] Univers 10:01:10 10:16:00 [facility] 2022-04-27 2022-04-27 Outpatient Miguel Ángel [facility] [id number] Univers 15:45:00 15:45:00 [facility] 2022-04-20 2022-04-20 Outpatient Miguel Ángel [facility] [id number] Univers 11:15:00 11:15:00 [facility] 2022-04-13 2022-04-13 Outpatient MiguelÁ ngel [facility] [id number] Univers 13:30:00 13:30:00 [facility] 2022-03-30 2022-03-30 Orders Doctor ABHIJIT 1.2.840.114 [id number] Univers 00:00:00 00:00:00 Only Unassigned, AMAYA 350.1.13.10 ity of [place] [facility] 4.2.7.2.686 John as [id number] [address] 2022-03-24 2022-03-24 Telephone [facility] [id number] Univers 00:00:00 00:00:00 [facility] [id number] it y of [place] 4.2.7.2.686 John as SHANITA?BLEA [id number] [address] MEDICAL OFFICE [facility] 2022-03-09 2022-03-09 Outpatient Miguel Ángel [facility] [id number] Univers 13:45:00 23:59:00 [facility] 2022-03-09 2022-03-09 Office [facility] 1.2.840.114 [id number] Univers 13:30:00 13:45:00 Visit [facility] [id number] it y of [place] 4.2.7.2.686 John as SHANITA?BLEA [id number] [address] MEDICAL OFFICE [facility] 2022-03-04 2022-03-05 Emergency X [facility], [facility] ERT [id number] Univers 15:22:00 15:00:00 JOHN [facility] 2022-03-04 2022-03-05 Emergency Sergio Majano [facility] 1.2.840.1 [id number] Univers 15:22:00 15:00:00 John EscamillaGORGE 350.1.13.10 ity of [place] 4.2.7.2.686 [facility] [id number] [address] 2022-02-21 2022-02-21 Telephone [facility] [id number] Univers 00:00:00 00:00:00 [facility] 350.1.13.10 it y of [place] 4.2.7.2.686 John as SHANITA?BLEA [id number] Ca shawnfrance KEEN 044 [facility] OFFICE [facility] 2022-02-20 2022-02-20 Outpatient R [facility] [id number] Univers 15:15:00 15:15:00 [facility] 2022-02-09 2022-02-09 Office [facility] 1.2.840.114 [id number] Univers 13:45:00 14:15:00 Visit [facility] 350.1.13.10 it y of [place] 4.2.7.2.686 John as SHANITA?BLEA [id number] Ca bernabe KEENYADI 198 [facility] OFFICE [facility] 2022-02-09 2022-02-09 Outpatient Miguel Ángel FIELDS [facility] [id number] Univers 13:45:00 14:14:48 BOBBY [facility] 2022-02-07 2022-02-07 Outpatient Miguel Ángel HUNG [facility] [id number] Univers 13:30:00 13:49:35 BILL [facility] 2022-02-07 2022-02-07 Office [facility] 1.2.840.114 [id number] Univers 13:30:00 13:49:35 Visit [facility] 350.1.13.10 it y of [place] 4.2.7.2.686 John as SHANITA?BLEA [id number] Ca shawnfrance KEEN 044 [facility] OFFICE [facility] 2022-02-05 2022-02-05 Emergency X [facility] ERT [id number] Univers 16:08:00 17:27:00 NAZANIN rich [facility] 2022-02-05 2022-02-05 Emergency [facility] 1.2.840.114 [id number] Univers 16:08:00 17:27:00 Nazainn BLA[place] 350.1.13.10 ity of [place] 4.2.7.2.686 [facility] [id number] [address] 2022-02-02 2022-02-02 Emergency X LUCAS JEAN [facility] ERT [id number] Univers 11:02:00 15:34:00 LUCAS JEAN [facility] 2022-02-02 2022-02-02 Emergency [facility] [id number] Univers 11:02:00 15:34:00 Lucas [place] 350.1.13.10 i ty of [place] 4.2.7.2.686 [facility] [id number] [address] 2022-01-09 2022-01-09 Outpatient R ABHILASH, [facility] [id number] Univers 13:45:00 13:45:00 BILL hilario [facility] 2021-10-12 2021-10-12 Emergency Kala [facility] ERT [id number] Univers 09:51:00 11:54:00 EMY rich [facility] 2021-10-12 2021-10-12 Emergency [facility] [id number] Univers 09:51:00 11:54:00 Emy BLAIR 350.1.13.10 i ty of [place] 4.2.7.2.686 [facility] [id number] [place] [id number] 2021-10-12 2021-10-12 Orders Doctor LACEY 1.2.840.114 [id number] Univers 00:00:00 00:00:00 Only Unassigned, AMAYA 350.1.13.10 ity of [place] [facility] 4.2.7.2.686 [facility] [id number] [place] [address] Branch 2021-09-12 2021-09-12 Outpatient R [facility] [id number] Univers 10:30:00 10:30:00 BILL rich [facility] 2021-08-24 2021-08-24 Orders Doctor ABHIJIT 1.2.840.114 [id number] Univers 00:00:00 00:00:00 Only Unassigned, AMAYA 350.1.13.10 ity of [place] [facility] 4.2.7.2.686 John as [id number] [address] 2021-06-03 2021-06-03 Outpatient R [facility] [id number] Univers 13:00:00 13:23:49 BILL rich [facility] 2021-05-16 2021-05-16 Orders Doctor ABHIJIT 1.2.840.114 [id number] Univers 00:00:00 00:00:00 Only Unassigned, AMAYA 350.1.13.10 ity of [place] [facility] 4.2.7.2.686 John as [id number] [address] 2021-05-04 2021-05-04 Telephone [facility] 1.2.840.114 [id number] Univers 00:00:00 00:00:00 [facility] 350.1.13.10 it y of [place] 4.2.7.2.686 John as SHANITA?BLEA [id number] [address] MEDICAL OFFICE [facility] 2021-04-29 2021-04-29 Office [facility] 1.2.840.114 [id number] Univers 16:00:00 16:15:00 Visit [facility] 350.1.13.10 it y of [place] 4.2.7.2.686 John as SHANITA?BLEA [id number] [address] MEDICAL OFFICE BUILDING 2021-04-29 2021-04-29 Outpatient R [facility] [id number] Univers 16:00:00 16:00:00 BILL rich [facility] 2021-04-29 2021-04-29 Orders Doctor ABHIJIT 1.2.840.114 [id number] Univers 00:00:00 00:00:00 Only Unassigned, AMAYA 350.1.13.10 ity of [place] [facility] 4.2.7.2.686 John as [phone] [address] 2021-04-22 2021-04-22 Outpatient Miguel Ángel ABHILASH [facility] [id number] Univers 08:00:00 08:00:00 [facility] 2021-04-22 2021-04-22 Telephone [facility] 1.2.840.114 [id number] Univers 00:00:00 00:00:00 [facility] 350.1.13.10 it y of [place] 4.2.7.2.686 John as SHANITA?BLEA [id number] [address] MEDICAL OFFICE BUILDING 2021-04-15 2021-04-15 Office [facility] 1.2.840.114 [id number] Univers 15:30:00 16:00:00 Visit [facility] 350.1.13.10 it y of [place] 4.2.7.2.686 John as SHANITA?BLEA [id number] [address] MEDICAL OFFICE [facility] 2021-04-15 2021-04-15 Outpatient Miguel Ángel [facility] [id number] [facility] 15:30:00 15:30:00 [facility] 2021-04-15 2021-04-15 Outpatient [facility] [id number] [facility] 15:30:00 15:30:00 [facility] Results Test Description Test Time Test Comments Results Result Comments Source COMP. METABOLIC PANEL (20196) 2021-10-12 15:45:46 Test Item Value Reference Range Interpretation Comme nts NA (test code = 1306545923) 139 mmol/L 135-145 K (test code = 6896740243) 4.5 mmol/L 3.5-5.0 CL (test code = 1945279458) 99 mmol/L 98-108 CO2 TOTAL (test code = 4041463001) 30 mmol/L 23-31 AGAP (test code = 4383094320) 2-16 BUN (test code = 8039678350) 16 mg/dL 7-23 GLUCOSE (test code = 7069011418) 119 mg/dL 70-110 H CREATININE (test code = 0.66 mg/dL 0.50-1.04 8705858725) TOTAL BILI (test code = 0.4 mg/dL 0.1-1.0 6746416870) CALCIUM (test code = 8389030415) 10.0 mg/dL 8.6-10.6 T PROTEIN (test code = 3291062523) 8.6 g/dL 6.3-8.2 H ALBUMIN (test code = 5225068581) 4.7 g/dL 3.5-5.0 ALK PHOS (test code = 8130387272) 94 U/L 34-122 ALTv (test code = 1742-6) 17 U/L 5-35 AST(SGOT) (test code = 4515978945) 23 U/L 13-40 eGFR (test code = 9221928507) mL/min/1.73m2 SHE (test code = SHE) Association [...] tests). Lab Interpretation (test code = Abnormal 88324-6) [facility] Test Item Value Reference Range Interpretation Comments LIPASE (test code = 6214978858) 86 U/L 0-220 Lab Interpretation (test code = Normal 87349-0) [facility] [id number] 15:31:02 Test Item Value Reference Range Interpretation [...] RDW-SD (test code = 44.6 fL 39.0-49.9 40981-5) RDW-CV (test code = 13.7 % 12.0-15.5 788-0) PLT (test code = See_Comment H [Automated 777-3) message] The system which generated this result transmit ann reference range : 166 - 358 10*3/ ?L. The reference range was not u sed to interpret th is result as normal/abnormal . MPV (test code = 10.0 fL 9.5-12.9 88561-2) NRBC/100 WBC (test See_Comment [Automat ed code = 4211690108) message] The system which generated this result transmit ann reference range : 0.0 - 10.0 /100 WBCs. The reference range was not used to interpret this result as normal/abnormal . NRBC x10^3 (test code <0.01 See_Comment [Auto mated = 3338424777) message] The system which generated this result transmit ann reference range : 10*3/?L. The reference range was not used to interpret this result as normal/abnormal . GRAN MAT (NEUT) % 78.7 % (test code = 770-8) IMM GRAN % (test code 0.60 % = 5848265757) LYMPH % (test code = 12.7 % 736-9) MONO % (test code = 7.2 % 5905-5) EOS % (test code = 0.3 % 713-8) BASO % (test code = 0.5 % 706-2) GRAN MAT x10^3(ANC) 12.40 10*3/uL 1.88-7.09 H (test code = 9428655642) IMM GRAN x10^3 (test 0.09 10*3/uL 0.00-0.06 H code = 7005734809) LYMPH x10^3 (test code 2.00 10*3/uL 1.32-3.29 = 731-0) MONO x10^3 (test code 1.14 10*3/uL 0.33-0.92 H = 742-7) EOS x10^3 (test code = 0.04 10*3/uL 0.03-0.39 711-2) BASO x10^3 (test code 0.08 10*3/uL 0.01-0.07 H = 704-7) Lab Interpretation Abnormal (test code = 46050-9) [facility]"
[2022-10-24] MEDS ORDERED: ONDANSETRON 4 MG/2 ML VIAL ONE (23:57)
[2022-10-24] MEDS ORDERED: MORPHINE 4 MG/ML SYR ONE (23:57)
[2022-10-25] MEDS ORDERED: PIPERACIL/TAZO 3.375 GM VIAL IV ONE (00:18)
[2022-10-25] MEDS ORDERED: BUPIVACAINE 0.5% PF 10 ML VIAL ONE (00:18)
[2022-10-25] MEDS ORDERED: LIDOCAINE 1% W/EPI 1:100,000 50 ML MDV ONE (00:18)
[2022-10-25] MEDS ORDERED: NA CHLORIDE 0.9% 100 ML ONE (00:18)
[2022-10-25] MEDS ORDERED: LORazepam 2 MG/ML VIAL ONE (00:56)
--- NOTE | 2022-10-25 02:21 | ER ---
Nurse's Notes [facility] De Name: Cindy Ackerman Age: 47 yrs Sex: Female : 1975 Arrival Date: 10/24/2022 Time: 23:36 Bed 16 Private MD: Diagnosis: Laceration of unspecified muscles, fascia and tendons at thigh level, left thigh, initial encounter;Bitten by dog, initial encounter Presentation: 10/24 23:45 Chief complaint: EMS states: 47 year old female was walking in her neighborhood and got ha1 attacked by a dog. She has a dog bite on her left leg. She has left side stiffness from a previous accident in 2017. 23:45 Ebola Screen: No symptoms or risks identified at this time. Initial Sepsis Screen: Does ha1 the patient meet any 2 criteria? No. Patient's initial sepsis screen is negative. Does the patient have a suspected source of infection? No. Patient's initial sepsis screen is negative. Risk Assessment: Do you want to hurt yourself or someone else? Patient reports no desire to harm self or others. Onset of symptoms was October 24, 2022. 23:45 Method Of Arrival: EMS: [facility] ha1 23:45 Acuity: JEFFY 3 ha1 10/25 03:08 Coronavirus screen: At this time, the client does not indicate any symptoms associated jj7 with coronavirus-19. Triage Assessment: 10/24 23:45 General: Appears uncomfortable, Behavior is cooperative. Pain: Complains of pain in ha1 medial aspect of left thigh Pain does not radiate. Pain currently is 10 out of 10 on a pain scale. Quality of pain is described as sharp. Neuro: Level of Consciousness is awake, alert, obeys commands, Oriented to person, place, time, situation. Cardiovascular: Patient's skin is warm and dry. Respiratory: Airway is patent Respiratory effort is even, unlabored, Respiratory pattern is regular, symmetrical. Derm: Skin is moist, Skin is normal. Musculoskeletal:. Injury Description: Bite sustained to left leg caused by a dog, is full thickness, from animal. Historical: - Allergies: 23:57 PENICILLINS; ha1 23:57 Robaxin; ha1 - PMHx: 23:57 Anxiety; Asthma; Bipolar disorder; Hypercholesterolemia; Hypertensive disorder; PTSD; ha1 Seizure; - PSHx: 23:57 hip SX; ha1 - Immunization history:: Adult Immunizations unknown. - Social history:: Smoking status: unknown. Screenin/19 00:19 [facility] ED Fall Risk Assessment (Adult) Score/Fall Risk Level 0 - 2 = Low Risk. Abuse as6 screen: Denies threats or abuse. Denies injuries from another. Nutritional screening: No deficits noted. Tuberculosis screening: No symptoms or risk factors identified. Assessment: 00:18 General: [place] [employer] notified . as6 02:07 General: provider at bedside suturing . as6 Vital Signs: 10/24 23:45 BP 137 / 109; Pulse 109; Resp 20 S; Temp 99(O); Pulse Ox 100% on R/A; Weight 72.57 kg; ha1 Height 5 ft. 0 in. ; 10/25 01:15 BP 120 / 72; Pulse 92; Resp 18 S; Pulse Ox 99% on R/A; as6 02:06 BP 102 / 56; Pulse 95; Resp 18 S; Pulse Ox 95% on R/A; as6 02:55 BP 102 / 59; Pulse 91; Resp 16; Pulse Ox 99% ; Pain 0/10; jj7 10/24 23:45 Body Mass Index 31.25 (72.57 kg, 152.4 cm) ha1 02:55 Pain Scale: Adult jj7 ED Course: 10/24 23:45 Patient arrived in ED. jj7 23:45 Obed Arriola PA is PHCP. cp 23:45 Agustin Bloom MD is Attending Physician. cp 23:45 Inserted saline lock: 20 gauge in right antecubital area, using aseptic technique. jj7 Blood collected. 23:57 Triage completed. ha1 10/25 00:04 Chapo Zamorano, HUBERT is Primary Nurse. as6 00:05 Arm band placed on. as6 00:17 XRAY Femur LEFT In Process Unspecified. EDMS 00:18 XRAY Tib Fib LEFT In Process Unspecified. EDMS 00:19 Bed in low position. Call light in reach. Side rails up X2. Adult w/ patient. as6 02:20 Singh Valenzuela MD is Referral Physician. cp 03:07 No provider procedures requiring assistance completed. IV discontinued, intact, jj7 bleeding controlled, No redness/swelling at site. Pressure dressing applied. 03:08 Provided Education on: WOUND CARE. jj7 Administered Medications: 10/24 23:52 Drug: morphine IVP or IV 4 mg Route: IVP; Infused Over: 4 mins; Site: right antecubital;jj7 10/25 01:16 Follow up: Response: No adverse reaction as6 10/24 23:53 Drug: Ondansetron IVP 4 mg Route: IVP; Site: right antecubital; jj7 10/25 01:16 Follow up: Response: No adverse reaction as6 00:14 Drug: Piperacillin-Tazobactam IVPB 3.375 grams Route: IVPB; Infused Over: 60 mins; as6 Site: right antecubital; 01:16 Follow up: Response: No adverse reaction; IV Status: Completed infusion; IV Intake: as6 100ml 00:44 CANCELLED (Physician Discretion): LORazepam PO 1 mg PO once cp 00:49 Drug: Ativan IVP 1 mg Route: IVP; Site: right antecubital; as6 01:16 Follow up: Response: No adverse reaction as6 01:40 Drug: Lidocaine-Epinephrine Infiltration -1%: (1:100,000) 10 ml {Note: administered by as6 provider .} Volume: 20 ml; Route: Infiltration; 01:51 Follow up: Response: No adverse reaction as6 01:40 Drug: Bupivacaine Infiltration (0.5 %) 10 ml {Note: administered by provider.} Volume: as6 10 ml; Route: Infiltration; 01:51 Follow up: Response: No adverse reaction as6 02:46 Drug: Doxycycline PO 100 mg Route: PO; jj7 03:06 Follow up: Response: No adverse reaction jj7 Medication: 03:08 VIS not applicable for this client. jj7 Intake: 01:16 IV: 100ml; Total: 100ml. as6 Outcome: 02:21 Discharge ordered by . sherrie 03:07 Discharged to home via wheelchair, with family. jj7 03:07 Condition: improved 03:07 Discharge instructions given to patient, family, Instructed on discharge instructions, follow up and referral plans. medication usage, wound care, Demonstrated understanding of instructions, follow-up care, medications, wound care, Prescriptions given X 2. 03:34 Patient left the ED. jj7 Signatures: Dispatcher [employer] Obed Benítez PA PA cp Slawson, Ashby, RN RN as6 Mary Cedillo RN RN ha1 Ni Torrez RN RN jj7
--- NOTE | 2022-10-25 02:21 | EDPHYS ---
Physician Documentation [facility] De Name: Cindy Ackerman Age: 47 yrs Sex: Female : 1975 Arrival Date: 10/24/2022 Time: 23:36 Bed 16 Private MD: ED Physician Agustin Bloom HPI: 10/25 00:00 This 47 yrs old Female presents to ER via EMS with complaints of Dog Bite. cp 00:00 The patient was bitten on the medial aspect of left thigh, by a dog, as a result of cp being attacked by the animal, outdoors. Onset: The symptoms/episode began/occurred just prior to arrival. 00:00 Animal information: Patient/Caregiver unable to provide information related to the cp animal. Animal control has been notified. Associated signs and symptoms: Pertinent positives: bony tenderness, pain at site, Pertinent negatives: fever, motor deficit, numbness distal to wound. Historical: - Allergies: 10/24 23:57 PENICILLINS; ha1 23:57 Robaxin; ha1 - PMHx: 23:57 Anxiety; Asthma; Bipolar disorder; Hypercholesterolemia; Hypertensive disorder; PTSD; ha1 Seizure; - PSHx: 23:57 hip SX; ha1 - Immunization history:: Adult Immunizations unknown. - Social history:: Smoking status: unknown. ROS: 10/25 00:05 Constitutional: Negative for body aches, chills, fever, poor PO intake. cp Respiratory: Negative for cough, shortness of breath, wheezing. Abdomen/GI: Negative for abdominal pain, nausea, vomiting, and diarrhea. Back: Negative for pain at rest, pain with movement. Skin: Positive for ecchymosis, laceration(s), swelling, of the medial aspect of left thigh and left knee. 00:05 Cardiovascular: Negative for chest pain. cp 00:05 All other systems are negative. cp Exam: 00:10 Constitutional: The patient appears in no acute distress, alert, awake, cp non-diaphoretic, non-toxic, well developed, well nourished, in obvious pain. 00:10 Head/Face: Normocephalic, atraumatic. cp 00:10 Eyes: Periorbital structures: appear normal, Conjunctiva: normal, no exudate, no cp injection, Sclera: no appreciated abnormality, Lids and lashes: appear normal, bilaterally. 00:10 ENT: External ear(s): are unremarkable, Nose: is normal, Mouth: Lips: moist, Oral mucosa: moist, Posterior pharynx: is normal, airway is patent, no erythema, no exudate. 00:10 Chest/axilla: Inspection: normal. 00:10 Cardiovascular: Rate: tachycardic. 00:10 Respiratory: the patient does not display signs of respiratory distress, Respirations: normal, no use of accessory muscles, no retractions, labored breathing, is not present. 00:10 Abdomen/GI: Inspection: abdomen appears normal, Palpation: abdomen is soft and non-tender, in all quadrants. 00:10 Back: pain, is absent, ROM is normal. cp 00:10 Musculoskeletal/extremity: Extremities: grossly normal except: noted in the left leg: pain, ROM: limited passive range of motion due to pain, in the left leg, Pulses: noted to be 2+ in the left dorsalis pedis artery, the left leg Severe pain noted. 00:10 Skin: injury, laceration(s), of the medial aspect of left thigh and left knee, that can be described as contaminated, irregular, with mild bleeding. Vital Signs: 10/24 23:45 BP 137 / 109; Pulse 109; Resp 20 S; Temp 99(O); Pulse Ox 100% on R/A; Weight 72.57 kg; ha1 Height 5 ft. 0 in. ; 10/25 01:15 BP 120 / 72; Pulse 92; Resp 18 S; Pulse Ox 99% on R/A; as6 02:06 BP 102 / 56; Pulse 95; Resp 18 S; Pulse Ox 95% on R/A; as6 02:55 BP 102 / 59; Pulse 91; Resp 16; Pulse Ox 99% ; Pain 0/10; jj7 10/24 23:45 Body Mass Index 31.25 (72.57 kg, 152.4 cm) ha1 02:55 Pain Scale: Adult jj7 Laceration: 02:30 Wound Repair of 10cm ( 3.9in ) subcutaneous laceration to medial aspect of left thigh cp and left knee. Irregularly shaped.. Skin/tissue flap noted.. Distal neuro/vascular/tendon intact. Anesthesia: Wound infiltrated with 10 mls of Lido/Marcaine. Wound prep: Moderate cleansing by me, Wound irrigation by me. Skin closed with 7 4-0 Prolene using vertical mattress sutures and sterile technique. Dressed with Bacitracin, 4x4's. Patient tolerated fair. MDM: 10/24 23:48 Patient medically screened. 10/25 02:21 Data reviewed: vital signs, nurses notes, radiologic studies, plain films. 02:21 I considered the following discharge prescriptions or medication management in the emergency department Medications were administered in the Emergency Department. See MAR. Independent interpretation of the following test(s) in the Emergency Department X-Ray: My interpretation is images of left femur negative for fracture and/or foreign body, images of left tib/fib negative for fracture and/or foreign body. Care significantly affected by the following chronic conditions: Hypertension. Counseling: I had a detailed discussion with the patient and/or guardian regarding: the historical points, exam findings, and any diagnostic results supporting the discharge/admit diagnosis, radiology results, the need for outpatient follow up, a general surgeon, to return to the emergency department if symptoms worsen or persist or if there are any questions or concerns that arise at home. Response to treatment: the patient's symptoms have markedly improved after treatment, and as a result, I will discharge patient. 10/24 23:48 Order name: XRAY Femur LEFT 10/24 23:48 Order name: XRAY Tib Fib LEFT 10/24 23:48 Order name: IV; Complete Time: 01:40 cp 10/24 23:48 Order name: Dressing - Wound; Complete Time: 03:06 10/24 23:48 Order name: Gloves, Sterile; Complete Time: 01:40 10/24 23:48 Order name: Setup Suture Tray; Complete Time: 01:40 10/25 02:18 Order name: Wound dressing; Complete Time: 03:06 cp Administered Medications: 10/24 23:52 Drug: morphine IVP or IV 4 mg Route: IVP; Infused Over: 4 mins; Site: right antecubital;j 10/25 01:16 Follow up: Response: No adverse reaction as6 10/24 23:53 Drug: Ondansetron IVP 4 mg Route: IVP; Site: right antecubital; jj7 10/25 01:16 Follow up: Response: No adverse reaction as6 00:14 Drug: Piperacillin-Tazobactam IVPB 3.375 grams Route: IVPB; Infused Over: 60 mins; as6 Site: right antecubital; 01:16 Follow up: Response: No adverse reaction; IV Status: Completed infusion; IV Intake: as6 100ml 00:44 CANCELLED (Physician Discretion): LORazepam PO 1 mg PO once cp 00:49 Drug: Ativan IVP 1 mg Route: IVP; Site: right antecubital; as6 01:16 Follow up: Response: No adverse reaction as6 01:40 Drug: Lidocaine-Epinephrine Infiltration -1%: (1:100,000) 10 ml {Note: administered by as6 provider .} Volume: 20 ml; Route: Infiltration; 01:51 Follow up: Response: No adverse reaction as6 01:40 Drug: Bupivacaine Infiltration (0.5 %) 10 ml {Note: administered by provider.} Volume: as6 10 ml; Route: Infiltration; 01:51 Follow up: Response: No adverse reaction as6 02:46 Drug: Doxycycline PO 100 mg Route: PO; jj7 03:06 Follow up: Response: No adverse reaction jj7 Disposition Summary: 10/25/22 02:21 Discharge Ordered Location: Home cp Problem: new cp Symptoms: have improved cp Condition: Stable cp Diagnosis - Laceration of unspecified muscles, fascia and tendons at thigh level, left thigh, cp initial encounter - Bitten by dog, initial encounter cp Followup: cp - With: Singh Valenzuela MD - When: 2 - 3 days - Reason: Wound Recheck Discharge Instructions: - Discharge Summary Sheet cp - Animal Bite, Adult cp Forms: - Medication Reconciliation Form cp - Thank You Letter cp - Antibiotic Education cp - Prescription Opioid Use cp - Patient Portal Instructions cp Prescriptions: - Augmentin 875-125 mg Oral Tablet - take 1 tablet by ORAL route every 12 hours for 10 days; 20 tablet; Refills: 0, cp Product Selection Permitted - Tramadol 50 mg Oral Tablet - take 1 tablet by ORAL route every 8 hours as needed; 12 tablet; Refills: 0, cp Product Selection Permitted Signatures: Dispatcher [employer] EDObed Spivey PA PA cp Chapo Zamorano RN RN as6 Mary Cedillo RN RN ha1 Ni Torrez RN RN jj7 Corrections: (The following items were deleted from the chart) 00:44 00:44 LORazepam PO 1 mg PO once ordered. cp cp 10/26 01:49 01:46 Skin: Positive for ecchymosis, laceration(s), swelling, of the medial aspect of cp left thigh and left knee, cp 01:46 Constitutional: Negative for body aches, chills, fever, poor PO intake, cp cp 01:46 Respiratory: Negative for cough, shortness of breath, wheezing, cp cp 01:46 Abdomen/GI: Negative for abdominal pain, nausea, vomiting, and diarrhea, cp cp 01:46 Back: Negative for pain at rest, pain with movement, cp cp 01:46 All other systems are negative, cp cp 0210/25 00:05 All other systems are negative, cp cp
[2022-10-25] MEDS ORDERED: DOXYCYCLINE 100 MG CAP PO ONE (02:52)
[2022-10-25 03:58] VITALS: TEMP 99
[2022-10-25 04:02] VITALS: BP 102/59; O2SAT 99
--- NOTE | 2022-10-25 13:04 | RAD REPORT ---
EXAM DESCRIPTION: Femur Left RadLex: XR FEMUR 2 VIEWS CLINICAL HISTORY: 47 years Female, ANIMAL BITE COMPARISON: None. FINDINGS: AP and lateral views of the left femur. Postsurgical changes related to intramedullary julian and screw fixation of the left femur due to chronic fracture at the mid femoral shaft. No acute frac ture identified. There is soft tissue irregularity and lucency involving the posterior distal thigh, likely due to reported soft tissue injury. No underlying suspicious radiopaque foreign body. Partiall y visualized fixation screws across the left sacroiliac joint. Chronic appearing fracture deformity i nvolving the left inferior pubic ramus and possibly the left superior pubic ramus. IMPRESSION: 1. Soft tissue injury/laceration involving the posterior distal thigh without underlying acute fracture or suspicious radiopaque foreign body in the soft tissues. 2. Chronic posttraumatic and postsurgical changes as above. Electronically signed by: Jessie Alatorre MD 10/25/2022 12:27 AM CDT Due to temporary technical issues with the PACS/Fluency reporting system, reports are being signed by the in house radiologists without review as a courtesy to insure prompt reporting. The interpreting radiologist is fully responsible for the content of the report.
--- NOTE | 2022-10-25 13:05 | RAD REPORT ---
EXAM DESCRIPTION: Tib Fib Left CLINICAL HISTORY: 47 years Female ANIMAL BITE COMPARISON: None TECHNIQUE: 2 images of the left tibia and fibula were obtained. FINDINGS: No acute fractures seen. Normal bony mineralization. No erosive or lytic lesions seen. Internal fixation distal femur. IMPRESSION: No acute fracture or dislocation seen. Electronically signed by: Margo Palomares MD 10/25/2022 12:28 AM CDT Due to temporary technical issues with the PACS/Fluency reporting system, reports are being signed by the in house radiologists without review as a courtesy to insure prompt reporting. The interpreting radiologist is fully responsible for the content of the report.
== END 2022-10-25 03:34 | disposition home or self-care (01) ==
LOC: ER 23:36
PROC: 0HQLXZZ Repair Left Lower Leg Skin, External Approach (ICD-10-PCS; principal; 2022-10-25)
DX: S71.112A Laceration without foreign body, left thigh, initial encounter (principal); W54.0XXA Bitten by dog, initial encounter; Z88.0 Allergy status to penicillin; Z88.8 Allergy status to other drugs, medicaments and biological substances
CPT/HCPCS: 73552; 73590; 12004; J2543; J2405; 96365; 96375; 99285

== ENCOUNTER 2022-10-25 17:50 | Emergency (ER) | payer OTHER ==
--- OUTSIDE RECORDS SUMMARY | 2022-10-25 17:57 | XMS REPORT | Continuity of Care Document ---
:1975 Author Organization [facility] t Address [address] [facility]. [address] [place] [address] Care Team Providers Name Role Phone STEPHANIE JASSO Primary Care Physician Unavailable SHOAIB HARDY Attending Clinician Unavailable SHOAIB HARDY Attending Clinician Unavailable STEPHANIE JASSO Attending Clinician Unavailable Lab, Ang - Db Attending Clinician Unavailable Stephanie Jasso MD Attending Clinician [phone] Kahtia Carroll LMSW Attending Clinician BOBBY FIELDS Attending Clinician Unavailable ISABEL FIELDS Attending Clinician Unavailable Isabel Fields MD Attending Clinician Brittnee Mckinney MA Attending Clinician Unavailable Bobby Pfeiffer Attending Clinician Doctor Unassigned, [place] Attending Clinician Unavailable JOHN ESCAMILLA Attending Clinician Unavailable Sergio Majano MD Attending Clinician John Escamilla MD Attending Clinician BILL HUNG Attending Clinician Unavailable Bill Hung MD Attending Clinician NAZANIN GARCIA Attending Clinician Unavailable Nazanin Garcia DO Attending Clinician LUACS JEAN Attending Clinician Unavailable LUCAS JEAN Attending Clinician Unavailable EMY KING Attending Clinician Unavailable Emy King DO Attending Clinician SERGIO MAJANO Admitting Clinician Unavailable NAZANIN GARCIA Admitting Clinician Unavailable EMY KING Admitting Clinician Unavailable Payers Payer Name Policy Type Policy Number Effective Date Expiration Date Kira florian AMMOLLY WALSH [id number] 2022 PLUS 00:00:00 Problems Condition Condition Condition Status Onset Resolution Last Treating Co mments Source Name Details Category Date Date Treatment Clinician Date 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 09-27 it y of 00:00: [place] [facility] Leukocytos Leukocytos Disease Active U nivers is is 09-13 ity of 00:00: [place] [address] Medical Branch Closed Closed Disease Active Univers head head 09-07 ity of injury injury 00:00: [address] No known No known Disease Unive rs active active ity of problems problems [facility] Seizures Seizures Disease Active Unive rs ity of [facility] Allergies, Adverse Reactions, Alerts Allergy Allergy Status Severity Reaction(s) Onset Inactive Treating Comm ents Source Name Type Date Date Clinician METHOCAR DRUG Active Med Hives Univers BAMOL INGREDI 1-07 ity of 00:00: [place] [address] [place] [address] Methocar Propensi Active Hives Univer s bamol ty to 107 ity of adverse 00:00: [place] reaction [address] [place] [address] s [place] Social History Social Habit Start Date Stop Date Quantity Comments Source Alcohol intake 2022-09-27 2022-09-27 Current drinker of Un iversity of 00:00:00 00:00:00 alcohol (finding) [place] [facility] Alcohol Comment 2022-09-13 2022-09-13 occasionally Univers ity of 00:00:00 00:00:[address] [facility] Exposure to 2022-08-13 2022-08-23 Not sure University of SARS-CoV-2 00:00:00 12:49:[facility] [place] Tobacco use and 2022-02-09 2022-02-09 Smokeless tobacco Un iversity of exposure 00:00:00 00:00:[address] non-[address] [facility] Sex Assigned At [birth year] Universit y of 00:00:00 00:00:[address] [facility] Smoking Status Start Date Stop Date Source Tobacco smoking consumption Univ [facility]ity [facility] [place] [facility] unknown Branch Never smoked tobacco [facility] Medications Ordered Filled Start Stop Current Ordering Indication Dosage Frequency Signature Comments Components Source Medication Medication Date Date Medication? Clinician (SIG) Name Name levETIRAcet 2022-0 2022- No 1000mg Take 1 U nivers am 1,000 mg 6-21 06-21 tablet by it y of tablet 15:07: 00:00 mouth in [place] 59 :00 the Medical morning Branch and [...] y of tablet 15:07: 00:00 mouth in [place] 59 :00 the Medical morning Branch and [...] y of tablet 15:07: 00:00 mouth in [place] 59 :00 the Medical morning Branch and [...] ity of tablet 15:03: 00:00 mouth in [place] 36 :00 the Medical morning Branch and 1 tablet in the evening. QUEtiapine 2023-0 2023- No 200mg Take 1 Uni vers 200 mg 6-21 -21 tablet by ity of tablet 15:03: 00:00 mouth at [place] 36 :00 bedtime. Medical Branch pantoprazol 2023-0 2023- No 40mg Take 1 Uni vers e 40 mg EC 6-27 09- tablet by ity of tablet 15:03: 00:00 mouth in [place] 36 :00 the Medical morning. Branch OXcarbazepi 2023-0 2023- No 300mg Take 1 Un roel ne 300 mg 6-27 09- tablet by ity of tablet 15:03: 00:00 mouth in [place] 36 :00 the Medical morning Branch and 1 tablet in the evening. venlafaxine 2023-0 2023- No 75mg Take 1 Uni vers XR 75 mg 24 6-27 09- capsule by i ty of hr capsule 15:03: 00:00 mouth in [facility] 36 :00 the Medical morning. Branch topiramate 2023-0 2023- No 50mg Take 1 Univ ers 50 mg 6-27 09- tablet by ity of tablet 15:03: 00:00 mouth in [place] 36 :00 the Medical morning Branch and 1 tablet in the evening. QUEtiapine 2023-0 2023- No 200mg Take 1 Uni vers 200 mg 6-27 09-21 tablet by ity of tablet 15:03: 00:00 mouth at [place] 36 :00 bedtime. Medical Branch pantoprazol 2023-0 2023- No 40mg Take 1 Uni vers e 40 mg EC 6-27 09- tablet by ity of tablet 15:03: 00:00 mouth in [place] 36 :00 the Medical morning. Branch OXcarbazepi 2023-0 2023- No 300mg Take 1 Un roel ne 300 mg 6-27 09-21 tablet by ity of tablet 15:03: 00:00 mouth in [place] 36 :00 the Medical morning Branch and [...] ity of tablet 15:03: 00:00 mouth in [place] 36 :00 the Medical morning Branch and 1 tablet in the evening. QUEtiapine 2022-0 2022- No 200mg Take 1 Uni vers 200 mg 6-21 - tablet by ity of tablet 15:03: 00:00 mouth at [place] 36 :00 bedtime. Medical Branch pantoprazol 2022-0 2022- No 40mg Take 1 Uni vers e 40 mg EC 6-21 - tablet by ity of tablet 15:03: 00:00 mouth in [place] 36 :00 the Medical morning. Branch OXcarbazepi 2022-2022- No 300mg Take 1 Un roel ne 300 mg 6-21 - tablet by ity of tablet 15:03: 00:00 mouth in [place] 36 :00 the Medical morning Branch and 1 tablet in the evening. vitamin 2022-0 Yes [id number] 1{tbl} Take 1 Un roel D3-folic 6-21 tablet by ity of acid 125 00:00: mouth in [place] mcg (5,000 00 the Medical unit)-1 mg morning. Bran h Tab levETIRAcet 2022-0 Yes [id number] 1000mg Take 1 Univers am 1,000 mg 6-21 tablet by ity of tablet 00:00: mouth in [place] [address] the Medical morning Branch and 1 tablet in the evening. atorvastati 2022-0 Yes [id number] 20mg Take 1 Univers n 20 mg 6-21 tablet by ity of tablet 00:00: mouth in [place] [address] the Medical morning. Branch vitamin 2022-0 Yes [id number] 1{tbl} Take 1 Un roel D3-folic 6-21 tablet by ity of acid 125 00:00: mouth in [place] mcg (5,000 00 the Medical unit)-1 mg morning. Branc h Tab levETIRAcet 2022-0 Yes [id number] 1000mg Take 1 Univers am 1,000 mg 6-21 tablet by ity of tablet 00:00: mouth in [place] [address] the Medical morning Branch and 1 tablet in the evening. atorvastati 2022-0 Yes [id number] 20mg Take 1 Univers n 20 mg 6-21 tablet by ity of tablet 00:00: mouth in [place] 00 the Medical morning. Branch vitamin 2022-0 Yes [id number] 1{tbl} Take 1 Un roel D3-folic 6-21 tablet by ity of acid 125 00:00: mouth in [place] mcg (5,000 00 the Medical unit)-1 mg morning. Branc h Tab levETIRAcet 2022-0 Yes [id number] 1000mg Take 1 Univers am 1,000 mg 6-21 tablet by ity of tablet 00:00: mouth in [place] 00 the Medical morning Branch and 1 tablet in the evening. atorvastati 2022-0 Yes [id number] 20mg Take 1 Univers n 20 mg 6-21 tablet by ity of tablet 00:00: mouth in [place] 00 the Medical morning. Branch vitamin 2022-0 Yes [id number] 1{tbl} Take 1 Un roel D3-folic 6-21 tablet by ity of acid 125 00:00: mouth in [place] mcg (5,000 00 the Medical unit)-1 mg morning. Bran h Tab levETIRAcet 2022-0 Yes [id number] 1000mg Take 1 Univers am 1,000 mg 6-21 tablet by ity of tablet 00:00: mouth in [place] the Medical morning Branch and 1 tablet in the evening. atorvastati 2022-0 Yes [id number] 20mg Take 1 Univers n 20 mg 6-21 tablet by ity of tablet 00:00: mouth in [place] 00 the Medical morning. Branch vitamin 3-0 Yes [id number] 1{tbl} Take 1 Un roel D3-folic 6-21 tablet by ity of acid 125 00:00: mouth in [place] mcg (5,000 00 the Medical unit)-1 mg morning. Branc h Tab levETIRAcet 2022-0 Yes [id number] 1000mg Take 1 Univers am 1,000 mg 6-21 tablet by ity of tablet 00:00: mouth in [place] 00 the Medical morning Branch and 1 tablet in the evening. atorvastati 2022-0 Yes [id number] 20mg Take 1 Univers n 20 mg 6-21 tablet by ity of tablet 00:00: mouth in [place] 00 the Medical morning. Branch vitamin 3-0 Yes [id number] 1{tbl} Take 1 Un roel D3-folic 6-21 tablet by ity of acid 125 00:00: mouth in [place] mcg (5,000 00 the Medical unit)-1 mg morning. Bran h Tab levETIRAcet 2023-0 Yes [id number] 1000mg Take 1 Univers am 1,000 mg 6-21 tablet by ity of tablet 00:00: mouth in [place] [address] the Medical morning Branch and 1 tablet in the evening. atorvastati 2023-0 Yes [id number] 20mg Take 1 Univers n 20 mg 6-21 tablet by ity of tablet 00:00: mouth in [place] [address] the Medical morning. Branch vitamin 3-0 Yes [id number] 1{tbl} Take 1 Un roel D3-folic 6-21 tablet by ity of acid 125 00:00: mouth in [place] mcg (5,000 00 the Medical unit)-1 mg morning. [facility] h Tab levETIRAcet 2022-0 Yes [id number] 1000mg Take 1 Univers am 1,000 mg 6-21 tablet by ity of tablet 00:00: mouth in [place] [address] the Medical morning Branch and 1 tablet in the evening. atorvastati 2022-0 Yes [id number] 20mg Take 1 Univers n 20 mg 6-21 tablet by ity of tablet 00:00: mouth in [place] [address] the Medical morning. Branch levETIRAcet 2022-0 Yes 1000mg Take 1 Un roel am 1,000 mg 6-07 tablet by ity of tablet 13:59: mouth in [place] [address] the Medical morning Branch and 1 tablet in the evening. venlafaxine 3-0 Yes 75mg Take 1 Univ ers XR 75 mg 24 6-07 capsule by it y of hr capsule 13:59: mouth in [facility] 26 the Medical morning. Branch topiramate 2023-0 Yes 50mg Take 1 Unive rs 50 mg 6-07 tablet by ity of tablet 13:59: mouth in [place] [address] the Medical morning Branch and 1 tablet in the evening. QUEtiapine 2023-0 Yes 200mg Take 1 Univ ers 200 mg 6-07 tablet by ity of tablet 13:59: mouth at [place] [address] bedtime. Medical Branch pantoprazol 2023-0 Yes 40mg Take 1 Univ ers e 40 mg EC 6-07 tablet by ity of tablet 13:59: mouth in [place] [address] the Medical morning. Branch vitamin 2023-0 Yes 1{tbl} Take 1 Univer s D3-folic 6-07 tablet by ity of acid 125 13:59: mouth in [facility] (5,000 26 the Medical unit)-1 mg morning. Branc h Tab OXcarbazepi 2023-0 Yes 300mg Take 1 Uni vers ne 300 mg 6-07 tablet by ity o f tablet 13:59: mouth in [place] [address] the Medical morning Branch and 1 tablet in the evening. levETIRAcet 2023-0 Yes 1000mg Take 1 Un roel am 1,000 mg 6-07 tablet by ity of tablet 13:59: mouth in [place] [address] the Medical morning Branch and 1 tablet in the evening. venlafaxine 2023-0 Yes 75mg Take 1 Univ ers XR 75 mg 24 6-07 capsule by it y of hr capsule 13:59: mouth in [place] [address] the Medical morning. Branch topiramate 2023-0 Yes 50mg Take 1 Unive rs 50 mg 6-07 tablet by ity of tablet 13:59: mouth in [place] [address] the [facility] morning Branch and 1 tablet in the evening. QUEtiapine 2023-0 Yes 200mg Take 1 Univ ers 200 mg 6-07 tablet by ity of tablet 13:59: mouth at [place] [address] bedtime. Medical Branch pantoprazol 2023-0 Yes 40mg Take 1 Univ ers e 40 mg EC 6-07 tablet by ity of tablet 13:59: mouth in [place] [address] the Medical morning. Branch vitamin 2023-0 Yes 1{tbl} Take 1 Univer s D3-folic 6-07 tablet by ity of acid 125 13:59: mouth in [facility] [place] [facility] (5,000 26 the Medical unit)-1 mg morning. Branc h Tab OXcarbazepi 2023-0 Yes 300mg Take 1 Uni vers ne 300 mg 6-07 tablet by ity o f tablet 13:59: mouth in [place] [address] the Medical morning Branch and 1 tablet in the evening. levETIRAcet 2023-0 Yes 1000mg Take 1 Un roel am 1,000 mg 6-07 tablet by ity of tablet 13:59: mouth in [place] [address] the Medical morning Branch and 1 tablet in the evening. venlafaxine 2023-0 Yes 75mg Take 1 Univ ers XR 75 mg 24 6-07 capsule by it y of hr capsule 13:59: mouth in [facility] 26 the Medical morning. Branch topiramate 3-0 Yes 50mg Take 1 Unive rs 50 mg 6-07 tablet by ity of tablet 13:59: mouth in [place] [address] the Medical morning Branch and 1 tablet in the evening. QUEtiapine 2023-0 Yes 200mg Take 1 Univ ers 200 mg 6-07 tablet by ity of tablet 13:59: mouth at [place] [address] bedtime. Medical Branch pantoprazol 3-0 Yes 40mg Take 1 Univ ers e 40 mg EC 6-07 tablet by ity of tablet 13:59: mouth in [place] [address] the Medical morning. Branch vitamin 3-0 Yes 1{tbl} Take 1 Univer s D3-folic 6-07 tablet by ity of acid 125 13:59: mouth in [place] mcg (5,000 26 the Medical unit)-1 mg morning. Branc h Tab OXcarbazepi 2022-0 Yes 300mg Take 1 Uni vers ne 300 mg 6-07 tablet by ity o f tablet 13:59: mouth in [place] [address] the Medical morning Branch and 1 tablet in the evening. FLUoxetine 2023-0 Yes 10mg Take 1 Unive rs 10 mg 5-03 capsule by ity of capsule 00:00: mouth in [place] [address] the Medical morning. Branch prazosin 1 2022-0 Yes 1mg Take 1 Unive rs mg capsule 5-03 capsule by ity of 00:00: mouth at [place] [address] bedtime. Medical Branch risperiDONE 2023-0 Yes .5mg Take 1 Univ ers 0.5 mg 5-03 tablet by ity of tablet 00:00: mouth in [place] [address] the Medical morning Branch and 1 tablet in the evening. FLUoxetine 2023-0 Yes 10mg Take 1 Unive rs 10 mg 5-03 capsule by ity of capsule 00:00: mouth in [place] [address] the Medical morning. Branch prazosin 1 3-0 Yes 1mg Take 1 Unive rs mg capsule 5-03 capsule by ity of 00:00: mouth at [place] [address] bedtime. Medical Branch risperiDONE 2023-0 Yes .5mg Take 1 Univ ers 0.5 mg 5-03 tablet by ity of tablet 00:00: mouth in [place] [address] the Medical morning Branch and 1 tablet in the evening. FLUoxetine 2023-0 Yes 10mg Take 1 Unive rs 10 mg 5-03 capsule by ity of capsule 00:00: mouth in [place] 00 the Medical morning. Branch prazosin 1 3-0 Yes 1mg Take 1 Unive rs mg capsule 5-03 capsule by ity of 00:00: mouth at [place] 00 bedtime. Medical Branch risperiDONE 2023-0 Yes .5mg Take 1 Univ ers 0.5 mg 5-03 tablet by ity of tablet 00:00: mouth in [place] 00 the Medical morning Branch and 1 tablet in the evening. FLUoxetine 2023-0 2023- No 10mg Take 1 Univ ers 10 mg 5-06 12-21 capsule by ity of capsule 00:00: 00:00 mouth in [place] 00 :00 the Medical morning. Branch prazosin 1 3-0 2023- No 1mg Take 1 Univ ers mg capsule 5-06 12-21 capsule by it y of 00:00: 00:00 mouth at [place] 00 :00 bedtime. Medical Branch risperiDONE 2023-0 2023- No .5mg Take 1 Uni vers 0.5 mg 5-03 06-21 tablet by ity of tablet 00:00: 00:00 mouth in [place] 00 :00 the Medical morning Branch and 1 tablet in the evening. FLUoxetine 2023-0 2023- No 10mg Take 1 Univ ers 10 mg 5-03 -21 capsule by ity of capsule 00:00: 00:00 mouth in [place] 00 :00 the Medical morning. Branch prazosin 1 3-0 2023- No 1mg Take 1 Univ ers mg capsule 5-06 12-21 capsule by it y of 00:00: 00:00 mouth at [place] 00 :00 bedtime. Medical Branch risperiDONE 2023-0 2023- No .5mg Take 1 Uni vers 0.5 mg 5-03 06-21 tablet by ity of tablet 00:00: 00:00 mouth in [place] 00 :00 the Medical morning Branch and 1 tablet in the evening. FLUoxetine 2023-0 2023- No 10mg Take 1 Univ ers 10 mg 5-03 06-21 capsule by ity of capsule 00:00: 00:00 mouth in [place] 00 :00 the Medical morning. Branch prazosin [...] TABLET BY ity of tablet 00:00: MOUTH [place] 00 EVERY 8 Medical HOURS Branch NEEDED [...] First dose [place] mg 00 on [facility] 03/05/22 Branch at 0800, Until Discontinu ed, Routine D5W 0.9% 2021-04 Yes 1000mL at 125 Unive rs NaCl (NS) 1-27 mL/hr, ity of IV infusion 06:30: 1,000 mL, [place] 1,000 mL 00 IV Medical Infusion, Branch CONTINUOUS , Starting on [place] 03/05/22 at 0030, Until Discontinu ed, ELVIS NaCl 0.9% 2021-04- No 1000mL at 999 Uni vers (NS) bolus 05-05 11-27 mL/hr, ity of infusion 06:15: 20:58 1,000 mL, [place] 1,000 mL 00 :00 IV Medical Piggyback, Branch ONCE, 1 dose, On [place] 03/05/22 at 0015, STAT traZODone 2021-04 Yes 150mg 150 mg, Univ ers (DESYREL) 05-05 Oral, QHS, ity of tablet 150 03:00: First dose [place] mg 00 on [facility] 03/04/22 Branch at 2100, Until Discontinu ed, [place] OXcarbazepi 2021-04 Yes 150mg 150 mg, Un roel ne 05-05 Oral, BID, ity of (TRILEPTAL) 02:00: First dose [place] tablet 150 00 on [facility] 03/04/22 Branch at 2000, Until Discontinu ed, EL[place] lamoTRIgine 2021-04 Yes 25mg 25 mg, Univ ers (LAMICTAL) 05-05 Oral, BID, ity of tablet 25 02:00: First dose [place] mg 00 on [facility] 03/04/22 Branch at 2000, Until Discontinu ed, ELVIS NaCl 0.9% 2021-04- No 1000mL at 999 Uni vers (NS) bolus 05-05 11 mL/hr, ity of infusion 00:30: 21:00 1,000 mL, [place] 1,000 mL 00 :00 [facility], [place] ONCE, 1 dose, On [facility] 03/04/22 at 1830, STAT LORazepam 2021-04- No 1mg 1 mg, Slow U nivers (ATIVAN) 05-04 IV Push, ity of injection 1 22:00: 01:29 ONCE, 1 [place] mg 00 :00 dose, On Medical [facility] 03/04/22 at 1600, STAT traMADoL 50 [...] ity of tablet 13:34: 00:00 mouth in [place] 15 :00 the Medical morning Branch and [...] mouth ity of tablet 13:34: 00:00 daily. [place] 15 :00 [facility] Branch gabapentin 2021-04 No 300mg Take 300 U nivers 300 mg 04-09 mg by ity of capsule 13:34: 00:00 mouth in [place] 15 :00 the Medical morning Branch and 300 mg at noon and 300 mg in the evening. naproxen 2021-04 No 500mg Take 500 Uni vers 500 mg 04-09 mg by ity of tablet 13:34: 00:00 mouth in [place] 15 :00 the Medical morning Branch and [...] ity of tablet 13:26: 00:00 mouth 3 [place] 34 :00 (three) Medical times Branch daily. OXcarbazepi 2021-04- No 600mg Take 600 Univers ne 600 mg 04-09 mg by ity of tablet 13:26: 00:00 mouth 3 [place] 34 :00 (three) Medical times [place] daily. atorvastati 2021-04 Yes [id number] 20mg Take 1 Univers n 20 mg 1-01 tablet by ity of tablet 00:00: mouth in [place] [address] the Medical morning. Branch gabapentin 2021-04 Yes [id number] 300mg Take 1 Univers 300 mg - capsule by ity of capsule 00:00: mouth in [place] [address] the Medical morning Branch and 1 capsule at noon and 1 capsule in the evening. levETIRAcet 2021-04 Yes [id number] 1000mg Take 1 Univers am (KEPPRA) 1- tablet by ity of 1,000 mg 00:00: mouth in [place] [address] the Medical morning Branch and 1 tablet in the evening. naproxen 2021-04 Yes [id number] 500mg Take 1 Un roel 500 mg -01 tablet by ity of tablet 00:00: mouth in [place] [address] the Medical morning Branch and 1 tablet in the evening. Take with meals. atorvastati 2021-04 Yes [id number] 20mg Take 1 Univers n 20 mg 1-01 tablet by ity of tablet 00:00: mouth in [place] [address] the Medical morning. Branch gabapentin 2021-04 Yes [id number] 300mg Take 1 Univers 300 mg 1-01 capsule by ity of capsule 00:00: mouth in [place] [address] the Medical morning Branch and 1 capsule at noon and 1 capsule in the evening. levETIRAcet 2021-04 Yes [id number] 1000mg Take 1 Univers am (KEPPRA) 1-01 tablet by ity of 1,000 mg 00:00: mouth in [place] tablet 00 the Medical morning Branch and 1 tablet in the evening. naproxen 2021-04 Yes [id number] 500mg Take 1 Un roel 500 mg 1-01 tablet by ity of tablet 00:00: mouth in [place] 00 the Medical morning Branch and 1 tablet in the evening. Take with meals. atorvastati 2021-04 Yes [id number] 20mg Take 1 Univers n 20 mg 1-01 tablet by ity of tablet 00:00: mouth in [place] [address] the Medical morning. Branch gabapentin 2021-04 Yes [id number] 300mg Take 1 Univers 300 mg 1-01 capsule by ity of capsule 00:00: mouth in [place] 00 the Medical morning Branch and 1 capsule at noon and 1 capsule in the evening. levETIRAcet 2021-04 Yes [id number] 1000mg Take 1 Univers am (KEPPRA) 1-01 tablet by ity of 1,000 mg 00:00: mouth in [place] tablet 00 the [facility] morning [place] and 1 tablet in the evening. naproxen 2021-04 Yes [id number] 500mg Take 1 Un roel 500 mg 1-01 tablet by ity of tablet 00:00: mouth in [place] [address] the [facility] morning Branch and 1 tablet in the evening. Take with meals. atorvastati 2021-04 Yes [id number] 20mg Take 1 Univers n 20 mg 1-01 tablet by ity of tablet 00:00: mouth in [place] [address] the [facility] morning. Branch gabapentin 2021-04 Yes [id number] 300mg Take 1 Univers 300 mg 1-01 capsule by ity of capsule 00:00: mouth in [place] [address] the [facility] morning [place] and 1 capsule at noon and 1 capsule in the evening. levETIRAcet 2021-04 Yes [id number] 1000mg Take 1 Univers am (KEPPRA) 1-01 tablet by ity of 1,000 mg 00:00: mouth in [place] tablet 00 the [facility] morning Branch and 1 tablet in the evening. naproxen 2021-04 Yes [id number] 500mg Take 1 Un roel 500 mg 1-01 tablet by ity of tablet 00:00: mouth in [place] [address] the [facility] morning [place] and 1 tablet in the evening. Take with meals. atorvastati 2021-04 Yes [id number] 20mg Take 1 Univers n 20 mg 1-01 tablet by ity of tablet 00:00: mouth in [place] 00 the Medical morning. Branch gabapentin 2021-04 Yes [id number] 300mg Take 1 Univers 300 mg 1-01 capsule by ity of capsule 00:00: mouth in [place] 00 the Medical morning Branch and 1 capsule at noon and 1 capsule in the evening. levETIRAcet 2021-04 Yes [id number] 1000mg Take 1 Univers am (KEPPRA) 1-01 tablet by ity of 1,000 mg 00:00: mouth in [place] tablet 00 the Medical morning Branch and 1 tablet in the evening. naproxen 2021-04 Yes [id number] 500mg Take 1 Un roel 500 mg 1-01 tablet by ity of tablet 00:00: mouth in [place] 00 the Medical morning Branch and 1 tablet in the evening. Take with meals. atorvastati 2021-04 Yes [id number] 20mg Take 1 Univers n 20 mg 1-01 tablet by ity of tablet 00:00: mouth in [place] the morning. Branch gabapentin 2021-04 Yes [id number] 300mg Take 1 Univers 300 mg 1-01 capsule by ity of capsule 00:00: mouth in [place] the Medical morning Branch and 1 capsule at noon and 1 capsule in the evening. levETIRAcet 2021-04 Yes [id number] 1000mg Take 1 Univers am (KEPPRA) 1-01 tablet by ity of 1,000 mg 00:00: mouth in [place] tablet 00 the Medical morning Branch and 1 tablet in the evening. naproxen 2021-04 Yes [id number] 500mg Take 1 Un roel 500 mg 1-01 tablet by ity of tablet 00:00: mouth in [place] 00 the Medical morning Branch and 1 tablet in the evening. Take with meals. atorvastati 2021-04 Yes [id number] 20mg Take 1 Univers n 20 mg 1-01 tablet by ity of tablet 00:00: mouth in [place] 00 the Medical morning. Branch gabapentin 2021-04 Yes [id number] 300mg Take 1 Univers 300 mg 1-01 capsule by ity of capsule 00:00: mouth in [place] 00 the Medical morning Branch and 1 capsule at noon and 1 capsule in the evening. levETIRAcet 2021-04 Yes [id number] 1000mg Take 1 Univers am (KEPPRA) 1-01 tablet by ity of 1,000 mg 00:00: mouth in [place] tablet 00 the Medical morning Branch and 1 tablet in the evening. naproxen 2021-04 Yes [id number] 500mg Take 1 Un roel 500 mg 1-01 tablet by ity of tablet 00:00: mouth in [place] 00 the Medical morning Branch and 1 tablet in the evening. Take with meals. atorvastati 2021-04 Yes [id number] 20mg Take 1 Univers n 20 mg 1-01 tablet by ity of tablet 00:00: mouth in [place] [address] the Medical morning. Branch gabapentin 2021-04 Yes [id number] 300mg Take 1 Univers 300 mg 1-01 capsule by ity of capsule 00:00: mouth in [place] 00 the Medical morning Branch and 1 capsule at noon and 1 capsule in the evening. levETIRAcet 2021-04 Yes [id number] 1000mg Take 1 Univers am (KEPPRA) 1-01 tablet by ity of 1,000 mg 00:00: mouth in [place] tablet the Medical morning Branch and 1 tablet in the evening. naproxen 2021-04 Yes [id number] 500mg Take 1 Un roel 500 mg 1-01 tablet by ity of tablet 00:00: mouth in [place] the Medical morning Branch and 1 tablet in the evening. Take with meals. atorvastati 2021-04 Yes [id number] 20mg Take 1 [facility] n 20 mg 1-01 tablet by ity of tablet 00:00: mouth in [place] [address] the Medical morning. Branch gabapentin 2021-04 Yes [id number] 300mg Take 1 [facility] 300 mg 1-01 capsule by ity of capsule 00:00: mouth in [place] [address] the Medical morning Branch and 1 capsule at noon and 1 capsule in the evening. levETIRAcet 2021-04 Yes [id number] 1000mg Take 1 Univers am (KEPPRA) 1-01 tablet by ity of 1,000 mg 00:00: mouth in [place] tablet 00 the Medical morning Branch and 1 tablet in the evening. naproxen 2021-04 Yes [id number] 500mg Take 1 Un roel 500 mg 1-01 tablet by ity of tablet 00:00: mouth in [place] [address] the Medical morning Branch and 1 tablet in the evening. Take with meals. atorvastati 2021-04 Yes [id number] 20mg Take 1 [facility] n 20 mg 1-01 tablet by ity of tablet 00:00: mouth in [place] the Medical morning. Branch gabapentin 2021-04 Yes [id number] 300mg Take 1 [facility] 300 mg 1-01 capsule by ity of capsule 00:00: mouth in [place] 00 the Medical morning Branch and 1 capsule at noon and 1 capsule in the evening. levETIRAcet 2021-04 Yes [id number] 1000mg Take 1 [facility] am (KEPPRA) 1-01 tablet by ity of 1,000 mg 00:00: mouth in [place] tablet 00 the Medical morning Branch and 1 tablet in the evening. naproxen 2021-04 Yes [id number] 500mg Take 1 Un roel 500 mg 1-01 tablet by ity of tablet 00:00: mouth in [place] 00 the Medical morning Branch and 1 tablet in the evening. Take with meals. atorvastati 2021-04 Yes [id number] 20mg Take 1 [facility] n 20 mg 1-01 tablet by ity of tablet 00:00: mouth in [place] the Medical morning. Branch gabapentin 2021-04 Yes [id number] 300mg Take 1 [facility] 300 mg 1-01 capsule by ity of capsule 00:00: mouth in [place] the Medical morning Branch and 1 capsule at noon and 1 capsule in the evening. levETIRAcet 2021-04 Yes [id number] 1000mg Take 1 [facility] am (KEPPRA) 1-01 tablet by ity of 1,000 mg 00:00: mouth in [place] tablet 00 the Medical morning Branch and 1 tablet in the evening. naproxen 2021-04 Yes [id number] 500mg Take 1 Un roel 500 mg 1-01 tablet by ity of tablet 00:00: mouth in [place] [address] the Medical morning Branch and 1 tablet in the evening. Take with meals. atorvastati 2021-04 Yes [id number] 20mg Take 1 [facility] n 20 mg 1-01 tablet by ity of tablet 00:00: mouth in [place] [address] the Medical morning. Branch gabapentin 2021-04 Yes [id number] 300mg Take 1 [facility] 300 mg 1-01 capsule by ity of capsule 00:00: mouth in [place] [address] the Medical morning Branch and 1 capsule at noon and 1 capsule in the evening. levETIRAcet 2021-04 Yes [id number] 1000mg Take 1 [facility] am (KEPPRA) 1-01 tablet by ity of 1,000 mg 00:00: mouth in [place] tablet 00 the Medical morning Branch and 1 tablet in the evening. naproxen 2021-04 Yes [id number] 500mg Take 1 Un roel 500 mg 1-01 tablet by ity of tablet 00:00: mouth in [place] the Medical morning Branch and 1 tablet in the evening. Take with meals. atorvastati 2021-04 Yes [id number] 20mg Take 1 [facility] n 20 mg 1-01 tablet by ity of tablet 00:00: mouth in [place] [address] the Medical morning. Branch gabapentin 2021-04 Yes [id number] 300mg Take 1 [facility] 300 mg 1-01 capsule by ity of capsule 00:00: mouth in [place] [address] the [facility] morning Branch and 1 capsule at noon and 1 capsule in the evening. levETIRAcet 2021-04 Yes [id number] 1000mg Take 1 Univers am (KEPPRA) 1-01 tablet by ity of 1,000 mg 00:00: mouth in [place] tablet the [facility] morning Branch and 1 tablet in the evening. naproxen 2021-04 Yes [id number] 500mg Take 1 Un roel 500 mg 1-01 tablet by ity of tablet 00:00: mouth in [place] [address] the [facility] morning Branch and 1 tablet in the evening. Take with meals. atorvastati 2021-04 Yes [id number] 20mg Take 1 [facility] n 20 mg 1-01 tablet by ity of tablet 00:00: mouth in [place] [address] the morning. Branch gabapentin 2021-04 Yes [id number] 300mg Take 1 [facility] 300 mg 1-01 capsule by ity of capsule 00:00: mouth in [place] [address] the [facility] morning [place] and 1 capsule at noon and 1 capsule in the evening. levETIRAcet 2021-04 Yes [id number] 1000mg Take 1 Univers am (KEPPRA) 1-01 tablet by ity of 1,000 mg 00:00: mouth in [place] tablet 00 the [facility] morning Branch and 1 tablet in the evening. naproxen 2021-04 Yes [id number] 500mg Take 1 Un roel 500 mg 1-01 tablet by ity of tablet 00:00: mouth in [place] [address] the [facility] morning [place] and 1 tablet in the evening. Take with meals. atorvastati 2021-04 Yes [id number] 20mg Take 1 [facility] n 20 mg 1-01 tablet by ity of tablet 00:00: mouth in [place] the morning. Branch gabapentin 2021-04 Yes [id number] 300mg Take 1 [facility] 300 mg 1-01 capsule by ity of capsule 00:00: mouth in [place] 00 the Medical morning Branch and 1 capsule at noon and 1 capsule in the evening. levETIRAcet 2021-04 Yes [id number] 1000mg Take 1 Univers am (KEPPRA) 1-01 tablet by ity of 1,000 mg 00:00: mouth in [facility] 00 the Medical morning Branch and 1 tablet in the evening. naproxen 2021-04 Yes [id number] 500mg Take 1 Un roel 500 mg 1-01 tablet by ity of tablet 00:00: mouth in [place] the Medical morning Branch and 1 tablet in the evening. Take with meals. atorvastati 2021-04 Yes [id number] 20mg Take 1 [facility] n 20 mg 1-01 tablet by ity of tablet 00:00: mouth in [place] the morning. Branch gabapentin 2021-04 Yes [id number] 300mg Take 1 [facility] 300 mg 1-01 capsule by ity of capsule 00:00: mouth in [place] the Medical morning Branch and 1 capsule at noon and 1 capsule in the evening. naproxen 2021-04 Yes [id number] 500mg Take 1 Un roel 500 mg 1-01 tablet by ity of tablet 00:00: mouth in [place] the Medical morning Branch and 1 tablet in the evening. Take with meals. atorvastati 2021-04 Yes [id number] 20mg Take 1 [facility] n 20 mg 1-01 tablet by ity of tablet 00:00: mouth in [place] the Medical morning. Branch gabapentin 2021-04 Yes [id number] 300mg Take 1 [facility] 300 mg 1-01 capsule by ity of capsule 00:00: mouth in [place] the Medical morning Branch and 1 capsule at noon and 1 capsule in the evening. naproxen 2021-04 Yes [id number] 500mg Take 1 Un roel 500 mg 1-01 tablet by ity of tablet 00:00: mouth in [place] [address] the Medical morning Branch and 1 tablet in the evening. Take with meals. atorvastati 2021-04 Yes [id number] 20mg Take 1 [facility] n 20 mg -01 tablet by ity of tablet 00:00: mouth in [place] 00 the Medical morning. Branch gabapentin 2021-04 Yes [id number] 300mg Take 1 [facility] 300 mg -01 capsule by ity of capsule 00:00: mouth in [place] 00 the Medical morning Branch and 1 capsule at noon and 1 capsule in the evening. naproxen 2021-04 Yes [id number] 500mg Take 1 Un roel 500 mg 04-09 tablet by ity of tablet 00:00: mouth in [place] 00 the Medical morning Branch and 1 tablet in the evening. Take with meals. atorvastati 2021-04- No [id number] 20mg Take 1 [facility] n 20 mg 04-09 tablet by ity of tablet 00:00: 00:00 mouth in [place] 00 :00 the Medical morning. Branch gabapentin 2021-04- No [id number] 300mg Take 1 [facility] 300 mg 04-09 capsule by ity of capsule 00:00: 00:00 mouth in [place] 00 :00 the Medical morning Branch and 1 capsule at noon and 1 capsule in the evening. naproxen 2021-04- No [id number] 500mg Take 1 U nivers 500 mg 04-09 tablet by ity of tablet 00:00: 00:00 mouth in [place] 00 :00 the Medical morning Branch and 1 tablet in the evening. Take with meals. atorvastati 2021-04- No [id number] 20mg Take 1 [facility] n 20 mg 04-09 tablet by ity of tablet 00:00: 00:00 mouth in [place] 00 :00 the Medical morning. Branch gabapentin 2021-04- No [id number] 300mg Take 1 [facility] 300 mg 04-09 capsule by ity of capsule 00:00: 00:00 mouth in [place] 00 :00 the Medical morning Branch and 1 capsule at noon and 1 capsule in the evening. naproxen 2021-04- No [id number] 500mg Take 1 U nivers 500 mg 04-09 tablet by ity of tablet 00:00: 00:00 mouth in [place] 00 :00 the Medical morning Branch and 1 tablet in the evening. Take with meals. atorvastati 2021-04- No [id number] 20mg Take 1 [facility] n 20 mg 04-09 tablet by ity of tablet 00:00: 00:00 mouth in [place] 00 :00 the [facility]. Branch gabapentin 2021-04- No [id number] 300mg Take 1 Univers 300 mg 04-09 capsule by ity of capsule 00:00: 00:00 mouth in [place] 00 :00 the [facility] morning Branch and 1 capsule at noon and 1 capsule in the evening. naproxen 2021-04- No [id number] 500mg Take 1 U nivers 500 mg 04-09 tablet by ity of tablet 00:00: 00:00 mouth in [place] 00 :00 the [facility] Branch and 1 tablet in the evening. Take with meals. ibuprofen 2021-04- No 600mg 600 mg, Uni vers (IBU) 0-30 10-30 Oral, ity of tablet 600 21:15: 21:11 ONCE, 1 [place] as mg 00 :00 dose, On [facility] Branch 02/05/22 at 1615, ELVIS tiZANidine 2021-04 Yes [id number] 4mg Take 1 U nivers 4 mg 0-27 capsule by ity of capsule 00:00: mouth in [place] [address] the [facility] Branch and 1 capsule at noon and 1 capsule in the evening. tiZANidine 2021-04 Yes [id number] 4mg Take 1 U nivers 4 mg 0-27 capsule by ity of capsule 00:00: mouth in [place] [address] the [facility] and 1 capsule at noon and 1 capsule in the evening. tiZANidine 2021-04 Yes [id number] 4mg Take 1 U nivers 4 mg 0-27 capsule by ity of capsule 00:00: mouth in [place] [address] the [facility] morning Branch and 1 capsule at noon and 1 capsule in the evening. tiZANidine 2021-04 Yes [id number] 4mg Take 1 U nivers 4 mg 0-27 capsule by ity of capsule 00:00: mouth in [place] [address] the [facility] Branch and 1 capsule at noon and 1 capsule in the evening. tiZANidine 2021-04 Yes [id number] 4mg Take 1 U nivers 4 mg 0-27 capsule by ity of capsule 00:00: mouth in [place] 00 the Medical morning Branch and 1 capsule at noon and 1 capsule in the evening. tiZANidine 2021-04 Yes [id number] 4mg Take 1 U nivers 4 mg 0-27 capsule by ity of capsule 00:00: mouth in [place] [address] the Medical morning Branch and 1 capsule at noon and 1 capsule in the evening. tiZANidine 2021-04 Yes [id number] 4mg Take 1 U nivers 4 mg 0-27 capsule by ity of capsule 00:00: mouth in [place] [address] the [facility] morning Branch and 1 capsule at noon and 1 capsule in the evening. tiZANidine 2021-04 Yes [id number] 4mg Take 1 U nivers 4 mg 0-27 capsule by ity of capsule 00:00: mouth in [place] [address] the [facility] morning Branch and 1 capsule at noon and 1 capsule in the evening. tiZANidine 2021-04 Yes [id number] 4mg Take 1 U nivers 4 mg 0-27 capsule by ity of capsule 00:00: mouth in [address] morning [place] and 1 capsule at noon and 1 capsule in the evening. tiZANidine 2021-04 Yes [id number] 4mg Take 1 U nivers 4 mg 0-27 capsule by ity of capsule 00:00: mouth in [address] morning [place] and 1 capsule at noon and 1 capsule in the evening. tiZANidine 2021-04 Yes [id number] 4mg Take 1 U nivers 4 mg 0-27 capsule by ity of capsule 00:00: mouth in [address] morning [place] and 1 capsule at noon and 1 capsule in the evening. tiZANidine 2021-04 Yes [id number] 4mg Take 1 U nivers 4 mg 0-27 capsule by ity of capsule 00:00: mouth in [address] morning Branch and 1 capsule at noon and 1 capsule in the evening. tiZANidine 2021-04 Yes [id number] 4mg Take 1 U nivers 4 mg 0-27 capsule by ity of capsule 00:00: mouth in [address] morning [place] and 1 capsule at noon and 1 capsule in the evening. tiZANidine 2021-04 Yes [id number] 4mg Take 1 U nivers 4 mg 0-27 capsule by ity of capsule 00:00: mouth in [place] 00 the Medical morning Branch and 1 capsule at noon and 1 capsule in the evening. tiZANidine 2021-04 Yes [id number] 4mg Take 1 U nivers 4 mg 0-27 capsule by ity of capsule 00:00: mouth in [place] 00 the Medical morning Branch and 1 capsule at noon and 1 capsule in the evening. tiZANidine 2021-04 Yes [id number] 4mg Take 1 U nivers 4 mg 0-27 capsule by ity of capsule 00:00: mouth in [place] 00 the Medical morning Branch and 1 capsule at noon and 1 capsule in the evening. tiZANidine 2021-04 Yes [id number] 4mg Take 1 U nivers 4 mg 0-27 capsule by ity of capsule 00:00: mouth in [place] 00 the Medical morning Branch and 1 capsule at noon and 1 capsule in the evening. tiZANidine 2021-04 Yes [id number] 4mg Take 1 U nivers 4 mg 0-27 capsule by ity of capsule 00:00: mouth in [place] 00 the Medical morning Branch and 1 capsule at noon and 1 capsule in the evening. tiZANidine 2021-04 Yes [id number] 4mg Take 1 U nivers 4 mg 0-27 capsule by ity of capsule 00:00: mouth in [place] 00 the Medical morning Branch and 1 capsule at noon and 1 capsule in the evening. tiZANidine 2021-04 Yes [id number] 4mg Take 1 U nivers 4 mg 0-27 capsule by ity of capsule 00:00: mouth in [place] 00 the Medical morning Branch and 1 capsule at noon and 1 capsule in the evening. tiZANidine 2021-04- No [id number] 4mg Take 1 Univers 4 mg 0-27 06-21 capsule by ity of capsule 00:00: 00:00 mouth in [place] 00 :00 the Medical morning Branch and 1 capsule at noon and 1 capsule in the evening. tiZANidine 2021-04- No [id number] 4mg Take 1 Univers 4 mg 0-27 06-21 capsule by ity of capsule 00:00: 00:00 mouth in [place] 00 :00 the Medical morning Branch and 1 capsule at noon and 1 capsule in the evening. tiZANidine 2021-04- No [id number] 4mg Take 1 Univers 4 mg 0-27 [...] Sun10/12/21 Branch at 1100, Routine iopamidol No [id number] 60mL 60 mL, U nivers (ISOVUE 10-12 [...] Sun10/12/21 at 1000, STAT ondansetron 2021-0 Yes [id number] 4mg Take 1 Univers 4 mg 7-06 tablet by ity of disintegrat 00:00: mouth [place] ing tablet 00 every 8 Medica l (eight) Branch hours as needed for Nausea and Vomiting (N/V). dicyclomine 2-0 Yes [id number] 20mg Take 1 Univers 20 mg 7-06 tablet by ity of tablet 00:00: mouth 4 00 (four) Medical times Branch daily. ondansetron 2-0 Yes [id number] 4mg Take 1 [facility] 4 mg 7-06 tablet by ity of disintegrat 00:00: mouth [place] ing tablet 00 every 8 Medica l (eight) Branch hours as needed for Nausea and Vomiting (N/V). dicyclomine 2022-0 Yes [id number] 20mg Take 1 [facility] 20 mg 7-06 tablet by ity of tablet 00:00: mouth 4 [place] 00 (four) Medical times Branch daily. ondansetron 2022-0 Yes [id number] 4mg Take 1 Univers 4 mg 7-06 tablet by ity of disintegrat 00:00: mouth [place] ing tablet 00 every 8 Medica l (eight) Branch hours as needed for Nausea and Vomiting (N/V). dicyclomine 2021-0 Yes [id number] 20mg Take 1 [facility] 20 mg 7-06 tablet by ity of tablet 00:00: mouth 4 [place] 00 (four) Medical times Branch daily. ondansetron 2021-0 2021- No [id number] 4mg Take 1 [facility] 4 mg 7-02-07 tablet by ity of disintegrat 00:00: 00:00 [place] tablet [place] :00 every 8 Medica l (eight) Branch hours as needed for Nausea and Vomiting (N/V). dicyclomine 2021-0 2021- No [id number] 20mg Take 1 [facility] 20 mg -02-07 tablet by ity of tablet 00:00: 00:00 mouth 4 [place] 00 :00 (four) Medical times Branch daily. ondansetron 2021-0 2- No [id number] 4mg Take 1 [facility] 4 mg -09 17- tablet by ity of disintegrat 00:00: 00:00 [place] :00 every 8 Medica l (eight) Branch hours as needed for Nausea and Vomiting (N/V). dicyclomine 2021-0 2021- No [id number] 20mg Take 1 Univers 20 mg -02-07 [...] ity of capsule 16:02: 00:00 mouth 3 [place] 48 :00 (three) Medical times Branch daily. busPIRone 2021-0 2021- No 15mg Take 15 mg U nivers 15 mg -29 04-21 by mouth 3 ity of tablet 16:02: 00:00 (three) [place] 33 :00 times Medical daily. Branch atorvastati 2021-0 Yes 20mg Take 20 mg Univers n 20 mg 1-07 by mouth ity of tablet 15:04: daily. [place] [address] Medical Branch OXcarbazepi 2021-0 Yes 600mg Take 600 U nivers ne 600 mg 1-07 mg by ity of tablet 15:04: mouth 3 [place] 25 (three) Medical times Branch daily. ergocalcife 2021-0 Yes 1{capsu Take 1 U nivers rol, 1-07 le} capsule by ity of vitamin d2, 15:04: mouth 2 [place] 1,250 mcg 25 (two) Medical (50,000 times Branch unit) daily. capsule atorvastati 2021-0 Yes 20mg Take 20 mg Univers n 20 mg 1-07 by mouth ity of tablet 15:04: daily. [place] [address] Medical Branch OXcarbazepi 2-0 Yes 600mg Take 600 U nivers ne 600 mg 1-07 mg by ity of tablet 15:04: mouth 3 [place] 25 (three) Medical times Branch daily. ergocalcife 2-0 Yes 1{capsu Take 1 U nivers rol, 1-07 le} capsule by ity of vitamin d2, 15:04: mouth 2 [place] 1,250 mcg 25 (two) Medical (50,000 times Branch unit) daily. capsule atorvastati 2-0 Yes 20mg Take 20 mg Univers n 20 mg 1-07 by mouth ity of tablet 15:04: daily. [place] [address] Medical Branch OXcarbazepi 2-0 Yes 600mg Take 600 U nivers ne 600 mg 1-07 mg by ity of tablet 15:04: mouth 3 [place] 25 (three) Medical times Branch daily. ergocalcife 2022-0 Yes 1{capsu Take 1 U nivers rol, 1-07 le} capsule by ity of vitamin d2, 15:04: mouth 2 [place] 1,250 mcg 25 (two) Medical (50,000 times Branch unit) daily. capsule atorvastati 2-0 Yes 20mg Take 20 mg Univers n 20 mg 1-07 by mouth ity of tablet 15:04: daily. [address] OXcarbazepi 2-0 Yes 600mg Take 600 U nivers ne 600 mg 1-07 mg by ity of tablet 15:04: mouth 3 [place] 25 (three) Medical times Branch daily. ergocalcife 2021-0 Yes 1{capsu Take 1 U nivers rol, 1-07 le} capsule by ity of vitamin d2, 15:04: mouth 2 [place] 1,250 mcg 25 (two) Medical (50,000 times Branch unit) daily. capsule atorvastati 2021-0 Yes 20mg Take 20 mg Univers n 20 mg 1-07 by mouth ity of tablet 15:04: daily. [address] OXcarbazepi 2-0 Yes 600mg Take 600 U nivers ne 600 mg 1-07 mg by ity of tablet 15:04: mouth 3 [place] 25 (three) Medical times Branch daily. ergocalcife 2-0 Yes 1{capsu Take 1 U nivers rol, 1-07 le} capsule by ity of vitamin d2, 15:04: mouth 2 [place] 1,250 mcg 25 (two) Medical (50,000 times Branch unit) daily. capsule atorvastati 2021-0 Yes 20mg Take 20 mg Univers n 20 mg 1-07 by mouth ity of tablet 15:04: daily. [address] OXcarbazepi 2-0 Yes 600mg Take 600 U nivers ne 600 mg 1-07 mg by ity of tablet 15:04: mouth 3 [place] 25 (three) Medical times Branch daily. ergocalcife 2022-0 Yes 1{capsu Take 1 U nivers rol, 1-07 le} capsule by ity of vitamin d2, 15:04: mouth 2 [place] 1,250 mcg 25 (two) Medical (50,000 times Branch unit) daily. capsule atorvastati 2-0 Yes 20mg Take 20 mg Univers n 20 mg 1-07 by mouth ity of tablet 15:04: daily. [place] [address] Medical Branch OXcarbazepi 2021-0 Yes 600mg Take 600 U nivers ne 600 mg 1-07 mg by ity of tablet 15:04: mouth 3 [place] 25 (three) Medical times Branch daily. ergocalcife 2021-0 Yes 1{capsu Take 1 U nivers rol, 1-07 le} capsule by ity of vitamin d2, 15:04: mouth 2 [place] 1,250 mcg 25 (two) Medical (50,000 times Branch unit) daily. capsule atorvastati Yes 20mg Take 20 mg Univers n 20 mg 1-07 by mouth ity of tablet 15:04: daily. [place] [address] Medical Branch OXcarbazepi 0 Yes 600mg Take 600 U nivers ne 600 mg 1-07 mg by ity of tablet 15:04: mouth 3 [place] 25 (three) Medical times Branch daily. ergocalcife 0 Yes 1{capsu Take 1 U nivers rol, 1-07 le} capsule by ity of vitamin d2, 15:04: mouth 2 [place] 1,250 mcg 25 (two) Medical (50,000 times Branch unit) daily. capsule naproxen 2021- No [id number] 500mg Take 1 Univers (NAPROSYN) 1-10 07- tablet by ity of 500 mg 00:00: 00:00 mouth 2 [place] tablet 00 :00 (two) Medical times Branch daily with meals. Immunizations Ordered Filled Immunization Date Status Comments [facility] e Immunization Name Name Influenza Virus [...] Universit y of Vaccine [facility] IM, 00:00:00 [place] Me dical Preserv and ABX Branch Free 6 MO-64 YRS Influenza Virus 2022-02-07 Completed Universit y of Vaccine [facility] IM, 00:00:00 [place] Me dical Preserv and ABX Branch Free 6 MO-64 YRS Influenza Virus 2022-02-07 Completed Universit y of Vaccine [facility] IM, 00:00:00 [place] Me dical Preserv and ABX Branch Free 6 MO-64 YRS Influenza Virus 2022-02-07 Completed Universit y of Vaccine [facility] IM, 00:00:00 [place] Me dical Preserv and ABX Branch Free [...] Unive rsity of VACCINE - (MODERNA) 00:00:[address] [facility] SARS-COV-2 COVID-19 2021-04-27 Completed Unive rsity of VACCINE - (MODERNA) 00:00:[address] [facility] SARS-COV-2 COVID-19 2021-04-27 Completed Unive rsity of VACCINE - (MODERNA) 00:00:[address] [facility] SARS-COV-2 COVID-19 2021-04-27 Completed Unive rsity of VACCINE - (MODERNA) 00:00:[address] [facility] SARS-COV-2 COVID-19 2021-04-27 Completed Unive rsity of VACCINE - (MODERNA) 00:00:[address] [facility] SARS-COV-2 COVID-19 2021-04-27 Completed Unive rsity of VACCINE - (MODERNA) 00:00:00 [facility] SARS-COV-2 COVID-19 2021-04-27 Completed Unive rsity of VACCINE - (MODERNA) 00:00:00 [facility] SARS-COV-2 COVID-19 2021-04-27 Completed Unive rsity of VACCINE - (MODERNA) 00:00:00 [facility] SARS-COV-2 COVID-19 2021-04-27 Completed Unive rsity of VACCINE - (MODERNA) 00:00:[address] [facility] SARS-COV-2 COVID-19 2021-04-27 Completed Unive rsity of VACCINE - (MODERNA) 00:00:[address] [facility] SARS-COV-2 COVID-19 2021-04-27 Completed Unive rsity of VACCINE - (MODERNA) 00:00:00 [facility] SARS-COV-2 COVID-19 2021-03-24 Completed Unive rsity of MODERNA VACCINE 00:00:00 [facility] ical Branch SARS-COV-2 COVID-19 2021-03-24 Completed Unive rsity of MODERNA VACCINE 00:00:[address] [place] [facility] ical Branch SARS-COV-2 COVID-19 2021-03-24 Completed Unive rsity of MODERNA VACCINE 00:00:[address] [place] [facility] ical Branch SARS-COV-2 COVID-19 2021-03-24 Completed Unive rsity of MODERNA VACCINE 00:00:00 [place] Med ical Branch SARS-COV-2 COVID-19 2021-03-24 Completed Unive rsity of MODERNA VACCINE 00:00:[address] [place] [facility] ical Branch SARS-COV-2 COVID-19 2021-03-24 Completed Unive rsity of MODERNA VACCINE 00:00:00 [place] Med ical Branch SARS-COV-2 COVID-19 2021-03-24 Completed Unive rsity of MODERNA 12+ YRS 00:00:[address] [place] [facility] ical VACCINE Branch SARS-COV-2 COVID-19 2021-03-24 Completed Unive rsity of MODERNA 12+ YRS 00:00:[address] [place] [facility] ical VACCINE Branch SARS-COV-2 COVID-19 2021-03-24 [...] 99 /min University of Arterial blood by Valentin Uzhun barbara Pulse oximetry Branch Systolic blood 2022-09-13 18:28:00 102 mm[Hg] Univer sity of pressure [place] [facility] Diastolic blood 2022-09-13 18:28:00 69 mm[Hg] Unive rsity of pressure [place] [facility] Heart rate 2022-09-13 18:28:00 94 /min [facility] of [place] [facility] Respiratory rate 2022-09-13 18:28:00 18 /min Univ ersity of [place] [facility] Body height 2022-09-13 18:28:00 154.5 cm [facility] [place] [facility] Body weight 2022-09-13 18:28:00 67.087 kg [facility] [place] [facility] BMI 2022-09-13 18:28:00 28.10 kg/m2 [facility] [place] [facility] Oxygen saturation in 2022-09-13 18:28:00 99 /min University of Arterial blood by Valentin [employer]zh[employer] barbara Pulse oximetry Branch Systolic blood 2022-06-07 [...] 2022-06-07 17:01:00 157.5 cm [facility] [place] [facility] Body weight 2022-06-07 17:01:00 68.04 kg [facility] [place] [facility] BMI 2022-06-07 17:01:00 27.44 kg/m2 [facility] [place] [facility] Oxygen saturation in 2022-06-07 17:01:00 99 /min [facility] of Arterial blood by [place] [employer] barbara Pulse oximetry Branch Body height 2022-04-28 15:58:00 157.5 cm [facility] [place] [facility] Body weight 2022-04-28 15:58:00 56.7 kg [facility] [place] [facility] BMI 2022-04-28 15:58:00 22.86 kg/m2 [facility] [place] [facility] Body height 2022-03-09 19:27:00 157.5 cm [facility] [place] [facility] Body weight 2022-03-09 19:27:00 56.7 kg [facility] [place] [facility] BMI 2022-03-09 19:27:00 22.86 kg/m2 [facility] [place] [facility] Systolic blood 2022-03-05 20:00:00 110 mm[Hg] Univer sity of pressure [place] [facility] Diastolic blood 2022-03-05 20:00:00 70 mm[Hg] Unive rsity of pressure [place] [facility] [place] Heart rate 2022-03-05 20:00:00 75 /min [facility] Respiratory rate 2022-03-05 20:00:00 16 /min [facility] Oxygen saturation in 2022-03-05 20:00:00 100 /min [facility] Arterial blood by [place] [facility] Pulse oximetry Branch Body temperature 2022-03-04 21:25:00 37.44 Rafaela [facility] Body height 2022-03-04 21:25:00 157.5 cm [facility] Body weight 2022-03-04 21:25:00 56.7 kg [facility] BMI 2022-03-04 21:25:00 22.86 kg/m2 [facility] Body height 2022-02-09 18:33:00 157.5 cm [facility] Body weight 2022-02-09 18:33:00 68.04 kg [facility] BMI 2022-02-09 18:33:00 27.44 kg/m2 [facility] Systolic blood 2022-02-07 18:21:00 120 mm[Hg] [facility] Diastolic blood 2022-02-07 18:21:00 78 mm[Hg] [facility] Heart rate 2022-02-07 18:20:00 82 /min [facility] Body weight 2022-02-07 18:20:00 68.04 kg [facility] BMI 2022-02-07 18:20:00 27.44 kg/m2 [facility] Systolic blood 2022-02-05 21:04:00 92 mm[Hg] [facility] Diastolic blood 2022-02-05 21:04:00 66 mm[Hg] [facility] Heart rate 2022-02-05 21:04:00 96 /min [facility] Respiratory rate 2022-02-05 21:04:00 16 /min [facility] Oxygen saturation in 2022-02-05 21:04:00 97 /min [facility] Arterial blood by [place] [employer] [facility] Pulse oximetry Branch Systolic blood 2022-02-02 20:32:00 108 mm[Hg] [facility] Diastolic blood 2022-02-02 20:32:00 72 mm[Hg] [facility] Heart rate 2022-02-02 20:32:00 95 /min [facility] Respiratory rate 2022-02-02 20:32:00 18 /min [facility] Oxygen saturation in 2022-02-02 20:32:00 100 /min [facility] Arterial blood by [place] [employer] barbara Pulse oximetry Branch Body temperature 2022-02-02 16:01:00 36.61 Rafaela [facility] Body height 2022-02-02 16:01:00 157.5 cm [facility] Body weight 2022-02-02 16:01:00 69.854 kg [facility] BMI 2022-02-02 16:01:00 28.17 kg/m2 Universi ty of [facility] Systolic blood 2021-10-12 16:00:00 105 mm[Hg] Univer sity of pressure [facility] Diastolic blood 2021-10-12 16:00:00 72 mm[Hg] Unive rsity of [facility] Heart rate 2021-10-12 16:00:00 79 /min Universi ty of [facility] Respiratory rate 2021-10-12 16:00:00 18 /min Univ [facility] Oxygen saturation in 2021-10-12 16:00:00 96 /min [facility] Arterial blood by [facility] Pulse oximetry [place] Body temperature 2021-10-12 14:49:00 36.67 Rafaela [facility] Body height 2021-10-12 14:49:00 157.5 cm Universi ty [facility] Body weight 2021-10-12 14:49:00 70.217 kg Universi [facility] BMI 2021-10-12 14:49:00 28.31 kg/m2 [facility] Systolic blood 2021-04-29 21:50:00 121 mm[Hg] Univer sity of [facility] Diastolic blood 2021-04-29 21:50:00 79 mm[Hg] [facility] Heart rate 2021-04-29 21:50:00 86 /min [facility] Body height 2021-04-29 21:50:00 157.5 cm [facility] Body weight 2021-04-29 21:50:00 70.761 kg [facility] BMI 2021-04-29 21:50:00 28.53 kg/m2 [facility] Procedures Procedure Date / Time Performing Clinician Source Performed COMP. METABOLIC PANEL 2022-06-07 17:17:00 Isabel [facility] ([id number]) [facility] CBC WITH DIFF 2022-06-07 17:17:00 Isabel Fields [facility] REFERRAL- 2022-03-30 06:01:00 Doctor Unassigned, No Univer [facility] REQUEST/RESPONSE Name [facility] Branch COVID-19 (ID NOW RAPID 2022-03-05 06:17:00 Nazanin Garcia [facility] TESTING) [facility] SERUM DRUG (IMMUNOASSAY) 2022-03-05 02:51:00 Sergio Majano [facility] SCREEN KEPPRA (LEVETIRACETAM) 2022-03-05 02:51:[address] [facility] CREATINE KINASE 2022-03-04 23:01:00 Sergio Majano [facility] TEST, SERUM 2022-03-04 23:01:00 Sergio Majano [facility] COMP. METABOLIC PANEL 2022-03-04 23:01:00 Sergio Majano [facility] ([id number]) [facility] SALICYLATE 2022-03-04 23:01:00 Sergio Majano [facility] ETHANOL 2022-03-04 23:01:00 Sergio Majano [facility] CBC WITH DIFF 2022-03-04 23:01:00 eSrgio Majano [facility] URINE DRUG (IMMUNOASSAY) 2022-03-04 22:53:00 Sergio Majano [facility] SCREEN URINALYSIS 2022-03-04 22:53:00 Sergio Majano [facility] CT HEAD WO CONTRAST 2022-03-04 22:08:20 Sergio Majano [facility] FLU VACC ([id number]), 6 2022-02-07 18:34:13 Bill Hung [facility] MO-62 YRS, .5ML, IM, Medical [facility] QUAD (FLUCELVAX) [place] APPLY LONG ARM SPLINT 2022-02-05 22:12:29 Nazanin Garcia [facility] XR ELBOW <3 VW LEFT 2022-02-05 21:44:[address] [facility] XR SHOULDER 2+ VW LEFT 2022-02-05 21:44:32 Nazanin Garcia [facility] XR WRIST 3+ VW LEFT 2022-02-05 21:44:32 [facility] of [facility] CONSENT/REFUSAL FOR 2022-02-05 20:55:21 Doctor Unassigned, No [facility] [place] [facility] Name Medical Branch CONSENT/REFUSAL FOR 2022-02-02 15:57:16 Doctor Unassigned, No [facility] [place] [facility] Name Medical Branch CT ABDOMEN PELVIS W 2021-10-12 15:50:[address] [facility] CONTRAST Medical Branch URINALYSIS 2021-10-12 15:22:00 Singer [facility] Branch LIPASE 2021-10-12 15:18:00 Singer [facility] COMP. METABOLIC PANEL 2021-10-12 15:18:00 E[facility] ([id number]) Medical Branch CBC WITH DIFF 2021-10-12 15:18:00 Singer [facility] NOTICE OF PRIVACY 2021-10-12 14:44:50 Doctor Unassigned, No [facility] [place] PRACTICES Name Medical Branch CONSENT/REFUSAL FOR 2021-10-12 14:44:33 Doctor Unassigned, No [facility] [place] [facility] Name Medical Branch EXTERNAL PROVIDER 2021-08-24 05:01:00 Doctor Unassigned, No [facility] [place] RECORDS Name Medical Branch EXTERNAL PROVIDER 2021-05-16 06:01:00 Doctor Unassigned, No [facility] [place] [facility] Name [facility] Branch Encounters Start End Encounter Admission Attending Care Care Encounter Source Date/Time Date/Time Type Type Clinicians Facility Department ID 2022-11-01 2022-11-01 Outpatient Miguel Ángel JASSO [facility] [id number] [facility] 15:00:00 15:00:[address] [facility] 2022-10-20 2022-10-20 Outpatient SHOAIB BUI [facility] [id number] [facility] 11:00:00 11:00:00 SHOAIB H[address]Y of [facility] 2022-10-02 2022-10-02 Outpatient Miguel Ángel JASSO [facility] [id number] [facility] 10:00:00 11:04:39 , STEPHANIE neely [facility] 2022-10-02 2022-10-02 Security Operations Analyst Lab, Ang - Db [facility] 1.2.840.1 [id number] Univers 10:00:00 10:15:00 Visit Stephanie Jasso [facility] 350.1 .13.10 ity of [place] 4.2.7.2.686 John as SHANITA?BLEA [id number] [facility] [address] MEDICAL OFFICE BUILDING 2022-09-28 2022-09-28 Patient Glen [facility] 1.2.840.114 [id number] Univers 00:00:00 00:00:00 Outreach Kathia Jalloh [facility] 350.1.13.10 i ty of [facility] 4.2.7.2.686 John as SHANITA?BLEA [phone] [address] OFFICE [facility] 2022-09-27 2022-09-27 Outpatient R [facility] [id number] Univers 14:40:00 15:18:26 , STEPHANIE neely [facility] 2022-09-27 2022-09-[address] [facility] 1.2.840.114 [id number] Univers 14:40:00 15:18:26 Visit , Stephanie BELTRÁN 350.1.13.10 ity of [place] 4.2.7.2.686 John as SHANITA?BLEA [id number] [address] OFFICE [facility] 2022-09-18 2022-09-18 Patient [place] [facility] 1.2.840.114 [id number] Univers 00:00:00 00:00:00 Outreach Kathia Jalloh [facility] 350.1.13.10 i ty of [place] 4.2.7.2.686 John as SHANITA?BLEA [id number] [address] OFFICE BUILDING 2022-09-13 2022-09-13 Outpatient R [facility] [id number] Univers 14:00:00 14:29:14 , STEPHANIE leon y [facility] 2022-09-13 2022-09-[address] [facility] 1.2.840.114 [id number] Univers 14:00:00 14:29:14 Visit , Stephanie BELTRÁN 350.1.13.10 ity of [place] 4.2.7.2.686 John as SHANITA?BLEA [id number] Sc shawnfrance SHAW 044 [facility] OFFICE [facility] 2022-09-07 2022-09-07 Outpatient R DIAMOND [facility] [id number] Univers 09:00:00 09:00:00 BOBBY ity of [facility] 2022-08-23 2022-08-23 Outpatient [facility] [id number] Univers 13:00:00 13:00:00 , STEPHANIE it y of [facility] 2022-07-27 2022-07-27 Outpatient R [facility] [id number] Univers 09:00:00 09:00:00 , STEPHANIE it y of [facility] 2022-06-07 2022-06-07 Emergency [facility] [id number] Univers 11:03:00 12:08:00 ISABEL ity of [facility] 2022-06-07 2022-06-07 Emergency [facility] [id number] Univers 11:03:00 12:08:00 Isabel Bourgeois [place] 350.1.13.10 ity of [place].2.7.2.[place] WAY[place] [id number] [address] 2022-05-09 2022-05-09 Case [place] 1.2.840.114 [id number] Univers 00:00:00 00:00:00 Management Brittnee VELASQUEZ 350.1.13.10 [place]2.7.2.[place] [id number] [address] 2022-04-28 2022-04-28 Office [facility] 1.2.840.114 [id number] Univers 10:15:00 10:30:00 Visit Bobby Maolne HEALTH 350.1.13.10 it y of [place] 4.2.7.2.686 John as SHANITA?BLEA [id number] Sc shawnfrance SHAW 198 [facility] OFFICE [facility] 2022-04-28 2022-04-28 Outpatient [facility] [id number] Univers 10:01:10 10:16:00 [facility] 2022-04-27 2022-04-27 Outpatient Miguel [facility]ngel [facility] [id number] Univers 15:45:00 15:45:00 [facility] 2022-04-20 2022-04-20 Outpatient Miguel [facility]el [facility] [id number] Univers 11:15:00 11:15:00 [facility] 2022-04-13 2022-04-13 Outpatient Miguel [facility]ngel [facility] [id number] Univers 13:30:00 13:30:00 [facility] 2022-03-30 2022-03-30 Orders Doctor ABHIJIT 1.2.840.114 [id number] Univers 00:00:00 00:00:00 Only Unassigned, AMAYA 350.1.13.10 ity of [place] [facility] 4.2.7.2.686 John as [phone] [address] 2022-03-24 2022-03-24 Telephone [facility] 1.2.755.408 [id number] Univers 00:00:00 00:00:00 [facility] 350.1.13.10 it y of [place] 4.2.7.2.686 John as SHANITA?BLEA [id number] [address] MEDICAL OFFICE [facility] 2022-03-09 2022-03-09 Outpatient Miguel [facility]el [facility] [id number] Univers 13:45:00 23:59:00 [facility] 2022-03-09 2022-03-09 Office [facility] 1.2.840.114 [id number] Univers 13:30:00 13:45:00 Visit [facility] 350.1.13.10 it y of [place] 4.2.7.2.686 John as SHANITA?BLEA [id number] [address] MEDICAL OFFICE [facility] 2022-03-04 2022-03-05 Emergency X [facility] ERT [id number] Univers 15:22:00 15:00:00 JOHN [facility] 2022-03-04 2022-03-05 Emergency Sergio Majano [facility] 1.2.840.1 [id number] Univers 15:22:00 15:00:00 John EscamillaGORGE 350.1.13.10 ity of [place] 4.2.7.2.686 [place] [facility] [id number] [address] 2022-02-21 2022-02-21 Telephone [facility] [id number] Univers 00:00:00 00:00:00 [facility] 350.1.13.10 it y of [place] 4.2.7.2.686 John as SHANITA?BLEA [id number] Sc shawnfrance KEEN 044 [facility] OFFICE [facility] 2022-02-20 2022-02-20 Outpatient [facility] [id number] Univers 15:15:00 15:15:00 [facility] 2022-02-09 2022-02-09 Office [facility] 1.2.840.114 [id number] Univers 13:45:00 14:15:00 Visit [facility] 350.1.13.10 it y of [place] 4.2.7.2.686 John as SHANITA?BLEA [id number] Sc bernabe KEENYADI 198 [facility] OFFICE [facility] 2022-02-09 2022-02-09 Outpatient Miguel Ángel FIELDS [facility] [id number] Univers 13:45:00 14:14:48 BOBBY [facility] 2022-02-07 2022-02-07 Outpatient Miguel Ángel HUNG [facility] [id number] Univers 13:30:00 13:49:35 BILL [facility] 2022-02-07 2022-02-07 Office [facility] 1.2.840.114 [id number] Univers 13:30:00 13:49:35 Visit [facility] 350.1.13.10 it y of [place] 4.2.7.2.686 John as SHANITA?BLEA [id number] Sc shawnfrance KEEN 044 [facility] OFFICE [facility] 2022-02-05 2022-02-05 Emergency X [facility] [id number] Univers 16:08:00 17:27:00 NAZANIN rich [facility] 2022-02-05 2022-02-05 Emergency [facility] 1.2.840.114 [id number] Univers 16:08:00 17:27:00 Nazanin BLAIR 350.1.13.10 ity of [place] 4.2.7.2.686 [facility] [id number] [address] 2022-02-02 2022-02-02 Emergency X LUCAS JEAN [facility] ERT [id number] Univers 11:02:00 15:34:00 LCUAS JEAN [facility] 2022-02-02 2022-02-02 Emergency [facility] 1.2.001.522 [id number] Univers 11:02:00 15:34:00 Lucas BLAIR 350.1.13.10 i ty of [place] 4.2.7.2.686 [facility] [id number] [address] 2022-01-09 2022-01-09 Outpatient R ABHILASH, [facility] [id number] Univers 13:45:00 13:45:00 BILL hilario [facility] 2021-10-12 2021-10-12 Emergency Kala [facility] [id number] Univers 09:51:00 11:54:00 EMY rich [facility] 2021-10-12 2021-10-12 Emergency [facility] 1.2.180.763 [id number] Univers 09:51:00 11:54:00 Emy BLAIR 350.1.13.10 i ty of [place] 4.2.7.2.686 [facility] [id number] [place] [address] [place] 2021-10-12 2021-10-12 Orders Doctor LACEY 1.2.840.114 [id number] Univers 00:00:00 00:00:00 Only Unassigned, AMAYA 350.1.13.10 ity of [place] [facility] 4.2.7.2.686 [facility] [id number] [place] [address] Branch 2021-09-12 2021-09-12 Outpatient R [facility] [id number] Univers 10:30:00 10:30:00 BILL rich [facility] 2021-08-24 2021-08-24 Orders Doctor ABHIJIT 1.2.840.114 [id number] Univers 00:00:00 00:00:00 Only Unassigned, AMAYA 350.1.13.10 ity of [place] [facility] 4.2.7.2.686 John as [id number] [address] 2021-06-03 2021-06-03 Outpatient R [facility] [id number] Univers 13:00:00 13:23:49 BILL rich [facility] 2021-05-16 2021-05-16 Orders Doctor ABHIJIT 1.2.840.114 [id number] Univers 00:00:00 00:00:00 Only Unassigned, AMAYA 350.1.13.10 ity of [place] [facility] 4.2.7.2.686 John as [id number] [address] 2021-05-04 2021-05-[address] [facility] 1.2.840.114 [id number] Univers 00:00:00 00:00:00 [facility] 350.1.13.10 it y of [place] 4.2.7.2.686 John as SHANITA?BLEA [id number] [address] MEDICAL OFFICE [facility] 2021-04-29 2021-04-[address] [facility] 1.2.840.114 [id number] Univers 16:00:00 16:15:00 Visit [facility] 350.1.13.10 it y of [place] 4.2.7.2.686 John as SHANITA?BLEA [id number] [address] MEDICAL OFFICE BUILDING 2021-04-29 2021-04-29 Outpatient R [facility] [id number] Univers 16:00:00 16:00:00 BILL rich [facility] 2021-04-29 2021-04-29 Orders Doctor ABHIJIT 1.2.840.114 [id number] Univers 00:00:00 00:00:00 Only Unassigned, AMAYA 350.1.13.10 ity of [place] [facility] 4.2.7.2.686 John as [id number] [address] 2021-04-22 2021-04-22 Outpatient Miguel Ángel ABHILASH [facility] [id number] Univers 08:00:00 08:00:00 [facility] 2021-04-22 2021-04-[address] [facility] 1.2.840.114 [id number] Univers 00:00:00 00:00:00 [facility] 350.1.13.10 it y of [place] 4.2.7.2.686 John as SHANITA?BLEA [id number] [address] MEDICAL OFFICE BUILDING 2021-04-15 2021-04-[address] [facility] 1.2.840.114 [id number] Univers 15:30:00 16:00:00 Visit [facility] 350.1.13.10 it y of [place] 4.2.7.2.686 John as SHANITA?BLEA [id number] [address] MEDICAL OFFICE [facility] 2021-04-15 2021-04-15 Outpatient Miguel [facility] [id number] Univers 15:30:00 15:30:00 [facility] 2021-04-15 2021-04-15 Outpatient Miguel Ángel [facility] [id number] Univers 15:30:00 15:30:00 [facility] Results Test Description Test Time Test Comments Results Result Comments Source COMP. METABOLIC PANEL (22360) 2021-10-12 15:45:46 Test Item Value Reference Range Interpretation Comme nts NA (test code = 6756292181) 139 mmol/L 135-145 K (test code = 1920527107) 4.5 mmol/L 3.5-5.0 CL (test code = 2001908806) 99 mmol/L 98-108 CO2 TOTAL (test code = 4030326305) 30 mmol/L 23-31 AGAP (test code = 9140711923) 2-16 BUN (test code = 9687849780) 16 mg/dL 7-23 GLUCOSE (test code = 5204725671) 119 mg/dL 70-110 H CREATININE (test code = 0.66 mg/dL 0.50-1.04 0413400301) TOTAL BILI (test code = 0.4 mg/dL 0.1-1.0 2338795647) CALCIUM (test code = 2779693183) 10.0 mg/dL 8.6-10.6 T PROTEIN (test code = 7427415844) 8.6 g/dL 6.3-8.2 H ALBUMIN (test code = 5962392666) 4.7 g/dL 3.5-5.0 ALK PHOS (test code = 2317463833) 94 U/L 34-122 ALTv (test code = 1742-6) 17 U/L 5-35 AST(SGOT) (test code = 1538117942) 23 U/L 13-40 eGFR (test code = 5655375935) mL/min/1.73m2 SHE (test code = SHE) Association [...] tests). Lab Interpretation (test code = Abnormal 64654-8) [facility]25 Test Item Value Reference Range Interpretation Comments LIPASE (test code = 9981497622) 86 U/L 0-220 Lab Interpretation (test code = Normal 50190-3) [facility] [id number] 15:31:02 Test Item Value Reference Range Interpretation [...] RDW-SD (test code = 44.6 fL 39.0-49.9 19701-5) RDW-CV (test code = 13.7 % 12.0-15.5 788-0) PLT (test code = See_Comment H [Automated 777-3) message] The system which generated this result transmit ann reference range : 166 - 358 10*3/ ?L. The reference range was not u sed to interpret th is result as normal/abnormal . MPV (test code = 10.0 fL 9.5-12.9 72788-9) NRBC/100 WBC (test See_Comment [Automat ed code = 2016936463) message] The system which generated this result transmit ann reference range : 0.0 - 10.0 /100 WBCs. The reference range was not used to interpret this result as normal/abnormal . NRBC x10^3 (test code <0.01 See_Comment [Auto mated = 8946707116) message] The system which generated this result transmit ann reference range : 10*3/?L. The reference range was not used to interpret this result as normal/abnormal . GRAN MAT (NEUT) % 78.7 % (test code = 770-8) IMM GRAN % (test code 0.60 % = 3542461043) LYMPH % (test code = 12.7 % 736-9) MONO % (test code = 7.2 % 5905-5) EOS % (test code = 0.3 % 713-8) BASO % (test code = 0.5 % 706-2) GRAN MAT x10^3(ANC) 12.40 10*3/uL 1.88-7.09 H (test code = 0911708099) IMM GRAN x10^3 (test 0.09 10*3/uL 0.00-0.06 H code = 5971628577) LYMPH x10^3 (test code 2.00 10*3/uL 1.32-3.29 = 731-0) MONO x10^3 (test code 1.14 10*3/uL 0.33-0.92 H = 742-7) EOS x10^3 (test code = 0.04 10*3/uL 0.03-0.39 711-2) BASO x10^3 (test code 0.08 10*3/uL 0.01-0.07 H = 704-7) Lab Interpretation Abnormal (test code = 58995-7) [facility]"
[2022-10-25] MEDS ORDERED: AMOX/K CLAV 875 MG TAB ONE (18:30)
[2022-10-25] MEDS ORDERED: IBUPROFEN 400 MG TAB ONE (18:30)
[2022-10-25] MEDS ORDERED: HYDROCODONE/APAP 5/325 MG TAB ONE (18:30)
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
[2022-10-25 19:36] VITALS: BP 106/65; O2SAT 100
--- NOTE | 2022-10-25 19:41 | RAD REPORT ---
EXAM DESCRIPTION: RAD - Knee Left 3 View - 10/25/2022 7:23 pm CLINICAL HISTORY: Left knee pain FINDINGS: Intramedullary julian screws affix an old femoral fracture. No acute fracture or dislocation is seen. No significant bone or joint abnormality visualized
== END 2022-10-25 19:26 | disposition home or self-care (01) ==
LOC: ER 17:50
DX: M25.562 Pain in left knee (principal); Z48.01 Encounter for change or removal of surgical wound dressing; Z88.0 Allergy status to penicillin; Z88.8 Allergy status to other drugs, medicaments and biological substances

== ENCOUNTER 2022-11-18 20:05 | Emergency (ER) | payer OTHER ==
--- OUTSIDE RECORDS SUMMARY | 2022-11-18 20:11 | XMS REPORT | Continuity of Care Document ---
:1975 Author Organization [facility] t Address [address] [facility] [address] [place] [address] Care Team Providers Name Role Phone STEPHANIE JASSO Primary Care Physician Unavailable SHOAIB HARDY Attending Clinician Unavailable SHOAIB HARDY Attending Clinician Unavailable STEPHANIE JASSO Attending Clinician Unavailable EMILY GUZMAN Attending Clinician Unavailable Emily Velasquez Attending Clinician Lab, Ang - Db Attending Clinician Unavailable Stephanie Jasso MD Attending Clinician [phone] Kathia Carroll LMSW Attending Clinician BOBBY FIELDS Attending Clinician Unavailable ISABEL FIELDS Attending Clinician Unavailable Isabel Fields MD Attending Clinician Brittnee Mckinney MA Attending Clinician Unavailable Bobby Pfeiffer Attending Clinician Doctor Unassigned, [place] Attending Clinician Unavailable JOHN ESCAMILLA Attending Clinician [...] Effective Date Expiration Date Kira florian [employer] [id number] 2022 PLUS 00:00:00 Problems Condition Condition Condition Status Onset Resolution Last Treating Co mments Source Name Details Category Date Date Treatment Clinician Date Acute left Acute left Disease Active U nivers ankle pain ankle pain 11-06 it y of 00:00: [place] [facility] Open wound Open wound Disease Active U nivers 11-06 ity of 00:00: [place] [facility] 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 Seizures Seizures Disease Active Unive rs ity of [facility] Allergies, Adverse Reactions, Alerts Allergy Allergy Status Severity Reaction(s) Onset Inactive Treating Comm ents Source Name Type Date Date Clinician METHOCAR DRUG Active Med Hives Univers BAMOL INGREDI 1-07 ity of 00:00: [address] Methocar Propensi Active Hives Univer s bamol ty to 1-07 ity of adverse 00:00: [place] reaction [address] [place] [address] s [place] Social History Social Habit Start Date Stop Date Quantity Comments Source Gender identity [facility]it [facility] Sexual orientation Univer sity of [facility] Alcohol intake 2022-11-06 2022-11-06 Current drinker of Un iversity of 00:00:00 00:00:00 alcohol (finding) [facility] Alcohol Comment 2022-09-13 2022-09-13 occasionally Univers ity of 00:00:00 00:00:00 [facility] Exposure to 2022-08-13 2022-08-23 Not sure [facility]-CoV-2 (event) 00:00:00 12:49:00 [facility] Tobacco use and 2022-02-09 2022-02-09 Smokeless tobacco Un iversity of exposure 00:00:00 00:00:00 non-user [facility] History of Social 2022-02-07 2022-02-07 Univers ity of function 00:00:00 00:00:00 [facility] Sex Ass[birth year] At [birth year] Universit y of 00:00:00 00:00:00 [facility] Smoking Status Start Date Stop Date Source Tobacco smoking consumption [facility] Never smoked tobacco [facility] [place] [facility] Medications Ordered Filled Start Stop Current Ordering Indication Dosage Frequency Signature Comments Components Source Medication Medication Date Date Medication? Clinician (SIG) Name Name diclofenac Yes 75mg Take 1 Unive rs 75 mg EC 7-31 tablet by ity of tablet 13:43: mouth in [place] [address] the Medical morning Branch and 1 tablet in the evening. diclofenac Yes 75mg Take 1 Unive rs 75 mg EC 7-31 tablet by ity of tablet 13:43: mouth in [place] [address] the Medical morning [place] and 1 tablet in the evening. amoxicillin 2022- Yes [id number] 1{tbl} Take 1 Univers -clavulanat 7-31 08-08 tablet by it y of e 00:00: 04:59 mouth in [place] (AUGMENTIN) 00 :00 the Medical 875-125 mg morning Branch per tablet and 1 tablet in the evening. Do all this for 7 days. amoxicillin 2022- Yes [id number] 1{tbl} Take 1 Univers -clavulanat 7-31 08-08 tablet by it y of e 00:00: 04:59 mouth in [place] (AUGMENTIN) 00 :00 the Medical 875-125 mg morning Branch per tablet and 1 tablet in the evening. Do all this for 7 days. amoxicillin 2022- No [id number] 1{tbl} Take 1 Univers -clavulanat 7-31 07-31 tablet by it y of e 00:00: 00:00 mouth in [place] (AUGMENTIN) 00 :00 the Medical 875-125 mg morning Branch per tablet and 1 tablet in the evening. amoxicillin 2022-0 2022- No [id number] 1{tbl} Take 1 Univers -clavulanat 7-31 07-31 tablet by it y of e 00:00: 00:00 mouth in [place] (AUGMENTIN) 00 :00 the Medical 875-125 mg morning Branch per tablet and 1 tablet in the evening. traMADoL 50 2022-0 Yes TAKE 1 Univ ers mg tablet 7-19 TABLET BY ity o f 00:00: MOUTH [place] 00 EVERY 8 Medical HOURS Branch NEEDED traMADoL 50 2022-0 Yes TAKE 1 Univ ers mg tablet 7-19 TABLET BY ity o f 00:00: MOUTH [place] 00 EVERY 8 Medical HOURS Branch NEEDED risperiDONE 2022-0 Yes .5mg Take 1 Univ ers 0.5 mg 6-28 tablet by ity of tablet 00:00: mouth in [place] 00 the Medical morning Branch and 1 tablet in the evening. prazosin 1 2022-0 Yes 1mg Take 1 Unive rs mg capsule 6-28 capsule by ity of 00:00: mouth at [place] 00 bedtime. Medical Branch FLUoxetine 2022-0 Yes 10mg Take 1 Unive rs 10 mg 6-28 capsule by ity of capsule 00:00: mouth in [place] 00 the Medical morning. Branch risperiDONE 2022-0 Yes .5mg Take 1 Univ ers 0.5 mg 6-28 tablet by ity of tablet 00:00: mouth in [place] 00 the Medical morning Branch and 1 tablet in the evening. prazosin 1 2022-0 Yes 1mg Take 1 Unive rs mg capsule 6-28 capsule by ity of 00:00: mouth at [place] [address] bedtime. Medical Branch FLUoxetine 2022-0 Yes 10mg Take 1 Unive rs 10 mg 6-28 capsule by ity of capsule 00:00: mouth in [place] 00 the Medical morning. Branch levETIRAcet 2022-0 2022- No 1000mg Take 1 U nivers am 1,000 mg 6-21 -21 tablet by it y of tablet 15:07: 00:00 mouth in [place] 59 :00 the Medical morning Branch and 1 tablet in the evening. vitamin 2022-0 2022- No 1{tbl} Take 1 Unive rs D3-folic 6-21 -21 tablet by ity o f acid 125 15:07: 00:00 [place] (5,000 59 :00 the Medical unit)-1 mg morning. Bran h Tab levETIRAcet 3-0 3- No 1000mg Take 1 U nivers am 1,000 mg 6-21 - tablet by it y of tablet 15:07: 00:00 mouth in [place] 59 :00 the Medical morning Branch and 1 tablet in the evening. vitamin 2022-0 2023- No 1{tbl} Take 1 Unive rs D3-folic 6-27 09- tablet by ity o f acid 125 15:07: 00:00 [place] (5,000 59 :00 the Medical unit)-1 mg morning. Branc h Tab levETIRAcet 2022-0 2022- No 1000mg Take 1 U nivers am 1,000 mg 6-27 09- tablet by it y of tablet 15:07: 00:00 mouth in [place] 59 :00 the Medical morning Branch and 1 tablet in the evening. vitamin 2022-0 2022- No 1{tbl} Take 1 Unive rs D3-folic -27 09- tablet by ity o f acid 125 15:07: 00:00 mouth in [facility] s mcg (5,000 59 :00 the Medical unit)-1 mg morning. [facility] h Tab venlafaxine 2022-2022- No 75mg Take 1 Uni vers XR 75 mg 24 09-27 capsule by i ty of hr capsule 15:03: 00:00 mouth in [facility] 36 :00 the Medical morning. Branch topiramate 2022-0 2022- No 50mg Take 1 Univ ers 50 mg 09-27 tablet by ity of tablet 15:03: 00:00 mouth in [place] 36 :00 the Medical morning Branch and 1 tablet in the evening. QUEtiapine 2022-0 2022- No 200mg Take 1 Uni vers 200 mg -27 09- tablet by ity of tablet 15:03: 00:00 mouth at [place] 36 :00 bedtime. Medical Branch pantoprazol 2022-0 3- No 40mg Take 1 Uni vers e 40 mg EC -09-27 tablet by ity of tablet 15:03: 00:00 mouth in [place] 36 :00 the Medical morning. Branch OXcarbazepi 2022-0 2023- No 300mg Take 1 Un roel ne 300 mg 6-27 09-21 tablet by ity of tablet 15:03: 00:00 mouth in [place] 36 :00 the Medical morning Branch and 1 tablet in the evening. venlafaxine 2023-0 2023- No 75mg Take 1 Uni vers XR 75 mg 24 6-27 09-21 capsule by i ty of hr capsule 15:03: 00:00 mouth in [facility] 36 :00 the Medical morning. Branch topiramate 2023-0 2023- No 50mg Take 1 Univ ers 50 mg 6-21 -21 tablet by ity of tablet 15:03: 00:00 mouth in [place] 36 :00 the Medical morning Branch and 1 tablet in the evening. QUEtiapine 2023-0 2023- No 200mg Take 1 Uni vers 200 mg 6-21 - tablet by ity of tablet 15:03: 00:00 mouth at [place] 36 :00 bedtime. Medical Branch pantoprazol 2023-0 2023- No 40mg Take 1 Uni vers e 40 mg EC 6-27 09- tablet by ity of tablet 15:03: 00:00 mouth in [place] 36 :00 the Medical morning. Branch OXcarbazepi 2023-0 2023- No 300mg Take 1 Un roel ne 300 mg -09-27 tablet by ity of tablet 15:03: 00:00 mouth in [place] 36 :00 the Medical morning Branch and 1 tablet in the evening. venlafaxine 2023-0 2023- No 75mg Take 1 Uni vers XR 75 mg 24 6-27 09- capsule by i ty of hr capsule 15:03: 00:00 mouth in [facility] 36 :00 the Medical morning. Branch topiramate 2023-0 2023- No 50mg Take 1 Univ ers 50 mg 6-21 -21 tablet by ity of tablet 15:03: 00:00 mouth in [place] 36 :00 the Medical morning Branch and 1 tablet in the evening. QUEtiapine 2023-0 2023- No 200mg Take 1 Uni vers 200 mg 6-21 -21 tablet by ity of tablet 15:03: 00:00 mouth at [place] 36 :00 bedtime. Medical Branch pantoprazol 2023-0 2023- No 40mg Take 1 Uni vers e 40 mg EC 6-21 06-21 tablet by ity of tablet 15:03: 00:00 mouth in [place] 36 :00 the Medical morning. Branch OXcarbazepi 2023-0 2023- No 300mg Take 1 Un roel ne 300 mg 6-21 06-21 tablet by ity of tablet 15:03: 00:00 mouth in [place] 36 :00 the Medical morning Branch and 1 tablet in the evening. vitamin 2023-0 Yes [id number] 1{tbl} Take 1 Un roel D3-folic 6-21 tablet by ity of acid 125 00:00: mouth in [place] mcg (5,000 00 the Medical unit)-1 mg morning. Branc h Tab levETIRAcet 2022-0 Yes [id number] 1000mg Take 1 Univers am 1,000 mg 6-21 tablet by ity of tablet 00:00: mouth in [place] 00 the Medical morning Branch and 1 tablet in the evening. atorvastati 2022-0 Yes [id number] 20mg Take 1 Univers n 20 mg 6-21 tablet by ity of tablet 00:00: mouth in [place] 00 the Medical morning. Branch vitamin 3-0 Yes [id number] 1{tbl} Take 1 Un roel D3-folic 6-21 tablet by ity of acid 125 00:00: mouth in [facility] (5,000 00 the Medical unit)-1 mg morning. Bran h Tab levETIRAcet 2022-0 Yes [id number] 1000mg Take 1 Univers am 1,000 mg 6-21 tablet by ity of tablet 00:00: mouth in [place] [address] the Medical morning Branch and 1 tablet in the evening. atorvastati 2022-0 Yes [id number] 20mg Take 1 Univers n 20 mg 6-21 tablet by ity of tablet 00:00: mouth in [place] 00 the Medical morning. Branch vitamin 3-0 Yes [id number] 1{tbl} Take 1 Un roel D3-folic 6-21 tablet by ity of acid 125 00:00: mouth in [facility] (5,000 00 the Medical unit)-1 mg morning. Branc h Tab levETIRAcet 2022-0 Yes [id number] 1000mg Take 1 Univers am 1,000 mg 6-21 tablet by ity of tablet 00:00: mouth in [place] [address] the Medical morning Branch and 1 tablet in the evening. atorvastati 2022-0 Yes [id number] 20mg Take 1 Univers n 20 mg 6-21 tablet by ity of tablet 00:00: mouth in [place] 00 the Medical morning. Branch vitamin 2022-0 Yes [id number] 1{tbl} Take 1 Un roel D3-folic 6-21 tablet by ity of acid 125 00:00: mouth in [place] mcg (5,000 00 the Medical unit)-1 mg morning. Branc h Tab levETIRAcet 2022-0 Yes [id number] 1000mg Take 1 Univers am 1,000 mg 6-21 tablet by ity of tablet 00:00: mouth in [place] 00 the Medical morning Branch and 1 tablet in the evening. atorvastati 2022-0 Yes [id number] 20mg Take 1 Univers n 20 mg 6-21 tablet by ity of tablet 00:00: mouth in [place] 00 the Medical morning. Branch vitamin 2022-0 Yes [id number] 1{tbl} Take 1 Un roel D3-folic 6-21 tablet by ity of acid 125 00:00: mouth in [place] mcg (5,000 00 the Medical unit)-1 mg morning. Bran h Tab levETIRAcet 2022-0 Yes [id number] 1000mg Take 1 Univers am 1,000 mg 6-21 tablet by ity of tablet 00:00: mouth in [place] the Medical morning Branch and 1 tablet in the evening. atorvastati 2022-0 Yes [id number] 20mg Take 1 Univers n 20 mg 6-21 tablet by ity of tablet 00:00: mouth in [place] 00 the Medical morning. Branch vitamin 3-0 Yes [id number] 1{tbl} Take 1 Un roel D3-folic 6-21 tablet by ity of acid 125 00:00: mouth in [place] mcg (5,000 00 the Medical unit)-1 mg morning. Bran h Tab levETIRAcet 2022-0 Yes [id number] 1000mg Take 1 Univers am 1,000 mg 6-21 tablet by ity of tablet 00:00: mouth in [place] 00 the Medical morning Branch and 1 tablet in the evening. atorvastati 2022-0 Yes [id number] 20mg Take 1 Univers n 20 mg 6-21 tablet by ity of tablet 00:00: mouth in [place] 00 the Medical morning. Branch vitamin 3-0 Yes [id number] 1{tbl} Take 1 Un roel D3-folic 6-21 tablet by ity of acid 125 00:00: mouth in [place] mcg (5,000 00 the Medical unit)-1 mg morning. Bran h Tab levETIRAcet 3-0 Yes [id number] 1000mg Take 1 Univers am 1,000 mg 6-21 tablet by ity of tablet 00:00: mouth in [place] 00 the Medical morning Branch and 1 tablet in the evening. atorvastati 3-0 Yes [id number] 20mg Take 1 Univers n 20 mg 6-21 tablet by ity of tablet 00:00: mouth in [place] 00 the Medical morning. Branch vitamin 3-0 Yes [id number] 1{tbl} Take 1 Un roel D3-folic 6-21 tablet by ity of acid 125 00:00: mouth in [place] mcg (5,000 00 the Medical unit)-1 mg morning. Bran h Tab levETIRAcet 3-0 Yes [id number] 1000mg Take 1 Univers am 1,000 mg 6-21 tablet by ity of tablet 00:00: mouth in [place] the Medical morning Branch and 1 tablet in the evening. atorvastati 2022-0 Yes [id number] 20mg Take 1 Univers n 20 mg 6-21 tablet by ity of tablet 00:00: mouth in [place] 00 the Medical morning. Branch foLIC acid 2022-0 Yes 1mg Take 1 Unive rs 1 mg tablet 6-21 tablet by ity of 00:00: mouth [place] 00 every Medical morning. Branch vitamin 3-0 Yes [id number] 1{tbl} Take 1 Un roel D3-folic 6-21 tablet by ity of acid 125 00:00: mouth in [place] mcg (5,000 00 the Medical unit)-1 mg morning. Bran h Tab levETIRAcet 3-0 Yes [id number] 1000mg Take 1 Univers am 1,000 mg 6-21 tablet by ity of tablet 00:00: mouth in [place] 00 the Medical morning Branch and 1 tablet in the evening. atorvastati 3-0 Yes [id number] 20mg Take 1 Univers n 20 mg 6-21 tablet by ity of tablet 00:00: mouth in [place] 00 the Medical morning. Branch foLIC acid 3-0 Yes 1mg Take 1 Unive rs 1 mg tablet 6-21 tablet by ity of 00:00: mouth [place] 00 every Medical morning. Branch levETIRAcet 2023-0 Yes 1000mg Take 1 Un roel am 1,000 mg 6-07 tablet by ity of tablet 13:59: mouth in [place] [address] the Medical morning Branch and 1 tablet in the evening. venlafaxine 2023-0 Yes 75mg Take 1 Univ ers XR 75 mg 24 6-07 capsule by it y of hr capsule 13:59: mouth in [place] [address] the Medical morning. Branch topiramate 2023-0 Yes 50mg Take 1 Unive rs 50 mg 6-07 tablet by ity of tablet 13:59: mouth in [place] [address] the Medical morning Branch and 1 tablet in the evening. QUEtiapine 2023-0 Yes 200mg Take 1 Univ ers 200 mg 6-07 tablet by ity of tablet 13:59: mouth at [place] [address] bedtime. Medical Branch pantoprazol 2023-0 Yes 40mg Take 1 Univ ers e 40 mg EC 6-07 tablet by ity of tablet 13:59: mouth in [place] [address] the Medical morning. Branch vitamin 2023-0 Yes 1{tbl} Take 1 Univer s D3-folic 6-07 tablet by ity of acid 125 13:59: mouth in [place] mcg (5,000 26 the Medical unit)-1 mg morning. Branc h Tab OXcarbazepi 2023-0 Yes 300mg Take 1 Uni vers ne 300 mg 6-07 tablet by ity o f tablet 13:59: mouth in [place] [address] the Medical morning Branch and 1 tablet in the evening. levETIRAcet 2023-0 Yes 1000mg Take 1 Un roel am 1,000 mg 6-07 tablet by ity of tablet 13:59: mouth in [place] [address] the Medical morning Branch and 1 tablet in the evening. venlafaxine 2023-0 Yes 75mg Take 1 Univ ers XR 75 mg 24 6-07 capsule by it y of hr capsule 13:59: mouth in [place] [address] the Medical morning. Branch topiramate 2023-0 Yes 50mg Take 1 Unive rs 50 mg 6-07 tablet by ity of tablet 13:59: mouth in [place] [address] the Medical morning Branch and 1 tablet in the evening. QUEtiapine 2023-0 Yes 200mg Take 1 Univ ers 200 mg 6-07 tablet by ity of tablet 13:59: mouth at [place] [address] bedtime. Medical Branch pantoprazol 2023-0 Yes 40mg Take 1 Univ ers e 40 mg EC 6-07 tablet by ity of tablet 13:59: mouth in [place] [address] the Medical morning. Branch vitamin 2023-0 Yes 1{tbl} Take 1 Univer s D3-folic 6-07 tablet by ity of acid 125 13:59: mouth in [place] mcg (5,000 26 the Medical unit)-1 mg morning. Branc h Tab OXcarbazepi 2023-0 Yes 300mg Take 1 Uni vers ne 300 mg 6-07 tablet by ity o f tablet 13:59: mouth in [place] [address] the Medical morning Branch and 1 tablet in the evening. levETIRAcet 2023-0 Yes 1000mg Take 1 Un roel am 1,000 mg 6-07 tablet by ity of tablet 13:59: mouth in [place] [address] the Medical morning Branch and 1 tablet in the evening. venlafaxine 2023-0 Yes 75mg Take 1 Univ ers XR 75 mg 24 6-07 capsule by it y of hr capsule 13:59: mouth in [place] [address] the Medical morning. Branch topiramate 2023-0 Yes 50mg Take 1 Unive rs 50 mg 6-07 tablet by ity of tablet 13:59: mouth in [place] [address] the Medical morning Branch and 1 tablet in the evening. QUEtiapine 2023-0 Yes 200mg Take 1 Univ ers 200 mg 6-07 tablet by ity of tablet 13:59: mouth at [place] [address] bedtime. Medical Branch pantoprazol 2023-0 Yes 40mg Take 1 Univ ers e 40 mg EC 6-07 tablet by ity of tablet 13:59: mouth in [place] [address] the Medical morning. Branch vitamin 2023-0 Yes 1{tbl} Take 1 Univer s D3-folic 6-07 tablet by ity of acid 125 13:59: mouth in [place] mcg (5,000 26 the Medical unit)-1 mg morning. Branc h Tab OXcarbazepi 2023-0 Yes 300mg Take 1 Uni vers ne 300 mg 6-07 tablet by ity o f tablet 13:59: mouth in [place] [address] the Medical morning Branch and 1 tablet in the evening. FLUoxetine 2023-0 Yes 10mg Take 1 Unive rs 10 mg 5-03 capsule by ity of capsule 00:00: mouth in [place] 00 the Medical morning. Branch prazosin 1 2023-0 Yes 1mg Take 1 Unive rs mg capsule 5-03 capsule by ity of 00:00: mouth at [place] 00 bedtime. Medical Branch risperiDONE 2023-0 Yes .5mg Take 1 Univ ers 0.5 mg 5-03 tablet by ity of tablet 00:00: mouth in [place] 00 the Medical morning Branch and 1 tablet in the evening. FLUoxetine 2023-0 Yes 10mg Take 1 Unive rs 10 mg 5-03 capsule by ity of capsule 00:00: mouth in [place] 00 the Medical morning. Branch prazosin 1 2023-0 Yes 1mg Take 1 Unive rs mg capsule 5-03 capsule by ity of 00:00: mouth at [place] 00 bedtime. Medical Branch risperiDONE 2023-0 Yes .5mg Take 1 Univ ers 0.5 mg 5-03 tablet by ity of tablet 00:00: mouth in [place] 00 the Medical morning Branch and 1 tablet in the evening. FLUoxetine 2023-0 Yes 10mg Take 1 Unive rs 10 mg 5-03 capsule by ity of capsule 00:00: mouth in [place] 00 the Medical morning. Branch prazosin 1 3-0 Yes 1mg Take 1 Unive rs mg capsule 5-03 capsule by ity of 00:00: mouth at [place] 00 bedtime. Medical Branch risperiDONE 2023-0 Yes .5mg Take 1 Univ ers 0.5 mg 5-03 tablet by ity of tablet 00:00: mouth in [place] 00 the Medical morning Branch and 1 tablet in the evening. FLUoxetine 2023-0 2023- No 10mg Take 1 Univ ers 10 mg 5-03 06-21 capsule by ity of capsule 00:00: 00:00 mouth in [place] 00 :00 the Medical morning. Branch prazosin 1 2023-0 2023- No 1mg Take 1 Univ ers mg capsule 5-03 06-21 capsule by it y of 00:00: 00:00 mouth at [place] 00 :00 bedtime. Medical Branch risperiDONE 2023-0 2023- No .5mg Take 1 Uni vers 0.5 mg 5-03 06-21 tablet by ity of tablet 00:00: 00:00 mouth in [place] 00 :00 the Medical morning Branch and 1 tablet in the evening. FLUoxetine 2023-0 2023- No 10mg Take 1 Univ ers 10 mg 5-06 12-21 capsule by ity of capsule 00:00: 00:00 mouth in [place] 00 :00 the Medical morning. Branch prazosin 1 2022-0 2022- No 1mg Take 1 Univ ers mg capsule 5-06 12-21 capsule by it y of 00:00: 00:00 mouth at [place] 00 :00 bedtime. Medical Branch risperiDONE 2023-0 3- No .5mg Take 1 Uni vers 0.5 mg 5-06 12-21 tablet by ity of tablet 00:00: 00:00 mouth in [place] 00 :00 the Medical morning Branch and 1 tablet in the evening. FLUoxetine 2022-0 2022- No 10mg Take 1 Univ ers 10 mg 5-06 12- capsule by ity of capsule 00:00: 00:00 mouth in [place] 00 :00 the Medical morning. Branch prazosin 1 2022-0 2022- No 1mg Take 1 Univ ers mg capsule -06 12- capsule by it y of 00:00: 00:00 mouth at [place] 00 :00 bedtime. Medical Branch risperiDONE 3-0 2022- No .5mg Take 1 Uni vers 0.5 mg 5-06 12-21 tablet by ity of tablet 00:00: 00:00 mouth in [place] 00 :00 the Medical morning Branch and 1 tablet in the evening. cyclobenzap 2022-0 Yes TAKE 1 Univ ers rine 10 mg 3-14 TABLET BY ity of tablet 00:00: MOUTH [place] 00 EVERY 8 Medical HOURS Branch NEEDED FOR MUSCLE SPASMS. cyclobenzap 2022-0 Yes TAKE 1 Univ ers rine 10 mg 3-14 TABLET BY ity of tablet 00:00: MOUTH [place] 00 EVERY 8 Medical HOURS Branch NEEDED FOR MUSCLE SPASMS. cyclobenzap 2022-0 Yes TAKE 1 Univ ers rine 10 mg 3-14 TABLET BY ity of tablet 00:00: MOUTH [place] 00 EVERY 8 Medical HOURS Branch NEEDED [...] Branch NEEDED FOR MUSCLE SPASMS. cyclobenzap 0 2022- No TAKE 1 Uni vers rine 10 mg 3-14 09-27 TABLET BY ity of tablet 00:00: 00:00 MOUTH [place] 00 :00 EVERY 8 Medical HOURS Branch NEEDED FOR MUSCLE SPASMS. levETIRAcet 2021-04 Yes 500mg 500 mg, Un roel am (KEPPRA) 05-05 Oral, BID, it y of tablet 500 14:00: First dose [place] mg 00 on [facility] 03/05/22 Branch at 0800, Until Discontinu ed, Routine D5W 0.9% 2021-04 Yes 1000mL at 125 Unive rs NaCl (NS) 05-05 mL/hr, ity of IV infusion 06:30: 1,000 mL, [place] 1,000 mL 00 IV Medical Infusion, Branch CONTINUOUS , Starting on [place] 03/05/22 at 0030, Until Discontinu ed, ELVIS NaCl 0.9% 2021-04- No 1000mL at 999 Uni vers (NS) bolus 05-05 mL/hr, ity of infusion 06:15: 20:58 1,000 mL, [place] 1,000 mL 00 :00 IV Medical Piggyback, Branch ONCE, 1 dose, On [place] 03/05/22 at 0015, STAT traZODone 2021-04 Yes 150mg 150 mg, Univ ers (DESYREL) 05-05 Oral, QHS, ity of tablet 150 03:00: First dose [place] mg 00 on [facility] 03/04/22 Branch at 2100, Until Discontinu ed, EL[place] OXcarbazepi 2021-04 Yes 150mg 150 mg, Un roel ne 05-05 Oral, BID, ity of (TRILEPTAL) 02:00: First dose [place] tablet 150 00 on [facility] 03/04/22 Branch at 2000, Until Discontinu ed, ELVIS lamoTRIgine 2021-04 Yes 25mg 25 mg, Univ ers (LAMICTAL) 05-05 Oral, BID, ity of tablet 25 02:00: First dose [place] mg 00 on [facility] 03/04/22 Branch at 2000, Until Discontinu ed, ELVIS NaCl 0.9% 2021-04- No 1000mL at 999 Uni vers (NS) bolus 05-05 mL/hr, ity of infusion 00:30: 21:00 1,000 mL, [place] 1,000 mL 00 :00 IV Medical Piggyback, Branch ONCE, 1 dose, On 03/04/22 at 1830, STAT LORazepam 2021-04 No 1mg 1 mg, Slow U nivers [...] 7-10). Indication s: acute pain traMADoL 50 2021-043- No [id number] 50mg Take 1 Uni vers mg tablet 1-03 06-21 tablet by ity of 00:00: 00:00 mouth [place] 00 :00 every 4 Medical (four) Branch hours as needed for Pain (scale 7-10). Indication s: acute pain traMADoL 50 2021-04- No [id number] 50mg Take 1 Uni vers mg tablet 04-11 tablet by ity of 00:00: 00:00 mouth [place] 00 :00 every 4 Medical (four) Branch hours as needed for Pain (scale 7-10). Indication s: acute pain traMADoL 50 2021-04- No [id number] 50mg Take 1 Uni vers mg tablet 04-11 tablet by ity of 00:00: 00:00 mouth [...] of 1,000 mg 13:34: 00:00 mouth in [facility] s tablet 15 :00 the Medical morning [...] ity of tablet 13:34: 00:00 mouth in [place] 15 :00 the Medical morning Branch and 500 mg in the evening. Take with meals. levETIRAcet 2021-04- No 1000mg Take 1,000 Univers am (KEPPRA) 04-09 mg by ity of 1,000 mg 13:34: 00:00 mouth in [facility] s tablet 15 :00 the Medical morning [...] Medical times Branch daily. atorvastati 2021-04 Yes [id number] 20mg Take 1 [facility] n 20 mg 04-09 tablet by ity of tablet 00:00: mouth in [place] 00 the Medical morning. Branch gabapentin 2021-04 Yes [id number] 300mg Take 1 [facility] 300 mg 04-09 capsule by ity of capsule 00:00: mouth in [place] 00 the Medical morning Branch and 1 capsule at noon and 1 capsule in the evening. levETIRAcet 2021-04 Yes [id number] 1000mg Take 1 [facility] am (KEPPRA) 1-01 tablet by ity of 1,000 mg 00:00: mouth in [place] tablet 00 the Medical morning Branch and 1 tablet in the evening. naproxen 2021-04 Yes [id number] 500mg Take 1 Un roel 500 mg 1-01 tablet by ity of tablet 00:00: mouth in [place] the Medical morning Branch and 1 tablet in the evening. Take with meals. atorvastati 2021-04 Yes [id number] 20mg Take 1 [facility] n 20 mg 1-01 tablet by ity of tablet 00:00: mouth in [place] [address] the Medical morning. Branch gabapentin 2021-04 Yes [id number] 300mg Take 1 [facility] 300 mg 1-01 capsule by ity of capsule 00:00: mouth in [place] [address] the [facility] morning Branch and 1 capsule at noon and 1 capsule in the evening. levETIRAcet 2021-04 Yes [id number] 1000mg Take 1 [facility] am (KEPPRA) 1-01 tablet by ity of 1,000 mg 00:00: mouth in [place] tablet the [facility] morning [place] and 1 tablet in the evening. naproxen 2021-04 Yes [id number] 500mg Take 1 Un roel 500 mg 1-01 tablet by ity of tablet 00:00: mouth in [place] the [facility] morning Branch and 1 tablet in the evening. Take with meals. atorvastati 2021-04 Yes [id number] 20mg Take 1 [facility] n 20 mg 1-01 tablet by ity of tablet 00:00: mouth in [place] [address] the Medical morning. Branch gabapentin 2021-04 Yes [id number] 300mg Take 1 [facility] 300 mg 1-01 capsule by ity of capsule 00:00: mouth in [place] [address] the [facility] morning [place] and 1 capsule at noon and 1 capsule in the evening. levETIRAcet 2021-04 Yes [id number] 1000mg Take 1 [facility] am (KEPPRA) 1-01 tablet by ity of 1,000 mg 00:00: mouth in [place] tablet 00 the [facility] morning Branch and 1 tablet in the evening. naproxen 2021-04 Yes [id number] 500mg Take 1 Un roel 500 mg 1-01 tablet by ity of tablet 00:00: mouth in [place] [address] the [facility] morning [place] and 1 tablet in the evening. Take with meals. atorvastati 2021-04 Yes [id number] 20mg Take 1 [facility] n 20 mg 1-01 tablet by ity of tablet 00:00: mouth in [place] 00 the Medical morning. Branch gabapentin 2021-04 Yes [id number] 300mg Take 1 [facility] 300 mg 1-01 capsule by ity of capsule 00:00: mouth in [place] 00 the Medical morning Branch and 1 capsule at noon and 1 capsule in the evening. levETIRAcet 2021-04 Yes [id number] 1000mg Take 1 [facility] am (KEPPRA) 1-01 tablet by ity of 1,000 mg 00:00: mouth in [place] tablet 00 the Medical morning Branch and 1 tablet in the evening. naproxen 2021-04 Yes [id number] 500mg Take 1 Un roel 500 mg 1-01 tablet by ity of tablet 00:00: mouth in [place] 00 the Medical morning Branch and 1 tablet in the evening. Take with meals. atorvastati 2021-04 Yes [id number] 20mg Take 1 [facility] n 20 mg 1-01 tablet by ity of tablet 00:00: mouth in [place] the Medical morning. Branch gabapentin 2021-04 Yes [id number] 300mg Take 1 [facility] 300 mg 1-01 capsule by ity of capsule 00:00: mouth in [place] the Medical morning Branch and 1 capsule at noon and 1 capsule in the evening. levETIRAcet 2021-04 Yes [id number] 1000mg Take 1 [facility] am (KEPPRA) 1-01 tablet by ity of 1,000 mg 00:00: mouth in [place] tablet 00 the Medical morning Branch and 1 tablet in the evening. naproxen 2021-04 Yes [id number] 500mg Take 1 Un roel 500 mg 1-01 tablet by ity of tablet 00:00: mouth in [place] 00 the Medical morning Branch and 1 tablet in the evening. Take with meals. atorvastati 2021-04 Yes [id number] 20mg Take 1 [facility] n 20 mg 1-01 tablet by ity of tablet 00:00: mouth in [place] 00 the Medical morning. Branch gabapentin 2021-04 Yes [id number] 300mg Take 1 [facility] 300 mg 1-01 capsule by ity of capsule 00:00: mouth in [place] 00 the Medical morning Branch and 1 capsule at noon and 1 capsule in the evening. levETIRAcet 2021-04 Yes [id number] 1000mg Take 1 [facility] am (KEPPRA) 1-01 tablet by ity of 1,000 mg 00:00: mouth in [place] tablet 00 the Medical morning Branch and 1 tablet in the evening. naproxen 2021-04 Yes [id number] 500mg Take 1 Un roel 500 mg 1-01 tablet by ity of tablet 00:00: mouth in [place] 00 the Medical morning Branch and 1 tablet in the evening. Take with meals. atorvastati 2021-04 Yes [id number] 20mg Take 1 [facility] n 20 mg 1-01 tablet by ity of tablet 00:00: mouth in [place] [address] the Medical morning. Branch gabapentin 2021-04 Yes [id number] 300mg Take 1 [facility] 300 mg 1-01 capsule by ity of capsule 00:00: mouth in [place] [address] the Medical morning Branch and 1 capsule at noon and 1 capsule in the evening. levETIRAcet 2021-04 Yes [id number] 1000mg Take 1 [facility] am (KEPPRA) 1-01 tablet by ity of 1,000 mg 00:00: mouth in [place] tablet 00 the Medical morning Branch and 1 tablet in the evening. naproxen 2021-04 Yes [id number] 500mg Take 1 Un roel 500 mg 1-01 tablet by ity of tablet 00:00: mouth in [place] [address] the [facility] morning Branch and 1 tablet in the evening. Take with meals. atorvastati 2021-04 Yes [id number] 20mg Take 1 [facility] n 20 mg 1-01 tablet by ity of tablet 00:00: mouth in [place] the Medical morning. Branch gabapentin 2021-04 Yes [id number] 300mg Take 1 [facility] 300 mg 1-01 capsule by ity of capsule 00:00: mouth in [place] [address] the Medical morning Branch and 1 capsule at noon and 1 capsule in the evening. levETIRAcet 2021-04 Yes [id number] 1000mg Take 1 [facility] am (KEPPRA) 1-01 tablet by ity of 1,000 mg 00:00: mouth in [place] tablet 00 the Medical morning Branch and 1 tablet in the evening. naproxen 2021-04 Yes [id number] 500mg Take 1 Un roel 500 mg 1-01 tablet by ity of tablet 00:00: mouth in [place] [address] the Medical morning Branch and 1 tablet in the evening. Take with meals. atorvastati 2021-04 Yes [id number] 20mg Take 1 [facility] n 20 mg 1-01 tablet by ity of tablet 00:00: mouth in [place] the morning. Branch gabapentin 2021-04 Yes [id number] 300mg Take 1 [facility] 300 mg 1-01 capsule by ity of capsule 00:00: mouth in [place] 00 the Medical morning Branch and 1 capsule at noon and 1 capsule in the evening. levETIRAcet 2021-04 Yes [id number] 1000mg Take 1 [facility] am (KEPPRA) 1-01 tablet by ity of 1,000 mg 00:00: mouth in [place] tablet 00 the Medical morning Branch and 1 tablet in the evening. naproxen 2021-04 Yes [id number] 500mg Take 1 Un roel 500 mg 1-01 tablet by ity of tablet 00:00: mouth in [place] the Medical morning Branch and 1 tablet in the evening. Take with meals. atorvastati 2021-04 Yes [id number] 20mg Take 1 [facility] n 20 mg 1-01 tablet by ity of tablet 00:00: mouth in [place] the Medical morning. Branch gabapentin 2021-04 Yes [id number] 300mg Take 1 [facility] 300 mg 1-01 capsule by ity of capsule 00:00: mouth in [place] the Medical morning Branch and 1 capsule at noon and 1 capsule in the evening. levETIRAcet 2021-04 Yes [id number] 1000mg Take 1 [facility] am (KEPPRA) 1-01 tablet by ity of 1,000 mg 00:00: mouth in [place] tablet 00 the Medical morning Branch and 1 tablet in the evening. naproxen 2021-04 Yes [id number] 500mg Take 1 Un roel 500 mg 1-01 tablet by ity of tablet 00:00: mouth in [place] the Medical morning Branch and 1 tablet in the evening. Take with meals. atorvastati 2021-04 Yes [id number] 20mg Take 1 [facility] n 20 mg 1-01 tablet by ity of tablet 00:00: mouth in [place] [address] the Medical morning. Branch gabapentin 2021-04 Yes [id number] 300mg Take 1 [facility] 300 mg 1-01 capsule by ity of capsule 00:00: mouth in [place] [address] the Medical morning Branch and 1 capsule at noon and 1 capsule in the evening. levETIRAcet 2021-04 Yes [id number] 1000mg Take 1 [facility] am (KEPPRA) 1-01 tablet by ity of 1,000 mg 00:00: mouth in [place] tablet 00 the Medical morning Branch and 1 tablet in the evening. naproxen 2021-04 Yes [id number] 500mg Take 1 Un roel 500 mg 1-01 tablet by ity of tablet 00:00: mouth in [place] 00 the Medical morning Branch and 1 tablet in the evening. Take with meals. atorvastati 2021-04 Yes [id number] 20mg Take 1 [facility] n 20 mg 1-01 tablet by ity of tablet 00:00: mouth in [place] [address] the Medical morning. Branch gabapentin 2021-04 Yes [id number] 300mg Take 1 [facility] 300 mg 1-01 capsule by ity of capsule 00:00: mouth in [place] [address] the Medical morning Branch and 1 capsule at noon and 1 capsule in the evening. levETIRAcet 2021-04 Yes [id number] 1000mg Take 1 [facility] am (KEPPRA) 1-01 tablet by ity of 1,000 mg 00:00: mouth in [place] tablet 00 the Medical morning Branch and 1 tablet in the evening. naproxen 2021-04 Yes [id number] 500mg Take 1 Un roel 500 mg 1-01 tablet by ity of tablet 00:00: mouth in [place] [address] the Medical morning Branch and 1 tablet in the evening. Take with meals. atorvastati 2021-04 Yes [id number] 20mg Take 1 [facility] n 20 mg 1-01 tablet by ity of tablet 00:00: mouth in [place] the Medical morning. Branch gabapentin 2021-04 Yes [id number] 300mg Take 1 [facility] 300 mg 1-01 capsule by ity of capsule 00:00: mouth in [place] [address] the Medical morning Branch and 1 capsule at noon and 1 capsule in the evening. levETIRAcet 2021-04 Yes [id number] 1000mg Take 1 [facility] am (KEPPRA) 1-01 tablet by ity of 1,000 mg 00:00: mouth in [place] tablet 00 the Medical morning Branch and 1 tablet in the evening. naproxen 2021-04 Yes [id number] 500mg Take 1 Un roel 500 mg 1-01 tablet by ity of tablet 00:00: mouth in [place] 00 the Medical morning Branch and 1 tablet in the evening. Take with meals. atorvastati 2021-04 Yes [id number] 20mg Take 1 [facility] n 20 mg 1-01 tablet by ity of tablet 00:00: mouth in [place] the Medical morning. Branch gabapentin 2021-04 Yes [id number] 300mg Take 1 [facility] 300 mg 1-01 capsule by ity of capsule 00:00: mouth in [place] 00 the Medical morning Branch and 1 capsule at noon and 1 capsule in the evening. levETIRAcet 2021-04 Yes [id number] 1000mg Take 1 [facility] am (KEPPRA) 1-01 tablet by ity of 1,000 mg 00:00: mouth in [place] tablet 00 the Medical morning Branch and 1 tablet in the evening. naproxen 2021-04 Yes [id number] 500mg Take 1 Un roel 500 mg 1-01 tablet by ity of tablet 00:00: mouth in [place] the Medical morning Branch and 1 tablet in the evening. Take with meals. atorvastati 2021-04 Yes [id number] 20mg Take 1 [facility] n 20 mg 1-01 tablet by ity of tablet 00:00: mouth in [place] the Medical morning. Branch gabapentin 2021-04 Yes [id number] 300mg Take 1 [facility] 300 mg 1-01 capsule by ity of capsule 00:00: mouth in [place] the Medical morning Branch and 1 capsule at noon and 1 capsule in the evening. levETIRAcet 2021-04 Yes [id number] 1000mg Take 1 [facility] am (KEPPRA) 1-01 tablet by ity of 1,000 mg 00:00: mouth in [place] tablet 00 the Medical morning Branch and 1 tablet in the evening. naproxen 2021-04 Yes [id number] 500mg Take 1 Un roel 500 mg 1-01 tablet by ity of tablet 00:00: mouth in [place] the Medical morning Branch and 1 tablet in the evening. Take with meals. atorvastati 2021-04 Yes [id number] 20mg Take 1 [facility] n 20 mg 1-01 tablet by ity of tablet 00:00: mouth in [place] [address] the Medical morning. Branch gabapentin 2021-04 Yes [id number] 300mg Take 1 [facility] 300 mg 1-01 capsule by ity of capsule 00:00: mouth in [place] 00 the Medical morning Branch and 1 capsule at noon and 1 capsule in the evening. naproxen 2021-04 Yes [id number] 500mg Take 1 Un roel 500 mg 1-01 tablet by ity of tablet 00:00: mouth in [place] 00 the Medical morning Branch and 1 tablet in the evening. Take with meals. atorvastati 2021-04 Yes [id number] 20mg Take 1 [facility] n 20 mg 1-01 tablet by ity of tablet 00:00: mouth in [place] 00 the Medical morning. Branch gabapentin 2021-04 Yes [id number] 300mg Take 1 [facility] 300 mg 1-01 capsule by ity of capsule 00:00: mouth in [place] 00 the Medical morning Branch and 1 capsule at noon and 1 capsule in the evening. naproxen 2021-04 Yes [id number] 500mg Take 1 Un roel 500 mg 1-01 tablet by ity of tablet 00:00: mouth in [place] 00 the Medical morning Branch and 1 tablet in the evening. Take with meals. atorvastati 2021-04 Yes [id number] 20mg Take 1 [facility] n 20 mg 1-01 tablet by ity of tablet 00:00: mouth in [place] 00 the Medical morning. Branch gabapentin 2021-04 Yes [id number] 300mg Take 1 [facility] 300 mg 1-01 capsule by ity of capsule 00:00: mouth in [place] 00 the Medical morning Branch and 1 capsule at noon and 1 capsule in the evening. naproxen 2021-04 Yes [id number] 500mg Take 1 Un roel 500 mg 1-01 tablet by ity of tablet 00:00: mouth in [place] the Medical morning Branch and 1 tablet in the evening. Take with meals. atorvastati 2021-04- No [id number] 20mg Take 1 [facility] n 20 mg -21 tablet by ity of tablet 00:00: 00:00 mouth in [place] 00 :00 the Medical morning. Branch gabapentin 2021-04- No [id number] 300mg Take 1 [facility] 300 mg -04 14- capsule by ity of capsule 00:00: 00:00 mouth in [place] 00 :00 the Medical morning Branch and 1 capsule at noon and 1 capsule in the evening. naproxen 2021-04- No [id number] 500mg Take 1 U nivers 500 mg 1-01 -21 tablet by ity of tablet 00:00: 00:00 mouth in [place] 00 :00 the Medical morning Branch and 1 tablet in the evening. Take with meals. atorvastati 2021-04- No [id number] 20mg Take 1 [facility] n 20 mg 04-09 tablet by ity of tablet 00:00: 00:00 mouth in [place] 00 :00 the Medical morning. Branch gabapentin 2021-04- No [id number] 300mg Take 1 [facility] 300 mg 04-09 capsule by ity of capsule 00:00: 00:00 mouth in [place] 00 :00 the Medical morning Branch and 1 capsule at noon and 1 capsule in the evening. naproxen 2021-04- No [id number] 500mg Take 1 U nivers 500 mg 04-09 tablet by ity of tablet 00:00: 00:00 mouth in [place] 00 :00 the Medical morning Branch and 1 tablet in the evening. Take with meals. atorvastati 2021-04- No [id number] 20mg Take 1 [facility] n 20 mg 04-09 tablet by ity of tablet 00:00: 00:00 mouth in [place] 00 :00 the Medical morning. Branch gabapentin 2021-04- No [id number] 300mg Take 1 [facility] 300 mg 04-09 capsule by ity of capsule 00:00: 00:00 mouth in [place] 00 :00 the Medical morning Branch and 1 capsule at noon and 1 capsule in the evening. naproxen 2021-04- No [id number] 500mg Take 1 U nivers 500 mg 04-09 tablet by ity of tablet 00:00: 00:00 mouth in [place] 00 :00 the Medical morning Branch and 1 tablet in the evening. Take with meals. ibuprofen 2021-04- No 600mg 600 mg, Uni vers (IBU) 0-30 10-30 Oral, ity of tablet 600 21:15: 21:11 ONCE, 1 [place] mg 00 :00 dose, On Medical [place] Branch 02/05/22 at 1615, [place] tiZANidine 2021-04 Yes [id number] 4mg Take 1 U nivers 4 mg 0-27 capsule by ity of capsule 00:00: mouth in [place] 00 the Medical morning Branch and 1 capsule at noon and 1 capsule in the evening. tiZANidine 2021-04 Yes [id number] 4mg Take 1 U nivers 4 mg 0-27 capsule by ity of capsule 00:00: mouth in [place] [address] the Medical morning Branch and 1 capsule at noon and 1 capsule in the evening. tiZANidine 2021-04 Yes [id number] 4mg Take 1 U nivers 4 mg 0-27 capsule by ity of capsule 00:00: mouth in [place] [address] the [facility] morning Branch and 1 capsule at noon and 1 capsule in the evening. tiZANidine 2021-04 Yes [id number] 4mg Take 1 U nivers 4 mg 0-27 capsule by ity of capsule 00:00: mouth in [place] [address] the [facility] morning Branch and 1 capsule at noon and 1 capsule in the evening. tiZANidine 2021-04 Yes [id number] 4mg Take 1 U nivers 4 mg 0-27 capsule by ity of capsule 00:00: mouth in [address] morning [place] and 1 capsule at noon and 1 capsule in the evening. tiZANidine 2021-04 Yes [id number] 4mg Take 1 U nivers 4 mg 0-27 capsule by ity of capsule 00:00: mouth in [address] morning [place] and 1 capsule at noon and 1 capsule in the evening. tiZANidine 2021-04 Yes [id number] 4mg Take 1 U nivers 4 mg 0-27 capsule by ity of capsule 00:00: mouth in [address] morning [place] and 1 capsule at noon and 1 capsule in the evening. tiZANidine 2021-04 Yes [id number] 4mg Take 1 U nivers 4 mg 0-27 capsule by ity of capsule 00:00: mouth in [address] morning Branch and 1 capsule at noon and 1 capsule in the evening. tiZANidine 2021-04 Yes [id number] 4mg Take 1 U nivers 4 mg 0-27 capsule by ity of capsule 00:00: mouth in [address] morning [place] and 1 capsule at noon and 1 capsule in the evening. tiZANidine 2021-04 Yes [id number] 4mg Take 1 U nivers 4 mg 0-27 capsule by ity of capsule 00:00: mouth in [place] 00 the Medical morning Branch and 1 capsule at noon and 1 capsule in the evening. tiZANidine 2021-04 Yes [id number] 4mg Take 1 U nivers 4 mg 0-27 capsule by ity of capsule 00:00: mouth in [place] [address] the Medical morning Branch and 1 capsule at noon and 1 capsule in the evening. tiZANidine 2021-04 Yes [id number] 4mg Take 1 U nivers 4 mg 0-27 capsule by ity of capsule 00:00: mouth in [place] [address] the Medical morning Branch and 1 capsule at noon and 1 capsule in the evening. tiZANidine 2021-04 Yes [id number] 4mg Take 1 U nivers 4 mg 0-27 capsule by ity of capsule 00:00: mouth in [place] [address] the [facility] morning Branch and 1 capsule at noon and 1 capsule in the evening. tiZANidine 2021-04 Yes [id number] 4mg Take 1 U nivers 4 mg 0-27 capsule by ity of capsule 00:00: mouth in [place] [address] the [facility] morning [place] and 1 capsule at noon and 1 capsule in the evening. tiZANidine 2021-04 Yes [id number] 4mg Take 1 U nivers 4 mg 0-27 capsule by ity of capsule 00:00: mouth in [place] [address] the [facility] morning [place] and 1 capsule at noon and 1 capsule in the evening. tiZANidine 2021-04 Yes [id number] 4mg Take 1 U nivers 4 mg 0-27 capsule by ity of capsule 00:00: mouth in [place] [address] the [facility] morning Branch and 1 capsule at noon and 1 capsule in the evening. tiZANidine 2021-04 Yes [id number] 4mg Take 1 U nivers 4 mg 0-27 capsule by ity of capsule 00:00: mouth in [place] [address] the Medical morning Branch and 1 capsule at noon and 1 capsule in the evening. tiZANidine 2021-04 Yes [id number] 4mg Take 1 U nivers 4 mg 0-27 capsule by ity of capsule 00:00: mouth in [place] [address] the Medical morning Branch and 1 capsule at noon and 1 capsule in the evening. tiZANidine 2021-04 Yes [id number] 4mg Take 1 U nivers 4 mg 0-27 capsule by ity of capsule 00:00: mouth in [address] Medical morning Branch and 1 capsule at noon and 1 capsule in the evening. tiZANidine 2021-04 Yes [id number] 4mg Take 1 U nivers 4 mg 0-27 capsule by ity of capsule 00:00: mouth in [place] 00 the [facility] morning [place] and 1 capsule at noon and 1 capsule in the evening. tiZANidine 2021-04- No [id number] 4mg Take 1 [facility] 4 mg 0-27 06-21 capsule by ity of capsule 00:00: 00:00 mouth in [place] 00 :00 the [facility] Branch and 1 capsule at noon and 1 capsule in the evening. tiZANidine 2021-04- No [id number] 4mg Take 1 [facility] 4 mg 0-27 06-21 capsule by ity of capsule 00:00: 00:00 mouth in [place] 00 :00 the [facility] and 1 capsule at noon and 1 capsule in the evening. tiZANidine 2021-04- No [id number] 4mg Take 1 [facility] 4 mg 0-27 06-21 capsule by ity of capsule 00:00: 00:00 mouth in [place] 00 :00 the [facility] and 1 capsule at noon and 1 capsule in the evening. ondansetron 2021- No 4mg 4 mg, Slow Univers (ZOFRAN 10-12 IV Push, ity of (PF)) 16:00: 15:18 ONCE, 1 [place] injection 4 00 :00 dose, On Medi barbara mg Sun10/12/21 Branch at 1100, Routine iopamidol 2021- No [id number] 60mL 60 mL, U nivers (ISOVUE 10-12 [...] dose, On Sun10/12/21 at 1000, STAT ondansetron Yes [id number] 4mg Take 1 [facility] 4 mg 7-06 tablet by ity of disintegrat 00:00: mouth [place] ing tablet 00 every 8 Medica l (eight) Branch hours as needed for Nausea and Vomiting (N/V). dicyclomine 2022-0 Yes [id number] 20mg Take 1 [facility] 20 mg 7-06 tablet by ity of tablet 00:00: mouth 4 [place] 00 (four) Medical times Branch daily. ondansetron 2022-0 Yes [id number] 4mg Take 1 [facility] 4 mg 7-06 tablet by ity of disintegrat 00:00: mouth [place] ing tablet 00 every 8 Medica l (eight) Branch hours as needed for Nausea and Vomiting (N/V). dicyclomine 2022-0 Yes [id number] 20mg Take 1 [facility] 20 mg 7-06 tablet by ity of tablet 00:00: mouth 4 [place] 00 (four) Medical times Branch daily. ondansetron 2022-0 Yes [id number] 4mg Take 1 [facility] 4 mg 7-06 tablet by ity of disintegrat 00:00: mouth [place] ing tablet 00 every 8 Medica l (eight) Branch hours as needed for Nausea and Vomiting (N/V). dicyclomine 2022-0 Yes [id number] 20mg Take 1 [facility] 20 mg 7-06 tablet by ity of tablet 00:00: mouth 4 [place] 00 (four) Medical times Branch daily. ondansetron 2022-0 2022- No [id number] 4mg Take 1 [facility] 4 mg 7-06 11-01 tablet by ity of disintegrat 00:00: 00:[place] tablet 00 :00 every 8 Medica l (eight) Branch hours as needed for Nausea and Vomiting (N/V). dicyclomine 2022-0 2022- No [id number] 20mg Take 1 [facility] 20 mg 7-06 11-01 tablet by ity of tablet 00:00: 00:00 mouth 4 [place] 00 :00 (four) Medical times Branch daily. ondansetron 2022-0 2022- No [id number] 4mg Take 1 [facility] 4 mg 7-06 11-01 tablet by ity of disintegrat 00:00: 00:[place] tablet [place] :00 every 8 Medica l (eight) Branch hours as needed for Nausea and Vomiting (N/V). dicyclomine 2021-2021- No [id number] 20mg Take 1 [facility] 20 mg 10-12 [...] by mouth ity of tablet 15:04: daily. [address] Branch OXcarbazepi 2022-0 Yes 600mg Take [...] by mouth ity of tablet 15:04: daily. [address] OXcarbazepi 2022-0 Yes 600mg Take 600 U nivers ne 600 mg 1-07 mg by ity of tablet 15:04: mouth 3 [place] [address] (three) Medical times Branch daily. ergocalcife 2022-0 Yes 1{capsu Take 1 U nivers rol, 1-07 le} capsule by ity of vitamin d2, 15:04: mouth 2 [place] 1,250 mcg 25 (two) Medical (50,000 times Branch unit) daily. capsule atorvastati 2022-0 Yes 20mg Take 20 mg [facility] n 20 mg 1-07 by mouth ity of tablet 15:04: daily. [address] OXcarbazepi 2022-0 Yes 600mg Take 600 U nivers ne 600 mg 1-07 mg by ity of tablet 15:04: mouth 3 [place] [address] (three) Medical times Branch daily. ergocalcife 2022-0 Yes 1{capsu Take 1 U nivers rol, 1-07 le} capsule by ity of vitamin d2, 15:04: mouth 2 [place] 1,250 mcg 25 (two) Medical (50,000 times Branch unit) daily. capsule atorvastati 2022-0 Yes 20mg Take 20 mg [facility] n 20 mg 1-07 by mouth ity of tablet 15:04: daily. [address] OXcarbazepi 2022-0 Yes 600mg Take 600 U nivers ne 600 mg 1-07 mg by ity of tablet 15:04: mouth 3 [place] [address] (three) Medical times Branch daily. ergocalcife 2-0 Yes 1{capsu Take 1 U nivers rol, 1-07 le} capsule by ity of vitamin d2, 15:04: mouth 2 [place] 1,250 mcg 25 (two) Medical (50,000 times Branch unit) daily. capsule atorvastati 2021-0 Yes 20mg Take 20 mg [facility] n 20 mg 1-07 by mouth ity of tablet 15:04: daily. [address] OXcarbazepi 2021-0 Yes 600mg Take 600 U [...] by mouth ity of tablet 15:04: daily. [address] OXcarbazepi 2021-0 Yes 600mg Take 600 U nivers ne 600 mg 1-07 mg by ity of tablet 15:04: mouth 3 [place] [address] (three) Medical times Branch daily. ergocalcife 2021-0 Yes 1{capsu Take 1 U nivers rol, 1-07 le} capsule by ity of vitamin d2, 15:04: mouth 2 [place] 1,250 mcg 25 (two) Medical (50,000 times Branch unit) daily. capsule atorvastati 2021-0 Yes 20mg Take 20 mg [facility] n 20 mg 1-07 by mouth ity of tablet 15:04: daily. [address] OXcarbazepi 2-0 Yes 600mg Take 600 [...] Branch unit) daily. capsule naproxen 2021- No [id number] 500mg Take 1 [facility] (NAPROSYN) 04-15 tablet by ity of 500 mg 00:00: 00:00 mouth 2 [place] tablet 00 :00 (two) Medical times Branch daily with meals. Immunizations Ordered Filled Immunization Date Status Comments [facility] e Immunization Name Name TDAP 2022-11-[address] [facility] 00:00:00 [place] [facility] TDAP 2022-11-[address] [facility] 00:00:00 [facility] Branch Influenza Virus 2022-02-07 Completed Universit y of [...] [facility]it y of Vaccine [facility] IM, 00:00:00 [place] [facility] Free 6 MO-64 YRS Influenza Virus 2022-02-07 Completed [facility] Vaccine [facility], 00:00:00 [place] [facility] Free [...] Unive rsity of VACCINE - (MODERNA) 00:00:00 [facility] SARS-COV-2 COVID-19 2021-04-27 Completed Unive rsity of VACCINE - (MODERNA) 00:00:00 [facility] SARS-COV-2 COVID-19 2021-04-27 Completed Unive rsity of VACCINE - (MODERNA) 00:00:00 [facility] SARS-COV-2 COVID-19 2021-04-27 Completed Unive rsity of VACCINE - (MODERNA) 00:00:00 [facility] SARS-COV-2 COVID-19 2021-04-27 Completed Unive rsity of VACCINE - (MODERNA) 00:00:00 [facility] SARS-COV-2 COVID-19 2021-04-27 Completed Unive rsity of VACCINE - (MODERNA) 00:00:00 [facility] SARS-COV-2 COVID-19 2021-04-27 Completed Unive rsity of VACCINE - (MODERNA) 00:00:00 [facility] SARS-COV-2 COVID-19 2021-04-27 Completed Unive rsity of VACCINE - (MODERNA) 00:00:00 [facility] SARS-COV-2 COVID-19 2021-04-27 Completed Unive rsity of VACCINE - (MODERNA) 00:00:00 [facility] SARS-COV-2 COVID-19 2021-04-27 Completed Unive rsity of VACCINE - (MODERNA) 00:00:00 [facility] SARS-COV-2 COVID-19 2021-04-27 Completed Unive rsity of VACCINE - (MODERNA) 00:00:00 [facility] SARS-COV-2 COVID-19 2021-04-27 Completed Unive rsity of VACCINE - (MODERNA) 00:00:00 [facility] Branch SARS-COV-2 COVID-19 2021-04-27 Completed Unive rsity of VACCINE - (MODERNA) 00:00:00 [place] [facility] SARS-COV-2 COVID-19 2021-03-24 Completed Unive rsity of MODERNA VACCINE 00:00:00 [place] [facility] ical Branch SARS-COV-2 COVID-19 2021-03-24 Completed Unive rsity of MODERNA VACCINE 00:00:00 [facility] ical Branch SARS-COV-2 COVID-19 2021-03-24 Completed Unive rsity of MODERNA VACCINE 00:00:00 [facility] ical Branch SARS-COV-2 COVID-19 2021-03-24 Completed Unive rsity of MODERNA VACCINE 00:00:00 [facility] ical Branch SARS-COV-2 COVID-19 2021-03-24 Completed Unive rsity of MODERNA VACCINE 00:00:00 [facility] ical Branch SARS-COV-2 COVID-19 2021-03-24 Completed Unive rsity of MODERNA VACCINE 00:00:00 [facility] ical Branch SARS-COV-2 COVID-19 2021-03-24 Completed Unive rsity of MODERNA 12+ YRS 00:00:00 [place] [facility] VACCINE Branch SARS-COV-2 COVID-19 2021-03-24 Completed Unive rsity of MODERNA 12+ YRS 00:00:00 [place] [facility] VACCINE [facility] SARS-COV-2 COVID-19 2021-03-24 Completed Unive rsity of MODERNA 12+ YRS 00:00:00 [place] [facility] VACCINE Branch SARS-COV-2 COVID-19 2021-03-24 Completed Unive rsity of MODERNA 12+ YRS 00:00:00 [facility] ical VACCINE Branch SARS-COV-2 COVID-19 2021-03-24 [...] Time Observation Value Comments Source Systolic blood 2022-11-06 18:43:00 118 mm[Hg] Univer sity of pressure [facility] Diastolic blood 2022-11-06 18:43:00 73 mm[Hg] Unive rsity of pressure [facility] Heart rate 2022-11-06 18:43:00 90 /min [facility] [place] [facility] Body height 2022-11-06 18:43:00 157.5 cm [facility] [place] [facility] Body weight 2022-11-06 18:43:00 67.405 kg [facility] BMI 2022-11-06 18:43:00 27.18 kg/m2 [facility] [place] [facility] Oxygen saturation in 2022-11-06 18:43:00 99 /min University of Arterial blood by [facility] Pulse oximetry Branch Systolic blood 2022-09-27 19:18:00 102 mm[Hg] Univer sity of pressure [place] [facility] Diastolic blood 2022-09-27 19:18:00 68 mm[Hg] Unive rsity of pressure [facility] Heart rate 2022-09-27 19:18:00 92 /min [facility] Respiratory rate 2022-09-27 19:18:00 18 /min Univ ersity of [place] [facility] Body height 2022-09-27 19:18:00 157.5 cm [facility] Body weight 2022-09-27 19:18:00 67.178 kg [facility] BMI 2022-09-27 19:18:00 27.09 kg/m2 [facility] Oxygen saturation in 2022-09-27 19:18:00 99 /min University of Arterial blood by [facility] Pulse oximetry Branch Systolic blood 2022-09-13 18:28:00 102 mm[Hg] Univer sity of pressure [facility] Diastolic blood 2022-09-13 18:28:00 69 mm[Hg] Unive rsity of pressure [facility] Heart rate 2022-09-13 18:28:00 94 /min [facility] Respiratory rate 2022-09-13 18:28:00 18 /min Univ ersity of [place] [facility] Body height 2022-09-13 18:28:00 154.5 cm [facility] [place] [facility] Body weight 2022-09-13 18:28:00 67.087 kg [facility] BMI 2022-09-13 18:28:00 28.10 kg/m2 [facility] Oxygen saturation in 2022-09-13 18:28:00 99 /min University of Arterial blood by [place] [facility] Pulse oximetry Branch Systolic blood 2022-06-07 17:01:00 111 mm[Hg] Univer sity of pressure [place] [facility] Diastolic blood 2022-06-07 17:01:00 69 mm[Hg] Unive rsity of pressure [facility] Heart rate 2022-06-07 17:01:00 82 /min [facility] [place] [facility] Body temperature 2022-06-07 17:01:00 36.78 Rafaela Univ ers[facility] [place] [facility] Respiratory rate 2022-06-07 17:01:00 16 /min Univ ersity of [place] [facility] Body height 2022-06-07 17:01:00 157.5 cm [facility] [place] [facility] Body weight 2022-06-07 17:01:00 68.04 kg [facility] [place] [facility] BMI 2022-06-07 17:01:00 27.44 kg/m2 [facility] [place] [facility] Oxygen saturation in 2022-06-07 17:01:00 99 /min University of Arter[facility] blood by [facility] Pulse oximetry Branch Body height 2022-04-28 15:58:00 157.5 cm [facility] [place] [facility] Body weight 2022-04-28 15:58:00 56.7 kg [facility] [place] [facility] BMI 2022-04-28 15:58:00 22.86 kg/m2 [...] of pressure [place] [facility] Heart rate 2022-03-05 20:00:00 75 /min [facility] [place] [facility] Respiratory rate 2022-03-05 20:00:00 16 /min Univ ersity of [place] [facility] Oxygen saturation in 2022-03-05 20:00:00 100 /min University of Arterial blood by [place] [facility] Pulse oximetry Branch Body temperature 2022-03-04 [...] 97 /min University of Arterial blood by [facility] barbara Pulse oximetry Branch Systolic blood 2022-02-02 [...] 100 /min University of Arterial blood by [facility] Pulse oximetry Branch Body temperature 2022-02-02 16:01:00 36.61 Rafaela Univ [facility] [place] [facility] Body height 2022-02-02 16:01:00 157.5 cm [facility] [place] [facility] Body weight 2022-02-02 16:01:00 69.854 kg [facility] [place] [facility] BMI 2022-02-02 16:01:00 28.17 kg/m2 [facility] [place] [facility] Systolic blood 2021-10-12 16:00:00 105 mm[Hg] Univer sity of pressure [place] [facility] Diastolic blood 2021-10-12 16:00:00 72 mm[Hg] Unive rsity of pressure [facility] Heart rate 2021-10-12 16:00:00 79 /min [facility] [place] [facility] Respiratory rate 2021-10-12 16:00:00 18 /min Univ ersity of [place] [facility] Oxygen saturation in 2021-10-12 16:00:00 96 /min University of Arterial blood by [facility] Pulse oximetry Branch Body temperature 2021-10-12 14:49:00 36.67 Rafaela [facility] [place] [facility] Body height 2021-10-12 14:49:00 157.5 cm [facility] [place] [facility] Body weight 2021-10-12 14:49:00 70.217 kg [facility] [place] [facility] BMI 2021-10-12 14:49:00 28.31 kg/m2 [facility] [place] [facility] Systolic blood 2021-04-29 21:50:00 121 mm[Hg] Univer sity of pressure [place] [facility] Diastolic blood 2021-04-29 21:50:00 79 mm[Hg] Unive rsity of pressure [facility] Heart rate 2021-04-29 21:50:00 86 /min [facility] [place] [facility] Body height 2021-04-29 21:50:00 157.5 cm [facility] Body weight 2021-04-29 21:50:00 70.761 kg [facility] BMI 2021-04-29 21:50:00 28.53 kg/m2 [facility] Procedures Procedure Date / Time Performing Clinician Source Performed TDAP VACCINE, >11 YRS, 2022-11-06 18:55:00 Emily Guzman [facility] COMP. METABOLIC PANEL 2022-06-07 17:17:00 [facility] ([id number] CBC WITH DIFF 2022-06-07 17:17:00 Isabel Fields [facility] REFERRAL- 2022-03-30 06:01:00 Doctor Unassigned, Luana [facility] REQUEST/RESPONSE Name [facility] COVID-19 (ID NOW RAPID 2022-03-05 06:17:00 Nazanin Garcia [facility] TESTING) [facility] SERUM DRUG (IMMUNOASSAY) 2022-03-05 02:51:00 Sergio Majano [facility] SCREEN KEPPRA (LEVETIRACETAM) 2022-03-05 02:51:00 Sergio Majano [facility] CREATINE KINASE 2022-03-04 23:01:00 Sergio Majano [facility] TEST, SERUM 2022-03-04 23:01:00 Sergio Majano [facility] COMP. METABOLIC PANEL 2022-03-04 23:01:00 Sergio Majano [facility] ([id number]) [facility] SALICYLATE 2022-03-04 23:01:00 Sergio Majano [facility] ETHANOL 2022-03-04 23:01:00 Sergio Majano [facility] CBC WITH DIFF 2022-03-04 23:01:00 Sergio Majano [facility] URINE DRUG (IMMUNOASSAY) 2022-03-04 22:53:00 Sergio Majano [facility] SCREEN URINALYSIS 2022-03-04 22:53:00 Sergio Majano [facility] CT HEAD WO CONTRAST 2022-03-04 22:08:20 Sergio Majano [facility] FLU VACC ([id number]), 6 2022-02-07 18:34:13 Bill Hung [facility] MO-64 YRS, .5ML, IM, Medical Bra nch QUAD (FLUCELVAX) AR APPLY LONG ARM SPLINT 2022-02-05 22:12:29 Nazanin Garcia [facility] XR ELBOW <3 VW LEFT 2022-02-05 21:44:32 [facility] XR SHOULDER 2+ VW LEFT 2022-02-05 21:44:32 [facility] WRIST 3+ VW LEFT 2022-02-05 21:44:32 Nazanin Garcia [facility] CONSENT/REFUSAL FOR 2022-02-05 20:55:21 Doctor Unassigned, No [facility] [place] [facility] Name [facility] CONSENT/REFUSAL FOR 2022-02-02 15:57:16 Doctor Unassigned, No [facility] [place] [facility] CT ABDOMEN PELVIS W 2021-10-12 15:50:00 Emy King [facility] CONTRAST Medical Branch URINALYSIS 2021-10-12 15:22:00 Singer [facility] LIPASE 2021-10-12 15:18:00 Singer [facility] COMP. METABOLIC PANEL 2021-10-12 15:18:00 Emy King [facility] ([id number]) [facility] [place] CBC WITH DIFF 2021-10-12 15:18:00 Boron [facility] NOTICE OF PRIVACY 2021-10-12 14:44:50 Doctor Unassigned, No [facility] ersity [facility] PRACTICES Name [facility] [place] CONSENT/REFUSAL FOR 2021-10-12 14:44:33 Doctor Unassigned, No [facility] [place] [facility] Name [facility] [place] EXTERNAL PROVIDER 2021-08-24 05:01:00 Doctor Unassigned, No [facility] RECORDS Name [facility] Branch EXTERNAL PROVIDER 2021-05-16 06:01:00 Doctor Unassigned, No [facility] RECORDS Name [facility] Encounters Start End Encounter Admission Attending Care Care Encounter Source Date/Time Date/Time Type Type Clinicians Facility Department ID 2022-11-27 2022-11-27 Outpatient R HAYLEYSHOAIB GASPAR [facility] [id number] Univers 16:00:00 16:00:[address] [facility] 2022-11-15 2022-11-15 Outpatient R FREDERICK [facility] [id number] Univers 11:20:00 11:20:00 , STEPHANIE neely of [facility] 2022-11-06 2022-11-06 Outpatient R THOMAS [facility] [id number] Univers 13:00:00 14:35:[address] [facility] 2022-11-06 2022-11-06 Office Thomas [facility] 1.2.840.114 [id number] Univers 13:00:00 14:35:30 Visit Emily Homesnap 350.1.13.10 it y of [place] 4.2.7.2.686 John as SHANITA?BLEA [id number] Tn shawn[address] MEDICAL OFFICE BUILDING 2022-11-01 2022-11-01 Outpatient R [facility] [id number] Univers 15:00:00 15:00:00 , STEPHANIE neely [facility] 2022-10-20 2022-10-20 Outpatient R SHOAIB HARDY [facility] [id number] Univers 11:00:00 11:00:[address] [facility] 2022-10-02 2022-10-02 Outpatient R [facility] [id number] Univers 10:00:00 11:04:39 , STEPHANIE neely [facility] 2022-10-02 2022-10-02 Forensic Identification Specialist Lab, Ang - Db [facility] 1.2.840.1 [id number] Univers 10:00:00 10:15:00 Visit Stephanie Jasso [facility] 350.1 .13.10 ity of [place] 4.2.7.2.686 John as SHANITA?BLEA [id number] Tn bernabe [address] MEDICAL OFFICE BUILDING 2022-09-28 2022-09-28 Patient Glen [facility] 1.2.840.114 [id number] Univers 00:00:00 00:00:00 Outreach Kathia Jalloh [facility] 350.1.13.10 i ty of [place] 4.2.7.2.686 John as SHANITA?BLEA [id number] Tn bernabe SHAW [address] [place] [address] MEDICAL OFFICE BUILDING 2022-09-27 2022-09-27 Outpatient R SAUK [facility] [id number] Univers 14:40:00 15:18:26 , STEPHANIE leon y of [facility] 2022-09-27 2022-09-27 Office [facility] 1.2.840.114 [id number] [facility] 14:40:00 15:18:26 Visit , [place] 350.1.13.10 ity [facility] 4.2.7.2.686 John as SHANITA?BLEA [id number] Tn bernabe [address] OFFICE [facility] 2022-09-18 2022-09-18 Patient Glen [facility] 1.2.840.114 [id number] Univers 00:00:00 00:00:00 Outreach Kathia Jalloh [facility] 350.1.13.10 i ty of [place] 4.2.7.2.686 John as SHANITA?BLEA [id number] Tn bernabe SHAW [address] [place] [address] MEDICAL OFFICE [facility] 2022-09-13 2022-09-13 Outpatient R SAUK [facility] [id number] Univers 14:00:00 14:29:14 , STEPHANIE leon y of [facility] 2022-09-13 2022-09-13 Office [facility] 1.2.840.114 [id number] Univers 14:00:00 14:29:14 Visit , Stephanie [facility] 350.1.13.10 ity of [facility] 4.2.7.2.686 John as SHANITA?BLEA [id number] Tn bernabe [address] MEDICAL OFFICE BUILDING 2022-09-07 2022-09-07 Outpatient R DIAMOND [facility] [id number] Univers 09:00:00 09:00:00 BOBBY [facility] 2022-08-23 2022-08-23 Outpatient R [facility] [id number] Univers 13:00:00 13:00:00 , STEPHANIE it y [facility] 2022-07-27 2022-07-27 Outpatient R [facility] [id number] Univers 09:00:00 09:00:00 , STEPHANIE it y of [facility] 2022-06-07 2022-06-07 Emergency [facility] [id number] Univers 11:03:00 12:08:[address] [facility] 2022-06-07 2022-06-07 Emergency [facility] 1.2.180.155 [id number] Univers 11:03:00 12:08:00 Isabel BLAIR 350.1.13.10 ity of [place] [facility] 4.2.7.2.686 [place] [id number] [address] 2022-05-09 2022-05-09 Case LANA Mckinney 1.2.840.114 [id number] Univers 00:00:00 00:00:00 Management Brittnee GRAMAJOY 350.1.13.10 [place] of [place] 4.2.7.2.686 [place] [id number] [address] 2022-04-28 2022-04-28 Office [facility] 1.2.840.114 [id number] Univers 10:15:00 10:30:00 Visit [facility] 350.1.13.10 it y [facility] 4.2.7.2.686 John as SHANITA?BLEA [id number] [address] MEDICAL OFFICE BUILDING 2022-04-28 2022-04-28 Outpatient R DIAMOND [facility] [id number] Univers 10:01:10 10:16:[address] [facility] 2022-04-27 2022-04-27 Outpatient R DIAMOND [facility] [id number] Univers 15:45:00 15:45:[address] [facility] 2022-04-20 2022-04-20 Outpatient Miguel Ángel FIELDS [facility] [id number] Univers 11:15:00 11:15:[address] [facility] 2022-04-13 2022-04-13 Outpatient Miguel Ángel FIELDS [facility] [id number] Univers 13:30:00 13:30:[address] [facility] 2022-03-30 2022-03-30 Orders Doctor ABHIJIT 1.2.840.114 [id number] Univers 00:00:00 00:00:00 Only Unassigned, AMAYA 350.1.13.10 ity of [place] [facility] 4.2.7.2.686 John as [id number] [address] 2022-03-24 2022-03-24 Telephone [facility] [id number] [id number] Univers 00:00:00 00:00:00 [facility] 350.1.13.10 it y of [place] 4.2.7.2.686 John as SHANITA?BLEA [id number] [address] OFFICE [facility] 2022-03-09 2022-03-09 Outpatient Miguel Ángel [facility] [id number] Univers 13:45:00 23:59:[address] [facility] 2022-03-09 2022-03-09 Office [facility] 1.2.840.114 [id number] Univers 13:30:00 13:45:00 Visit [facility] 350.1.13.10 it y of [place] 4.2.7.2.686 John as SHANITA?BLEA [id number] [address] OFFICE [facility] 2022-03-04 2022-03-05 Emergency X JUAN J [facility] ERT [id number] Univers 15:22:00 15:00:[address] [facility] 2022-03-04 2022-03-05 Emergency Sergio Majano [facility] 1.2.840.1 [id number] Univers 15:22:00 15:00:00 John Escamilla 350.1.13.10 ity of [place] 4.2.7.2.686 [facility] [id number] [facility] [address] 2022-02-21 2022-02-21 Telephone [facility] [id number] Univers 00:00:00 00:00:00 [facility] 350.1.13.10 it y of [place] 4.2.7.2.686 John as SHANITA?BLEA [id number] Tn bernabe SHAW [address] [facility] OFFICE [facility] 2022-02-20 2022-02-20 Outpatient R [facility] [id number] Univers 15:15:00 15:15:00 [facility] 2022-02-09 2022-02-09 Office [facility] 1.2.840.114 [id number] Univers 13:45:00 14:15:00 Visit [facility] 350.1.13.10 it y of [place] 4.2.7.2.686 John as SHANITA?BLEA [id number] Tn bernabe SHAW [address] [facility] OFFICE [facility] 2022-02-09 2022-02-09 Outpatient R [facility] [id number] Univers 13:45:00 14:14:48 [facility] 2022-02-07 2022-02-07 Outpatient R ABHILASH [facility] [id number] Univers 13:30:00 13:49:35 [facility] 2022-02-07 2022-02-07 Office [facility] 1.2.840.114 [id number] Univers 13:30:00 13:49:35 Visit [facility] 350.1.13.10 it y of [place] 4.2.7.2.686 John as SHANITA?BLEA [id number] Tn bernabe SHAW 044 [facility] 2022-02-05 2022-02-05 Emergency X JOSE [facility] ERT [id number] Univers 16:08:00 17:27:00 NAZANIN [facility] 2022-02-05 2022-02-05 Emergency [facility] 1.2.840.114 [id number] Univers 16:08:00 17:27:00 Nazanin BLAIR 350.1.13.10 ity of [facility] [facility] 4.2.7.2.686 [facility] [id number] [address] 2022-02-02 2022-02-02 Emergency X LUCAS JEAN [facility] ERT [id number] Univers 11:02:00 15:34:[address] [facility] 2022-02-02 2022-02-02 Emergency [facility] [id number] [id number] Univers 11:02:00 15:34:00 Lucas BLAIR 350.1.13.10 i ty of [place] 4.2.7.2.686 [facility] [id number] [address] 2022-01-09 2022-01-09 Outpatient Miguel Ángel HUNG [facility] [id number] Univers 13:45:00 13:45:00 [facility] 2021-10-12 2021-10-12 Emergency X [facility] ERT [id number] Univers 09:51:00 11:54:[address] [facility] 2021-10-12 2021-10-12 Emergency [facility] [id number] [id number] Univers 09:51:00 11:54:00 Emy ROSSY 350.1.13.10 i ty of [place] 4.2.7.2.686 [facility] [id number] [address] 2021-10-12 2021-10-12 Orders Doctor LACEY 1.2.840.114 [id number] Univers 00:00:00 00:00:00 Only Unassigned, AMAYA 350.1.13.10 ity of [place] [facility] 4.2.7.2.686 John [id number] [address] 2021-09-12 2021-09-12 Outpatient Miguel Ángel HUNG [facility] [id number] Univers 10:30:00 10:30:[address] [facility] 2021-08-24 2021-08-24 Orders Doctor LACEY 1.2.840.114 [id number] Univers 00:00:00 00:00:00 Only Unassigned, AMAYA 350.1.13.10 ity of [place] [facility] 4.2.7.2.686 John as [id number] [address] 2021-06-03 2021-06-03 Outpatient R [facility] [id number] Univers 13:00:00 13:23:49 BILL [facility] 2021-05-16 2021-05-16 Orders Doctor ABHIJIT 1.2.840.114 [id number] Univers 00:00:00 00:00:00 Only Unassigned, AMAYA 350.1.13.10 ity of [place] [facility] 4.2.7.2.686 John as [id number] [address] 2021-05-04 2021-05-04 Telephone [facility] 1.2.840.114 [id number] Univers 00:00:00 00:00:00 [facility] 350.1.13.10 it y of [place] [facility] 4.2.7.2.686 John as SHANITA?BLEA [id number] [address] MEDICAL OFFICE BUILDING 2021-04-29 2021-04-29 Office [facility] 1.2.840.114 [id number] Univers 16:00:00 16:15:00 Visit [facility] 350.1.13.10 it y of [place] [facility] 4.2.7.2.686 John as SHANITA?BLEA [id number] [address] MEDICAL OFFICE BUILDING 2021-04-29 2021-04-29 Outpatient R [facility] [id number] Univers 16:00:00 16:00:00 BILL [facility] 2021-04-29 2021-04-29 Orders Doctor ABHIJIT 1.2.840.114 [id number] Univers 00:00:00 00:00:00 Only Unassigned, AMAYA 350.1.13.10 ity of [place] [facility] 4.2.7.2.686 John as [id number] [address] 2021-04-22 2021-04-22 Outpatient R [facility] [id number] Univers 08:00:00 08:00:00 [facility] 2021-04-22 2021-04-22 Telephone [facility] 1.2.840.114 [id number] Univers 00:00:00 00:00:00 [facility] 350.1.13.10 it y of [place] 4.2.7.2.686 John as SHANITA?BLEA [id number] [address] OFFICE [facility] 2021-04-15 2021-04-15 Office [facility] 1.2.840.114 [id number] Univers 15:30:00 16:00:00 Visit [facility] [id number] it y of [place] BLAIR [id number] John as SHANITA?BLEA [phone] [address] 2021-04-15 2021-04-15 Outpatient R [facility] [id number] [facility] 15:30:00 15:30:00 [facility] 2021-04-15 2021-04-15 Outpatient R [facility] [id number] [facility] 15:30:00 15:30:00 [facility] Results Test Description Test Time Test Comments Results Result Comments Source COMP. METABOLIC PANEL (87112) 2021-10-12 15:45:46 Test Item Value Reference Range Interpretation Comme nts NA (test code = 6879227120) 139 mmol/L 135-145 K (test code = 8941896618) 4.5 mmol/L 3.5-5.0 CL (test code = 9778139762) 99 mmol/L 98-108 CO2 TOTAL (test code = 8056905401) 30 mmol/L 23-31 AGAP (test code = 2550472642) 2-16 BUN (test code = 5070204749) 16 mg/dL 7-23 GLUCOSE (test code = 0190448689) 119 mg/dL 70-110 H CREATININE (test code = 0.66 mg/dL 0.50-1.04 7259897159) TOTAL BILI (test code = 0.4 mg/dL 0.1-1.2 6584181171) CALCIUM (test code = 6010763474) 10.0 mg/dL 8.6-10.6 T PROTEIN (test code = 4646556912) 8.6 g/dL 6.3-8.2 H ALBUMIN (test code = 0540212862) 4.7 g/dL 3.5-5.0 ALK PHOS (test code = 9725656731) 94 U/L 34-122 ALTv (test code = 1742-6) 17 U/L 5-35 AST(SGOT) (test code = 2676968475) 23 U/L 13-40 eGFR (test code = 5691197122) mL/min/1.73m2 SHE (test code = SHE) Association [...] tests). Lab Interpretation (test code = Abnormal 62413-8) [facility] Test Item Value Reference Range Interpretation Comments LIPASE (test code = 1941060068) 86 U/L 0-220 Lab Interpretation (test code = Normal 49726-6) [facility] WITH [id number] 15:31:02 Test Item Value Reference Range Interpretation [...] RDW-SD (test code = 44.6 fL 39.0-49.9 00127-8) RDW-CV (test code = 13.7 % 12.0-15.5 788-0) PLT (test code = See_Comment H [Automated 777-3) message] The system which generated this result transmit ann reference range : 166 - 358 10*3/ ?L. The reference range was not u sed to interpret th is result as normal/abnormal . MPV (test code = 10.0 fL 9.5-12.9 83625-9) NRBC/100 WBC (test See_Comment [Automat ed code = 7234755957) message] The system which generated this result transmit ann reference range : 0.0 - 10.0 /100 WBCs. The reference range was not used to interpret this result as normal/abnormal . NRBC x10^3 (test code <0.01 See_Comment [Auto mated = 1496851353) message] The system which generated this result transmit ann reference range : 10*3/?L. The reference range was not used to interpret this result as normal/abnormal . GRAN MAT (NEUT) % 78.7 % (test code = 770-8) IMM GRAN % (test code 0.60 % = 0902415507) LYMPH % (test code = 12.7 % 736-9) MONO % (test code = 7.2 % 5905-5) EOS % (test code = 0.3 % 713-8) BASO % (test code = 0.5 % 706-2) GRAN MAT x10^3(ANC) 12.40 10*3/uL 1.88-7.09 H (test code = 2950674724) IMM GRAN x10^3 (test 0.09 10*3/uL 0.00-0.06 H code = 7662435456) LYMPH x10^3 (test code 2.00 10*3/uL 1.32-3.29 = 731-0) MONO x10^3 (test code 1.14 10*3/uL 0.33-0.92 H = 742-7) EOS x10^3 (test code = 0.04 10*3/uL 0.03-0.39 711-2) BASO x10^3 (test code 0.08 10*3/uL 0.01-0.07 H = 704-7) Lab Interpretation Abnormal (test code = 59712-1) [facility]"
[2022-11-18] MEDS ORDERED: NA CHLORIDE 0.9% 1,000 ML ONE (21:50)
[2022-11-18] MEDS ORDERED: HYDROCODONE/APAP 7.5/325 MG TAB ONE (22:13)
[2022-11-18 22:18] LABS: Absolute Lymphocytes (CBC) 2.4 K/uL (0.7-4.9); Hematocrit 41.6 % (36.0-45.0); Lymphocytes % 19.4 % (15.3-44.8); MCV 90.1 fL (80-100); MPV 8.8 fL (7.6-11.3); Platelets 386 thou/uL (152-406); RBC Red Blood Cell Count 4.62 M/uL (3.86-4.86)
[2022-11-18 22:34] LABS: Albumin 4.1 g/dL (3.4-5.0); Bilirubin Total 0.3 mg/dL (0.2-1.0); Potassium 3.6 mEq/L (3.5-5.1); Protein, Total 9.2 g/dL (6.4-8.2)
--- NOTE | 2022-11-18 23:17 | ER ---
Nurse's Notes [facility] Det Name: Cindy Ackerman Age: 47 yrs Sex: Female : 1975 Arrival Date: 11/18/2022 Time: 20:05 Bed 8 Private MD: Diagnosis: laceration of thigh, sequela Presentation: 11/18 20:42 Chief complaint: Patient states: need wound recheck s/p dog bite increase in pain. kl Coronavirus screen: Vaccine status: Patient reports receiving the 2nd dose of the covid vaccine. Ebola Screen: Patient negative for fever greater than or equal to 101.5 degrees Fahrenheit, and additional compatible Ebola Virus Disease symptoms. Initial Sepsis Screen: Does the patient meet any 2 criteria? No. Patient's initial sepsis screen is negative. Does the patient have a suspected source of infection? Yes: Skin breakdown/wound. Risk Assessment: Do you want to hurt yourself or someone else? Patient reports no desire to harm self or others. 20:42 Method Of Arrival: Ambulatory kl 20:42 Acuity: JEFFY 3 kl Triage Assessment: 20:50 General: Appears in no apparent distress. Behavior is calm, cooperative. Pain: Complains of pain in medial aspect of left calf Pain currently is 10 out of 10 on a pain scale. Derm: Wound noted left medial calf half dollr size. Historical: - Allergies: 20:50 PENICILLINS; kl 20:50 Robaxin; kl - PMHx: 20:50 Anxiety; Asthma; Bipolar disorder; Hypercholesterolemia; Hypertensive disorder; PTSD; kl Seizure; - PSHx: 20:50 hip SX; kl - Immunization history:: Adult Immunizations not up to date. - Social history:: Smoking status: Patient denies any tobacco usage or history of. Screenin:49 [facility] ED Fall Risk Assessment (Adult) History of falling in the last 3 months, jb4 including since admission No falls in past 3 months (0 pts) Confusion or Disorientation No (0 pts) Score/Fall Risk Level 0 - 2 = Low Risk Oriented to surroundings, Maintained a safe environment. Abuse screen: Denies threats or abuse. Nutritional screening: No deficits noted. Tuberculosis screening: No symptoms or risk factors identified. Assessment: 21:49 General: Appears in no apparent distress. comfortable, Behavior is calm, cooperative, jb4 appropriate for age. Pain: Complains of pain in left leg Pain does not radiate. Pain currently is 10 out of 10 on a pain scale. Neuro: Level of Consciousness is awake, alert, obeys commands, Oriented to person, place, time, situation. Cardiovascular: Patient's skin is warm and dry. Respiratory: Airway is patent Respiratory effort is even, unlabored, Respiratory pattern is regular, symmetrical. GI: No signs and/or symptoms were reported involving the gastrointestinal system. : No signs and/or symptoms were reported regarding the genitourinary system. EENT: No signs and/or symptoms were reported regarding the EENT system. Derm: Skin is healthy with good turgor, Skin is pink, warm \T\ dry. Musculoskeletal: Circulation, motion, and sensation intact. Range of motion: intact in all extremities. 22:56 Reassessment: Patient appears in no apparent distress at this time. Patient and/or jb4 family updated on plan of care and expected duration. Pain level reassessed. Patient is alert, oriented x 3, equal unlabored respirations, skin warm/dry/pink. 23:51 Reassessment: Patient appears in no apparent distress at this time. Patient and/or jb4 family updated on plan of care and expected duration. Pain level reassessed. Patient is alert, oriented x 3, equal unlabored respirations, skin warm/dry/pink. Vital Signs: 20:42 Pulse 87; Resp 20; Temp 98.6(O); Pulse Ox 100% on R/A; Weight 61.23 kg (R); Height 5 kl ft. 2 in. ; Pain 10/10; 22:14 BP 131 / 85; Pulse 76; Resp 16; Pulse Ox 100% on R/A; jb4 23:06 BP 98 / 52; Pulse 80; Resp 16; Pulse Ox 97% on R/A; jb4 23:51 BP 103 / 81; Pulse 69; Resp 16; Pulse Ox 99% on R/A; jb4 20:42 Body Mass Index 24.69 (61.23 kg, 157.48 cm) kl 20:42 Pain Scale: Adult kl ED Course: 20:11 Patient arrived in ED. kj1 20:22 Bernadette Gould PA-C is PHCP. sb4 20:22 Trudi Celestin MD is Attending Physician. sb4 20:50 Triage completed. kl 21:29 Paulino Fowler, RN is Primary Nurse. jb4 21:40 Initial lab(s) drawn, by me, sent to lab. Inserted saline lock: 20 gauge in right jb4 antecubital area, using aseptic technique. Blood collected. 21:49 Patient has correct armband on for positive identification. Bed in low position. Call jb4 light in reach. Side rails up X 1. Client placed on continuous cardiac and pulse oximetry monitoring. NIBP monitoring applied. 23:15 Singh aVlenzuela MD is Referral Physician. sb4 23:51 No provider procedures requiring assistance completed. IV discontinued, intact, jb4 bleeding controlled, No redness/swelling at site. Pressure dressing applied. Administered Medications: 21:44 Drug: NS 0.9% IV 1000 ml Route: IV; Rate: 1 bolus; Site: right antecubital; jb4 22:04 Drug: Hydrocodone-Acetaminophen PO (7.5 mg-325 mg) 1 tabs Route: PO; jb4 23:28 Drug: Doxycycline PO 100 mg Route: PO; jb4 Medication: 21:49 VIS not applicable for this client. jb4 Outcome: 23:15 Discharge ordered by . sb4 23:51 Discharged to home ambulatory. jb4 23:51 Condition: stable 23:51 Discharge instructions given to patient, Instructed on discharge instructions, follow up and referral plans. medication usage, wound care, Demonstrated understanding of instructions, follow-up care, medications, wound care, Prescriptions given X 1. 23:52 Patient left the ED. jb4 Signatures: Odette Duenas RN RN Paulino Fowler RN HUBERT jb4 Perla Nicholas1 Bernadette Gould PA-C PA-C sb4
--- NOTE | 2022-11-18 23:17 | EDPHYS ---
Physician Documentation [facility] Name: Cindy Ackerman Age: 47 yrs Sex: Female : 1975 Arrival Date: 11/18/2022 Time: 20:05 Bed 8 Private MD: ED Physician Trudi Celestin HPI: 11/18 23:35 This 47 yrs old Female presents to ER via Ambulatory with complaints of sb4 Puncture Wound To Leg. 23:35 The patient presents with a laceration, 4 cm(s). The complaints affect the medial sb4 aspect of left thigh. Context: Problem is a result from a previous injury: Yes. Injury was sustained October 24, 2022. Treatment prior to arrival includes: tio wrap. The patient has been recently seen at the [facility] Emergency Department, a couple of weeks ago. 11/19 15:37 patient presents with pain to the medial left thigh. she was bitten by a dog a few sb4 weeks ago and had prior medication treatment- sutures and antibiotics. she states that she finished her antibiotics and has been cleaning the wound but cannot tell me when, where, or who removed the sutures. she is a very poor historian. reports pain to the site and generally feeling unwell. Historical: - Allergies: 11/18 20:50 PENICILLINS; kl 20:50 Robaxin; kl - PMHx: 20:50 Anxiety; Asthma; Bipolar disorder; Hypercholesterolemia; Hypertensive disorder; PTSD; kl Seizure; - PSHx: 20:50 hip SX; kl - Immunization history:: Adult Immunizations not up to date. - Social history:: Smoking status: Patient denies any tobacco usage or history of. ROS: 11/19 15:37 Cardiovascular: Negative for chest pain, palpitations, and edema, Respiratory: Negative sb4 for shortness of breath, cough, wheezing, and pleuritic chest pain, Abdomen/GI: Negative for abdominal pain, nausea, vomiting, diarrhea, and constipation. Constitutional: Positive for fever, malaise, Negative for body aches, chills. Skin: Positive for laceration(s). All other systems are negative. Exam: 15:37 Head/Face: Normocephalic, atraumatic. Eyes: Extra-ocular motions intact. Periorbital sb4 areas with no swelling, redness, or edema. ENT: Mucous membranes moist. Cardiovascular: Regular rate and rhythm with a normal S1 and S2. Respiratory: Lungs have equal breath sounds bilaterally, clear to auscultation and percussion. No rales, rhonchi or wheezes noted. No increased work of breathing, no retractions or nasal flaring. Abdomen/GI: Soft, non-tender, no distension. MS/ Extremity: Pulses equal, no cyanosis. Neurovascular intact. Full, normal range of motion. Neuro: Awake and alert, GCS 15, oriented to person, place, time, and situation. Cranial nerves II-XII grossly intact. Motor strength 5/5 in all extremities. Sensory grossly intact. Cerebellar exam normal. Normal gait. 15:37 Constitutional: The patient appears lethargic, unkempt, appears altered 15:37 Skin: injury, laceration(s), the wound is approximately 3 cm(s), with a depth of 2 cm(s), of the medial aspect of left thigh, that can be described as no foreign body, linear, without bleeding, wound still gaping, mildly cellulitic, no purulent discharge, some granulation tissue note. Vital Signs: 11/18 20:42 Pulse 87; Resp 20; Temp 98.6(O); Pulse Ox 100% on R/A; Weight 61.23 kg (R); Height 5 kl ft. 2 in. ; Pain 10/10; 22:14 BP 131 / 85; Pulse 76; Resp 16; Pulse Ox 100% on R/A; jb4 23:06 BP 98 / 52; Pulse 80; Resp 16; Pulse Ox 97% on R/A; jb4 23:51 BP 103 / 81; Pulse 69; Resp 16; Pulse Ox 99% on R/A; jb4 20:42 Body Mass Index 24.69 (61.23 kg, 157.48 cm) kl 20:42 Pain Scale: Adult kl MDM: 20:22 Patient medically screened. sb4 11/19 15:37 Differential diagnosis: cellulitus, abscess, wound infection. Data reviewed: vital sb4 signs, nurses notes, I have discussed the patient's presentation/case with the attending Emergency Department Physician; and as a result, I will discharge patient. Care significantly affected by the following chronic conditions: Hypertension, bipolar disorder. Counseling: I had a detailed discussion with the patient and/or guardian regarding: the historical points, exam findings, and any diagnostic results supporting the discharge/admit diagnosis, lab results, to return to the emergency department if symptoms worsen or persist or if there are any questions or concerns that arise at home. ED course: patient is not septic. discussed with her that the importance of wound care- wet to dry dressings- taking her new antibiotic and following up with general surgery to reevaluate the wound. 11/18 20:57 Order name: CBC with Diff; Complete Time: 22:37 sb4 11/18 20:57 Order name: CMP; Complete Time: 22:37 sb4 11/18 20:57 Order name: Lactate w/ 2H reflex if indic.; Complete Time: 23:14 sb4 11/18 20:57 Order name: Cardiac monitoring; Complete Time: 21:38 sb4 11/18 20:57 Order name: IV Saline Lock - Large Bore; Complete Time: 21:38 sb4 11/18 20:57 Order name: Labs collected and sent; Complete Time: 21:38 sb4 11/18 20:57 Order name: O2 Per Protocol; Complete Time: 21:38 sb4 11/18 20:57 Order name: O2 Sat Monitoring; Complete Time: 21:38 sb4 11/18 20:57 Order name: Vital Signs; Complete Time: 21:38 sb4 11/18 23:14 Order name: Misc. Order: wet to dry dressing; Complete Time: 23:49 sb4 Administered Medications: 11/18 21:44 Drug: NS 0.9% IV 1000 ml Route: IV; Rate: 1 bolus; Site: right antecubital; jb4 22:04 Drug: Hydrocodone-Acetaminophen PO (7.5 mg-325 mg) 1 tabs Route: PO; jb4 23:28 Drug: Doxycycline PO 100 mg Route: PO; jb4 Disposition: 23:52 I reviewed the patient's care provided by Advanced Practice Provider \T\ agree w/ the sd2 diagnosis \T\ care plan. I personally saw the pt \T\ performed a substantive portion of the visit, incldng all aspects of the (History/Exam/Medical Decision Making). Disposition Summary: 11/18/22 23:15 Discharge Ordered Location: Home sb4 Problem: an ongoing problem sb4 Symptoms: are unchanged sb4 Condition: Stable sb4 Diagnosis - laceration of thigh, sequela sb4 Followup: sb4 - With: Singh Valenzuela MD - When: 2 - 3 days - Reason: Wound Recheck Discharge Instructions: - Discharge Summary Sheet sb4 - How to Change Your Wound Dressing, [id number] sb4 Forms: - Medication Reconciliation Form sb4 - Thank You Letter sb4 - Antibiotic Education sb4 - Prescription Opioid Use sb4 - Patient Portal Instructions sb4 - Leadership Thank You Letter sb4 Prescriptions: - Doxycycline Hyclate 100 mg Oral Tablet - take 1 tablet by ORAL route every 12 hours; 20 tablet; Refills: 0, Product sb4 Selection Permitted Signatures: Dispatcher [employer] EDOdette Isbell RN RN Paulino Dawson RN RN grey4 Trudi Ceelstin MD MD sd2 Bernadette Gould PA-C PA-C sb4
[2022-11-18] MEDS ORDERED: DOXYCYCLINE 100 MG CAP PO ONE (23:36)
[2022-11-19 00:46] VITALS: TEMP 98.6
[2022-11-19 00:54] VITALS: BP 103/81; O2SAT 99
== END 2022-11-18 23:52 | disposition home or self-care (01) ==
LOC: ER 20:05
DX: L03.116 Cellulitis of left lower limb (principal); S71.112S Laceration without foreign body, left thigh, sequela; Z88.0 Allergy status to penicillin; Z88.8 Allergy status to other drugs, medicaments and biological substances
CPT/HCPCS: 85025; 36415; 83605; 80053; 99284; J7030

== ENCOUNTER 2022-11-21 16:13 | Inpatient (IN) | payer OTHER ==
--- OUTSIDE RECORDS SUMMARY | 2022-11-21 16:18 | XMS REPORT | Continuity of Care Document ---
:1975 Author Organization [facility] t Address [address] [place] [address] Care Team Providers Name Role Phone STEPHANIE JASSO Primary Care Physician Unavailable SHOAIB HARDY Attending Clinician Unavailable SHOAIB HARDY Attending Clinician Unavailable STEPHANIE JASSO Attending Clinician Unavailable EMILY GUZMAN Attending Clinician Unavailable Emily Velasquez Attending Clinician Lab, Ang - Db Attending Clinician Unavailable Stephanie Jasso MD Attending Clinician [phone] Kathia Carroll LMSW Attending Clinician BOBBY FIELDS Attending Clinician Unavailable ISABEL FIELDS Attending Clinician Unavailable Isabel Fields MD Attending Clinician Brittnee Mckinney MA Attending Clinician Unavailable Bobby Pfeiffer Attending Clinician Doctor Unassigned, [place] Attending Clinician Unavailable JOHN ESCAMILLA Attending Clinician [...] Date Expiration Date Kira florian [employer] [id number] 2022 PLUS 00:00:00 Problems Condition Condition Condition Status Onset Resolution Last Treating Co mments Source Name Details Category Date Date Treatment Clinician Date Acute left Acute left Disease Active U nivers ankle pain ankle pain 11-06 it y of 00:00: [place] [facility] Open wound Open wound Disease Active U nivers 11-06 ity of 00:00: [place] [facility] 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 6 it y of 00:00: [place] 00 Medical Branch Leukocytos Leukocytos Disease Active U nivers is is 6 ity of 00:00: Medical Branch Closed Closed Disease Active Univers head head 6 ity of injury injury 00:00: [address] No known No known Disease Unive rs active active ity of problems problems [facility] Seizures Seizures Disease Active Unive rs ity of [facility] Allergies, Adverse Reactions, Alerts Allergy Allergy Status Severity Reaction(s) Onset Inactive Treating Comm ents Source Name Type Date Date Clinician METHOCAR DRUG Active Med Hives Univers BAMOL INGREDI 1-07 ity of 00:00: [address] Methocar Propensi Active Hives Univer s bamol ty to 1-07 ity of adverse 00:00: [place] reaction [address] [place] [address] s [place] Social History Social Habit Start Date Stop Date Quantity Comments Source Gender identity Universit y [facility] Sexual orientation Univer sity of [facility] Alcohol intake 2022-11-06 2022-11-06 Current drinker of Un iversity of 00:00:00 00:00:00 alcohol (finding) [facility] Alcohol Comment 2022-09-13 2022-09-13 occasionally Univers ity of 00:00:00 00:00:00 [facility] Exposure to 2022-08-13 2022-08-23 Not sure [facility]-CoV-2 (event) 00:00:00 12:49:00 [facility] Tobacco use and 2022-02-09 2022-02-09 Smokeless tobacco Un iversity of exposure 00:00:00 00:00:00 non-user [facility] History of Social 2022-02-07 2022-02-07 Univers ity of function 00:00:00 00:00:00 [facility] Sex [birth year] At [birth year] Universit y of 00:00:00 00:00:00 [facility] Smoking Status Start Date Stop Date Source Tobacco [facility] Medications Ordered Filled Start Stop Current Ordering Indication Dosage Frequency Signature Comments Components Source Medication Medication Date Date Medication? Clinician (SIG) Name Name diclofenac Yes 75mg Take 1 Unive rs 75 mg EC 7-31 tablet by ity of tablet 13:43: mouth in [place] [address] the Medical morning Branch and 1 tablet in the evening. diclofenac Yes 75mg Take 1 Unive rs 75 mg EC 7-31 tablet by ity of tablet 13:43: mouth in [place] [address] the Medical morning [place] and 1 tablet in the evening. amoxicillin 2022- Yes [id number] 1{tbl} Take 1 Univers -clavulanat 7-31 08-08 tablet by it y of e 00:00: 04:59 mouth in [place] (AUGMENTIN) 00 :00 the Medical 875-125 mg morning Branch per tablet and 1 tablet in the evening. Do all this for 7 days. amoxicillin 2022- Yes [id number] 1{tbl} Take 1 Univers -clavulanat 7-31 08-08 tablet by it y of e 00:00: 04:59 mouth in [place] (AUGMENTIN) 00 :00 the Medical 875-125 mg morning Branch per tablet and 1 tablet in the evening. Do all this for 7 days. amoxicillin 2022- No [id number] 1{tbl} Take 1 Univers -clavulanat 7-31 07-31 tablet by it y of e 00:00: 00:00 mouth in [place] (AUGMENTIN) 00 :00 the Medical 875-125 mg morning Branch per tablet and 1 tablet in the evening. amoxicillin 2022-0 2022- No [id number] 1{tbl} Take 1 Univers -clavulanat 7-31 07-31 tablet by it y of e 00:00: 00:00 mouth in [place] (AUGMENTIN) 00 :00 the Medical 875-125 mg morning Branch per tablet and 1 tablet in the evening. traMADoL 50 2022-0 Yes TAKE 1 Univ ers mg tablet 7-19 TABLET BY ity o f 00:00: MOUTH [place] 00 EVERY 8 Medical HOURS Branch NEEDED traMADoL 50 2022-0 Yes TAKE 1 Univ ers mg tablet 7-19 TABLET BY ity o f 00:00: MOUTH [place] 00 EVERY 8 Medical HOURS Branch NEEDED risperiDONE 2022-0 Yes .5mg Take 1 Univ ers 0.5 mg 6-28 tablet by ity of tablet 00:00: mouth in [place] 00 the Medical morning Branch and 1 tablet in the evening. prazosin 1 2022-0 Yes 1mg Take 1 Unive rs mg capsule 6-28 capsule by ity of 00:00: mouth at [place] 00 bedtime. Medical Branch FLUoxetine 2022-0 Yes 10mg Take 1 Unive rs 10 mg 6-28 capsule by ity of capsule 00:00: mouth in [place] 00 the Medical morning. Branch risperiDONE 2022-0 Yes .5mg Take 1 Univ ers 0.5 mg 6-28 tablet by ity of tablet 00:00: mouth in [place] 00 the Medical morning Branch and 1 tablet in the evening. prazosin 1 2022-0 Yes 1mg Take 1 Unive rs mg capsule 6-28 capsule by ity of 00:00: mouth at [place] [address] bedtime. Medical Branch FLUoxetine 2022-0 Yes 10mg Take 1 Unive rs 10 mg 6-28 capsule by ity of capsule 00:00: mouth in [place] 00 the Medical morning. Branch levETIRAcet 2022-0 2022- No 1000mg Take 1 U nivers am 1,000 mg 6-21 -21 tablet by it y of tablet 15:07: 00:00 mouth in [place] 59 :00 the Medical morning Branch and [...] y of tablet 15:07: 00:00 mouth in [place] 59 :00 the Medical morning Branch and [...] y of tablet 15:07: 00:00 mouth in [place] 59 :00 the Medical morning Branch and 1 tablet in the evening. vitamin 2022-0 2022- No 1{tbl} Take 1 Unive rs D3-folic -27 09- tablet by ity o f acid 125 15:07: 00:00 [facility] 59 :00 the Medical unit)-1 mg morning. [facility] h Tab venlafaxine 2022-2022- No 75mg Take 1 Uni vers XR 75 mg 24 09-27 capsule by i ty of hr capsule 15:03: 00:00 mouth in [facility] 36 :00 the Medical morning. Branch topiramate 2022-0 2022- No 50mg Take 1 Univ ers 50 mg 09-27 tablet by ity of tablet 15:03: 00:00 mouth in [place] 36 :00 the Medical morning Branch and 1 tablet in the evening. QUEtiapine 2022-0 2022- No 200mg Take 1 Uni vers 200 mg -27 09- tablet by ity of tablet 15:03: 00:00 mouth at [place] 36 :00 bedtime. Medical Branch pantoprazol 2022-0 3- No 40mg Take 1 Uni vers e 40 mg EC -09-27 tablet by ity of tablet 15:03: 00:00 mouth in [place] 36 :00 the Medical morning. Branch OXcarbazepi 2022-0 2023- No 300mg Take 1 Un roel ne 300 mg 6-27 09-21 tablet by ity of tablet 15:03: 00:00 mouth in [place] 36 :00 the Medical morning Branch and 1 tablet in the evening. venlafaxine 2023-0 2023- No 75mg Take 1 Uni vers XR 75 mg 24 6-27 09-21 capsule by i ty of hr capsule 15:03: 00:00 mouth in [facility] 36 :00 the Medical morning. Branch topiramate 2023-0 2023- No 50mg Take 1 Univ ers 50 mg 6-21 -21 tablet by ity of tablet 15:03: 00:00 mouth in [place] 36 :00 the Medical morning Branch and 1 tablet in the evening. QUEtiapine 2023-0 2023- No 200mg Take 1 Uni vers 200 mg 6-21 - tablet by ity of tablet 15:03: 00:00 mouth at [place] 36 :00 bedtime. Medical Branch pantoprazol 2023-0 2023- No 40mg Take 1 Uni vers e 40 mg EC 6-27 09- tablet by ity of tablet 15:03: 00:00 mouth in [place] 36 :00 the Medical morning. Branch OXcarbazepi 2023-0 2023- No 300mg Take 1 Un roel ne 300 mg -09-27 tablet by ity of tablet 15:03: 00:00 mouth in [place] 36 :00 the Medical morning Branch and 1 tablet in the evening. venlafaxine 2023-0 2023- No 75mg Take 1 Uni vers XR 75 mg 24 6-27 09- capsule by i ty of hr capsule 15:03: 00:00 mouth in [facility] 36 :00 the Medical morning. Branch topiramate 2023-0 2023- No 50mg Take 1 Univ ers 50 mg 6-21 -21 tablet by ity of tablet 15:03: 00:00 mouth in [place] 36 :00 the Medical morning Branch and 1 tablet in the evening. QUEtiapine 2023-0 2023- No 200mg Take 1 Uni vers 200 mg 6-21 -21 tablet by ity of tablet 15:03: 00:00 mouth at [place] 36 :00 bedtime. Medical Branch pantoprazol 2023-0 2023- No 40mg Take 1 Uni vers e 40 mg EC 6-21 06-21 tablet by ity of tablet 15:03: 00:00 mouth in [place] 36 :00 the Medical morning. Branch OXcarbazepi 2023-0 2023- No 300mg Take 1 Un roel ne 300 mg 6-21 06-21 tablet by ity of tablet 15:03: 00:00 mouth in [place] 36 :00 the Medical morning Branch and 1 tablet in the evening. vitamin 2023-0 Yes [id number] 1{tbl} Take 1 Un roel D3-folic 6-21 tablet by ity of acid 125 00:00: mouth in [place] mcg (5,000 00 the Medical unit)-1 mg morning. Branc h Tab levETIRAcet 2022-0 Yes [id number] 1000mg Take 1 Univers am 1,000 mg 6-21 tablet by ity of tablet 00:00: mouth in [place] 00 the Medical morning Branch and 1 tablet in the evening. atorvastati 2022-0 Yes [id number] 20mg Take 1 Univers n 20 mg 6-21 tablet by ity of tablet 00:00: mouth in [place] 00 the Medical morning. Branch vitamin 3-0 Yes [id number] 1{tbl} Take 1 Un roel D3-folic 6-21 tablet by ity of acid 125 00:00: mouth in [facility] (5,000 00 the Medical unit)-1 mg morning. Bran h Tab levETIRAcet 2022-0 Yes [id number] 1000mg Take 1 Univers am 1,000 mg 6-21 tablet by ity of tablet 00:00: mouth in [place] [address] the Medical morning Branch and 1 tablet in the evening. atorvastati 2022-0 Yes [id number] 20mg Take 1 Univers n 20 mg 6-21 tablet by ity of tablet 00:00: mouth in [place] 00 the Medical morning. Branch vitamin 3-0 Yes [id number] 1{tbl} Take 1 Un roel D3-folic 6-21 tablet by ity of acid 125 00:00: mouth in [facility] (5,000 00 the Medical unit)-1 mg morning. Branc h Tab levETIRAcet 2022-0 Yes [id number] 1000mg Take 1 Univers am 1,000 mg 6-21 tablet by ity of tablet 00:00: mouth in [place] [address] the Medical morning Branch and 1 tablet in the evening. atorvastati 2022-0 Yes [id number] 20mg Take 1 Univers n 20 mg 6-21 tablet by ity of tablet 00:00: mouth in [place] 00 the Medical morning. Branch vitamin 2022-0 Yes [id number] 1{tbl} Take 1 Un roel D3-folic 6-21 tablet by ity of acid 125 00:00: mouth in [place] mcg (5,000 00 the Medical unit)-1 mg morning. Branc h Tab levETIRAcet 2022-0 Yes [id number] 1000mg Take 1 Univers am 1,000 mg 6-21 tablet by ity of tablet 00:00: mouth in [place] 00 the Medical morning Branch and 1 tablet in the evening. atorvastati 2022-0 Yes [id number] 20mg Take 1 Univers n 20 mg 6-21 tablet by ity of tablet 00:00: mouth in [place] 00 the Medical morning. Branch vitamin 2022-0 Yes [id number] 1{tbl} Take 1 Un roel D3-folic 6-21 tablet by ity of acid 125 00:00: mouth in [place] mcg (5,000 00 the Medical unit)-1 mg morning. Bran h Tab levETIRAcet 2022-0 Yes [id number] 1000mg Take 1 Univers am 1,000 mg 6-21 tablet by ity of tablet 00:00: mouth in [place] the Medical morning Branch and 1 tablet in the evening. atorvastati 2022-0 Yes [id number] 20mg Take 1 Univers n 20 mg 6-21 tablet by ity of tablet 00:00: mouth in [place] 00 the Medical morning. Branch vitamin 3-0 Yes [id number] 1{tbl} Take 1 Un roel D3-folic 6-21 tablet by ity of acid 125 00:00: mouth in [place] mcg (5,000 00 the Medical unit)-1 mg morning. Bran h Tab levETIRAcet 2022-0 Yes [id number] 1000mg Take 1 Univers am 1,000 mg 6-21 tablet by ity of tablet 00:00: mouth in [place] 00 the Medical morning Branch and 1 tablet in the evening. atorvastati 2022-0 Yes [id number] 20mg Take 1 Univers n 20 mg 6-21 tablet by ity of tablet 00:00: mouth in [place] 00 the Medical morning. Branch vitamin 3-0 Yes [id number] 1{tbl} Take 1 Un roel D3-folic 6-21 tablet by ity of acid 125 00:00: mouth in [place] mcg (5,000 00 the Medical unit)-1 mg morning. Bran h Tab levETIRAcet 3-0 Yes [id number] 1000mg Take 1 Univers am 1,000 mg 6-21 tablet by ity of tablet 00:00: mouth in [place] 00 the Medical morning Branch and 1 tablet in the evening. atorvastati 3-0 Yes [id number] 20mg Take 1 Univers n 20 mg 6-21 tablet by ity of tablet 00:00: mouth in [place] 00 the Medical morning. Branch vitamin 3-0 Yes [id number] 1{tbl} Take 1 Un roel D3-folic 6-21 tablet by ity of acid 125 00:00: mouth in [place] mcg (5,000 00 the Medical unit)-1 mg morning. Bran h Tab levETIRAcet 3-0 Yes [id number] 1000mg Take 1 Univers am 1,000 mg 6-21 tablet by ity of tablet 00:00: mouth in [place] the Medical morning Branch and 1 tablet in the evening. atorvastati 2022-0 Yes [id number] 20mg Take 1 Univers n 20 mg 6-21 tablet by ity of tablet 00:00: mouth in [place] 00 the Medical morning. Branch foLIC acid 2022-0 Yes 1mg Take 1 Unive rs 1 mg tablet 6-21 tablet by ity of 00:00: mouth [place] 00 every Medical morning. Branch vitamin 3-0 Yes [id number] 1{tbl} Take 1 Un roel D3-folic 6-21 tablet by ity of acid 125 00:00: mouth in [place] mcg (5,000 00 the Medical unit)-1 mg morning. Bran h Tab levETIRAcet 3-0 Yes [id number] 1000mg Take 1 Univers am 1,000 mg 6-21 tablet by ity of tablet 00:00: mouth in [place] 00 the Medical morning Branch and 1 tablet in the evening. atorvastati 3-0 Yes [id number] 20mg Take 1 Univers n 20 mg 6-21 tablet by ity of tablet 00:00: mouth in [place] 00 the Medical morning. Branch foLIC acid 3-0 Yes 1mg Take 1 Unive rs 1 mg tablet 6-21 tablet by ity of 00:00: mouth [place] 00 every Medical morning. Branch levETIRAcet 2023-0 Yes 1000mg Take 1 Un roel am 1,000 mg 6-07 tablet by ity of tablet 13:59: mouth in [place] [address] the Medical morning Branch and 1 tablet in the evening. venlafaxine 2023-0 Yes 75mg Take 1 Univ ers XR 75 mg 24 6-07 capsule by it y of hr capsule 13:59: mouth in [place] [address] the Medical morning. Branch topiramate 2023-0 Yes 50mg Take 1 Unive rs 50 mg 6-07 tablet by ity of tablet 13:59: mouth in [place] [address] the Medical morning Branch and 1 tablet in the evening. QUEtiapine 2023-0 Yes 200mg Take 1 Univ ers 200 mg 6-07 tablet by ity of tablet 13:59: mouth at [place] [address] bedtime. Medical Branch pantoprazol 2023-0 Yes 40mg Take 1 Univ ers e 40 mg EC 6-07 tablet by ity of tablet 13:59: mouth in [place] [address] the Medical morning. Branch vitamin 2023-0 Yes 1{tbl} Take 1 Univer s D3-folic 6-07 tablet by ity of acid 125 13:59: mouth in [place] mcg (5,000 26 the Medical unit)-1 mg morning. Branc h Tab OXcarbazepi 2023-0 Yes 300mg Take 1 Uni vers ne 300 mg 6-07 tablet by ity o f tablet 13:59: mouth in [place] [address] the Medical morning Branch and 1 tablet in the evening. levETIRAcet 2023-0 Yes 1000mg Take 1 Un roel am 1,000 mg 6-07 tablet by ity of tablet 13:59: mouth in [place] [address] the Medical morning Branch and 1 tablet in the evening. venlafaxine 2023-0 Yes 75mg Take 1 Univ ers XR 75 mg 24 6-07 capsule by it y of hr capsule 13:59: mouth in [place] [address] the Medical morning. Branch topiramate 2023-0 Yes 50mg Take 1 Unive rs 50 mg 6-07 tablet by ity of tablet 13:59: mouth in [place] [address] the Medical morning Branch and 1 tablet in the evening. QUEtiapine 2023-0 Yes 200mg Take 1 Univ ers 200 mg 6-07 tablet by ity of tablet 13:59: mouth at [place] [address] bedtime. Medical Branch pantoprazol 2023-0 Yes 40mg Take 1 Univ ers e 40 mg EC 6-07 tablet by ity of tablet 13:59: mouth in [place] [address] the Medical morning. Branch vitamin 2023-0 Yes 1{tbl} Take 1 Univer s D3-folic 6-07 tablet by ity of acid 125 13:59: mouth in [place] mcg (5,000 26 the Medical unit)-1 mg morning. Branc h Tab OXcarbazepi 2023-0 Yes 300mg Take 1 Uni vers ne 300 mg 6-07 tablet by ity o f tablet 13:59: mouth in [place] [address] the Medical morning Branch and 1 tablet in the evening. levETIRAcet 2023-0 Yes 1000mg Take 1 Un roel am 1,000 mg 6-07 tablet by ity of tablet 13:59: mouth in [place] [address] the Medical morning Branch and 1 tablet in the evening. venlafaxine 2023-0 Yes 75mg Take 1 Univ ers XR 75 mg 24 6-07 capsule by it y of hr capsule 13:59: mouth in [place] [address] the Medical morning. Branch topiramate 2023-0 Yes 50mg Take 1 Unive rs 50 mg 6-07 tablet by ity of tablet 13:59: mouth in [place] [address] the Medical morning Branch and 1 tablet in the evening. QUEtiapine 2023-0 Yes 200mg Take 1 Univ ers 200 mg 6-07 tablet by ity of tablet 13:59: mouth at [place] [address] bedtime. Medical Branch pantoprazol 2023-0 Yes 40mg Take 1 Univ ers e 40 mg EC 6-07 tablet by ity of tablet 13:59: mouth in [place] [address] the Medical morning. Branch vitamin 2023-0 Yes 1{tbl} Take 1 Univer s D3-folic 6-07 tablet by ity of acid 125 13:59: mouth in [place] mcg (5,000 26 the Medical unit)-1 mg morning. Branc h Tab OXcarbazepi 2023-0 Yes 300mg Take 1 Uni vers ne 300 mg 6-07 tablet by ity o f tablet 13:59: mouth in [place] [address] the Medical morning Branch and 1 tablet in the evening. FLUoxetine 2023-0 Yes 10mg Take 1 Unive rs 10 mg 5-03 capsule by ity of capsule 00:00: mouth in [place] 00 the Medical morning. Branch prazosin 1 2023-0 Yes 1mg Take 1 Unive rs mg capsule 5-03 capsule by ity of 00:00: mouth at [place] 00 bedtime. Medical Branch risperiDONE 2023-0 Yes .5mg Take 1 Univ ers 0.5 mg 5-03 tablet by ity of tablet 00:00: mouth in [place] 00 the Medical morning Branch and 1 tablet in the evening. FLUoxetine 2023-0 Yes 10mg Take 1 Unive rs 10 mg 5-03 capsule by ity of capsule 00:00: mouth in [place] 00 the Medical morning. Branch prazosin 1 2023-0 Yes 1mg Take 1 Unive rs mg capsule 5-03 capsule by ity of 00:00: mouth at [place] 00 bedtime. Medical Branch risperiDONE 2023-0 Yes .5mg Take 1 Univ ers 0.5 mg 5-03 tablet by ity of tablet 00:00: mouth in [place] 00 the Medical morning Branch and 1 tablet in the evening. FLUoxetine 2023-0 Yes 10mg Take 1 Unive rs 10 mg 5-03 capsule by ity of capsule 00:00: mouth in [place] 00 the Medical morning. Branch prazosin 1 3-0 Yes 1mg Take 1 Unive rs mg capsule 5-03 capsule by ity of 00:00: mouth at [place] 00 bedtime. Medical Branch risperiDONE 2023-0 Yes .5mg Take 1 Univ ers 0.5 mg 5-03 tablet by ity of tablet 00:00: mouth in [place] 00 the Medical morning Branch and 1 tablet in the evening. FLUoxetine 2023-0 2023- No 10mg Take 1 Univ ers 10 mg 5-03 06-21 capsule by ity of capsule 00:00: 00:00 mouth in [place] 00 :00 the Medical morning. Branch prazosin 1 2023-0 2023- No 1mg Take 1 Univ ers mg capsule 5-03 06-21 capsule by it y of 00:00: 00:00 mouth at [place] 00 :00 bedtime. Medical Branch risperiDONE 2023-0 2023- No .5mg Take 1 Uni vers 0.5 mg 5-03 06-21 tablet by ity of tablet 00:00: 00:00 mouth in [place] 00 :00 the Medical morning Branch and 1 tablet in the evening. FLUoxetine 2023-0 2023- No 10mg Take 1 Univ ers 10 mg 5-06 12-21 capsule by ity of capsule 00:00: 00:00 mouth in [place] 00 :00 the Medical morning. Branch prazosin 1 2022-0 2022- No 1mg Take 1 Univ ers mg capsule 5-06 12-21 capsule by it y of 00:00: 00:00 mouth at [place] 00 :00 bedtime. Medical Branch risperiDONE 2023-0 3- No .5mg Take 1 Uni vers 0.5 mg 5-06 12-21 tablet by ity of tablet 00:00: 00:00 mouth in [place] 00 :00 the Medical morning Branch and 1 tablet in the evening. FLUoxetine 2022-0 2022- No 10mg Take 1 Univ ers 10 mg 5-06 12- capsule by ity of capsule 00:00: 00:00 mouth in [place] 00 :00 the Medical morning. Branch prazosin 1 2022-0 2022- No 1mg Take 1 Univ ers mg capsule -06 12- capsule by it y of 00:00: 00:00 mouth at [place] 00 :00 bedtime. Medical Branch risperiDONE 3-0 2022- No .5mg Take 1 Uni vers 0.5 mg 5-06 12-21 tablet by ity of tablet 00:00: 00:00 mouth in [place] 00 :00 the Medical morning Branch and 1 tablet in the evening. cyclobenzap 2022-0 Yes TAKE 1 Univ ers rine 10 mg 3-14 TABLET BY ity of tablet 00:00: MOUTH [place] 00 EVERY 8 Medical HOURS Branch NEEDED FOR MUSCLE SPASMS. cyclobenzap 2022-0 Yes TAKE 1 Univ ers rine 10 mg 3-14 TABLET BY ity of tablet 00:00: MOUTH [place] 00 EVERY 8 Medical HOURS Branch NEEDED FOR MUSCLE SPASMS. cyclobenzap 2022-0 Yes TAKE 1 Univ ers rine 10 mg 3-14 TABLET BY ity of tablet 00:00: MOUTH [place] 00 EVERY 8 Medical HOURS Branch NEEDED [...] First dose [place] mg 00 on [facility] 03/05/22 Branch at 0800, Until Discontinu ed, Routine D5W 0.9% 2021-04 Yes 1000mL at 125 Unive rs NaCl (NS) 05-05 mL/hr, ity of IV infusion 06:30: 1,000 mL, [place] 1,000 mL 00 IV Medical Infusion, Branch CONTINUOUS , Starting on [place] 03/05/22 at 0030, Until Discontinu ed, ELVIS NaCl 0.9% 2021-04- No 1000mL at 999 Uni vers (NS) bolus 05-05 mL/hr, ity of infusion 06:15: 20:58 1,000 mL, [place] 1,000 mL 00 :00 IV Medical Piggyback, Branch ONCE, 1 dose, On [place] 03/05/22 at 0015, STAT traZODone 2021-04 Yes 150mg 150 mg, Univ ers (DESYREL) 05-05 Oral, QHS, ity of tablet 150 03:00: First dose [place] mg 00 on [facility] 03/04/22 Branch at 2100, Until Discontinu ed, [place] OXcarbazepi 2021-04 Yes 150mg 150 mg, Un roel ne 05-05 Oral, BID, ity of (TRILEPTAL) 02:00: First dose [place] tablet 150 00 on [facility] 03/04/22 Branch at 2000, Until Discontinu ed, [place] lamoTRIgine 2021-04 Yes 25mg 25 mg, Univ ers (LAMICTAL) 05-05 Oral, BID, ity of tablet 25 02:00: First dose [place] mg 00 on [facility] 03/04/22 Branch at 2000, Until [...] mouth ity of tablet 13:34: 00:00 daily. [place] 15 :00 Medical Branch gabapentin 2021-04- No 300mg Take 300 U nivers 300 mg 04-09 mg by ity of capsule 13:34: 00:00 mouth in [place] 15 :00 the Medical morning Branch and 300 mg at noon and 300 mg in the evening. naproxen 2021-04- No 500mg Take 500 Uni vers 500 mg 04-09 mg by ity of tablet 13:34: 00:00 mouth in [place] 15 :00 the Medical morning Branch and 500 mg in the evening. Take with meals. levETIRAcet 2021-04- No 1000mg Take 1,000 Univers am (KEPPRA) 04-09 mg by ity of 1,000 mg 13:34: 00:00 mouth in [facility] s tablet 15 :00 the Medical morning Branch and 1,000 mg in the evening. atorvastati 2021-04- No 20mg Take 20 mg Univers n 20 mg 04-09 by mouth ity of tablet 13:34: 00:00 daily. [place] 15 :00 Medical Branch gabapentin 2021-04- No 300mg Take 300 U nivers 300 mg 04-09 mg by ity of capsule 13:34: 00:00 mouth in [place] 15 :00 the Medical morning Branch and [...] of 1,000 mg 13:34: 00:00 mouth in [facility] s tablet 15 :00 the [...] ity of tablet 13:26: 00:00 mouth 3 [place] 34 :00 (three) Medical times Branch daily. OXcarbazepi 2021-04- No 600mg Take 600 Univers ne 600 mg 04-09 mg by ity of tablet 13:26: 00:00 mouth 3 [place] 34 :00 (three) Medical times Branch daily. atorvastati 2021-04 Yes [id number] 20mg Take 1 Univers n 20 mg 04-09 tablet by ity of tablet 00:00: mouth in [place] 00 the Medical morning. Branch gabapentin 2021-04 Yes [id number] 300mg Take 1 Univers 300 mg 04-09 capsule by ity of capsule 00:00: mouth in [place] 00 the Medical morning Branch and 1 capsule at noon and 1 capsule in the evening. levETIRAcet 2021-04 Yes [id number] 1000mg Take 1 Univers am (KEPPRA) 1-01 tablet by ity of 1,000 mg 00:00: mouth in [place] tablet 00 the Medical morning Branch and 1 tablet in the evening. naproxen 2021-04 Yes [id number] 500mg Take 1 Un roel 500 mg 1-01 tablet by ity of tablet 00:00: mouth in [place] the Medical morning Branch and 1 tablet in the evening. Take with meals. atorvastati 2021-04 Yes [id number] 20mg Take 1 Univers n 20 mg 1-01 tablet by ity of tablet 00:00: mouth in [place] [address] the Medical morning. Branch gabapentin 2021-04 Yes [id number] 300mg Take 1 Univers 300 mg 1-01 capsule by ity of capsule 00:00: mouth in [place] [address] the [facility] morning Branch and 1 capsule at noon and 1 capsule in the evening. levETIRAcet 2021-04 Yes [id number] 1000mg Take 1 [facility] am (KEPPRA) 1-01 tablet by ity of 1,000 mg 00:00: mouth in [place] tablet the [facility] morning [place] and 1 tablet in the evening. naproxen 2021-04 Yes [id number] 500mg Take 1 Un roel 500 mg 1-01 tablet by ity of tablet 00:00: mouth in [place] the [facility] morning Branch and 1 tablet in the evening. Take with meals. atorvastati 2021-04 Yes [id number] 20mg Take 1 [facility] n 20 mg 1-01 tablet by ity of tablet 00:00: mouth in [place] [address] the Medical morning. Branch gabapentin 2021-04 Yes [id number] 300mg Take 1 [facility] 300 mg 1-01 capsule by ity of capsule 00:00: mouth in [place] [address] the [facility] morning [place] and 1 capsule at noon and 1 capsule in the evening. levETIRAcet 2021-04 Yes [id number] 1000mg Take 1 [facility] am (KEPPRA) 1-01 tablet by ity of 1,000 mg 00:00: mouth in [place] tablet 00 the [facility] morning Branch and 1 tablet in the evening. naproxen 2021-04 Yes [id number] 500mg Take 1 Un roel 500 mg 1-01 tablet by ity of tablet 00:00: mouth in [place] [address] the [facility] morning [place] and 1 tablet in the evening. Take with meals. atorvastati 2021-04 Yes [id number] 20mg Take 1 [facility] n 20 mg 1-01 tablet by ity of tablet 00:00: mouth in [place] 00 the Medical morning. Branch gabapentin 2021-04 Yes [id number] 300mg Take 1 [facility] 300 mg 1-01 capsule by ity of capsule 00:00: mouth in [place] 00 the Medical morning Branch and 1 capsule at noon and 1 capsule in the evening. levETIRAcet 2021-04 Yes [id number] 1000mg Take 1 [facility] am (KEPPRA) 1-01 tablet by ity of 1,000 mg 00:00: mouth in [place] tablet 00 the Medical morning Branch and 1 tablet in the evening. naproxen 2021-04 Yes [id number] 500mg Take 1 Un roel 500 mg 1-01 tablet by ity of tablet 00:00: mouth in [place] 00 the Medical morning Branch and 1 tablet in the evening. Take with meals. atorvastati 2021-04 Yes [id number] 20mg Take 1 [facility] n 20 mg 1-01 tablet by ity of tablet 00:00: mouth in [place] the Medical morning. Branch gabapentin 2021-04 Yes [id number] 300mg Take 1 [facility] 300 mg 1-01 capsule by ity of capsule 00:00: mouth in [place] the Medical morning Branch and 1 capsule at noon and 1 capsule in the evening. levETIRAcet 2021-04 Yes [id number] 1000mg Take 1 [facility] am (KEPPRA) 1-01 tablet by ity of 1,000 mg 00:00: mouth in [place] tablet 00 the Medical morning Branch and 1 tablet in the evening. naproxen 2021-04 Yes [id number] 500mg Take 1 Un ro[place] 500 mg 1-01 tablet by ity of tablet 00:00: mouth in [place] 00 the Medical morning Branch and 1 tablet in the evening. Take with meals. atorvastati 2021-04 Yes [id number] 20mg Take 1 [facility] n 20 mg 1-01 tablet by ity of tablet 00:00: mouth in [place] 00 the Medical morning. Branch gabapentin 2021-04 Yes [id number] 300mg Take 1 [facility] 300 mg 1-01 capsule by ity of capsule 00:00: mouth in [place] 00 the Medical morning Branch and 1 capsule at noon and 1 capsule in the evening. levETIRAcet 2021-04 Yes [id number] 1000mg Take 1 [facility] am (KEPPRA) 1-01 tablet by ity of 1,000 mg 00:00: mouth in [place] tablet 00 the Medical morning Branch and 1 tablet in the evening. naproxen 2021-04 Yes [id number] 500mg Take 1 Un ro[place] 500 mg 1-01 tablet by ity of tablet 00:00: mouth in [place] 00 the Medical morning Branch and 1 tablet in the evening. Take with meals. atorvastati 2021-04 Yes [id number] 20mg Take 1 [facility] n 20 mg 1-01 tablet by ity of tablet 00:00: mouth in [place] [address] the Medical morning. Branch gabapentin 2021-04 Yes [id number] 300mg Take 1 [facility] 300 mg 1-01 capsule by ity of capsule 00:00: mouth in [place] [address] the Medical morning Branch and 1 capsule at noon and 1 capsule in the evening. levETIRAcet 2021-04 Yes [id number] 1000mg Take 1 [facility] am (KEPPRA) 1-01 tablet by ity of 1,000 mg 00:00: mouth in [place] tablet 00 the Medical morning Branch and 1 tablet in the evening. naproxen 2021-04 Yes [id number] 500mg Take 1 Un ro[place] 500 mg 1-01 tablet by ity of tablet 00:00: mouth in [place] [address] the [facility] morning Branch and 1 tablet in the evening. Take with meals. atorvastati 2021-04 Yes [id number] 20mg Take 1 [facility] n 20 mg 1-01 tablet by ity of tablet 00:00: mouth in [place] the Medical morning. Branch gabapentin 2021-04 Yes [id number] 300mg Take 1 [facility] 300 mg 1-01 capsule by ity of capsule 00:00: mouth in [place] [address] the Medical morning Branch and 1 capsule at noon and 1 capsule in the evening. levETIRAcet 2021-04 Yes [id number] 1000mg Take 1 [facility] am (KEPPRA) 1-01 tablet by ity of 1,000 mg 00:00: mouth in [place] tablet 00 the Medical morning Branch and 1 tablet in the evening. naproxen 2021-04 Yes [id number] 500mg Take 1 Un [place] 500 mg 1-01 tablet by ity of tablet 00:00: mouth in [place] [address] the Medical morning Branch and 1 tablet in the evening. Take with meals. atorvastati 2021-04 Yes [id number] 20mg Take 1 [facility] n 20 mg 1-01 tablet by ity of tablet 00:00: mouth in [place] the morning. Branch gabapentin 2021-04 Yes [id number] 300mg Take 1 [facility] 300 mg 1-01 capsule by ity of capsule 00:00: mouth in [place] 00 the Medical morning Branch and 1 capsule at noon and 1 capsule in the evening. levETIRAcet 2021-04 Yes [id number] 1000mg Take 1 [facility] am (KEPPRA) 1-01 tablet by ity of 1,000 mg 00:00: mouth in [place] tablet 00 the Medical morning Branch and 1 tablet in the evening. naproxen 2021-04 Yes [id number] 500mg Take 1 Un [place] 500 mg 1-01 tablet by ity of tablet 00:00: mouth in [place] the Medical morning Branch and 1 tablet in the evening. Take with meals. atorvastati 2021-04 Yes [id number] 20mg Take 1 [facility] n 20 mg 1-01 tablet by ity of tablet 00:00: mouth in [place] the Medical morning. Branch gabapentin 2021-04 Yes [id number] 300mg Take 1 [facility] 300 mg 1-01 capsule by ity of capsule 00:00: mouth in [place] the Medical morning Branch and 1 capsule at noon and 1 capsule in the evening. levETIRAcet 2021-04 Yes [id number] 1000mg Take 1 [facility] am (KEPPRA) 1-01 tablet by ity of 1,000 mg 00:00: mouth in [place] tablet 00 the Medical morning Branch and 1 tablet in the evening. naproxen 2021-04 Yes [id number] 500mg Take 1 Un ro[place] 500 mg 1-01 tablet by ity of tablet 00:00: mouth in [place] the Medical morning Branch and 1 tablet in the evening. Take with meals. atorvastati 2021-04 Yes [id number] 20mg Take 1 [facility] n 20 mg 1-01 tablet by ity of tablet 00:00: mouth in [place] [address] the Medical morning. Branch gabapentin 2021-04 Yes [id number] 300mg Take 1 [facility] 300 mg 1-01 capsule by ity of capsule 00:00: mouth in [place] [address] the Medical morning Branch and 1 capsule at noon and 1 capsule in the evening. levETIRAcet 2021-04 Yes [id number] 1000mg Take 1 [facility] am (KEPPRA) 1-01 tablet by ity of 1,000 mg 00:00: mouth in [place] tablet 00 the Medical morning Branch and 1 tablet in the evening. naproxen 2021-04 Yes [id number] 500mg Take 1 Un [place] 500 mg 1-01 tablet by ity of tablet 00:00: mouth in [place] 00 the Medical morning Branch and 1 tablet in the evening. Take with meals. atorvastati 2021-04 Yes [id number] 20mg Take 1 [facility] n 20 mg 1-01 tablet by ity of tablet 00:00: mouth in [place] [address] the Medical morning. Branch gabapentin 2021-04 Yes [id number] 300mg Take 1 [facility] 300 mg 1-01 capsule by ity of capsule 00:00: mouth in [place] [address] the Medical morning Branch and 1 capsule at noon and 1 capsule in the evening. levETIRAcet 2021-04 Yes [id number] 1000mg Take 1 [facility] am (KEPPRA) 1-01 tablet by ity of 1,000 mg 00:00: mouth in [place] tablet 00 the Medical morning Branch and 1 tablet in the evening. naproxen 2021-04 Yes [id number] 500mg Take 1 Un [place] 500 mg 1-01 tablet by ity of tablet 00:00: mouth in [place] [address] the Medical morning Branch and 1 tablet in the evening. Take with meals. atorvastati 2021-04 Yes [id number] 20mg Take 1 [facility] n 20 mg 1-01 tablet by ity of tablet 00:00: mouth in [place] the Medical morning. Branch gabapentin 2021-04 Yes [id number] 300mg Take 1 [facility] 300 mg 1-01 capsule by ity of capsule 00:00: mouth in [place] [address] the Medical morning Branch and 1 capsule at noon and 1 capsule in the evening. levETIRAcet 2021-04 Yes [id number] 1000mg Take 1 [facility] am (KEPPRA) 1-01 tablet by ity of 1,000 mg 00:00: mouth in [place] tablet 00 the Medical morning Branch and 1 tablet in the evening. naproxen 2021-04 Yes [id number] 500mg Take 1 Un roel 500 mg 1-01 tablet by ity of tablet 00:00: mouth in [place] 00 the Medical morning Branch and 1 tablet in the evening. Take with meals. atorvastati 2021-04 Yes [id number] 20mg Take 1 [facility] n 20 mg 1-01 tablet by ity of tablet 00:00: mouth in [place] the Medical morning. Branch gabapentin 2021-04 Yes [id number] 300mg Take 1 [facility] 300 mg 1-01 capsule by ity of capsule 00:00: mouth in [place] 00 the Medical morning Branch and 1 capsule at noon and 1 capsule in the evening. levETIRAcet 2021-04 Yes [id number] 1000mg Take 1 [facility] am (KEPPRA) 1-01 tablet by ity of 1,000 mg 00:00: mouth in [place] tablet 00 the Medical morning Branch and 1 tablet in the evening. naproxen 2021-04 Yes [id number] 500mg Take 1 Un ro[place] 500 mg 1-01 tablet by ity of tablet 00:00: mouth in [place] the Medical morning Branch and 1 tablet in the evening. Take with meals. atorvastati 2021-04 Yes [id number] 20mg Take 1 [facility] n 20 mg 1-01 tablet by ity of tablet 00:00: mouth in [place] the Medical morning. Branch gabapentin 2021-04 Yes [id number] 300mg Take 1 [facility] 300 mg 1-01 capsule by ity of capsule 00:00: mouth in [place] the Medical morning Branch and 1 capsule at noon and 1 capsule in the evening. levETIRAcet 2021-04 Yes [id number] 1000mg Take 1 [facility] am (KEPPRA) 1-01 tablet by ity of 1,000 mg 00:00: mouth in [place] tablet 00 the Medical morning Branch and 1 tablet in the evening. naproxen 2021-04 Yes [id number] 500mg Take 1 Un ro[place] 500 mg 1-01 tablet by ity of tablet 00:00: mouth in [place] the Medical morning Branch and 1 tablet in the evening. Take with meals. atorvastati 2021-04 Yes [id number] 20mg Take 1 [facility] n 20 mg 1-01 tablet by ity of tablet 00:00: mouth in [place] [address] the Medical morning. Branch gabapentin 2021-04 Yes [id number] 300mg Take 1 [facility] 300 mg 1-01 capsule by ity of capsule 00:00: mouth in [place] 00 the Medical morning Branch and 1 capsule at noon and 1 capsule in the evening. naproxen 2021-04 Yes [id number] 500mg Take 1 Un ro[place] 500 mg 1-01 tablet by ity of tablet 00:00: mouth in [place] 00 the Medical morning Branch and 1 tablet in the evening. Take with meals. atorvastati 2021-04 Yes [id number] 20mg Take 1 [facility] n 20 mg 1-01 tablet by ity of tablet 00:00: mouth in [place] 00 the Medical morning. Branch gabapentin 2021-04 Yes [id number] 300mg Take 1 [facility] 300 mg 1-01 capsule by ity of capsule 00:00: mouth in [place] 00 the Medical morning Branch and 1 capsule at noon and 1 capsule in the evening. naproxen 2021-04 Yes [id number] 500mg Take 1 Un ro[place] 500 mg 1-01 tablet by ity of tablet 00:00: mouth in [place] 00 the Medical morning Branch and 1 tablet in the evening. Take with meals. atorvastati 2021-04 Yes [id number] 20mg Take 1 [facility] n 20 mg 1-01 tablet by ity of tablet 00:00: mouth in [place] 00 the Medical morning. Branch gabapentin 2021-04 Yes [id number] 300mg Take 1 [facility] 300 mg 1-01 capsule by ity of capsule 00:00: mouth in [place] 00 the Medical morning Branch and 1 capsule at noon and 1 capsule in the evening. naproxen 2021-04 Yes [id number] 500mg Take 1 Un ro[place] 500 mg 1-01 tablet by ity of tablet 00:00: mouth in [place] the Medical morning Branch and 1 tablet in the evening. Take with meals. atorvastati 2021-04- No [id number] 20mg Take 1 [facility] n 20 mg -21 tablet by ity of tablet 00:00: 00:00 mouth in [place] 00 :00 the Medical morning. Branch gabapentin 2021-04- No [id number] 300mg Take 1 [facility] 300 mg -04 14- capsule by ity of capsule 00:00: 00:00 mouth in [place] 00 :00 the Medical morning Branch and 1 capsule at noon and 1 capsule in the evening. naproxen 2021-04- No [id number] 500mg Take 1 U nivers 500 mg 1-01 -21 tablet by ity of tablet 00:00: 00:00 mouth in [place] 00 :00 the Medical morning Branch and 1 tablet in the evening. Take with meals. atorvastati 2021-04- No [id number] 20mg Take 1 [facility] n 20 mg 04-09 tablet by ity of tablet 00:00: 00:00 mouth in [place] 00 :00 the Medical morning. Branch gabapentin 2021-04- No [id number] 300mg Take 1 [facility] 300 mg 04-09 capsule by ity of capsule 00:00: 00:00 mouth in [place] 00 :00 the Medical morning Branch and 1 capsule at noon and 1 capsule in the evening. naproxen 2021-04- No [id number] 500mg Take 1 U nivers 500 mg 04-09 tablet by ity of tablet 00:00: 00:00 mouth in [place] 00 :00 the Medical morning Branch and 1 tablet in the evening. Take with meals. atorvastati 2021-04- No [id number] 20mg Take 1 [facility] n 20 mg 04-09 tablet by ity of tablet 00:00: 00:00 mouth in [place] 00 :00 the Medical morning. Branch gabapentin 2021-04- No [id number] 300mg Take 1 [facility] 300 mg 04-09 capsule by ity of capsule 00:00: 00:00 mouth in [place] 00 :00 the Medical morning Branch and 1 capsule at noon and 1 capsule in the evening. naproxen 2021-04- No [id number] 500mg Take 1 U nivers 500 mg 04-09 tablet by ity of tablet 00:00: 00:00 mouth in [place] 00 :00 the Medical morning Branch and 1 tablet in the evening. Take with meals. ibuprofen 2021-04- No 600mg 600 mg, Uni vers (IBU) 0-30 10-30 Oral, ity of tablet 600 21:15: 21:11 ONCE, 1 [place] mg 00 :00 dose, On Medical Sun Branch 02/05/22 at 1615, [place] tiZANidine 2021-04 Yes [id number] 4mg Take 1 U nivers 4 mg 0-27 capsule by ity of capsule 00:00: mouth in [place] 00 the Medical morning Branch and 1 capsule at noon and 1 capsule in the evening. tiZANidine 2021-04 Yes [id number] 4mg Take 1 U nivers 4 mg 0-27 capsule by ity of capsule 00:00: mouth in [place] [address] the Medical morning Branch and 1 capsule at noon and 1 capsule in the evening. tiZANidine 2021-04 Yes [id number] 4mg Take 1 U nivers 4 mg 0-27 capsule by ity of capsule 00:00: mouth in [place] [address] the [facility] morning Branch and 1 capsule at noon and 1 capsule in the evening. tiZANidine 2021-04 Yes [id number] 4mg Take 1 U nivers 4 mg 0-27 capsule by ity of capsule 00:00: mouth in [place] [address] the [facility] morning Branch and 1 capsule at noon and 1 capsule in the evening. tiZANidine 2021-04 Yes [id number] 4mg Take 1 U nivers 4 mg 0-27 capsule by ity of capsule 00:00: mouth in [address] morning [place] and 1 capsule at noon and 1 capsule in the evening. tiZANidine 2021-04 Yes [id number] 4mg Take 1 U nivers 4 mg 0-27 capsule by ity of capsule 00:00: mouth in [address] morning [place] and 1 capsule at noon and 1 capsule in the evening. tiZANidine 2021-04 Yes [id number] 4mg Take 1 U nivers 4 mg 0-27 capsule by ity of capsule 00:00: mouth in [address] morning [place] and 1 capsule at noon and 1 capsule in the evening. tiZANidine 2021-04 Yes [id number] 4mg Take 1 U nivers 4 mg 0-27 capsule by ity of capsule 00:00: mouth in [address] morning Branch and 1 capsule at noon and 1 capsule in the evening. tiZANidine 2021-04 Yes [id number] 4mg Take 1 U nivers 4 mg 0-27 capsule by ity of capsule 00:00: mouth in [address] morning [place] and 1 capsule at noon and 1 capsule in the evening. tiZANidine 2021-04 Yes [id number] 4mg Take 1 U nivers 4 mg 0-27 capsule by ity of capsule 00:00: mouth in [place] 00 the Medical morning Branch and 1 capsule at noon and 1 capsule in the evening. tiZANidine 2021-04 Yes [id number] 4mg Take 1 U nivers 4 mg 0-27 capsule by ity of capsule 00:00: mouth in [place] [address] the Medical morning Branch and 1 capsule at noon and 1 capsule in the evening. tiZANidine 2021-04 Yes [id number] 4mg Take 1 U nivers 4 mg 0-27 capsule by ity of capsule 00:00: mouth in [place] [address] the Medical morning Branch and 1 capsule at noon and 1 capsule in the evening. tiZANidine 2021-04 Yes [id number] 4mg Take 1 U nivers 4 mg 0-27 capsule by ity of capsule 00:00: mouth in [place] [address] the [facility] morning Branch and 1 capsule at noon and 1 capsule in the evening. tiZANidine 2021-04 Yes [id number] 4mg Take 1 U nivers 4 mg 0-27 capsule by ity of capsule 00:00: mouth in [place] [address] the [facility] morning [place] and 1 capsule at noon and 1 capsule in the evening. tiZANidine 2021-04 Yes [id number] 4mg Take 1 U nivers 4 mg 0-27 capsule by ity of capsule 00:00: mouth in [place] [address] the [facility] morning [place] and 1 capsule at noon and 1 capsule in the evening. tiZANidine 2021-04 Yes [id number] 4mg Take 1 U nivers 4 mg 0-27 capsule by ity of capsule 00:00: mouth in [place] [address] the [facility] morning Branch and 1 capsule at noon and 1 capsule in the evening. tiZANidine 2021-04 Yes [id number] 4mg Take 1 U nivers 4 mg 0-27 capsule by ity of capsule 00:00: mouth in [place] [address] the Medical morning Branch and 1 capsule at noon and 1 capsule in the evening. tiZANidine 2021-04 Yes [id number] 4mg Take 1 U nivers 4 mg 0-27 capsule by ity of capsule 00:00: mouth in [place] [address] the Medical morning Branch and 1 capsule at noon and 1 capsule in the evening. tiZANidine 2021-04 Yes [id number] 4mg Take 1 U nivers 4 mg 0-27 capsule by ity of capsule 00:00: mouth in [address] Medical morning Branch and 1 capsule at noon and 1 capsule in the evening. tiZANidine 2021-04 Yes [id number] 4mg Take 1 U nivers 4 mg 0-27 capsule by ity of capsule 00:00: mouth in [place] 00 the [facility] morning [place] and 1 capsule at noon and 1 capsule in the evening. tiZANidine 2021-04- No [id number] 4mg Take 1 [facility] 4 mg 0-27 06-21 capsule by ity of capsule 00:00: 00:00 mouth in [place] 00 :00 the [facility] Branch and 1 capsule at noon and 1 capsule in the evening. tiZANidine 2021-04- No [id number] 4mg Take 1 [facility] 4 mg 0-27 06-21 capsule by ity of capsule 00:00: 00:00 mouth in [place] 00 :00 the [facility] and 1 capsule at noon and 1 capsule in the evening. tiZANidine 2021-04- No [id number] 4mg Take 1 [facility] 4 mg 0-27 06-21 capsule by ity of capsule 00:00: 00:00 mouth in [place] 00 :00 the [facility] and 1 capsule at noon and 1 capsule in the evening. ondansetron 2021- No 4mg 4 mg, Slow [facility] (ZOFRAN 10-12 IV Push, ity of (PF)) 16:00: 15:18 ONCE, 1 [place] injection 4 00 :00 dose, On Medi barbara mg Sun10/12/21 Branch at 1100, Routine iopamidol 2021- No [id number] 60mL 60 mL, U nivers (ISOVUE 10-12 Intravenou ity o f 370-500 mL) 15:42: 15:42 s, ONCE, 1 [place] injection 00 :00 dose, On Medica l 60 mL Sun10/12/21 Branch at 1100, Routine NaCl 0.9% 2021- No 500mL at 999 Univ ers (NS) bolus 10-12 mL/hr, 500 it y of infusion 15:00: 16:50 mL, IV [place] 500 mL 00 :00 Infusion, Medical ONCE, 1 Branch dose, On Sun10/12/21 at 1000, STAT ondansetron Yes [id number] 4mg Take 1 [facility] 4 mg 7-06 tablet by ity of disintegrat 00:00: mouth [place] ing tablet 00 every 8 Medica l (eight) Branch hours as needed for Nausea and Vomiting (N/V). dicyclomine 2022-0 Yes [id number] 20mg Take 1 [facility] 20 mg 7-06 tablet by ity of tablet 00:00: mouth 4 [place] 00 (four) Medical times Branch daily. ondansetron 2022-0 Yes [id number] 4mg Take 1 [facility] 4 mg 7-06 tablet by ity of disintegrat 00:00: mouth [place] ing tablet 00 every 8 Medica l (eight) Branch hours as needed for Nausea and Vomiting (N/V). dicyclomine 2022-0 Yes [id number] 20mg Take 1 [facility] 20 mg 7-06 tablet by ity of tablet 00:00: mouth 4 [place] 00 (four) Medical times Branch daily. ondansetron 2022-0 Yes [id number] 4mg Take 1 [facility] 4 mg 7-06 tablet by ity of disintegrat 00:00: mouth [place] ing tablet 00 every 8 Medica l (eight) Branch hours as needed for Nausea and Vomiting (N/V). dicyclomine 2022-0 Yes [id number] 20mg Take 1 [facility] 20 mg 7-06 tablet by ity of tablet 00:00: mouth 4 [place] 00 (four) Medical times Branch daily. ondansetron 2022-0 2022- No [id number] 4mg Take 1 [facility] 4 mg 7-06 11-01 tablet by ity of disintegrat 00:00: 00:00 [place] tablet 00 :00 every 8 Medica l (eight) Branch hours as needed for Nausea and Vomiting (N/V). dicyclomine 2022-0 2022- No [id number] 20mg Take 1 [facility] 20 mg 7-06 11-01 tablet by ity of tablet 00:00: 00:00 mouth 4 [place] 00 :00 (four) Medical times Branch daily. ondansetron 2022-0 2022- No [id number] 4mg Take 1 [facility] 4 mg 7-06 11-01 tablet by ity of disintegrat 00:00: 00:00 [place] tablet 00 :00 every 8 Medica l (eight) Branch hours as needed for Nausea and Vomiting (N/V). dicyclomine 2021-2021- No [id number] 20mg Take 1 [facility] 20 mg 10-12 tablet by ity of tablet 00:00: 00:00 mouth 4 [place] 00 :00 (four) Medical times Branch daily. sulfamethox 2021-0 Yes 1{tbl} Take 1 Un roel azole-trime 1-21 tablet by ity of thoprim 16:03: mouth 2 [place] (BACTRIM 16 (two) Medical DS) 800-160 times Branch mg per daily. tablet sulfamethox 2021-0 Yes 1{tbl} Take 1 Un ro[facility] azole-trime 1-21 tablet by ity of thoprim 16:03: mouth 2 [place] (BACTRIM 16 (two) Medical DS) 800-160 times Branch mg per daily. tablet sulfamethox 2021-0 Yes 1{tbl} Take 1 Un [facility] azole-trime 1-21 tablet by ity of thoprim 16:03: mouth 2 [place] (BACTRIM 16 (two) Medical DS) 800-160 times Branch mg per daily. tablet gabapentin 2021-2021- No 300mg Take 300 U nivers 300 mg -21 01-21 mg by ity of capsule 16:02: 00:00 mouth 3 [place] 48 :00 (three) Medical times Branch daily. busPIRone 2021-0 2021- No 15mg Take 15 mg U nivers 15 mg -29 04-21 by mouth 3 ity of tablet 16:02: 00:00 (three) [place] 33 :00 times Medical daily. Branch atorvastati 2021-0 Yes 20mg Take 20 mg [facility] n 20 mg 1-07 by mouth ity of tablet 15:04: daily. [place] 25 Medical Branch OXcarbazepi 2021-0 Yes 600mg Take 600 U nivers ne 600 mg 1-07 mg by ity of tablet 15:04: mouth 3 [place] 25 (three) Medical times Branch daily. ergocalcife 2021-0 Yes 1{capsu Take 1 U nivers rol, 1-07 le} capsule by ity of vitamin d2, 15:04: mouth 2 [place] 1,250 mcg 25 (two) Medical (50,000 times Branch unit) daily. capsule atorvastati 2022-0 Yes 20mg Take 20 mg [facility] n 20 mg 1-07 by mouth ity of tablet 15:04: daily. [address] Branch OXcarbazepi 2022-0 Yes 600mg Take 600 U nivers ne 600 mg 1-07 mg by ity of tablet 15:04: mouth 3 [place] 25 (three) Medical times Branch daily. ergocalcife 2022-0 Yes 1{capsu Take 1 U nivers rol, 1-07 le} capsule by ity of vitamin d2, 15:04: mouth 2 [place] 1,250 mcg 25 (two) Medical (50,000 times Branch unit) daily. capsule atorvastati 2022-0 Yes 20mg Take 20 mg [facility] n 20 mg 1-07 by mouth ity of tablet 15:04: daily. [address] OXcarbazepi 2022-0 Yes 600mg Take 600 U nivers ne 600 mg 1-07 mg by ity of tablet 15:04: mouth 3 [place] [address] (three) Medical times Branch daily. ergocalcife 2022-0 Yes 1{capsu Take 1 U nivers rol, 1-07 le} capsule by ity of vitamin d2, 15:04: mouth 2 [place] 1,250 mcg 25 (two) Medical (50,000 times Branch unit) daily. capsule atorvastati 2022-0 Yes 20mg Take 20 mg [facility] n 20 mg 1-07 by mouth ity of tablet 15:04: daily. [address] OXcarbazepi 2022-0 Yes 600mg Take 600 U nivers ne 600 mg 1-07 mg by ity of tablet 15:04: mouth 3 [place] [address] (three) Medical times Branch daily. ergocalcife 2022-0 Yes 1{capsu Take 1 U nivers rol, 1-07 le} capsule by ity of vitamin d2, 15:04: mouth 2 [place] 1,250 mcg 25 (two) Medical (50,000 times Branch unit) daily. capsule atorvastati 2022-0 Yes 20mg Take 20 mg [facility] n 20 mg 1-07 by mouth ity of tablet 15:04: daily. [address] OXcarbazepi 2022-0 Yes 600mg Take 600 U nivers ne 600 mg 1-07 mg by ity of tablet 15:04: mouth 3 [place] [address] (three) Medical times Branch daily. ergocalcife 2-0 Yes 1{capsu Take 1 U nivers rol, 1-07 le} capsule by ity of vitamin d2, 15:04: mouth 2 [place] 1,250 mcg 25 (two) Medical (50,000 times Branch unit) daily. capsule atorvastati 2021-0 Yes 20mg Take 20 mg Univers n 20 mg 1-07 by mouth ity of tablet 15:04: daily. [address] OXcarbazepi 2021-0 Yes 600mg Take 600 U nivers ne 600 mg 1-07 mg by ity of tablet 15:04: mouth 3 [place] 25 (three) Medical times Branch daily. ergocalcife 2021-0 Yes 1{capsu Take 1 U nivers rol, 1-07 le} capsule by ity of vitamin d2, 15:04: mouth 2 John as 1,250 mcg 25 (two) Medical (50,000 times Branch unit) daily. capsule atorvastati 2021-0 Yes 20mg Take 20 mg Univers n 20 mg 1-07 by mouth ity of tablet 15:04: daily. [address] OXcarbazepi 2021-0 Yes 600mg Take 600 U nivers ne 600 mg 1-07 mg by ity of tablet 15:04: mouth 3 [place] [id number] (three) Medical times Branch daily. ergocalcife 2021-0 Yes 1{capsu Take 1 U nivers rol, 1-07 le} capsule by ity of vitamin d2, 15:04: mouth 2 John as 1,250 mcg 25 (two) Medical (50,000 times Branch unit) daily. capsule atorvastati 2021-0 Yes 20mg Take 20 mg Univers n 20 mg 1-07 by mouth ity of tablet 15:04: daily. [address] OXcarbazepi 2-0 Yes 600mg Take 600 U nivers ne 600 mg 1-07 mg by ity of tablet 15:04: mouth 3 [place] 25 (three) Medical times Branch daily. ergocalcife 2-0 Yes 1{capsu Take 1 U nivers rol, 1-07 le} capsule by ity of vitamin d2, 15:04: mouth 2 John as 1,250 mcg 25 (two) Medical (50,000 times Branch unit) daily. capsule naproxen 2021- No [id number] 500mg Take 1 Univers (NAPROSYN) 04-15 tablet by ity of 500 mg 00:00: 00:00 mouth 2 [place] tablet 00 :00 (two) Medical times Branch daily with meals. Immunizations Ordered Filled Immunization Date Status Comments [facility] e Immunization Name Name TDAP 2022-11-06 Completed [facility] 00:00:00 [place] [facility] TDAP 2022-11-06 Completed [facility] 00:00:00 [facility] Influenza Virus 2022-02-07 Completed Universit y [...] Universit y of Vaccine Quad IM, 00:00:00 [place] Me dical Preserv and ABX Branch Free 6 MO-64 YRS Influenza Virus 2022-02-07 Completed Universit y of Vaccine [facility], 00:00:00 [place] Me dical Preserv and ABX Branch Free [...] Unive rsity of VACCINE - (MODERNA) 00:00:00 [facility] SARS-COV-2 COVID-19 2021-04-27 Completed Unive rsity of VACCINE - (MODERNA) 00:00:00 [facility] SARS-COV-2 COVID-19 2021-04-27 Completed Unive rsity of VACCINE - (MODERNA) 00:00:00 [facility] SARS-COV-2 COVID-19 2021-04-27 Completed Unive rsity of VACCINE - (MODERNA) 00:00:00 [facility] SARS-COV-2 COVID-19 2021-04-27 Completed Unive rsity of VACCINE - (MODERNA) 00:00:00 [facility] SARS-COV-2 COVID-19 2021-04-27 Completed Unive rsity of VACCINE - (MODERNA) 00:00:00 [facility] SARS-COV-2 COVID-19 2021-04-27 Completed Unive rsity of VACCINE - (MODERNA) 00:00:00 [facility] SARS-COV-2 COVID-19 2021-04-27 Completed Unive rsity of VACCINE - (MODERNA) 00:00:00 [facility] SARS-COV-2 COVID-19 2021-04-27 Completed Unive rsity of VACCINE - (MODERNA) 00:00:00 [facility] SARS-COV-2 COVID-19 2021-04-27 Completed Unive rsity of VACCINE - (MODERNA) 00:00:00 [place] [facility] SARS-COV-2 COVID-19 2021-04-27 Completed Unive rsity of VACCINE - (MODERNA) 00:00:00 [place] [facility] SARS-COV-2 COVID-19 2021-04-27 Completed Unive rsity of VACCINE - (MODERNA) 00:00:00 [facility] SARS-COV-2 COVID-19 2021-04-27 Completed Unive rsity of VACCINE - (MODERNA) 00:00:00 [place] [facility] SARS-COV-2 COVID-19 2021-03-24 Completed Unive rsity of MODERNA VACCINE 00:00:00 [place] [facility] ical Branch SARS-COV-2 COVID-19 2021-03-24 Completed Unive rsity of MODERNA VACCINE 00:00:00 [place] [facility] ical Branch SARS-COV-2 COVID-19 2021-03-24 Completed Unive rsity of MODERNA VACCINE 00:00:00 [place] [facility] ical Branch SARS-COV-2 COVID-19 2021-03-24 Completed Unive rsity of MODERNA VACCINE 00:00:00 [place] [facility] ical Branch SARS-COV-2 COVID-19 2021-03-24 Completed Unive rsity of MODERNA VACCINE 00:00:00 [place] [facility] ical Branch SARS-COV-2 COVID-19 2021-03-24 Completed Unive rsity of MODERNA VACCINE 00:00:00 [facility] ical Branch SARS-COV-2 COVID-19 2021-03-24 Completed Unive rsity of MODERNA 12+ YRS 00:00:00 [place] Med ical VACCINE Branch SARS-COV-2 COVID-19 2021-03-24 Completed Unive rsity of MODERNA 12+ YRS 00:00:00 [place] Med ical VACCINE Branch SARS-COV-2 COVID-19 2021-03-24 Completed Unive rsity of MODERNA 12+ YRS 00:00:00 [place] Med ical VACCINE Branch SARS-COV-2 COVID-19 2021-03-24 Completed Unive rsity of MODERNA 12+ YRS 00:00:00 [place] [facility] ical VACCINE Branch SARS-COV-2 COVID-19 2021-03-24 [...] 18:43:00 118 mm[Hg] Univer sity of pressure [facility] Diastolic blood 2022-11-06 18:43:00 73 mm[Hg] Unive rsity of pressure [place] [facility] Heart rate 2022-11-06 18:43:00 90 /min Universi ty [facility] [place] [facility] Body height 2022-11-06 18:43:00 157.5 cm [facility] [place] [facility] Body weight 2022-11-06 18:43:00 67.405 kg [facility] [place] [facility] BMI 2022-11-06 18:43:00 27.18 kg/m2 Universi ty [facility] [place] [facility] Oxygen saturation in 2022-11-06 18:43:00 99 /min University of Arterial blood by [facility] Pulse oximetry Branch Systolic blood 2022-09-27 19:18:00 102 mm[Hg] Univer sity of pressure [place] [facility] Diastolic blood 2022-09-27 19:18:00 68 mm[Hg] Unive rsity of pressure [place] [facility] Heart rate 2022-09-27 19:18:00 92 /min [facility]i [facility] [place] [facility] Respiratory rate 2022-09-27 19:18:00 18 /min Univ ersity of [place] [facility] Body height 2022-09-27 19:18:00 157.5 cm [facility]i [facility] [place] [facility] Body weight 2022-09-27 19:18:00 67.178 kg [facility] [place] [facility] BMI 2022-09-27 19:18:00 27.09 kg/m2 [facility] [place] [facility] Oxygen saturation in 2022-09-27 19:18:00 99 /min University of Arterial blood by [facility] Pulse oximetry Branch Systolic blood 2022-09-13 18:28:00 102 mm[Hg] Univer sity of pressure [place] [facility] Diastolic blood 2022-09-13 18:28:00 69 mm[Hg] Unive rsity of pressure [place] [facility] Heart rate 2022-09-13 18:28:00 94 /min [facility]i [facility] [place] [facility] Respiratory rate 2022-09-13 18:28:00 18 /min Univ ersity of [place] [facility] Body height 2022-09-13 18:28:00 154.5 cm [facility] [place] [facility] Body weight 2022-09-13 18:28:00 67.087 kg [facility] [place] [facility] BMI 2022-09-13 18:28:00 28.10 kg/m2 [facility] [place] [facility] Oxygen saturation in 2022-09-13 18:28:00 99 /min University of Arterial blood by [place] [facility] barbara Pulse oximetry Branch Systolic blood 2022-06-07 17:01:00 111 mm[Hg] Univer sity of pressure [place] [facility] Diastolic blood 2022-06-07 17:01:00 69 mm[Hg] Unive rsity of pressure [place] [facility] Heart rate 2022-06-07 17:01:00 82 /min [facility] [place] [facility] Body temperature 2022-06-07 17:01:00 36.78 Rafaela Univ ersity of [place] [facility] Respiratory rate 2022-06-07 17:01:00 16 /min Univ ersity of [place] [facility] Body height 2022-06-07 17:01:00 157.5 cm [facility] [place] [facility] Body weight 2022-06-07 17:01:00 68.04 kg [facility] [place] [facility] BMI 2022-06-07 17:01:00 27.44 kg/m2 [facility] [place] [facility] Oxygen saturation in 2022-06-07 17:01:00 99 /min University of Arterial blood by [facility] Pulse oximetry Branch Body height 2022-04-28 15:58:00 157.5 cm [facility] [place] [facility] Body weight 2022-04-28 15:58:00 56.7 kg [facility] [place] [facility] BMI 2022-04-28 15:58:00 22.86 kg/m2 [facility] [place] [facility] Body height 2022-03-09 19:27:00 157.5 cm [facility] [place] [facility] Body weight 2022-03-09 19:27:00 56.7 kg [facility] [place] [facility] BMI 2022-03-09 19:27:00 22.86 kg/m2 [facility] [place] [facility] Systolic blood 2022-03-05 20:00:00 110 mm[Hg] Univer sity of pressure [place] [facility] Diastolic blood 2022-03-05 20:00:00 70 mm[Hg] Unive rsity of pressure [place] [facility] Heart rate 2022-03-05 20:00:00 75 /min [facility]i [facility] [place] [facility] Respiratory rate 2022-03-05 20:00:00 16 /min Univ ersity of [place] [facility] Oxygen saturation in 2022-03-05 20:00:00 100 /min University of Arterial blood by [place] [facility] barbara Pulse oximetry Branch Body temperature 2022-03-04 21:25:00 37.44 Rafaela Univ ersity of [place] [facility] Body height 2022-03-04 21:25:00 157.5 cm [facility]i [facility] [place] [facility] Body weight 2022-03-04 21:25:00 56.7 kg [facility] [place] [facility] BMI 2022-03-04 21:25:00 22.86 kg/m2 [facility] [place] [facility] Body height 2022-02-09 18:33:00 157.5 cm [facility] [place] [facility] Body weight 2022-02-09 18:33:00 68.04 kg [facility] [place] [facility] BMI 2022-02-09 18:33:00 27.44 kg/m2 [facility] [place] [facility] Systolic blood 2022-02-07 18:21:00 120 mm[Hg] Univer sity of pressure [place] [facility] Diastolic blood 2022-02-07 18:21:00 78 mm[Hg] Unive rsity of pressure [place] [facility] Heart rate 2022-02-07 18:20:00 82 /min [facility] [place] [facility] Body weight 2022-02-07 18:20:00 68.04 kg [facility] [place] [facility] BMI 2022-02-07 18:20:00 27.44 kg/m2 [facility] [place] [facility] Systolic blood 2022-02-05 21:04:00 92 mm[Hg] Univer sity of pressure [place] [facility] Diastolic blood 2022-02-05 21:04:00 66 mm[Hg] Unive rsity of pressure [place] [facility] Heart rate 2022-02-05 21:04:00 96 /min [facility]i [facility] [place] [facility] Respiratory rate 2022-02-05 21:04:00 16 /min Univ ersity of [place] [facility] Oxygen saturation in 2022-02-05 21:04:00 97 /min University of Arterial blood by [facility] barbara Pulse oximetry Branch Systolic blood 2022-02-02 20:32:00 108 mm[Hg] Univer sity of pressure [place] [facility] Diastolic blood 2022-02-02 20:32:00 72 mm[Hg] Unive rsity of pressure [place] [facility] Heart rate 2022-02-02 20:32:00 95 /min [facility]i ty [facility] [place] [facility] Respiratory rate 2022-02-02 20:32:00 18 /min Univ ersity of [place] [facility] Oxygen saturation in 2022-02-02 20:32:00 100 /min University of Arterial blood by [facility] Pulse oximetry Branch Body temperature 2022-02-02 16:01:00 36.61 Rafaela Univ ersity [facility] [place] [facility] Body height 2022-02-02 16:01:00 157.5 cm [facility] [place] [facility] Body weight 2022-02-02 16:01:00 69.854 kg [facility] [place] [facility] BMI 2022-02-02 16:01:00 28.17 kg/m2 [facility] [place] [facility] Systolic blood 2021-10-12 16:00:00 105 mm[Hg] Univer sity of pressure [place] [facility] Diastolic blood 2021-10-12 16:00:00 72 mm[Hg] Unive rsity of pressure [place] [facility] Heart rate 2021-10-12 16:00:00 79 /min [facility] [place] [facility] Respiratory rate 2021-10-12 16:00:00 18 /min Univ ersity of [place] [facility] Oxygen saturation in 2021-10-12 16:00:00 96 /min University of Arterial blood by [facility] Pulse oximetry Branch Body temperature 2021-10-12 14:49:00 36.67 Rafaela Univ ers[facility] [place] [facility] Body height 2021-10-12 14:49:00 157.5 cm [facility] [place] [facility] Body weight 2021-10-12 14:49:00 70.217 kg [facility] [place] [facility] BMI 2021-10-12 14:49:00 28.31 kg/m2 [facility] [place] [facility] Systolic blood 2021-04-29 21:50:00 121 mm[Hg] Univer sity of pressure [place] [facility] Diastolic blood 2021-04-29 21:50:00 79 mm[Hg] Unive rsity of pressure [place] [facility] Heart rate 2021-04-29 21:50:00 86 /min [facility] [place] [facility] Body height 2021-04-29 21:50:00 157.5 cm [facility] Body weight 2021-04-29 21:50:00 70.761 kg [facility] BMI 2021-04-29 21:50:00 28.53 kg/m2 [facility] Procedures Procedure Date / Time Performing Clinician Source Performed TDAP VACCINE, >11 YRS, 2022-11-06 18:55:00 Emily Guzman [facility] COMP. METABOLIC PANEL 2022-06-07 17:17:00 [facility] ([id number]) [facility] CBC WITH DIFF 2022-06-07 17:17:00 Isabel Fields [facility] REFERRAL- 2022-03-30 06:01:00 Doctor Unassigned, Luana [facility] REQUEST/RESPONSE Name [facility] COVID-19 (ID NOW RAPID 2022-03-05 06:17:00 Nazanin Garcia [facility] TESTING) [facility] SERUM DRUG (IMMUNOASSAY) 2022-03-05 02:51:00 Sergio Majano [facility] SCREEN KEPPRA (LEVETIRACETAM) 2022-03-05 02:51:00 Sergio Majano [facility] CREATINE KINASE 2022-03-04 23:01:00 Sergio Majano [facility] TEST, SERUM 2022-03-04 23:01:00 Sergio Majano [facility] COMP. METABOLIC PANEL 2022-03-04 23:01:00 Sergio Majano [facility] ([id number]) [facility] SALICYLATE 2022-03-04 23:01:00 Sergio Majano [facility] ETHANOL 2022-03-04 23:01:00 Sergio Majano [facility] CBC WITH DIFF 2022-03-04 23:01:00 Sergio Majano [facility] URINE DRUG (IMMUNOASSAY) 2022-03-04 22:53:00 Sergio Majano [facility] SCREEN URINALYSIS 2022-03-04 22:53:00 Sergio Majano [facility] CT HEAD WO CONTRAST 2022-03-04 22:08:20 Sergio Majano [facility] FLU VACC ([id number]), 6 2022-02-07 18:34:13 Bill Hung [facility] MO-64 YRS, .5ML, IM, Medical Bra nch QUAD (FLUCELVAX) [place] APPLY LONG ARM SPLINT 2022-02-05 22:12:29 Nazanin Garcia [facility] XR ELBOW <3 VW LEFT 2022-02-05 21:44:32 [facility] XR SHOULDER 2+ VW LEFT 2022-02-05 21:44:32 [facility] WRIST 3+ VW LEFT 2022-02-05 21:44:32 Nazanin Garcia [facility] CONSENT/REFUSAL FOR 2022-02-05 20:55:21 Doctor Unassigned, No [facility] [place] [facility] Name [facility] CONSENT/REFUSAL FOR 2022-02-02 15:57:16 Doctor Unassigned, No [facility] [place] [facility] CT ABDOMEN PELVIS W 2021-10-12 15:50:00 Emy King [facility] CONTRAST Medical Branch URINALYSIS 2021-10-12 15:22:00 [facility] LIPASE 2021-10-12 15:18:00 [facility] COMP. METABOLIC PANEL 2021-10-12 15:18:00 Emy King [facility] ([id number]) [facility] [place] CBC WITH DIFF 2021-10-12 15:18:00 [facility] NOTICE OF PRIVACY 2021-10-12 14:44:50 Doctor Unassigned, No [facility] ersity [facility] PRACTICES Name [facility] [place] CONSENT/REFUSAL FOR 2021-10-12 14:44:33 Doctor Unassigned, No [facility] [place] [facility] Name [facility] [place] EXTERNAL PROVIDER 2021-08-24 05:01:00 Doctor Unassigned, No [facility] RECORDS Name [facility] Branch EXTERNAL PROVIDER 2021-05-16 06:01:00 Doctor Unassigned, No [facility] RECORDS Name [facility] Encounters Start End Encounter Admission Attending Care Care Encounter Source Date/Time Date/Time Type Type Clinicians Facility Department ID 2022-11-27 2022-11-27 Outpatient R HAYLEYSHOAIB GASPAR [facility] [id number] Univers 16:00:00 16:00:[address] [facility] 2022-11-15 2022-11-15 Outpatient R FREDERICK [facility] [id number] Univers 11:20:00 11:20:00 , STEPHANIE neely of [facility] 2022-11-06 2022-11-06 Outpatient R THOMAS [facility] [id number] Univers 13:00:00 14:35:[address] [facility] 2022-11-06 2022-11-06 Office Thomas [facility] 1.2.840.114 [id number] Univers 13:00:00 14:35:30 Visit Emily [employer] [id number] it y of [place] [id number] John as SHANITA?BLEA [id number] Sc [address] MEDICAL OFFICE BUILDING 2022-11-01 2022-11-01 Outpatient R [facility]ICK [facility] [id number] Univers 15:00:00 15:00:00 , STEPHANIE neely [facility] 2022-10-20 2022-10-20 Outpatient R SHOAIB HARDY [facility] [id number] Univers 11:00:00 11:00:[address] [facility] 2022-10-02 2022-10-02 Outpatient R [facility] [id number] Univers 10:00:00 11:04:39 , STEPHANIE neely [facility] 2022-10-02 2022-10-02 [facility], Ang - Db [facility] 1.2.840.1 [id number] Univers 10:00:00 10:15:00 Visit Stephanie Jasso [facility] 350.1 .13.10 ity of [place] 4.2.7.2.686 John as SHANITA?BLEA [id number] Sc bernabe [address] MEDICAL OFFICE BUILDING 2022-09-28 2022-09-28 Patient Glen [facility] [id number] Univers 00:00:00 00:00:00 Outreach Kathia Jalloh [facility] [id number] i ty of [place] 4.2.7.2.686 John as SHANITA?BLEA [id number] Sc bernabe SHAW [address] [place] [address] MEDICAL OFFICE BUILDING 2022-09-27 2022-09-27 Outpatient R [facility] [id number] Univers 14:40:00 15:18:26 , STEPHANIE leon y of [facility] 2022-09-27 2022-09-27 Office [facility] [id number] [facility] 14:40:00 15:18:26 Visit , [facility] [id number] ity of [facility] 4.2.7.2.686 John as SHANITA?BLEA [id number] Sc bernabe [address] OFFICE [facility] 2022-09-18 2022-09-18 Patient Glen [facility] [id number] Univers 00:00:00 00:00:00 Outreach Kathia Jalloh [facility] [id number] i ty of [place] 4.2.7.2.686 John as SHANITA?BLEA [id number] Sc bernabe SHAW [address] [place] [address] MEDICAL OFFICE [facility] 2022-09-13 2022-09-13 Outpatient R [facility] [id number] Univers 14:00:00 14:29:14 , STEPHANIE leon y of [facility] 2022-09-13 2022-09-13 Office [facility] 1.2.840.114 [id number] Univers 14:00:00 14:29:14 Visit , Stephanie [facility] [id number] ity of [facility] 4.2.7.2.686 John as SHANITA?BLEA [id number] Sc bernabe [address] MEDICAL OFFICE BUILDING 2022-09-07 2022-09-07 Outpatient R DIAMOND [facility] [id number] Univers 09:00:00 09:00:00 BOBBY [facility] 2022-08-23 2022-08-23 Outpatient R [facility] [id number] Univers 13:00:00 13:00:00 , STEPHANIE it y [facility] 2022-07-27 2022-07-27 Outpatient R [facility] [id number] Univers 09:00:00 09:00:00 , STEPHANIE it y of [facility] 2022-06-07 2022-06-07 [facility] [id number] Univers 11:03:00 12:08:[address] [facility] 2022-06-07 2022-06-07 [facility] [id number] Univers 11:03:00 12:08:00 Isabel BLAIR 350.1.13.10 ity of [place] [facility] 4.2.7.2.686 [place] [id number] [address] 2022-05-09 2022-05-09 Case LANA Mckinney 1.2.840.114 [id number] Univers 00:00:00 00:00:00 Management Brittnee GRAMAJOY 350.1.13.10 [place]2.7.2.[place] [id number] [address] 2022-04-28 2022-04-28 Office [facility] 1.2.840.114 [id number] Univers 10:15:00 10:30:00 Visit [facility] [id number] it y [facility] 4.2.7.2.686 John as SHANITA?BLEA [id number] [address] MEDICAL OFFICE BUILDING 2022-04-28 2022-04-28 Outpatient R DIAMOND [facility] [id number] Univers 10:01:10 10:16:[address] [facility] 2022-04-27 2022-04-27 Outpatient R DIAMOND [facility] [id number] Univers 15:45:00 15:45:[address] [facility] 2022-04-20 2022-04-20 Outpatient Miguel Ángel FIELDS [facility] [id number] Univers 11:15:00 11:15:[address] [facility] 2022-04-13 2022-04-13 Outpatient Miguel Ángel FIELDS [facility] [id number] Univers 13:30:00 13:30:[address] [facility] 2022-03-30 2022-03-30 Orders Doctor ABHIJIT 1.2.840.114 [id number] Univers 00:00:00 00:00:00 Only Unassigned, AMAYA 350.1.13.10 ity of [place] [facility] 4.2.7.2.686 John as [id number] [address] 2022-03-24 2022-03-24 Telephone [facility] [id number] Univers 00:00:00 00:00:00 [facility] [id number] it y of [place] 4.2.7.2.686 John as SHANITA?BLEA [id number] [address] OFFICE [facility] 2022-03-09 2022-03-09 Outpatient Miguel [facility] [id number] Univers 13:45:00 23:59:[address] [facility] 2022-03-09 2022-03-09 [facility] 1.2.840.114 [id number] Univers 13:30:00 13:45:00 Visit [facility] 350.1.13.10 it y of [place] 4.2.7.2.686 John as SHANITA?BLEA [id number] [address] OFFICE [facility] 2022-03-04 2022-03-05 Emergency X JUAN J [facility] ERT [id number] Univers 15:22:00 15:00:[address] [facility] 2022-03-04 2022-03-05 Emergency Sergio Majano [facility] 1.2.840.1 [id number] Univers 15:22:00 15:00:00 John Escamilla 350.1.13.10 ity of [place] 4.2.7.2.686 [facility] [id number] [facility] [address] [place] 2022-02-21 2022-02-21 Telephone [facility] [id number] Univers 00:00:00 00:00:00 Bobby [facility] 350.1.13.10 it y of [place] 4.2.7.2.686 John as SHANITA?BLEA [id number] Sc bernbae SHAW [address] [facility] OFFICE [facility] 2022-02-20 2022-02-20 Outpatient [facility] [id number] Univers 15:15:00 15:15:00 [facility] 2022-02-09 2022-02-09 Office [facility] 1.2.840.114 [id number] Univers 13:45:00 14:15:00 Visit [facility] 350.1.13.10 it y of [place] 4.2.7.2.686 John as SHANITA?BLEA [id number] Sc bernabe SHAW [address] [facility] OFFICE [facility] 2022-02-09 2022-02-09 [facility] [id number] Univers 13:45:00 14:14:48 [facility] 2022-02-07 2022-02-07 Outpatient R ABHILASH [facility] [id number] Univers 13:30:00 13:49:35 [facility] 2022-02-07 2022-02-07 Office [facility] 1.2.840.114 [id number] Univers 13:30:00 13:49:35 Visit [facility] 350.1.13.10 it y of [place] 4.2.7.2.686 John as SHANITA?BLEA [id number] Sc bernabe SHAW 044 [facility] 2022-02-05 2022-02-05 Emergency X JOSE [facility] ERT [id number] Univers 16:08:00 17:27:00 NAZANIN [facility] 2022-02-05 2022-02-05 Emergency [facility] 1.2.840.114 [id number] Univers 16:08:00 17:27:00 Nazanin BLAIR 350.1.13.10 ity of [facility] 4.2.7.2.686 [facility] [id number] [address] 2022-02-02 2022-02-02 Emergency X LUCAS JEAN [facility] ERT [id number] Univers 11:02:00 15:34:[address] [facility] 2022-02-02 2022-02-02 Emergency [facility] [id number] Univers 11:02:00 15:34:00 Lucas BLAIR 350.1.13.10 i ty of [place] 4.2.7.2.686 [facility] [id number] [address] 2022-01-09 2022-01-09 Outpatient Miguel Ángel [facility] [id number] Univers 13:45:00 13:45:00 [facility] 2021-10-12 2021-10-12 Emergency X [facility] ERT [id number] Univers 09:51:00 11:54:[address] [facility] 2021-10-12 2021-10-12 [facility] [id number] Univers 09:51:00 11:54:00 Emy ROSSY 350.1.13.10 i ty of [place] 4.2.7.2.686 [facility] [phone] [address] 2021-10-12 2021-10-12 Orders Doctor LACEY 1.2.840.114 [id number] Univers 00:00:00 00:00:00 Only Unassigned, AMAYA 350.1.13.10 ity of [place] [facility] 4.2.7.2.686 John [phone] [address] 2021-09-12 2021-09-12 Outpatient Miguel Ángel [facility] [id number] Univers 10:30:00 10:30:[address] [facility] 2021-08-24 2021-08-24 Orders Doctor LACEY 1.2.840.114 [id number] Univers 00:00:00 00:00:00 Only Unassigned, AMAYA 350.1.13.10 ity of [place] [facility] 4.2.7.2.686 John as [phone] [address] 2021-06-03 2021-06-03 [facility] [id number] Univers 13:00:00 13:23:49 BILL [facility] 2021-05-16 2021-05-16 Orders Doctor ABHIJIT 1.2.840.114 [id number] Univers 00:00:00 00:00:00 Only Unassigned, AMAYA 350.1.13.10 ity of [place] [facility] 4.2.7.2.686 John as [phone] [address] 2021-05-04 2021-05-04 Telephone [facility] 1.2.840.114 [id number] Univers 00:00:00 00:00:00 [facility] 350.1.13.10 it y of [place] [facility] 4.2.7.2.686 John as SHANITA?BLEA [phone] [address] MEDICAL OFFICE BUILDING 2021-04-29 2021-04-29 Office [facility] 1.2.840.114 [id number] Univers 16:00:00 16:15:00 Visit [facility] 350.1.13.10 it y of [place] [facility] 4.2.7.2.686 John as SHANITA?BLEA [phone] [address] MEDICAL OFFICE BUILDING 2021-04-29 2021-04-29 [facility]patient [facility] [id number] Univers 16:00:00 16:00:00 BILL [facility] 2021-04-29 2021-04-29 Orders Doctor ABHIJIT 1.2.840.114 [id number] Univers 00:00:00 00:00:00 Only Unassigned, AMAYA 350.1.13.10 ity of [place] [facility] 4.2.7.2.686 John as [id number] [address] 2021-04-22 2021-04-22 [facility]patient [facility] [id number] Univers 08:00:00 08:00:00 [facility] 2021-04-22 2021-04-22 Telephone [facility] 1.2.840.114 [id number] Univers 00:00:00 00:00:00 [facility] 350.1.13.10 it y of [place] 4.2.7.2.686 John as SHANITA?BLEA [phone] [address] OFFICE [facility] 2021-04-15 2021-04-15 Office [facility] 1.2.840.114 [id number] Univers 15:30:00 16:00:00 Visit [facility] 350.1.13.10 it y of [place] 4.2.7.2.686 John as SHANITA?BLEA [id number] [address] 2021-04-15 2021-04-15 Outpatient [facility] [id number] Univers 15:30:00 15:30:00 [facility] 2021-04-15 2021-04-15 Outpatient [facility] [id number] Univers 15:30:00 15:30:00 [facility] Results Test Description Test Time Test Comments Results Result Comments Source COMP. METABOLIC PANEL (77921) 2021-10-12 15:45:46 Test Item Value Reference Range Interpretation Comme nts NA (test code = 1568503338) 139 mmol/L 135-145 K (test code = 0625729377) 4.5 mmol/L 3.5-5.0 CL (test code = 1039113905) 99 mmol/L 98-108 CO2 TOTAL (test code = 4565561405) 30 mmol/L 23-31 AGAP (test code = 8064619784) 2-16 BUN (test code = 9855297860) 16 mg/dL 7-23 GLUCOSE (test code = 7251246348) 119 mg/dL 70-110 H CREATININE (test code = 0.66 mg/dL 0.50-1.04 6345365267) TOTAL BILI (test code = 0.4 mg/dL 0.1-1.1 8856348784) CALCIUM (test code = 3957926991) 10.0 mg/dL 8.6-10.6 T PROTEIN (test code = 5929049577) 8.6 g/dL 6.3-8.2 H ALBUMIN (test code = 9791194915) 4.7 g/dL 3.5-5.0 ALK PHOS (test code = 4997809965) 94 U/L 34-122 ALTv (test code = 1742-6) 17 U/L 5-35 AST(SGOT) (test code = 7806477406) 23 U/L 13-40 eGFR (test code = 2796393001) mL/min/1.73m2 SHE (test code = SHE) Association [...] tests). Lab Interpretation (test code = Abnormal 22282-6) [facility] 15[facility]25 Test Item Value Reference Range Interpretation Comments LIPASE (test code = 2741757594) 86 U/L 0-220 Lab Interpretation (test code = Normal 72046-6) [facility] WITH [id number] 15:31:02 Test Item Value Reference Range Interpretation [...] RDW-SD (test code = 44.6 fL 39.0-49.9 92607-4) RDW-CV (test code = 13.7 % 12.0-15.5 788-0) PLT (test code = See_Comment H [Automated 777-3) message] The system which generated this result transmit ann reference range : 166 - 358 10*3/ ?L. The reference range was not u sed to interpret th is result as normal/abnormal . MPV (test code = 10.0 fL 9.5-12.9 63349-9) NRBC/100 WBC (test See_Comment [Automat ed code = 1645587435) message] The system which generated this result transmit ann reference range : 0.0 - 10.0 /100 WBCs. The reference range was not used to interpret this result as normal/abnormal . NRBC x10^3 (test code <0.01 See_Comment [Auto mated = 2874268535) message] The system which generated this result transmit ann reference range : 10*3/?L. The reference range was not used to interpret this result as normal/abnormal . GRAN MAT (NEUT) % 78.7 % (test code = 770-8) IMM GRAN % (test code 0.60 % = 9055642093) LYMPH % (test code = 12.7 % 736-9) MONO % (test code = 7.2 % 5905-5) EOS % (test code = 0.3 % 713-8) BASO % (test code = 0.5 % 706-2) GRAN MAT x10^3(ANC) 12.40 10*3/uL 1.88-7.09 H (test code = 9238978299) IMM GRAN x10^3 (test 0.09 10*3/uL 0.00-0.06 H code = 7344551901) LYMPH x10^3 (test code 2.00 10*3/uL 1.32-3.29 = 731-0) MONO x10^3 (test code 1.14 10*3/uL 0.33-0.92 H = 742-7) EOS x10^3 (test code = 0.04 10*3/uL 0.03-0.39 711-2) BASO x10^3 (test code 0.08 10*3/uL 0.01-0.07 H = 704-7) Lab Interpretation Abnormal (test code = 28494-2) [facility]"
[2022-11-21 17:18] LABS: Absolute Lymphocytes (CBC) 3.3 K/uL (0.7-4.9); Hematocrit 38.6 % (36.0-45.0); Lymphocytes % 28.5 % (15.3-44.8); MCV 89.4 fL (80-100); MPV 8.7 fL (7.6-11.3); Platelets 459 thou/uL (152-406); RBC Red Blood Cell Count 4.32 M/uL (3.86-4.86)
[2022-11-21 17:22] LABS: Protime INR 0.95
[2022-11-21 17:35] LABS: Albumin 3.2 g/dL (3.4-5.0); Bilirubin Total 0.2 mg/dL (0.2-1.0); Potassium 3.6 mEq/L (3.5-5.1); Protein, Total 7.6 g/dL (6.4-8.2)
--- NOTE | 2022-11-21 19:16 | EDPHYS ---
Physician Documentation [facility] De Name: Cindy Ackerman Age: 47 yrs Sex: Female : 1975 Arrival Date: 11/21/2022 Time: 16:13 Bed 14 Private MD: ED Physician Juan Ramon Cai HPI: 11/21 21:48 This 47 yrs old Female presents to ER via Ambulatory with complaints of Wound kb Check. 21:48 Patient presents to ED for recheck of: dog bite. The affected area is on the medial kb aspect of left thigh. Previous treatment: The patient was initially treated on October 24, 2022. Progress: The patient reports increased drainage, fever, pain, redness, swelling. The patient has not experienced similar symptoms in the past. The patient has been recently seen by a physician:. Patient reports she was bit by a dog on October 24, had sutures placed and took a course of Augmentin for 10 days. Patient was seen here again 3 days ago for open wound with redness, drainage and swelling to left inner thigh. Sutures have been removed but patient is unable to verbalize where, when or who removed the sutures. Patient was started on doxycycline. Came in today for increased pain, swelling, redness, drainage and still running intermittent fevers.. Historical: - Allergies: 16:22 Robaxin; ap3 - PMHx: 16:22 Anxiety; Asthma; Bipolar disorder; Hypercholesterolemia; Hypertensive disorder; PTSD; ap3 Seizure; - PSHx: 16:22 hip SX; ap3 - Immunization history:: Client reports receiving the 2nd dose of the Covid vaccine. - Social history:: Smoking status: Patient denies any tobacco usage or history of. ROS: 21:47 Respiratory: Negative for shortness of breath, cough, wheezing, and pleuritic chest kb pain. 21:47 Constitutional: Positive for chills, fever. 21:47 Skin: Positive for infected wound left inner thigh. 21:47 All other systems are negative. Exam: 16:39 ECG was reviewed by the Attending Physician. kb 21:45 Constitutional: This is a well developed, well nourished patient who is awake, alert, kb and in no acute distress. Head/Face: Normocephalic, atraumatic. ENT: Moist Mucous membranes Cardiovascular: Regular rate and rhythm with a normal S1 and S2. No gallops, murmurs, or rubs. No pulse deficits. Respiratory: Respirations even and unlabored. No increased work of breathing. Talking in full sentences MS/ Extremity: Pulses equal, no cyanosis. Neurovascular intact. Full, normal range of motion. 21:45 Skin: open wound with surrounding erythema, swelling and drainage to left inner thigh. 21:45 Neuro: Exam negative for acute changes, Orientation: to person, place, time \T\ situation. Vital Signs: 16:21 BP 138 / 89; Pulse 85; Resp 17; Temp 97.7; Pulse Ox 99% ; Pain 10/10; ap3 16:30 BP 117 / 79; Pulse 88; Resp 20; Pulse Ox 100% on R/A; db 19:14 BP 115 / 84; Pulse 90; Resp 20; Pulse Ox 98% on R/A; db 20:00 BP 120 / 76; Pulse 90; Resp 20; Pulse Ox 98% ; db 21:14 BP 124 / 76; Pulse 89; Resp 21 S; Temp 98.3(O); Pulse Ox 99% on R/A; Pain 2/10; lg3 16:21 Pain Scale: Adult ap3 21:14 Pain Scale: Adult lg3 MDM: 16:15 Patient medically screened. kb 21:47 Differential diagnosis: cellulitis, wound infection, abscess. Data reviewed: vital kb signs, nurses notes. Consideration of Admission/Observation Patient was admitted/placed on observation. Escalation of care including admission/observation considered. Management of patient was discussed with the following: Hospitalist: Bernardo inpatient services rn accepts pt for admission. Historians other than the Patient: Parent: mother. Counseling: I had a detailed discussion with the patient and/or guardian regarding: the historical points, exam findings, and any diagnostic results supporting the discharge/admit diagnosis, lab results, the need for further work-up and treatment in the hospital. 21:49 ED course: Lactate trending upwards from visit 3 days ago. Patient and mother request kb admission for IV antibiotics due to failed outpatient treatment. 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 11/21 16:20 Order name: Blood Culture Adult (2) 11/21 16:20 Order name: CBC with Diff; Complete Time: 17:31 kb 11/21 16:20 Order name: CMP; Complete Time: 17:45 kb 11/21 16:20 Order name: Lactate w/ 2H reflex if indic.; Complete Time: 17:53 kb 11/21 16:20 Order name: Protime (+inr); Complete Time: 17:31 kb 11/21 16:20 Order name: Ptt, Activated; Complete Time: 17:31 kb 11/21 19:32 Order name: Wound Culture la1 11/21 22:08 Order name: Urine Drug Screen lg3 11/21 22:08 Order name: Urine Microscopic Only lg3 11/22 01:12 Order name: Urine Drug Screen; Complete Time: 01:42 EDMS 11/22 01:16 Order name: Urine Microscopic Only; Complete Time: 01:42 EDMS 11/22 05:22 Order name: CBC with Automated Diff EDMS 11/22 05:40 Order name: Basic Metabolic Panel EDMS 11/22 13:22 Order name: Urinalysis w/ reflexes EDMS 11/22 13:23 Order name: Test, Urine EDMS 11/22 14:23 Order name: US EDMS 11/21 16:20 Order name: EKG; Complete Time: 16:20 kb 11/21 16:20 Order name: Accucheck; Complete Time: 17:26 kb 11/21 16:20 Order name: Cardiac monitoring; Complete Time: 16:38 kb 11/21 16:20 Order name: EKG - Nurse/Tech; Complete Time: 16:38 kb 11/21 16:20 Order name: IV Saline Lock - Large Bore; Complete Time: 16:38 kb 11/21 16:20 Order name: Labs collected and sent; Complete Time: 17:06 kb 11/21 16:20 Order name: O2 Per Protocol; Complete Time: 16:38 kb 11/21 16:20 Order name: O2 Sat Monitoring; Complete Time: 16:38 kb 11/21 16:20 Order name: Vital Signs; Complete Time: 16:38 kb EC:39 Rate is 83 beats/min. Rhythm is regular. QRS [place] is Normal. NM interval is normal at kb 176 msec. QRS interval is normal at 80 msec. QT interval is normal at 404 msec. Administered Medications: 19:50 Drug: Ampicillin-Sulbactam Sodium IVPB 3 grams Route: IVPB; Infused Over: 30 mins; db Site: right antecubital; 20:20 Follow up: Response: No adverse reaction; IV Status: Completed infusion; IV Intake: db 100ml Disposition: 20:47 Co-signature as Attending Physician, Juan Ramon Cai DO I was immediately available on-site ms3 in the Emergency Department for consultation in the care of the patient. Disposition Summary: 11/21/22 19:16 Hospitalization Ordered Hospitalization Status: Observation kb Provider: Harjinder Resendiz Condition: Stable kb Problem: new kb Symptoms: are unchanged kb Bed/Room Type: Standard kb Location: Telemetry/MedSurg (observation)(11/22/22 14:53) bd Room Assignment: 410(11/22/22 14:53) bd Diagnosis - Open wound of thigh - dog bite, infected, failed outpatient treatment kb Forms: - Medication Reconciliation Form kb - SBAR form kb - Leadership Thank You Letter kb Signatures: Dispatcher [employer] EDMS Carmen Nicholas, COURT DEPUTY-C COURT DEPUTY-Ckb Sandra [place] Lee COURT DEPUTY-C COURT DEPUTY-Cla1 Eboni Carnes RN RN ap3 Alice Garcia RN RN eb1 Juan Ramon Cai DO DO ms3 Seema Cedillo, RN HUBERT db Corrections: (The following items were deleted from the chart) 19:34 16:22 Allergies: PENICILLINS; ap3 vc1 22:21 19:16 Telemetry/MedSurg (observation) kb eb1 22:21 19:16 kb eb1 11/22 14:53 11/21 22:21 [facility] ER HOLD eb1 bd 11/22 14:53 11/21 22:21 ERHOLD- eb1 bd
--- NOTE | 2022-11-21 19:16 | ER ---
Nurse's Notes [facility] De Name: Cindy Ackerman Age: 47 yrs Sex: Female : 1975 Arrival Date: 11/21/2022 Time: 16:13 Bed 14 Private MD: Diagnosis: Open wound of thigh-dog bite, infected, failed outpatient treatment Presentation: 11/21 16:21 Chief complaint: Patient states: she was bitten by a dog approx one month ago, and has ap3 been seen multiple times for the bite. patient reports the bite is not getting better, through antibiotics. patient states pain is currently a 10/10. Coronavirus screen: At this time, the client does not indicate any symptoms associated with coronavirus-19. Ebola Screen: No symptoms or risks identified at this time. Initial Sepsis Screen: Does the patient meet any 2 criteria? No. Patient's initial sepsis screen is negative. Does the patient have a suspected source of infection? Yes: Skin breakdown/wound. Risk Assessment: Do you want to hurt yourself or someone else? Patient reports no desire to harm self or others. Onset of symptoms is unknown. 16:21 Method Of Arrival: Ambulatory ap3 16:21 Acuity: JEFFY 3 ap3 16:23 Note patient is a poor historian. she continues to refer questions to her mother. ap3 Triage Assessment: 16:23 General: Appears in no apparent distress. Behavior is cooperative, flat. Pain: ap3 Complains of pain in medial aspect of left thigh Pain currently is 10 out of 10 on a pain scale. Pain began approx one month. Neuro: Level of Consciousness is awake, alert, obeys commands, Oriented to person, place, time, situation. Cardiovascular: Patient's skin is warm and dry. Respiratory: Airway is patent Respiratory effort is even, unlabored, Respiratory pattern is regular, symmetrical. Derm: Wound noted medial aspect of left thigh. Historical: - Allergies: 16:22 Robaxin; ap3 - PMHx: 16:22 Anxiety; Asthma; Bipolar disorder; Hypercholesterolemia; Hypertensive disorder; PTSD; ap3 Seizure; - PSHx: 16:22 hip SX; ap3 - Immunization history:: Client reports receiving the 2nd dose of the Covid vaccine. - Social history:: Smoking status: Patient denies any tobacco usage or history of. Screenin:24 Abuse screen: Denies threats or abuse. Nutritional screening: No deficits noted. ap3 Tuberculosis screening: No symptoms or risk factors identified. 21:14 [facility] ED Fall Risk Assessment (Adult) History of falling in the last 3 months, lg3 including since admission No falls in past 3 months (0 pts). Assessment: 16:27 Reassessment: Patient appears in no apparent distress at this time. Patient is alert, db oriented x 3, equal unlabored respirations, skin warm/dry/pink. DOG BITE TO LEFT INNER THIGH. General: Appears in no apparent distress. comfortable, Behavior is calm, cooperative. Neuro: Level of Consciousness is awake, alert, obeys commands, Oriented to person, place, time, situation. Respiratory: Airway is patent Respiratory effort is even, unlabored, Respiratory pattern is regular, symmetrical. 16:39 Derm: Skin Wound noted left leg and medial aspect of left thigh. db 17:30 Reassessment: Patient appears in no apparent distress at this time. Patient and/or db family updated on plan of care and expected duration. Pain level reassessed. Patient is alert, oriented x 3, equal unlabored respirations, skin warm/dry/pink. 18:30 Reassessment: Patient appears in no apparent distress at this time. Patient and/or db family updated on plan of care and expected duration. Pain level reassessed. Patient is alert, oriented x 3, equal unlabored respirations, skin warm/dry/pink. 19:22 Reassessment: Patient appears in no apparent distress at this time. Patient and/or db family updated on plan of care and expected duration. Pain level reassessed. Patient is alert, oriented x 3, equal unlabored respirations, skin warm/dry/pink. PATIENT SITTING UP PLAYING GAME ON TABLET. Vital Signs: 16:21 BP 138 / 89; Pulse 85; Resp 17; Temp 97.7; Pulse Ox 99% ; Pain 10/10; ap3 16:30 BP 117 / 79; Pulse 88; Resp 20; Pulse Ox 100% on R/A; db 19:14 BP 115 / 84; Pulse 90; Resp 20; Pulse Ox 98% on R/A; db 20:00 BP 120 / 76; Pulse 90; Resp 20; Pulse Ox 98% ; db 21:14 BP 124 / 76; Pulse 89; Resp 21 S; Temp 98.3(O); Pulse Ox 99% on R/A; Pain 2/10; lg3 16:21 Pain Scale: Adult ap3 21:14 Pain Scale: Adult lg3 Vitals: 16:39 Cardiac Rhythm Assessment Regular Sinus rhythm. db ED Course: 16:14 Patient arrived in ED. rg4 16:15 Carmen Nicholas FNP-C [facility] kb 16:15 Dileep Alanis MD is Attending Physician. kb 16:22 Triage completed. ap3 16:24 Arm band placed on right wrist. ap3 16:25 Juan Ramon Cai DO is Attending Physician. kb 16:26 Seema Cedillo, RN is Primary Nurse. db 16:45 Inserted saline lock: 22 gauge in right forearm, using aseptic technique. Blood ds4 collected. 17:00 First set of blood cultures drawn by me, Second set of blood cultures drawn by me. ds4 Inserted saline lock: 24 gauge in left forearm, using aseptic technique. Blood collected. 19:15 Harjinder Resendiz MD is Hospitalizing Provider. kb 19:40 Wound culture swab sent to lab. db 20:38 Patient has correct armband on for positive identification. Bed in low position. Call db light in reach. Side rails up X 1. Client placed on continuous cardiac and pulse oximetry monitoring. NIBP monitoring applied. Warm blanket given. 21:13 Report received from HUBERT Stephenson. lg3 21:14 Provided Education on: need for admission. lg3 21:14 No provider procedures requiring assistance completed. Patient admitted, IV remains in lg3 place. 11/22 00:30 Urine Microscopic Only Sent. lg3 00:31 Urine Drug Screen Sent. lg3 12:41 Radiology exam delayed due to Pt refusing new IV at this time, refusing CT scan. spoke ls3 with dr davies, CT will be modified to US. Administered Medications: 11/21 19:50 Drug: Ampicillin-Sulbactam Sodium IVPB 3 grams Route: IVPB; Infused Over: 30 mins; db Site: right antecubital; 20:20 Follow up: Response: No adverse reaction; IV Status: Completed infusion; IV Intake: db 100ml Medication: 21:14 VIS not applicable for this client. lg3 Intake: 20:20 IV: 100ml; Total: 100ml. db Outcome: 19:16 Decision to Hospitalize by Provider. kb 11/22 00:31 Admitted to ER Hold. Please see [facility] for further documentation. lg3 Condition: stable Instructed on the need for admit. 15:29 Patient left the ED. ko1 Signatures: Carmen Nicholas, ANIMAL CRUELTY INVESTIGATOR-Daniel ANIMAL CRUELTY INVESTIGATOR-Bonilla Bar ds4 Lorenza Fall4 Eboni Carnes RN RN ap3 Jhony Timmons ls3 Angelique Guillaume RN RN lg3 Mignon Lundberg RN RN ko1 Seema Cedillo RN RN db Corrections: (The following items were deleted from the chart) 11/21 19:34 16:22 Allergies: PENICILLINS; ap3 vc1
[2022-11-21] MEDS ORDERED: NA CHLORIDE 0.9% 100 ML ONE (19:48)
[2022-11-21] MEDS ORDERED: AMPICILLIN/SULBACTAM 3GM/VIAL ONE (19:48)
--- NOTE | 2022-11-21 20:07 | P.HP ---
Certification for Inpatient Patient admitted to: Inpatient With expected LOS: >2 Midnights Patient will require the following post-hospital care: None Practitioner: I am a practitioner with admitting privileges, knowledge of patient current condition, hospital course, and medical plan of care. Services: Services provided to patient in accordance with Admission requirements found in Title 42 Section 412.3 of the Code of Federal Regulations Patient History Date of Service: 11/21/22 Reason for admission: Infected dog bite History of Present Illness: 47-year-old female with history of bipolar disorder, hypertension, hyperlipidemia, PTSD, seizure disorder presents emergency department with chief complaint of dog bite. Initial dog bite occurred on 10/24/2022, patient has since been on Augmentin, doxycycline without improvement. Reportedly at 1 point her wound was sutured but is currently open, she has mild elevation in white blood cell count and reports fevers up to 101 at home. We will start her on Unasyn, obtain surgical consult. - Past Medical/Surgical History -: BPD, PTSD, seizure disorder -: Hypertension -: Hyperlipidemia -: Splenectomy Psychosocial/ Personal History: Patient lives at home with her mother - Family History Family History: Reviewed- Non-Contributory - Social History Smoking Status: Never smoker Counseled patient to stop smoking for: less than 10 minutes Alcohol use: No CD- Drugs: No Caffeine use: Yes Place of Residence: Home Review of Systems 10-point ROS is otherwise unremarkable Musculoskeletal: Leg Pain Physical Examination - Physical Exam General: Alert, In no apparent distress, Oriented x3 HEENT: Atraumatic, PERRLA, Mucous membr. moist/pink, EOMI, Sclerae nonicteric Neck: Supple, 2+ carotid pulse no bruit, No LAD, Without JVD or thyroid abnormality Respiratory: Clear to auscultation bilaterally, Normal air movement Cardiovascular: Regular rate/rhythm, Normal S1 S2 Capillary refill: <2 Seconds Gastrointestinal: Normal bowel sounds, No tenderness Musculoskeletal: No tenderness Integumentary: Other (Wound present to medial aspect of left proximal thigh area with purulent drainage, not well approximated.) Neurological: Normal gait, Normal speech, Normal strength at 5/5 x4 extr, Normal tone, Normal affect Lymphatics: No axilla or inguinal lymphadenopathy - Studies Laboratory Data (last 24 hrs) 11/21/22 11/21/22 11/21/22 17:00 17:00 17:00 WBC 11.50 H Hgb 13.0 Hct 38.6 Plt Count 459 H PT 10.5 INR 0.95 APTT 31.1 Sodium 135 L Potassium 3.6 BUN 10 Creatinine 0.82 Glucose 112 H Total Bilirubin 0.2 AST 19 ALT 25 Alkaline Phosphatase 108 Assessment and Plan - Plan Assessment: Infected dog bite proximal left thighfailed outpatient management BPD, PTSD Seizure disorder Hypertension Hyperlipidemia Plan: Infected dog bite proximal left thighfailed outpatient management Continue Unasyn, wound culture obtained, surgical consultation in place, n.p.o. after midnight. BPD, PTSD Seizure disorder Hypertension Hyperlipidemia Continue home medications. DVT PPX: SCD Code status: Full Discharge Plan: Home Plan to discharge in: 48 Hours - Advance Directives Does patient have a Living Will: No Does patient have a Durable POA for Healthcare: No - Code Status/Comfort Care Code Status Assessed: Yes (Full code) Critical Care: No Time Spent Managing Pts Care (In Minutes): 55
[2022-11-21] MEDS ORDERED: ONDANSETRON 4 MG/2 ML VIAL IV PRN (21:47)
[2022-11-21] MEDS: NA CHLORIDE 0.9% 1,000 ML IV SCH (21:47)
[2022-11-21] MEDS ORDERED: HYDROCODONE/APAP 7.5/325 MG TAB PO PRN (21:47)
[2022-11-21] MEDS ORDERED: NA CHLORIDE 0.9% 1,000 ML ONE (22:06)
[2022-11-22] MEDS ORDERED: HYDROCODONE/APAP 7.5/325 MG TAB ONE (00:01)
[2022-11-22 00:48] VITALS: BMI 21.9
[2022-11-22 01:12] LABS: Barbiturates NEGATIVE (NEGATIVE); Benzodiazepines NEGATIVE (NEGATIVE); Cocaine NEGATIVE (NEGATIVE); METHAMPHETAM POSITIVE (NEGATIVE); Methadone NEGATIVE (NEGATIVE); Opiates NEGATIVE (NEGATIVE); Phencyclidine NEGATIVE (NEGATIVE); THC Cannibis NEGATIVE (NEGATIVE)
[2022-11-22 01:16] LABS: Urine Bacteria <20 /HPF (<20); Urine Mucus Slight /HPF (None Seen); Urine RBC <5 /HPF (None Seen)
[2022-11-22] MEDS: AMPICILLIN/SULBACT 3 GM in NA CHLORIDE 0.9% 100 ML IVPB SCH ×4 (04:22→16:40)
[2022-11-22] MEDS ORDERED: NA CHLORIDE 0.9% 100 ML ONE (04:24)
[2022-11-22] MEDS ORDERED: AMPICILLIN/SULBACTAM 3GM/VIAL ONE ×2 (04:24→11:55)
[2022-11-22 05:14] LABS: Absolute Lymphocytes (CBC) 3.5 K/uL (0.7-4.9); Hematocrit 37.2 % (36.0-45.0); Lymphocytes % 28.4 % (15.3-44.8); MCV 89.4 fL (80-100); MPV 7.7 fL (7.6-11.3); Platelets 425 thou/uL (152-406); RBC Red Blood Cell Count 4.16 M/uL (3.86-4.86)
[2022-11-22 05:40] LABS: Potassium 3.4 mEq/L (3.5-5.1)
[2022-11-22] MEDS: NA CHLORIDE 0.9% 1,000 ML IV SCH ×2 (07:47→16:41)
[2022-11-22] MEDS ORDERED: POTASSIUM CL SA 10 MEQ TAB PO ONE ×2 (09:53→11:44)
[2022-11-22] MEDS ORDERED: SILVER SULFADIAZINE 1% 25 GM TOP ONE (11:46)
[2022-11-22] MEDS ORDERED: ONDANSETRON 4 MG/2 ML VIAL ONE (11:56)
[2022-11-22 13:22] LABS: Urine Bilirubin NEGATIVE (Negative); Urine Blood Negative (Negative); Urine Clarity Clear (Clear); Urine Color Light-Yellow (Yellow); Urine Glucose NEGATIVE (Negative); Urine Protein NEGATIVE (Negative); Urine Urobilinogen Normal (Normal); Urine pH 7.5 (5.0-7.0)
--- NOTE | 2022-11-22 14:23 | RAD REPORT ---
EXAM DESCRIPTION: US - Extremity Nonvascular Complete - 11/22/2022 1:56 pm CLINICAL HISTORY: left thigh dog bite Pain and swelling COMPARISON: <Comparisons> TECHNIQUE: Real-time sonographic evaluation of the area of interest was performed. FINDINGS: Echogenic tissue subcutaneous tissues noted with multiple small hypoechoic collections. Th is is likely related to infection and inflammation. There is likely subcutaneous abscess present whic h is small in size and the elongated.
--- NOTE | 2022-11-22 15:19 | P.CNS ---
Date of Consult: 11/22/22 Reason for Consult: dog bite left thigh Chief Complaint: Infected dog bite History of Present Illness: Patient is a 47 yo female with a history of bipolar disorder, seizure disorder and hypertension who presented to the ED with complaints of dog bite to left thigh that occurred 2-3 weeks ago. It is reported that she had been treated with Augmentin and Doxycycline without any significant improvement. She was started empirically on Unasyn and ID was consulted. Allergies methocarbamol [From Robaxin] Allergy (Verified 11/21/22 20:34) Rash - Past Medical/Surgical History -: BPD, PTSD, seizure disorder -: Hypertension -: Hyperlipidemia -: Splenectomy Psychosocial/ Personal History: Patient lives at home with her mother - Social History Smoking Status: Unknown if ever smoked Alcohol use: No CD- Drugs: No Caffeine use: Yes Place of Residence: Home Review of Systems 10-point ROS is otherwise unremarkable Musculoskeletal: Leg Pain (left thigh (wound)) Integumentary: Other (left thigh dog bite wound) Physical Examination Temp Pulse Resp BP Pulse Ox 97.4 F 82 16 118/72 98 11/22/22 12:00 11/22/22 12:00 11/22/22 12:00 11/22/22 12:00 11/22/22 12:00 General: Alert, In no apparent distress, Oriented x3 HEENT: Atraumatic, Normocephalic Neck: Supple, JVD not distended Respiratory: Clear to auscultation bilaterally, Normal air movement, Other (on room air. nonlabored respirations) Cardiovascular: No edema Gastrointestinal: Normal bowel sounds, Soft and benign Musculoskeletal: No clubbing Integumentary: Other (dog bite to left distal thigh) Neurological: Normal speech, Normal tone, Normal affect Laboratory Data - Reviewed Imagings Data: - reviewed Conclusions/Impression: Problem LIst Dog Bite wound infection with abscess, left thigh Bipolar Disorder Seizure Disorder Hypertension Dog bite wound infection with abscess, Left Thigh - Dog bite occurred 2-3 weeks ago. It is reported that she was on Augmentin and Doxycycline without improvement. - Ultrasound left thigh 11/22: "Echogenic tissue subcutaneous tissues noted with multiple small hypoechoic collections. This is likely related to infection and inflammation. There is likely subcutaneous abscess present which is small in size and the elongated. " - On Unasyn (11/22-) - general surgery consulted - Pending I&D of abscess Recommendations - Continue Unasyn for now - I&D scheduled for tomorrow 11/23. Obtain wound/abscess culture Case discussed with Carlo Collier
--- NOTE | 2022-11-22 18:28 | EKG ---
Test Date: 2022-11-21 Test Time: 16:34:[address] Worker: SCOTT MEASUREMENT RESULTS: Intervals: Rate: 83 MI: 176 QRSD: 80 QT: 344 QTc: 404 [place]: P: 49 MI: 176 QRS: 52 T: 34 INTERPRETIVE STATEMENTS: Normal sinus rhythm Normal ECG Compared to ECG 10/03/2022 01:02:31 ST (T wave) deviation no longer present Electronically Signed On 11-22-22 18:25:40 CDT by Hadley Rowe
--- NOTE | 2022-11-22 18:49 | P.PN ---
Subjective Date of Service: 11/22/22 Chief Complaint: Infected dog bite No acute events overnight. She reports mild pain near her dog bite, which occurred on 10/24/2022. She states that she took amoxicillin for 1 week and, since then, her wound has gradually been worsening. She denies any fevers, chills, chest pain, or shortness of breath. Review of Systems 10-point ROS is otherwise unremarkable Musculoskeletal: Leg Pain (left thigh) Integumentary: Other (dog bite to medial left thigh) Physical Examination - Vital Signs Temperature: 97.2 F Blood Pressure: 121/82 Pulse: 71 Respirations: 16 Pulse Ox (%): 100 - Physical Exam General: Alert, In no apparent distress, Oriented x3 HEENT: Atraumatic, Mucous membr. moist/pink, Sclerae nonicteric Neck: JVD not distended Respiratory: Clear to auscultation bilaterally, Normal air movement Cardiovascular: No edema, Regular rate/rhythm, Normal S1 S2, No gallops, No rubs, No murmurs Gastrointestinal: Normal bowel sounds, Soft and benign, Non-distended, No tenderness, No rebound, No guarding Musculoskeletal: No clubbing Integumentary: No rashes, Other (small dog bite wound to distal medial left thigh. Wound has some redness and a small amount of purulence.) Neurological: Normal speech, Normal affect - Studies Microbiology Data (last 24 hrs): 11/21/22 19:40 Wound - Left Thigh Gram Stain - Final Assessment And Plan - Plan # Sepsis likely secondary to an Infected Left Thigh Dog Bite with Purulent Cellulitis She met SIRS criteria based on HR > 90 bpm, RR > 20 breaths/min, and WBC > 12,000, and the suspected source is a soft tissue infection. - Left thigh ultrasound = "echogenic tissue subcutaneous tissues noted with multiple small hypoechoic collections. This is likely related to infection and inflammation. There is likely subcutaneous abscess present which is small in size and the elongated." - General Surgery consulted and spoke with Dr. Mendes - recommendations appreciated - Plan for I&D tomorrow - Infectious Diseases consulted and spoke with SMOOTH Chung - recommendations appreciated - Wound culture = gram positive cocci in pairs and chains - Sepsis order set was initiated - Initial Lactate was 2.0 - Blood cultures drawn before antibiotics were given - Broad spectrum antibiotics started: Ampicillin-Sulbactam - In regards to fluids: - 30 mL/kg of IV fluids was not administered given SBP > 90, MAP > 65, lactic acid < 4 # Substance Use Disorder - Methampthetamines - Substance cessation counseling provided # Bipolar Disorder # Post-Traumatic Stress Disorder # Seizure Disorder # Hypertension # Hyperlipidemia - Reconcile home medications once verified Harjinder Resendiz M.D.
[2022-11-23] MEDS: AMPICILLIN/SULBACT 3 GM in NA CHLORIDE 0.9% 100 ML IVPB SCH ×4 (01:00→17:25)
[2022-11-23] MEDS ORDERED: TRAMADOL HCL 50 MG TAB PO PRN (02:56)
[2022-11-23] MEDS: NA CHLORIDE 0.9% 1,000 ML IV SCH ×3 (03:19→17:30)
[2022-11-23 05:05] LABS: Absolute Lymphocytes (CBC) 3.2 K/uL (0.7-4.9); Hematocrit 35.6 % (36.0-45.0); Lymphocytes % 27.8 % (15.3-44.8); MCV 88.6 fL (80-100); MPV 8.2 fL (7.6-11.3); Platelets 424 thou/uL (152-406); RBC Red Blood Cell Count 4.02 M/uL (3.86-4.86)
[2022-11-23 05:16] LABS: Potassium 3.8 mEq/L (3.5-5.1)
--- NOTE | 2022-11-23 08:04 | P.PN ---
Date of Service: 11/23/22 Chief Complaint: Infected dog bite Subjective: Patient seen and examined at bedside. + left leg pain where dog bite wound is located. No acute events reported overnight. Physical Examination Temp Pulse Resp BP Pulse Ox 98.5 F 82 17 102/58 L 95 11/23/22 03:47 11/23/22 03:47 11/23/22 03:47 11/23/22 03:47 11/23/22 03:47 General: Alert, In no apparent distress, Oriented x3 HEENT: Atraumatic, Normocephalic Neck: Supple, JVD not distended Respiratory: Clear to auscultation bilaterally, Normal air movement. On room air. Cardiovascular: No edema Gastrointestinal: Normal bowel sounds, Soft and benign Musculoskeletal: No clubbing Integumentary: Dog bite to left distal thigh Neurological: Normal speech, Normal tone, Normal affect Laboratory Data - Reviewed Microbiology Data - Reviewed Imagings Data: - Reviewed Medications List: reviewed Assessment and Plan Problem LIst Dog Bite wound infection with abscess, left thigh Bipolar Disorder Seizure Disorder Hypertension Infected Dog bite wound with abscess, Left Thigh - Dog bite occurred 2-3 weeks ago. It is reported that she was on Augmentin and Doxycycline without improvement. - Ultrasound left thigh 11/22: "Echogenic tissue subcutaneous tissues noted with multiple small hypoechoic collections. This is likely related to infection and inflammation. There is likely subcutaneous abscess present which is small in size and the elongated. " - On Unasyn (11/22-) - general surgery consulted - Pending I&D of abscess Recommendations Plan for I&D of abscess today. Recommend antibiotic therapy for 7 days (started 11/22) . Currently on Unasyn, continue for now. Consider switch to Augmentin PO depending on culture reports. - Follow up with wound/abscess culture and adjust antibiotic as needed Case discussed with Carlo Collier
[2022-11-23] MEDS: levETIRAcetam 500 MG TAB PO SCH ×2 (08:14→20:39)
[2022-11-23] MEDS: ATORVASTATIN 20 MG TAB PO SCH (08:16)
[2022-11-23] MEDS: FLUOXETINE 10 MG CAP PO SCH (08:16)
[2022-11-23] MEDS ORDERED: POTASSIUM 25 MEQ EFFERV TAB PO ONE (09:00)
[2022-11-23] MEDS ORDERED: Ringers Lactate 1,000 ML IV ONE (12:23)
[2022-11-23] MEDS ORDERED: BUPIVACAINE 0.25% PF 10 ML VIAL ONE (13:01)
[2022-11-23] MEDS ORDERED: propofoL 200 MG/20 ML VIAL IV ONE (13:31)
[2022-11-23] MEDS ORDERED: LIDOCAINE 2% MPF 5 ML VIAL ONE (13:32)
[2022-11-23] MEDS ORDERED: dexAMETHasone 4 MG/ML VIAL ONE (13:32)
[2022-11-23] MEDS ORDERED: ONDANSETRON 4 MG/2 ML VIAL ONE (13:32)
[2022-11-23] MEDS ORDERED: FENTANYL CITR 100 MCG/2 ML ONE (13:32)
[2022-11-23] MEDS ORDERED: Phenylephrine HCl 10 MG/ML 1 ML VIAL ONE (13:54)
--- NOTE | 2022-11-23 13:56 | P.OP ---
Preoperative diagnosis: LEFT inner thigh dog bite Postoperative diagnosis: LEFT inner thigh dog bite Primary procedure: Debridement of LEFT inner thigh dog bite Anesthesia: GETA + Local Estimated blood loss: <5cc Specimen: Cultures and debridement tissue Findings: ~ 4cm x 5 cm ellipse of tissue into adipose Complications: None Transferred to: Recovery Room Condition: Good
--- NOTE | 2022-11-23 14:24 | OP ---
Date of Procedure: 11/23/2022 Surgeon: Toan Mendes MD, Preoperative Diagnosis: Left inner thigh dog bite. Postoperative Diagnosis: Left inner thigh dog bite. Procedure Performed: Debridement of left inner thigh dog bite. Anesthesia: General endotracheal plus local with 0.25% Marcaine. Estimated Blood Loss: Less than 5 cc. Specimen: Culture sent both aerobic and anaerobic speciation and debridement tissue. Findings: Approximately 4 cm x 5 cm ellipse of tissue down into and through adipose tissue abutting against the muscular compartment, but not involving it. Complications: None. Disposition: The patient was transferred to the recovery room in good condition. Procedure In Detail: After informed consent was obtained, the patient was brought into the operating room, prepped and draped in the usual sterile fashion after adequate anesthesia was achieved. I mad e an elliptical incision around the area of obvious infected dog bite down to subcutaneous tissues us ing a 15 blade and dissected circumferentially down using electrocautery down to include all nonviabl e tissue. Culture sent both aerobic and anaerobic speciation. The specimen was then throu gh the adipose tissue abutting, but not involving the muscular plane and fascial plane. This was sen t off for pathologic examination. Then, I copiously irrigated the area. Hemostasis was easily achie loraine with electrocautery. The wound was then packed with Vashe-soaked Kerlix and sterile dressing keon jim over top. The patient tolerated the procedure well without evidence of complication and transferred to PACU in good condition. All counts were correct at the end of the ca se. TAMAR/EDAL Voice ID: [id number] Report ID: [id number]
[2022-11-23 14:28] VITALS: O2SAT 99
--- NOTE | 2022-11-23 17:25 | P.PN ---
Subjective Date of Service: 11/23/22 Chief Complaint: Infected dog bite No acute events overnight. She reports that her pain is well-controlled. She has been NPO past midnight in anticpation for an I&D later today. She denies any fevers, chills, chest pain, or shortness of breath. Review of Systems 10-point ROS is otherwise unremarkable Musculoskeletal: Leg Pain (left thigh) Physical Examination - Vital Signs Temperature: 98.4 F Blood Pressure: 96/46 Pulse: 86 Respirations: 13 Pulse Ox (%): 96 - Studies Laboratory Data (last 24 hrs) 11/23/22 11/23/22 11/22/22 04:29 04:29 16:42 WBC 11.50 H Hgb 11.8 L Hct 35.6 L Plt Count 424 H Sodium 139 Potassium 3.8 D 4.4 D BUN 13 Creatinine 0.67 Glucose 144 H Microbiology Data (last 24 hrs): 11/21/22 19:40 Wound - Left Thigh Gram Stain - Final Assessment And Plan - Plan - Physical Exam General: Alert, In no apparent distress, Oriented x3 HEENT: Atraumatic, Sclerae nonicteric Respiratory: Clear to auscultation bilaterally, Normal air movement Cardiovascular: No edema, Regular rate/rhythm, No murmurs Gastrointestinal: Normal bowel sounds, Soft, Non-distended, No tenderness Musculoskeletal: No clubbing Integumentary: No rashes, Other (small dog bite wound to distal medial left thigh. Wound has some redness and a small amount of purulence.) Neurological: Normal speech, Normal affect # Sepsis likely secondary to an Infected Left Thigh Dog Bite with Purulent Cellulitis She met SIRS criteria based on HR > 90 bpm, RR > 20 breaths/min, and WBC > 12,000, and the suspected source is a soft tissue infection. - Left thigh ultrasound = "echogenic tissue subcutaneous tissues noted with multiple small hypoechoic collections. This is likely related to infection and inflammation. There is likely subcutaneous abscess present which is small in size and the elongated." - General Surgery consulted and spoke with Dr. Mendes - recommendations appreciated - Plan for I&D today - Infectious Diseases consulted and spoke with FOOD CHECKER Lissarbi - recommendations appreciated - Wound culture = gram positive cocci in pairs and chains - Sepsis order set was initiated - Initial Lactate was 2.0 - Blood cultures drawn before antibiotics were given - Broad spectrum antibiotics started: Ampicillin-Sulbactam - In regards to fluids: - 30 mL/kg of IV fluids was not administered given SBP > 90, MAP > 65, lactic acid < 4 # Substance Use Disorder - Methampthetamines - Substance cessation counseling provided # Bipolar Disorder # Post-Traumatic Stress Disorder # Seizure Disorder # Hypertension # Hyperlipidemia - Reconcile home medications once verified Harjinder Resendiz M.D.
[2022-11-24] MEDS: AMPICILLIN/SULBACT 3 GM in NA CHLORIDE 0.9% 100 ML IVPB SCH ×2 (00:52→08:01)
[2022-11-24] MEDS: NA CHLORIDE 0.9% 1,000 ML IV SCH (00:52)
[2022-11-24 04:46] VITALS: BP 101/66; TEMP 97.2
[2022-11-24] MEDS: FLUOXETINE 10 MG CAP PO SCH (08:00)
[2022-11-24] MEDS: ATORVASTATIN 20 MG TAB PO SCH (08:01)
[2022-11-24] MEDS: levETIRAcetam 500 MG TAB PO SCH (08:02)
[2022-11-24 08:12] LABS: Potassium 4.3 mEq/L (3.5-5.1)
--- NOTE | 2022-11-24 09:25 | P.PN ---
Date of Service: 11/24/22 Chief Complaint: Infected dog bite Subjective: s/p I&D yesterday 11/23. Tolerated procedure well. Patient sitting up in bed, breathing comfortably on room air. Denies any new or worsening complaints. Physical Examination Temp Pulse Resp BP Pulse Ox 97.2 F 80 18 101/66 96 11/24/22 08:00 11/24/22 08:00 11/24/22 08:00 11/24/22 08:00 11/24/22 08:00 General: Alert, In no apparent distress, Oriented x3 HEENT: Atraumatic, Normocephalic Neck: Supple, JVD not distended Respiratory: Clear to auscultation bilaterally, Normal air movement. On room air. Cardiovascular: No edema Gastrointestinal: Normal bowel sounds, Soft and benign Musculoskeletal: No clubbing Integumentary: Dog bite to left distal thigh Neurological: Normal speech, Normal tone, Normal affect Laboratory Data - Reviewed Microbiology Data - Reviewed Imagings Data: - Reviewed Medications List: reviewed Assessment and Plan Problem LIst Dog Bite wound infection with abscess, left thigh Bipolar Disorder Seizure Disorder Hypertension Infected Dog bite wound with abscess, Left Thigh - Dog bite occurred 2-3 weeks ago. It is reported that she was on Augmentin and Doxycycline without improvement. - Ultrasound left thigh 11/22: "Echogenic tissue subcutaneous tissues noted with multiple small hypoechoic collections. This is likely related to infection and inflammation. There is likely subcutaneous abscess present which is small in size and the elongated. " - general surgery consulted - s/p I&D of left thigh abscess 11/23. - On Unasyn (11/22-) - Wound culture 11/21: Staphyloccocus aureus (MRSA) - Blood cultures 11/21: No growth to date Afebrile. leukocytosis improving. Recommendations Wound culture + MRSA, sensitive to Bactrim and Vancomycin. Start on Bactrim PO. Discontinue Unasyn. Continue wound care per surgery team. Case discussed with Carlo Collier
[2022-11-24] MEDS ORDERED: SMZ./TMP. 800/160 MG TABLET PO SCH (11:00)
--- NOTE | 2022-11-24 12:19 | P.DS ---
Admission Date: 11/23/22 Discharge Date: 11/24/22 Disposition: ROUTINE DISCHARGE Discharge Condition: GOOD Reason for Admission: Infected dog bite Consultations: 1. Infectious Diseases 2. General Surgery Procedures: - 11/23/2022 - Incision, Drainage, and Debridement of Left Thigh Wound Hospital Course: DIAGNOSES: # Sepsis likely secondary to an Infected Left Thigh Dog Bite with Purulent Methicillin-Resistant Staphylococcus Aureus Cellulitis # Substance Use Disorder - Methampthetamines # Bipolar Disorder # Post-Traumatic Stress Disorder # Seizure Disorder # Hypertension # Hyperlipidemia HOSPITAL COURSE: Ms. Cindy Ackerman is a 47 year old female with a past medical history significant for substance use disorder (methamphetamine), bipolar disorder, post-traumatic stress disorder, seizure disorder, hypertension, and hyperlipidemia who was admitted to the [facility] on 11/21/2022 for an infected dog bite. She was admitted to the Medicine service. Upon further evaluation, her left thigh ultrasound revealed, "echogenic tissue subcutaneous tissues noted with multiple small hypoechoic collections. This is likely related to infection and inflammation. There is likely subcutaneous abscess present which is small in size and the elongated." General Surgery and Infectious Diseases were consulted and she was evaluated by Dr. Mendes and Dr. Cole, respectively. On 11/23/2022, she underwent an incision and drainage with debridement of her left thigh wound. She was monitored on IV antibiotics and, over the course of her hospitalization, her symptoms improved significantly. Her wound culture would return positive of methicillin-resistant Staphylococcus Aureus. This morning, she stated that she felt significantly better and would like to be discharged home. Infectious Diseases has cleared her for discharge with 10 days of sulfamethoxazole-trimethoprim. Dr. Mendes has also cleared her from a surgical standpoint. On 11/24/2022, she was seen on rounds and deemed medically stable for discharge. She was discharged with instructions to schedule follow-up appointments with her PCP and with General Surgery (Dr. Mendes). She was provided a prescription for sulfamethoxazole-trimethoprim. She was given the opportunity to ask questions and reported no further questions. Furthermore, all questions were answered to the best of my ability. A copy of this discharge summary will be sent to the above providers to facilitate continuity of care. Today, I personally spent 25 minutes on her case, of which greater than 50% of the time was spent in patient education, counseling, and coordination of care as described above. - Physical Exam General: Alert, In no apparent distress, Oriented x3 HEENT: Atraumatic, Sclerae nonicteric Respiratory: Clear to auscultation bilaterally, Normal air movement Cardiovascular: No edema, Regular rate/rhythm, No murmurs Gastrointestinal: Normal bowel sounds, Soft, Non-distended, No tenderness Musculoskeletal: No clubbing Integumentary: No rashes, Other (surgical site is covered in clean dressing) Neurological: Normal speech, Normal affect Vital Signs/Physical Exam: Temp Pulse Resp BP Pulse Ox 97.2 F 80 18 101/66 96 11/24/22 08:00 11/24/22 08:00 11/24/22 08:00 11/24/22 08:00 11/24/22 08:00 Laboratory Data at Discharge: WBC 11.50 thou/uL (4.3-10.9) H 11/23/22 04:29 Hgb 11.8 g/dL (12.0-15.0) L 11/23/22 04:29 Hct 35.6 % (36.0-45.0) L 11/23/22 04:29 Plt Count 424 thou/uL (152-406) H 11/23/22 04:29 PT 10.5 SECONDS (9.5-12.5) 11/21/22 17:00 INR 0.95 11/21/22 17:00 APTT 31.1 SECONDS (24.3-36.9) 11/21/22 17:00 Sodium 139 mEq/L (136-145) 11/24/22 07:40 Potassium 4.3 mEq/L (3.5-5.1) D 11/24/22 07:40 BUN 10 mg/dL (7-18) 11/24/22 07:40 Creatinine 0.75 mg/dL (0.55-1.02) 11/24/22 07:40 Glucose 133 mg/dL (74-106) H 11/24/22 07:40 Total Bilirubin 0.2 mg/dL (0.2-1.0) 11/21/22 17:00 AST 19 U/L (15-37) 11/21/22 17:00 ALT 25 U/L (13-56) 11/21/22 17:00 Alkaline Phosphatase 108 U/L (45-117) 11/21/22 17:00 Home Medications: Atorvastatin Calcium 1 tab PO DAILY 11/22/22 Fluoxetine HCl [Prozac*] 10 mg PO DAILY 11/22/22 Levetiracetam [Keppra] 1,000 mg PO BID 11/22/22 Tramadol HCl [Ultram] 50 mg PO Q8H PRN 11/22/22 Smz./Tmp. [Bactrim Ds 800 MG/160 MG*] 1 tab PO BID 10 Days #20 tab 11/24/22 New Medications: Smz./Tmp. [Bactrim Ds 800 MG/160 MG*] 1 tab PO BID 10 Days #20 tab Physician Discharge Instructions: 1. Please call and schedule a follow-up appointment with your PCP in 3-5 days - Please have your PCP repeat your kidney function and potassium levels at this appointment as the antibiotic can cause these tests to become abnormal - Your bloodwork showed mild anemia. Please discuss further evaluation, including a colonoscopy, with your PCP 2. Please call and schedule a follow-up appointment with General Surgery (Dr. Mendes) in 3-5 days Diet: Regular Activity: Ad german Followup: NONE,NONE [Primary Care Provider] - Toan Mendes MD [ACTIVE - CAN ADMIT] - Time spent managing pt's care (in minutes): 25
== END 2022-11-24 15:46 | disposition home or self-care (01) | DRG 854 ==
LOC: ER 16:13 → INTOOBSV 19:45 → ERHOLD 19:45 → 4TH 11-22 15:20 → OBSVTOIN 11-23 16:22
PROVIDERS: ADMIT Internal Medicine; ATTEND Internal Medicine
PROC: 3E043XZ Introduction of Vasopressor into Central Vein, Percutaneous Approach (ICD-10-PCS; 2022-11-23)
PROC: 0JBM0ZZ Excision of Left Upper Leg Subcutaneous Tissue and Fascia, Open Approach (ICD-10-PCS; principal; 2022-11-23 14:45)
DX: A41.02 Sepsis due to Methicillin resistant Staphylococcus aureus (principal); F15.20 Other stimulant dependence, uncomplicated; L03.116 Cellulitis of left lower limb; E78.5 Hyperlipidemia, unspecified; I10 Essential (primary) hypertension; F31.9 Bipolar disorder, unspecified; F43.10 Post-traumatic stress disorder, unspecified; E78.00 Pure hypercholesterolemia, unspecified; J45.909 Unspecified asthma, uncomplicated; G40.909 Epilepsy, unspecified, not intractable, without status epilepticus; S71.102A Unspecified open wound, left thigh, initial encounter; Z88.8 Allergy status to other drugs, medicaments and biological substances; Z90.81 Acquired absence of spleen; W54.0XXA Bitten by dog, initial encounter
CPT/HCPCS: 36415; 76881; 76882; 80048; 80053; 80307; 81003; 81015; 81025; 83605; 84132; 85025; 85610; 85730; 87040; 87070; 87075; 87077; 87186; 87205; 88304; 93005; 96365; 99285; G0378; J0295; J1100; J2001; J2371; J2405; J2704; J3010; J7030; J7120